=== PATIENT | male | born 1980 | race Caucasian/White ===

== ENCOUNTER 2022-11-04 10:29 | Outpatient (OUT) | payer OTHER, SELFPAY ==
--- NOTE | 2022-11-04 10:55 | XR_ITS ---
The [address] [address] Patient Name: BESSY DIXON MRN: [id number] date: 1980 Sex: M Assigned Patient Location: LAB Current Patient Location: LAB Accession/Order Number: [id number] Exam Date: 11/04/2022 11:00 Report Date: 11/04/2022 15:56 At the request of: ROMY CORONADO Procedure: XR abdomen 1V EXAMINATION: XR abdomen 1V HISTORY: Left flank pain R10.9 COMPARISON: CT abdomen pelvis 12/18/2021, XR KUB 09/20/2020 FINDINGS: KIDNEY/URETER - RIGHT: No visible renal or ureteral calcifications. KIDNEY/URETER - LEFT: No visible renal or ureteral calcifications. PELVIS: No visible ureteral stones. Stable left pelvic calcification compatible with phleboliths. BOWEL: No abnormal dilation or deviation. BONES: No acute abnormality. OTHER: Negative. No abnormal gaseous collections. IMPRESSION: 1. No visible urinary tract calculi. 2. Evaluation of kidneys is limited by dense overlying bowel content. Electronically authenticated by: VENKATA GRIMALDO Date: 11/04/2022 15:56
[2022-11-04 11:05] LABS: Bilirubin Urine NEGATIVE (NEGATIVE); Blood Urine TRACE-I (NEGATIVE); Clarity Urine CLEAR (CLEAR); Color Urine YELLOW (YELLOW); Glucose Urine UA NEGATIVE (NEGATIVE); Ketones Urine NEGATIVE (NEGATIVE); Leukocyte Esterase Urine NEGATIVE (NEGATIVE); Nitrite Urine NEGATIVE (NEGATIVE); Protein Urine NEGATIVE (NEG/TRACE); Specific Gravity Urine 1.015 (1.005-1.025); pH Urine 6.5 (5.0-9.0)
== END 2022-11-04 10:30 | disposition home or self-care (01) ==
PROVIDERS: PCP Family Medicine; Visit Provider Family Medicine
DX: R10.9 Unspecified abdominal pain (principal)
CPT/HCPCS: 74018; 81003; 87086

== ENCOUNTER 2022-11-26 15:20 | Outpatient (OUT) | payer SELFPAY ==
[2022-11-26 15:59] LABS: Amphetamine Screen Urine NEGATIVE (NEGATIVE); Barbiturates Screen Urine NEGATIVE (NEGATIVE); Benzodiazepines Screen Urine NEGATIVE (NEGATIVE); Buprenorphine Screen Urine POSITIVE (NEGATIVE); Cannabinoid Screen Urine NEGATIVE (NEGATIVE); Cocaine Screen Urine NEGATIVE (NEGATIVE); Methadone Screen Urine NEGATIVE (NEGATIVE); Methamphetamines Screen Urine NEGATIVE (NEGATIVE); Opiate Screen Urine NEGATIVE (NEGATIVE); Oxycodone Screen Urine NEGATIVE (NEGATIVE); Phencyclidine Screen Urine NEGATIVE (NEGATIVE); Tricyclic Antidepressant Urine NEGATIVE (NEGATIVE)
[2022-11-27 08:11] LABS: Uric Acid, Urine 30.8 mg/dL (Not Estab.)
[2022-12-03 13:08] LABS: Summary Report (Summary) FINAL (.)
== END 2022-11-26 15:21 | disposition home or self-care (01) ==
LOC: LAB 15:22
PROVIDERS: PCP Family Medicine; Visit Provider Family Medicine
DX: F11.10 Opioid abuse, uncomplicated (principal)
CPT/HCPCS: 80307; 80326; 80331; 80334; 80337; 80338; 80341; 80344; 80346; 80348; 80353; 80354; 80355; 80357; 80358; 80359; 80360; 80361; 80364; 80365; 80366; 80367; 80368; 80370; 80371; 80372; 80373; 80377; 82570; 83992; 84560

== ENCOUNTER 2022-12-17 10:12 | Outpatient (OUT) | payer OTHER, SELFPAY ==
[2022-12-17 10:40] LABS: Amphetamine Screen Urine NEGATIVE (NEGATIVE); Barbiturates Screen Urine NEGATIVE (NEGATIVE); Benzodiazepines Screen Urine NEGATIVE (NEGATIVE); Buprenorphine Screen Urine POSITIVE (NEGATIVE); Cannabinoid Screen Urine NEGATIVE (NEGATIVE); Cocaine Screen Urine NEGATIVE (NEGATIVE); Methadone Screen Urine NEGATIVE (NEGATIVE); Methamphetamines Screen Urine NEGATIVE (NEGATIVE); Opiate Screen Urine NEGATIVE (NEGATIVE); Oxycodone Screen Urine NEGATIVE (NEGATIVE); Phencyclidine Screen Urine NEGATIVE (NEGATIVE); Tricyclic Antidepressant Urine NEGATIVE (NEGATIVE)
[2022-12-18 04:07] LABS: Uric Acid, Urine 53.2 mg/dL (Not Estab.)
[2023-01-19 12:27] LABS: Summary Report (Summary) FINAL (.)
== END 2022-12-17 10:13 | disposition home or self-care (01) ==
LOC: LAB 10:12
PROVIDERS: PCP Family Medicine; Visit Provider Family Medicine
DX: F11.10 Opioid abuse, uncomplicated (principal)
CPT/HCPCS: 80307; 80326; 80331; 80334; 80337; 80338; 80341; 80344; 80346; 80348; 80353; 80354; 80355; 80357; 80358; 80359; 80360; 80361; 80364; 80365; 80366; 80367; 80368; 80370; 80371; 80372; 80373; 80377; 82570; 83992; 84560

== ENCOUNTER 2022-12-18 14:43 | Outpatient (OUT) | payer OTHER, SELFPAY ==
--- NOTE | 2022-12-18 14:45 | US_ITS ---
The [address] [address] Patient Name: BESSY DIXON MRN: [id number] date: 1980 Sex: M Assigned Patient Location: Current Patient Location: Accession/Order Number: [id number] Exam Date: 12/18/2022 14:46 Report Date: 12/19/2022 07:22 At the request of: ROMY CORONADO Procedure: US abdomen complete EXAM: Abdominal ultrasound complete CLINICAL INDICATION: Generalized abdominal pain R10.84. TECHNIQUE: Grayscale and color Doppler imaging was performed of the abdominal organs. FINDINGS: Liver: Normal hepatic echotexture. No hepatomegaly. No abnormal hepatic masses. Portal and hepatic veins are grossly patent. Gallbladder: Cholecystectomy. Biliary: No intrahepatic biliary ductal dilation. Common bile duct measures 6 mm. Kidneys: No hydronephrosis. No renal masses. Right kidney measures 10.6 cm length. Left kidney measures 10.5 cm length. Bilateral echogenic foci along the calyces that likely represent nonobstructing stones, largest of these on the right measures 5 mm and the largest of these on the left measures 6 mm. Spleen: No splenomegaly. No splenic masses. Pancreas: Poorly visualized due to overlying bowel gas. Aorta/IVC: Patent and normal caliber where visualized. No ascites. US/US abdomen complete IMPRESSION: 1. No acute sonographic abnormalities in the abdomen. 2. Bilateral nephrolithiasis. Electronically authenticated by: NEHA DIAZ Date: 12/19/2022 07:22
== END 2022-12-18 14:44 | disposition home or self-care (01) ==
LOC: US 14:43
PROVIDERS: PCP Family Medicine; Visit Provider Family Medicine
DX: R10.84 Generalized abdominal pain (principal); N20.0 Calculus of kidney
CPT/HCPCS: 76700

== ENCOUNTER 2023-01-14 09:34 | Outpatient (OUT) | payer OTHER, SELFPAY ==
[2023-01-14 13:39] LABS: Amphetamine Screen Urine NEGATIVE (NEGATIVE); Benzodiazepines Screen Urine NEGATIVE (NEGATIVE); Cannabinoid Screen Urine NEGATIVE (NEGATIVE); Cocaine Screen Urine NEGATIVE (NEGATIVE); Methamphetamines Screen Urine NEGATIVE (NEGATIVE); Opiate Screen Urine NEGATIVE (NEGATIVE); Phencyclidine Screen Urine NEGATIVE (NEGATIVE); Tricyclic Antidepressant Urine NEGATIVE (NEGATIVE)
[2023-01-14 13:40] LABS: Barbiturates Screen Urine NEGATIVE (NEGATIVE); Buprenorphine Screen Urine POSITIVE (NEGATIVE); Methadone Screen Urine NEGATIVE (NEGATIVE); Oxycodone Screen Urine NEGATIVE (NEGATIVE)
[2023-01-15 08:15] LABS: Uric Acid, Urine 26.9 mg/dL (Not Estab.)
[2023-01-23 16:08] LABS: Summary Report (Summary) FINAL (.)
== END 2023-01-14 09:35 | disposition home or self-care (01) ==
LOC: LAB 09:34
PROVIDERS: PCP Family Medicine; Visit Provider Family Medicine
DX: F11.10 Opioid abuse, uncomplicated (principal)
CPT/HCPCS: 80307; 80326; 80331; 80334; 80337; 80338; 80341; 80344; 80346; 80348; 80353; 80354; 80355; 80357; 80358; 80359; 80360; 80361; 80364; 80365; 80366; 80367; 80368; 80370; 80371; 80372; 80373; 80377; 82570; 83992; 84560

== ENCOUNTER 2023-02-07 13:19 | Outpatient (OUT) | payer OTHER, SELFPAY ==
[2023-02-07 14:36] LABS: Amphetamine Screen Urine NEGATIVE (NEGATIVE); Barbiturates Screen Urine NEGATIVE (NEGATIVE); Benzodiazepines Screen Urine NEGATIVE (NEGATIVE); Buprenorphine Screen Urine POSITIVE (NEGATIVE); Cannabinoid Screen Urine NEGATIVE (NEGATIVE); Cocaine Screen Urine NEGATIVE (NEGATIVE); Methadone Screen Urine NEGATIVE (NEGATIVE); Methamphetamines Screen Urine NEGATIVE (NEGATIVE); Opiate Screen Urine NEGATIVE (NEGATIVE); Oxycodone Screen Urine NEGATIVE (NEGATIVE); Phencyclidine Screen Urine NEGATIVE (NEGATIVE); Tricyclic Antidepressant Urine NEGATIVE (NEGATIVE)
[2023-02-13 10:11] LABS: Summary Report (Summary) FINAL (.)
== END 2023-02-07 13:20 | disposition home or self-care (01) ==
LOC: LAB 13:20
PROVIDERS: PCP Family Medicine; Visit Provider Family Medicine
DX: F11.10 Opioid abuse, uncomplicated (principal)
CPT/HCPCS: 80307; 80326; 80331; 80334; 80337; 80338; 80341; 80344; 80346; 80348; 80353; 80354; 80355; 80357; 80358; 80359; 80360; 80361; 80364; 80365; 80366; 80367; 80368; 80370; 80371; 80372; 80373; 80377; 82570; 83992

== ENCOUNTER 2023-03-02 10:53 | Outpatient (OUT) | payer OTHER, SELFPAY ==
[2023-03-02 11:25] LABS: Amphetamine Screen Urine NEGATIVE (NEGATIVE); Barbiturates Screen Urine NEGATIVE (NEGATIVE); Benzodiazepines Screen Urine NEGATIVE (NEGATIVE); Buprenorphine Screen Urine POSITIVE (NEGATIVE); Cannabinoid Screen Urine NEGATIVE (NEGATIVE); Cocaine Screen Urine NEGATIVE (NEGATIVE); Methadone Screen Urine NEGATIVE (NEGATIVE); Methamphetamines Screen Urine NEGATIVE (NEGATIVE); Opiate Screen Urine NEGATIVE (NEGATIVE); Oxycodone Screen Urine NEGATIVE (NEGATIVE); Phencyclidine Screen Urine NEGATIVE (NEGATIVE); Tricyclic Antidepressant Urine NEGATIVE (NEGATIVE)
[2023-03-09 12:10] LABS: Summary Report (Summary) FINAL (.)
== END 2023-03-02 10:54 | disposition home or self-care (01) ==
LOC: LAB 10:53
PROVIDERS: PCP Family Medicine; Visit Provider Family Medicine
DX: F11.10 Opioid abuse, uncomplicated (principal)
CPT/HCPCS: 80307; 80326; 80331; 80334; 80337; 80338; 80341; 80344; 80346; 80348; 80353; 80354; 80355; 80357; 80358; 80359; 80360; 80361; 80364; 80365; 80366; 80367; 80368; 80370; 80371; 80372; 80373; 80377; 82570; 83992

== ENCOUNTER 2023-04-22 12:17 | Outpatient (OUT) | payer OTHER, SELFPAY ==
[2023-04-22 13:38] LABS: Amphetamine Screen Urine NEGATIVE (NEGATIVE); Barbiturates Screen Urine NEGATIVE (NEGATIVE); Benzodiazepines Screen Urine NEGATIVE (NEGATIVE); Buprenorphine Screen Urine POSITIVE (NEGATIVE); Cannabinoid Screen Urine NEGATIVE (NEGATIVE); Cocaine Screen Urine NEGATIVE (NEGATIVE); Methadone Screen Urine NEGATIVE (NEGATIVE); Methamphetamines Screen Urine NEGATIVE (NEGATIVE); Opiate Screen Urine NEGATIVE (NEGATIVE); Oxycodone Screen Urine NEGATIVE (NEGATIVE); Phencyclidine Screen Urine NEGATIVE (NEGATIVE); Tricyclic Antidepressant Urine NEGATIVE (NEGATIVE)
[2023-04-30 16:08] LABS: Summary Report (Summary) FINAL (.)
== END 2023-04-22 12:18 | disposition home or self-care (01) ==
LOC: LAB 12:18
PROVIDERS: PCP Family Medicine; Visit Provider Family Medicine
DX: F11.10 Opioid abuse, uncomplicated (principal)
CPT/HCPCS: 80307; 80326; 80331; 80334; 80337; 80338; 80341; 80344; 80346; 80348; 80353; 80354; 80355; 80357; 80358; 80359; 80360; 80361; 80364; 80365; 80366; 80367; 80368; 80370; 80371; 80372; 80373; 80377; 82570; 83992

== ENCOUNTER 2023-05-18 10:52 | Outpatient (OUT) | payer OTHER, SELFPAY ==
--- OUTSIDE RECORDS SUMMARY | 2023-05-18 10:57 | XMS_ITS | CCD ---
Author Name Unknown Address [address] [place] [address] Organization [facility] Care Team Providers Care Saas Architect Name Role Phone SHANTI HELLER Attending Unavailable HoyRomy Primary Care Unavailable HOY, ROMY LOPEZ Consulting Unavailable HOY ., DR STANTON Attending Unavailable HOY ., DR STANTON Admitting Unavailable HOY ., DR STANTON Primary Care Unavailable HOY ., DR STANTON Consulting Unavailable HOY ., DR STANTON Attending Unavailable HOY ., DR STANTON Admgerry Unavailable HOY ., DR STANTON Primary Care Unavailable HOY ., DR STANTON Consulting Unavailable HOY ., DR STANTON Consulting Unavailable HOY ., DR STANTON Admgerry Unavailable HOY ., DR STANTON Attending Unavailable HOY ., DR STANTON Primary Care Unavailable HOY ., DR STANTON Admitting Unavailable HOY ., DR STANTON Attending Unavailable HOY ., DR STANTON Primary Care Unavailable HOY ., DR STANTON Consulting Unavailable HOY ., DR STANTON Attending Unavailable HOY ., DR STANTON Admgerry Unavailable HOY ., DR STANTON Primary Care Unavailable HOY ., DR STANTON Admitting Unavailable HOY ., DR STANTON Attending Unavailable HOY ., DR STANTON Primary Care Unavailable HOY ., DR STANTON Consulting Unavailable ZIEBER, DR VENKATA House Consulting Unavailable HOY ., DR STANTON Admgerry Unavailable HOY ., DR STANTON Attending Unavailable HOY ., DR STANTON Primary Care Unavailable HOY ., DR STANTON Consulting Unavailable HOY ., DR STANTON Admitting Unavailable HOY ., DR STANTON Attending Unavailable HOY ., DR STANTON Primary Care Unavailable HOY ., DR STANTON Consulting Unavailable HOY ., DR STANTON Admgerry Unavailable HOY ., DR STANTON Attending Unavailable HOY ., DR STANTON Consulting Unavailable HOY ., DR STANTON Primary Care Unavailable HOY ., DR ROMY Admitting Unavailable HOY ., DR STANTON Primary Care Unavailable HOY ., DR STANTON Attending Unavailable HOY ., DR STANTON Consulting Unavailable HOY ., DR STANTON Attending Unavailable HOY ., DR STANTON Admitting Unavailable HOY ., DR STANTON Primary Care Unavailable HOY ., DR STANTON Consulting Unavailable HOY ., DR STANTON Attending Unavailable HOY ., DR STANTON Admitting Unavailable HOY ., DR STANTON Primary Care Unavailable HOY ., DR STANTON Consulting Unavailable HOY ., DR STANTON Attending Unavailable HOY ., DR STANTON Admitting Unavailable HOY ., DR STANTON Primary Care Unavailable HOY ., DR STANTON Consulting Unavailable Allergies Allergy Classification Reported Allergen(s) Allergy Type Date of Onset Reaction(s) Facility (2 sources) Codeine; Translations: [codeine] Drug Allergy 12-16-2019 [facility] Repository (2 sources) Penicillins Drug allergy (disorder) 12-16-2019 [facility] Repository Problems Active Problems Problem Classification Problem Date Documented Da te Episodic/Chronic Other aftercare (4 sources) Encounter for therapeutic drug level monitoring; [facility]ations[facility] Onset: 07-22-2022 Episodic Substance-related disorders (7 sources) Opioid abuse, uncomplicated; Translations: [Other psychoactive substance abuse, in remission] Onset: 11-05-2021 Chronic Past or Other Problems Problem Classification Problem Date Documented Da te Episodic/Chronic Abdominal pain (1 source) Generalized abdominal pain; Translations: [GENERALIZED ABDOMINAL PAIN] Onset: 12-21-2021 Episodic Intestinal obstruction without hernia (4 sources) Other partial intestinal obstruction; Translations: [OTH PARTIAL INTESTINAL OBSTRUCTION] Onset: 12-18-2021 Episodic Other aftercare (1 source) Other nursing home (current) drug therapy; Translations: [OTH SENIOR BUSINESS MANAGER CURRENT DRUG THERAPY] Onset: 01-31-2022 Episodic Pancreatic disorders (not diabetes) (4 sources) Other acute pancreatitis without necrosis or infection; Translations: [OTH ACUTE PANCREATITIS WO NECRS/INF] Onset: 12-15-2021 Episodic Residual codes; unclassified (1 source) Acquired absence of other specified parts of digestive tract; Translations: [ACQ ABSENCE OTH PART DIGESTV TRACT] Onset: 12-21-2021 Episodic Results Test Name Value Interpretation Reference Range Facil ity RAD - Ultrasound Reporton RAD - Ultrasound Report [id number] 0CD:127 Normal [facility] Physician Referralon 023 Physician Referral [id number] 0CD:127 Normal [facility] Physician Referralon 023 Physician Referral [id number] 0CD:127 Normal [facility] COMPLIANCE DRUG SCREENon PDF . Normal [facility] Comment on above: Performed By: #### U RICBRO #### [facility] [address] [place] [address] Dr. Jose Duffy Summary FINAL Normal [facility] Comment on above: Result Comment: = TOXASSURE COMP DRUG ANALYSIS,UR = Test Result Flag Units Drug Present Buprenorphine 175 ng/mg creat Norbuprenorphine 639 ng/mg creat Source of buprenorphine is a scheduled prescription medication. Norbuprenorphine is an expected metabolite of buprenorphine. Acetaminophen PRESENT Ibuprofen PRESENT Dextrorphan/Levorphanol PRESENT Dextrorphan is an expected metabolite of dextromethorphan, an txkm-owy-qugmukv or prescription cough suppressant. Levorphanol is a scheduled prescription medication. Dextrorphan cannot be distinguished from levorphanol by the method used for analysis. Guaifenesin PRESENT Guaifenesin may be administered as an cqmz-xaa-ezlrdqg or prescription drug; it may also be present as a breakdown product of methocarbamol. = Test Result Flag Units Ref Range Creatinine 111 mg/dL >=20 = Declared Medications: Medication list was not provided. = For clinical consultation, please call . = Performed By: #### U SHEREEN #### [facility] [address] [place] [address] Dr. Jose Duffy URIC ACID RAND URINEon 10-07 Uric Acid, Urine 56.8 mg/dL Normal Not Estab. [facility] Comment on above: Performed By: #### D SDOALC #### [facility] [address] [place] [address] Dr. Jose Duffy DRUG SCREEN RAPID (URINE)on 10-06-2022 AMP Negative Normal NEGATIVE [facility] Comment on above: Performed By: #### U SHEREEN #### [facility] [address] [place] [address] Dr. Jose Duffy BAR Negative Normal NEGATIVE [facility] Comment on above: Performed By: #### U RICBRO #### [facility] [address] [place] [address] Dr. Jose Duffy BUP Positive Abnormal NEGATIVE [facility] Comment on above: Performed By: #### U RICUR #### [facility] [address] [place] [address] Dr. Jose Duffy BZO Negative Normal NEGATIVE [facility] Comment on above: Performed By: #### U RICUR #### [facility] [address] [place] [address] Dr. Jose Duffy RICARDO Negative Normal NEGATIVE [facility] Comment on above: Performed By: #### U RICUR #### [facility] [address] [place] [address] Dr. Jose Duffy CUT-OFFS SEE BELOW Normal [facility] Comment on above: Result Comment: AMP (Amphetamine): 500ng/mL, BAR (Barbituates): 200 ng/mL, BZO (Benzodiazepines): 150 ng/mL, BUP (Buprenorphine): 10 ng/mL, RICARDO (Cocaine): 150 ng/mL, mAMP (Methamphetamine): 500 ng/mL, MTD (Methadone): 200 ng/mL, OPI (Opiates): 100 ng/mL, OXY (Oxycodone): 100 ng/mL, PCP (Phencyclidine): 25 ng/mL, PPX (Propoxyphene): 300 ng/mL, THC (Cannabinoids): 50 ng/mL, TCA (Trycyclic Antidepressants): 300 ng/mL Performed By: #### U RICUR #### [facility] [address] [place] [address] Dr. Jose Duffy DRUG CUT HEADER DRUG CLASS TEST SYST EM CUT-OFF CONCENTRATIONS ARE FOLLOWS: Normal [facility] Comment on above: Performed By: #### U RICUR #### [facility] [address] [place] [address] Dr. Jose Duffy mAMP Positive Abnormal NEGATIVE [facility] Comment on above: Performed By: #### U RICUR #### [facility] [address] [place] [address] Dr. Jose Duffy MTD Negative Normal NEGATIVE [facility] Comment on above: Performed By: #### U RICUR #### [facility] [address] [address] [address] Jose Duffy OPI Negative Normal NEGATIVE [facility] Comment on above: Performed By: #### U RICUR #### [facility] [address] [address] [address] Jose Duffy OXY Negative Normal NEGATIVE [facility] Comment on above: Performed By: #### U RICUR #### [facility] [address] [address] [address] Jose Duffy PCP Negative Normal NEGATIVE [facility] Comment on above: Performed By: #### U RICUR #### [facility] [address] [address] [address] Jose Duffy PPX Negative Normal NEGATIVE [facility] Comment on above: Performed By: #### U RICUR #### [facility] [address] [place] [address] Dr. Jose Duffy TCA Negative Normal NEGATIVE [facility] Comment on above: Performed By: #### U RICUR #### [facility] [address] [address] [address] Jose Duffy THC Negative Normal NEGATIVE [facility] Comment on above: Performed By: #### U RICUR #### [facility] [address] [place] [address] Dr. Jose Duffy COMPLIANCE DRUG SCREENon PDF . [facility] Comment on above: Performed By: #### D SDOALC #### [facility] [address] [place] [address] Dr. Jose Duffy Summary FINAL Normal [facility] Comment on above: Result Comment: = TOXASSURE COMP DRUG ANALYSIS,UR = Test Result Flag Units Drug Present Buprenorphine 234 ng/mg creat Norbuprenorphine 382 ng/mg creat Source of buprenorphine is a scheduled prescription medication. Norbuprenorphine is an expected metabolite of buprenorphine. Acetaminophen PRESENT Salicylate PRESENT = Test Result Flag Units Ref Range Creatinine 161 mg/dL >=20 = Declared Medications: Medication list was not provided. = For clinical consultation, please call . = Performed By: #### D SDOALC #### [facility] [address] [address] [address] Jose Duffy URIC ACID RAND URINEon 08-19 Uric Acid, Urine 21.4 mg/dL Normal Not Estab. [facility] Comment on above: Performed By: #### U RICUR #### [facility] [address] [address] [address] Jose Duffy DRUG SCREEN RAPID (URINE)on 08-18-2022 AMP Negative Normal NEGATIVE [facility] Comment on above: Performed By: #### D SDOALC #### [facility] [address] [place] [address] Dr. Jose Duffy BAR Negative Normal NEGATIVE [facility] Comment on above: Performed By: #### D SDOALC #### [facility] [address] [place] [address] Dr. Jose Duffy BUP Positive Abnormal NEGATIVE [facility] Comment on above: Performed By: #### D SDOALC #### [facility] [address] [place] [address] Dr. Jose Duffy BZO Negative Normal NEGATIVE [facility] Comment on above: Performed By: #### D SDOALC #### [facility] [address] [place] [address] Dr. Jose Duffy RICARDO Negative Normal NEGATIVE [facility] Comment on above: Performed By: #### D SDOALC #### [facility] [address] [place] [address] Dr. Jose Duffy CUT-OFFS SEE BELOW Normal [facility] Comment on above: Result Comment: AMP (Amphetamine): 500ng/mL, BAR (Barbituates): 200 ng/mL, BZO (Benzodiazepines): 150 ng/mL, BUP (Buprenorphine): 10 ng/mL, RICARDO (Cocaine): 150 ng/mL, mAMP (Methamphetamine): 500 ng/mL, MTD (Methadone): 200 ng/mL, OPI (Opiates): 100 ng/mL, OXY (Oxycodone): 100 ng/mL, PCP (Phencyclidine): 25 ng/mL, PPX (Propoxyphene): 300 ng/mL, THC (Cannabinoids): 50 ng/mL, TCA (Trycyclic Antidepressants): 300 ng/mL Performed By: #### D SDOALC #### [facility] [address] [place] [address] Dr. Jose Duffy DRUG CUT HEADER DRUG CLASS TEST SYST EM CUT-OFF CONCENTRATIONS ARE FOLLOWS: Normal [facility] Comment on above: Performed By: #### D SDOALC #### [facility] [address] [address] [address] Jose Duffy mAMP Negative Normal NEGATIVE [facility] Comment on above: Performed By: #### D SDOALC #### [facility] [address] [address] [address] Jose Duffy MTD Negative Normal NEGATIVE [facility] Comment on above: Performed By: #### D SDOALC #### [facility] [address] [address] [address] Jose Duffy OPI Negative Normal NEGATIVE [facility] Comment on above: Performed By: #### D SDOALC #### [facility] [address] [address] [address] Joes Duffy OXY Negative Normal NEGATIVE [facility] Comment on above: Performed By: #### D SDOALC #### [facility] [address] [place] [address] Dr. Jose Duffy PCP Negative Normal NEGATIVE [facility] Comment on above: Performed By: #### D SDOALC #### [facility] [address] [place] [address] Dr. Jose Duffy PPX Negative Normal NEGATIVE [facility] Comment on above: Performed By: #### D SDOALC #### [facility] [address] [address] [address] Jose Duffy TCA Negative Normal NEGATIVE [facility] Comment on above: Performed By: #### D SDOALC #### [facility] [address] [place] [address] Dr. Jose Duffy THC Negative Normal NEGATIVE [facility] Comment on above: Performed By: #### D SDOALC #### [facility] [address] [place] [address] Dr. Jose Duffy COMPLIANCE DRUG SCREENon PDF . Normal [facility] Comment on above: Performed By: #### D RUGRPD #### [facility] [address] [place] [address] Dr. Jose Duffy Summary FINAL Normal [facility] Comment on above: Result Comment: = TOXASSURE COMP DRUG ANALYSIS,UR = Test Result Flag Units Drug Present and Declared for Prescription Verification Buprenorphine 455 EXPECTED ng/mg creat Norbuprenorphine 765 EXPECTED ng/mg creat Source of buprenorphine is a scheduled prescription medication. Norbuprenorphine is an expected metabolite of buprenorphine. Drug Present not Declared for Prescription Verification Acetaminophen PRESENT UNEXPECTED Salicylate PRESENT UNEXPECTED = Test Result Flag Units Ref Range Creatinine 130 mg/dL >=20 = Declared Medications: The flagging and interpretation on this report are based on the following declared medications. Unexpected results may arise from inaccuracies in the declared medications. Note: The testing scope of this panel includes these medications: Buprenorphine. (Suboxone) Note: The testing scope of this panel does not include following reported medications: Naloxone (Suboxone) = For clinical consultation, please call . = Performed By: #### D RUGRPD #### [facility] [address] [place] [address] Dr. Jose Duffy URIC ACID RAND URINEon 07-23 Uric Acid, Urine 21.8 mg/dL Normal Not Estab. [facility] Comment on above: Performed By: #### U RICUR #### [facility] [address] [place] [address] Dr. Jose Duffy DRUG SCREEN RAPID (URINE)on 07-22-2022 AMP Negative Normal NEGATIVE [facility] Comment on above: Performed By: #### U RICUR #### [facility] [address] [place] [address] Dr. Jose Duffy BAR Negative Normal NEGATIVE [facility] Comment on above: Performed By: #### U RICUR #### [facility] [address] [place] [address] Dr. Jose Duffy BUP Positive Abnormal NEGATIVE [facility] Comment on above: Result Comment: Prev iously reported as: NEGATIVE On 07/22/2022 12:02 By [email or web address] Performed By: #### U RICUR #### [facility] [address] [place] [address] Dr. Jose Duffy BZO Negative Normal NEGATIVE [facility] Comment on above: Performed By: #### U RICUR #### [facility] [address] [place] [address] Dr. Jose Duffy RICARDO Negative Normal NEGATIVE [facility] Comment on above: Performed By: #### U RICUR #### [facility] [address] [place] [address] Dr. Jose Duffy CUT-OFFS SEE BELOW Normal [facility] Comment on above: Result Comment: AMP (Amphetamine): 500ng/mL, BAR (Barbituates): 200 ng/mL, BZO (Benzodiazepines): 150 ng/mL, BUP (Buprenorphine): 10 ng/mL, RICARDO (Cocaine): 150 ng/mL, mAMP (Methamphetamine): 500 ng/mL, MTD (Methadone): 200 ng/mL, OPI (Opiates): 100 ng/mL, OXY (Oxycodone): 100 ng/mL, PCP (Phencyclidine): 25 ng/mL, PPX (Propoxyphene): 300 ng/mL, THC (Cannabinoids): 50 ng/mL, TCA (Trycyclic Antidepressants): 300 ng/mL Performed By: #### U RICUR #### [facility] [address] [place] [address] Dr. Jose Duffy DRUG CUT HEADER DRUG CLASS TEST SYST EM CUT-OFF CONCENTRATIONS ARE FOLLOWS: Normal [facility] Comment on above: Performed By: #### U RICUR #### [facility] [address] [place] [address] Dr. Jose Duffy mAMP Negative Normal NEGATIVE [facility] Comment on above: Performed By: #### U RICUR #### [facility] [address] [place] [address] Dr. Jose Duffy MTD Negative Normal NEGATIVE [facility] Comment on above: Performed By: #### U RICUR #### [facility] [address] [place] [address] Dr. Jose Duffy OPI Negative Normal NEGATIVE [facility] Comment on above: Performed By: #### U RICUR #### [facility] [address] [place] [address] Dr. Jose Duffy OXY Negative Normal NEGATIVE [facility] Comment on above: Performed By: #### U RICUR #### [facility] [address] [place] [address] Dr. Jose Duffy PCP Negative Normal NEGATIVE [facility] Comment on above: Performed By: #### U RICUR #### [facility] [address] [place] [address] Dr. Jose Duffy PPX Negative Normal NEGATIVE [facility] Comment on above: Performed By: #### U RICUR #### [facility] [address] [place] [address] Dr. Jose Duffy TCA Negative Normal NEGATIVE [facility] Comment on above: Performed By: #### U RICUR #### [facility] [address] [address] [address] Jose Duffy THC Negative Normal NEGATIVE [facility] Comment on above: Performed By: #### U RICUR #### [facility] [address] [address] [address] Jose Duffy COMPLIANCE DRUG SCREENon PDF . Normal [facility] Comment on above: Performed By: #### D RUGRPD #### [facility] [address] [address] [address] Jose Duffy Summary FINAL Normal [facility] Comment on above: Result Comment: = TOXASSURE COMP DRUG ANALYSIS,UR = Test Result Flag Units Drug Present and Declared for Prescription Verification Buprenorphine 93 EXPECTED ng/mg creat Norbuprenorphine 791 EXPECTED ng/mg creat Source of buprenorphine is a scheduled prescription medication. Norbuprenorphine is an expected metabolite of buprenorphine. Drug Present not Declared for Prescription Verification Acetaminophen PRESENT UNEXPECTED = Test Result Flag Units Ref Range Creatinine 74 mg/dL >=20 = Declared Medications: The flagging and interpretation on this report are based on the following declared medications. Unexpected results may arise from inaccuracies in the declared medications. Note: The testing scope of this panel includes these medications: Buprenorphine. (Suboxone) Note: The testing scope of this panel does not include following reported medications: Naloxone (Suboxone) = For clinical consultation, please call . = Performed By: #### D RUGRPD #### [facility] [address] [place] [address] Dr. Jose Duffy URIC ACID RAND URINEon 06-24 Uric Acid, Urine 33.0 mg/dL Normal Not Estab. [facility] Comment on above: Performed By: #### U RICUR #### [facility] [address] [place] [address] Dr. Jose Duffy DRUG SCREEN RAPID (URINE)on 06-23-2022 AMP Negative Normal NEGATIVE [facility] Comment on above: Performed By: #### D RUGRPD #### [facility] [address] [place] [address] Dr. Jose Duffy BAR Negative Normal NEGATIVE [facility] Comment on above: Performed By: #### D RUGRPD #### [facility] [address] [place] [address] Dr. Jose Duffy BUP Positive Abnormal NEGATIVE [facility] Comment on above: Performed By: #### D RUGRPD #### [facility] [address] [place] [address] Dr. Jose Duffy BZO Negative Normal NEGATIVE [facility] Comment on above: Performed By: #### D RUGRPD #### [facility] [address] [place] [address] Dr. Jose Duffy RICARDO Negative Normal NEGATIVE [facility] Comment on above: Performed By: #### D RUGRPD #### [facility] [address] [place] [address] Dr. Jose Duffy CUT-OFFS SEE BELOW Normal [facility] Comment on above: Result Comment: AMP (Amphetamine): 500ng/mL, BAR (Barbituates): 200 ng/mL, BZO (Benzodiazepines): 150 ng/mL, BUP (Buprenorphine): 10 ng/mL, RICARDO (Cocaine): 150 ng/mL, mAMP (Methamphetamine): 500 ng/mL, MTD (Methadone): 200 ng/mL, OPI (Opiates): 100 ng/mL, OXY (Oxycodone): 100 ng/mL, PCP (Phencyclidine): 25 ng/mL, PPX (Propoxyphene): 300 ng/mL, THC (Cannabinoids): 50 ng/mL, TCA (Trycyclic Antidepressants): 300 ng/mL Performed By: #### D RUGRPD #### [facility] [address] [place] [address] Dr. Jose Duffy DRUG CUT HEADER DRUG CLASS TEST SYST EM CUT-OFF CONCENTRATIONS ARE FOLLOWS: Normal [facility] Comment on above: Performed By: #### D RUGRPD #### [facility] [address] [place] [address] Dr. Jose Duffy mAMP Negative Normal NEGATIVE [facility] Comment on above: Performed By: #### D RUGRPD #### [facility] [address] [place] [address] Dr. Jose Duffy MTD Negative Normal NEGATIVE [facility] Comment on above: Performed By: #### D RUGRPD #### [facility] [address] [place] [address] Dr. Jose Duffy OPI Negative Normal NEGATIVE [facility] Comment on above: Performed By: #### D RUGRPD #### [facility] [address] [address] [address] Jose Duffy OXY Negative Normal NEGATIVE [facility] Comment on above: Performed By: #### D RUGRPD #### [facility] [address] [address] [address] Jose Duffy PCP Negative Normal NEGATIVE [facility] Comment on above: Performed By: #### D RUGRPD #### [facility] [address] [place] [address] Dr. Jose Duffy PPX Negative Normal NEGATIVE [facility] Comment on above: Performed By: #### D RUGRPD #### [facility] [address] [place] [address] Dr. Jose Duffy TCA Negative Normal NEGATIVE [facility] Comment on above: Performed By: #### D RUGRPD #### [facility] [address] [place] [address] Dr. Jose Duffy THC Negative Normal NEGATIVE [facility] Comment on above: Performed By: #### D RUGRPD #### [facility] [address] [place] [address] Dr. Jose Duffy COMPLIANCE DRUG SCREENon PDF . Normal [facility] Comment on above: Performed By: #### U RICUR #### [facility] [address] [place] [address] Dr. Jose Duffy Summary FINAL [facility] Comment on above: Result Comment: = TOXASSURE COMP DRUG ANALYSIS,UR = Test Result Flag Units Drug Present and Declared for Prescription Verification Buprenorphine 199 EXPECTED ng/mg creat Norbuprenorphine 753 EXPECTED ng/mg creat Source of buprenorphine is a scheduled prescription medication. Norbuprenorphine is an expected metabolite of buprenorphine. Drug Present not Declared for Prescription Verification Acetaminophen PRESENT UNEXPECTED = Test Result Flag Units Ref Range Creatinine 70 mg/dL >=20 = Declared Medications: The flagging and interpretation on this report are based on the following declared medications. Unexpected results may arise from inaccuracies in the declared medications. Note: The testing scope of this panel includes these medications: Buprenorphine. (Suboxone) Note: The testing scope of this panel does not include following reported medications: Naloxone (Suboxone) = For clinical consultation, please call . = Performed By: #### U SHEREEN #### [facility] [address] [place] [address] Dr. Jose Duffy URIC ACID RAND URINEon 05-27 Uric Acid, Urine 18.9 mg/dL Normal Not Estab. [facility] Comment on above: Performed By: #### D SDOALC #### [facility] [address] [address] [address] Jose Duffy DRUG SCREEN RAPID (URINE)on 05-26-2022 AMP Negative Normal NEGATIVE [facility] Comment on above: Performed By: #### U RICUR #### [facility] [address] [address] [address] Jose Duffy BAR Negative Normal NEGATIVE [facility] Comment on above: Performed By: #### U RICUR #### [facility] [address] [address] [address] Jose Duffy BUP Positive Abnormal NEGATIVE [facility] Comment on above: Performed By: #### U RICUR #### [facility] [address] [place] [address] Dr. Jose Duffy BZO Negative Normal NEGATIVE [facility] Comment on above: Performed By: #### U RICUR #### [facility] [address] [place] [address] Dr. Jose Duffy RICARDO Negative Normal NEGATIVE [facility] Comment on above: Performed By: #### U RICUR #### [facility] [address] [address] [address] Jose Duffy CUT-OFFS SEE BELOW Normal [facility] Comment on above: Result Comment: AMP (Amphetamine): 500ng/mL, BAR (Barbituates): 200 ng/mL, BZO (Benzodiazepines): 150 ng/mL, BUP (Buprenorphine): 10 ng/mL, RICARDO (Cocaine): 150 ng/mL, mAMP (Methamphetamine): 500 ng/mL, MTD (Methadone): 200 ng/mL, OPI (Opiates): 100 ng/mL, OXY (Oxycodone): 100 ng/mL, PCP (Phencyclidine): 25 ng/mL, PPX (Propoxyphene): 300 ng/mL, THC (Cannabinoids): 50 ng/mL, TCA (Trycyclic Antidepressants): 300 ng/mL Performed By: #### U RICUR #### [facility] [address] [place] [address] Dr. Jose Duffy DRUG CUT HEADER DRUG CLASS TEST SYST EM CUT-OFF CONCENTRATIONS ARE FOLLOWS: Normal [facility] Comment on above: Performed By: #### U RICUR #### [facility] [address] [address] [address] Jose Duffy mAMP Negative Normal NEGATIVE [facility] Comment on above: Performed By: #### U RICUR #### [facility] [address] [place] [address] Dr. Jose Duffy MTD Negative Normal NEGATIVE [facility] Comment on above: Performed By: #### U RICUR #### [facility] [address] [place] [address] Dr. Jose Duffy OPI Negative Normal NEGATIVE [facility] Comment on above: Performed By: #### U RICUR #### [facility] [address] [place] [address] Dr. Jose Duffy OXY Negative Normal NEGATIVE [facility] Comment on above: Performed By: #### U RICUR #### [facility] [address] [place] [address] Dr. Jose Duffy PCP Negative Normal NEGATIVE [facility] Comment on above: Performed By: #### U RICUR #### [facility] [address] [address] [address] Jose Duffy PPX Negative Normal NEGATIVE [facility] Comment on above: Performed By: #### U RICUR #### [facility] [address] [place] [address] Dr. Jose Duffy TCA Negative Normal NEGATIVE [facility] Comment on above: Performed By: #### U RICUR #### [facility] [address] [place] [address] Dr. Jose Duffy THC Negative Normal NEGATIVE [facility] Comment on above: Performed By: #### U RICUR #### [facility] [address] [place] [address] Dr. Jose Duffy In office Testingon 04-29-20 22 In office Testing [id number] 0CD:[id number] Normal [facility] COMPLIANCE DRUG SCREENon PDF . Normal [facility] Comment on above: Performed By: #### D SDOALC #### [facility] [address] [address] [address] Jose Duffy Summary FINAL Normal [facility] Comment on above: Result Comment: = TOXASSURE COMP DRUG ANALYSIS,UR = Test Result Flag Units Drug Present and Declared for Prescription Verification Buprenorphine 231 EXPECTED ng/mg creat Norbuprenorphine 980 EXPECTED ng/mg creat Source of buprenorphine is a scheduled prescription medication. Norbuprenorphine is an expected metabolite of buprenorphine. Drug Present not Declared for Prescription Verification Acetaminophen PRESENT UNEXPECTED Salicylate PRESENT UNEXPECTED = Test Result Flag Units Ref Range Creatinine 91 mg/dL >=20 = Declared Medications: The flagging and interpretation on this report are based on the following declared medications. Unexpected results may arise from inaccuracies in the declared medications. Note: The testing scope of this panel includes these medications: Buprenorphine. (Suboxone) Note: The testing scope of this panel does not include following reported medications: Naloxone (Suboxone) = For clinical consultation, please call . = Performed By: #### D SDOALC #### [facility] [address] [place] [address] Dr. Jose Duffy URIC ACID RAND URINEon 03-16 Uric Acid, Urine 38.6 mg/dL Normal Not Estab. [facility] Comment on above: Performed By: #### U RICUR #### [facility] [address] [place] [address] Dr. Jose Duffy DRUG SCREEN RAPID (URINE)on 03-15-2022 AMP Negative Normal NEGATIVE [facility] Comment on above: Performed By: #### D RUGRPD #### [facility] [address] [place] [address] Dr. Jose Duffy BAR Negative Normal NEGATIVE [facility] Comment on above: Performed By: #### D RUGRPD #### [facility] [address] [place] [address] Dr. Jose Duffy BUP Positive Abnormal NEGATIVE [facility] Comment on above: Performed By: #### D RUGRPD #### [facility] [address] [place] [address] Dr. Jose Duffy BZO Negative Normal NEGATIVE [facility] Comment on above: Performed By: #### D RUGRPD #### [facility] [address] [place] [address] Dr. Jose Duffy RICARDO Negative Normal NEGATIVE [facility] Comment on above: Performed By: #### D RUGRPD #### [facility] [address] [place] [address] Dr. Jose Duffy CUT-OFFS SEE BELOW Normal [facility] Comment on above: Result Comment: AMP (Amphetamine): 500ng/mL, BAR (Barbituates): 200 ng/mL, BZO (Benzodiazepines): 150 ng/mL, BUP (Buprenorphine): 10 ng/mL, RICARDO (Cocaine): 150 ng/mL, mAMP (Methamphetamine): 500 ng/mL, MTD (Methadone): 200 ng/mL, OPI (Opiates): 100 ng/mL, OXY (Oxycodone): 100 ng/mL, PCP (Phencyclidine): 25 ng/mL, PPX (Propoxyphene): 300 ng/mL, THC (Cannabinoids): 50 ng/mL, TCA (Trycyclic Antidepressants): 300 ng/mL Performed By: #### D RUGRPD #### [facility] [address] [place] [address] Dr. Jose Duffy DRUG CUT HEADER DRUG CLASS TEST SYST EM CUT-OFF CONCENTRATIONS ARE FOLLOWS: Normal [facility] Comment on above: Performed By: #### D RUGRPD #### [facility] [address] [place] [address] Dr. Jose Duffy mAMP Negative Normal NEGATIVE [facility] Comment on above: Performed By: #### D RUGRPD #### [facility] [address] [place] [address] Dr. Jose Duffy MTD Negative Normal NEGATIVE [facility] Comment on above: Performed By: #### D RUGRPD #### [facility] [address] [place] [address] Dr. Jose Duffy OPI Negative Normal NEGATIVE [facility] Comment on above: Performed By: #### D RUGRPD #### [facility] [address] [place] [address] Dr. Jose Duffy OXY Negative Normal NEGATIVE [facility] Comment on above: Performed By: #### D RUGRPD #### [facility] [address] [place] [address] Dr. Jose Duffy PCP Negative Normal NEGATIVE [facility] Comment on above: Performed By: #### D RUGRPD #### [facility] [address] [place] [address] Dr. Jose Duffy PPX Negative Normal NEGATIVE [facility] Comment on above: Performed By: #### D RUGRPD #### [facility] [address] [address] [address] Jose Duffy TCA Negative Normal NEGATIVE [facility] Comment on above: Performed By: #### D RUGRPD #### [facility] [address] [address] [address] Jose Duffy THC Negative Normal NEGATIVE [facility] Comment on above: Performed By: #### D RUGRPD #### [facility] [address] [address] [address] Jose Duffy COMPLIANCE DRUG SCREENon PDF . Normal [facility] Comment on above: Performed By: #### D SDOALC #### [facility] [address] [place] [address] Dr. Jose Duffy Summary FINAL Normal [facility] Comment on above: Result Comment: = TOXASSURE COMP DRUG ANALYSIS,UR = Test Result Flag Units Drug Present and Declared for Prescription Verification Buprenorphine 317 EXPECTED ng/mg creat Norbuprenorphine >870 EXPECTED ng/mg creat Source of buprenorphine is a scheduled prescription medication. Norbuprenorphine is an expected metabolite of buprenorphine. Drug Present not Declared for Prescription Verification Acetaminophen PRESENT UNEXPECTED Salicylate PRESENT UNEXPECTED Dextrorphan/Levorphanol PRESENT UNEXPECTED Dextrorphan is an expected metabolite of dextromethorphan, an [id number]-[id number] or prescription cough suppressant. Levorphanol is a scheduled prescription medication. Dextrorphan cannot be distinguished from levorphanol by the method used for analysis. = Test Result Flag Units Ref Range Creatinine 115 mg/dL >=20 = Declared Medications: The flagging and interpretation on this report are based on the following declared medications. Unexpected results may arise from inaccuracies in the declared medications. Note: The testing scope of this panel includes these medications: Buprenorphine. (Suboxone) Note: The testing scope of this panel does not include following reported medications: Naloxone (Suboxone) = For clinical consultation, please call . = Performed By: #### D SDOALC #### [facility] [address] [place], [place] [address] Dr. Jose Duffy URIC ACID RAND URINEon 02-20 Uric Acid, Urine 44.5 mg/dL Normal Not Estab. [facility] Comment on above: Performed By: #### D SDOALC #### [facility] [address] [place], [place] [address] Dr. Jose Duffy DRUG SCREEN RAPID (URINE)on 02-19-2022 AMP Negative Normal NEGATIVE [facility] Comment on above: Performed By: #### D RUGRPD #### [facility] [address] [place] [address] Dr. Jose Duffy BAR Negative Normal NEGATIVE [facility] Comment on above: Performed By: #### D RUGRPD #### [facility] [address] [place] [address] Dr. Jose Duffy BUP Positive Abnormal NEGATIVE [facility] Comment on above: Performed By: #### D RUGRPD #### [facility] [address] [place] [address] Dr. Jose Duffy BZO Negative Normal NEGATIVE [facility] Comment on above: Performed By: #### D RUGRPD #### [facility] [address] [place] [address] Dr. Jose Duffy RICARDO Negative Normal NEGATIVE [facility] Comment on above: Performed By: #### D RUGRPD #### [facility] [address] [place] [address] Dr. Jose Duffy CUT-OFFS SEE BELOW Normal [facility] Comment on above: Result Comment: AMP (Amphetamine): 500ng/mL, BAR (Barbituates): 200 ng/mL, BZO (Benzodiazepines): 150 ng/mL, BUP (Buprenorphine): 10 ng/mL, RICARDO (Cocaine): 150 ng/mL, mAMP (Methamphetamine): 500 ng/mL, MTD (Methadone): 200 ng/mL, OPI (Opiates): 100 ng/mL, OXY (Oxycodone): 100 ng/mL, PCP (Phencyclidine): 25 ng/mL, PPX (Propoxyphene): 300 ng/mL, THC (Cannabinoids): 50 ng/mL, TCA (Trycyclic Antidepressants): 300 ng/mL Performed By: #### D RUGRPD #### [facility] [address] [place] [address] Dr. Jose Duffy DRUG CUT HEADER DRUG CLASS TEST SYST EM CUT-OFF CONCENTRATIONS ARE FOLLOWS: Normal [facility] Comment on above: Performed By: #### D RUGRPD #### [facility] [address] [place] [address] Dr. Jose Duffy mAMP Negative Normal NEGATIVE [facility] Comment on above: Performed By: #### D RUGRPD #### [facility] [address] [place] [address] Dr. Jose Duffy MTD Negative Normal NEGATIVE [facility] Comment on above: Performed By: #### D RUGRPD #### [facility] [address] [place] [address] Dr. Jose Duffy OPI Negative Normal NEGATIVE [facility] Comment on above: Performed By: #### D RUGRPD #### [facility] [address] [place] [address] Dr. Jose Duffy OXY Negative Normal NEGATIVE [facility] Comment on above: Performed By: #### D RUGRPD #### [facility] [address] [place] [address] Dr. Jose Duffy PCP Negative Normal NEGATIVE [facility] Comment on above: Performed By: #### D RUGRPD #### [facility] [address] [place] [address] Dr. Jose Duffy PPX Negative Normal NEGATIVE [facility] Comment on above: Performed By: #### D RUGRPD #### [facility] [address] [place] [address] Dr. Jose Duffy TCA Negative Normal NEGATIVE [facility] Comment on above: Performed By: #### D RUGRPD #### [facility] [address] [place] [address] Dr. Jose Duffy THC Negative Normal NEGATIVE [facility] Comment on above: Performed By: #### D RUGRPD #### [facility] [address] [place] [address] Dr. Jose Duffy COMPLIANCE DRUG SCREENon PDF . Normal [facility] Comment on above: Performed By: #### D SDOALC #### [facility] [address] [place] [address] Dr. Jose Duffy Summary FINAL Normal [facility] Comment on above: Result Comment: = TOXASSURE COMP DRUG ANALYSIS,UR = Test Result Flag Units Drug Present and Declared for Prescription Verification Buprenorphine 200 EXPECTED ng/mg creat Norbuprenorphine 528 EXPECTED ng/mg creat Source of buprenorphine is a scheduled prescription medication. Norbuprenorphine is an expected metabolite of buprenorphine. Drug Present not Declared for Prescription Verification Acetaminophen PRESENT UNEXPECTED Salicylate PRESENT UNEXPECTED = Test Result Flag Units Ref Range Creatinine 89 mg/dL >=20 = Declared Medications: The flagging and interpretation on this report are based on the following declared medications. Unexpected results may arise from inaccuracies in the declared medications. Note: The testing scope of this panel includes these medications: Buprenorphine. (Suboxone) Note: The testing scope of this panel does not include following reported medications: Naloxone (Suboxone) = For clinical consultation, please call . = Performed By: #### D SDOALC #### [facility] [address] [place] [address] Dr. Jose Duffy URIC ACID RAND URINEon 01-28 Uric Acid, Urine 30.0 mg/dL Normal Not Estab. [facility] Comment on above: Performed By: #### U RICUR #### [facility] [address] [place] [address] Dr. Jose Duffy DRUG SCREEN RAPID (URINE)on 01-27-2022 AMP Negative Normal NEGATIVE [facility] Comment on above: Performed By: #### D RUGRPD #### [facility] [address] [place] [address] Dr. Jose Duffy BAR Negative Normal NEGATIVE [facility] Comment on above: Performed By: #### D RUGRPD #### [facility] [address] [place] [address] Dr. Jose Duffy BUP Positive Abnormal NEGATIVE [facility] Comment on above: Performed By: #### D RUGRPD #### [facility] [address] [place] [address] Dr. Jose Duffy BZO Negative Normal NEGATIVE [facility] Comment on above: Performed By: #### D RUGRPD #### [facility] [address] [place] [address] Dr. Jose Duffy RICARDO Negative Normal NEGATIVE [facility] Comment on above: Performed By: #### D RUGRPD #### [facility] [address] [place] [address] Dr. Jose Duffy CUT-OFFS SEE BELOW Normal [facility] Comment on above: Result Comment: AMP (Amphetamine): 500ng/mL, BAR (Barbituates): 200 ng/mL, BZO (Benzodiazepines): 150 ng/mL, BUP (Buprenorphine): 10 ng/mL, RICARDO (Cocaine): 150 ng/mL, mAMP (Methamphetamine): 500 ng/mL, MTD (Methadone): 200 ng/mL, OPI (Opiates): 100 ng/mL, OXY (Oxycodone): 100 ng/mL, PCP (Phencyclidine): 25 ng/mL, PPX (Propoxyphene): 300 ng/mL, THC (Cannabinoids): 50 ng/mL, TCA (Trycyclic Antidepressants): 300 ng/mL Performed By: #### D RUGRPD #### [facility] [address] [place] [address] Dr. Jose Duffy DRUG CUT HEADER DRUG CLASS TEST SYST EM CUT-OFF CONCENTRATIONS ARE FOLLOWS: Normal [facility] Comment on above: Performed By: #### D RUGRPD #### [facility] [address] [place] [address] Dr. Jose Duffy mAMP Negative Normal NEGATIVE [facility] Comment on above: Performed By: #### D RUGRPD #### [facility] [address] [place] [address] Dr. Jose Duffy MTD Negative Normal NEGATIVE [facility] Comment on above: Performed By: #### D RUGRPD #### [facility] [address] [place] [address] Dr. Jose Duffy OPI Negative Normal NEGATIVE [facility] Comment on above: Performed By: #### D RUGRPD #### [facility] [address] [place] [address] Dr. Jose Duffy OXY Negative Normal NEGATIVE [facility] Comment on above: Performed By: #### D RUGRPD #### [facility] [address] [place] [address] Dr. Jose Duffy PCP Negative Normal NEGATIVE [facility] Comment on above: Performed By: #### D RUGRPD #### [facility] [address] [place] [address] Dr. Jose Duffy PPX Negative Normal NEGATIVE [facility] Comment on above: Performed By: #### D RUGRPD #### [facility] [address] [place] [address] Dr. Jose Duffy TCA Negative Normal NEGATIVE [facility] Comment on above: Performed By: #### D RUGRPD #### [facility] [address] [address] [address] Jose Duffy THC Negative Normal NEGATIVE [facility] Comment on above: Performed By: #### D RUGRPD #### [facility] [address] [address] [address] Jose Duffy COMPLIANCE DRUG SCREENon PDF . Normal [facility] Comment on above: Performed By: #### U RICUR #### [facility] [address] [address] [address] Jose Duffy Summary FINAL Normal [facility] Comment on above: Result Comment: = TOXASSURE COMP DRUG ANALYSIS,UR = Test Result Flag Units Drug Present and Declared for Prescription Verification Buprenorphine 118 EXPECTED ng/mg creat Norbuprenorphine 504 EXPECTED ng/mg creat Source of buprenorphine is a scheduled prescription medication. Norbuprenorphine is an expected metabolite of buprenorphine. Drug Present not Declared for Prescription Verification Acetaminophen PRESENT UNEXPECTED = Test Result Flag Units Ref Range Creatinine 94 mg/dL >=20 = Declared Medications: The flagging and interpretation on this report are based on the following declared medications. Unexpected results may arise from inaccuracies in the declared medications. Note: The testing scope of this panel includes these medications: Buprenorphine. (Suboxone) Note: The testing scope of this panel does not include following reported medications: Naloxone (Suboxone) = For clinical consultation, please call . = Performed By: #### U RICUR #### [facility] [address] [place] [address] Dr. Jose Duffy URIC ACID RAND URINEon 01-09 Uric Acid, Urine 25.0 mg/dL Normal Not Estab. [facility] Comment on above: Performed By: #### D RUGRPD #### [facility] [address] [place] [address] Dr. Jose Duffy DRUG SCREEN RAPID (URINE)on 01-08-2022 AMP Negative Normal NEGATIVE [facility] Comment on above: Performed By: #### U RICUR #### [facility] [address] [place] [address] Dr. Jose Duffy BAR Negative Normal NEGATIVE [facility] Comment on above: Performed By: #### U RICUR #### [facility] [address] [place] [address] Dr. Jose Duffy BUP Positive Abnormal NEGATIVE [facility] Comment on above: Performed By: #### U RICUR #### [facility] [address] [place] [address] Dr. Jose Duffy BZO Negative Normal NEGATIVE [facility] Comment on above: Performed By: #### U RICUR #### [facility] [address] [address] [address] Jose Duffy RICARDO Negative Normal NEGATIVE [facility] Comment on above: Performed By: #### U RICUR #### [facility] [address] [address] [address] Jose Duffy CUT-OFFS SEE BELOW Normal [facility] Comment on above: Result Comment: AMP (Amphetamine): 500ng/mL, BAR (Barbituates): 200 ng/mL, BZO (Benzodiazepines): 150 ng/mL, BUP (Buprenorphine): 10 ng/mL, RICARDO (Cocaine): 150 ng/mL, mAMP (Methamphetamine): 500 ng/mL, MTD (Methadone): 200 ng/mL, OPI (Opiates): 100 ng/mL, OXY (Oxycodone): 100 ng/mL, PCP (Phencyclidine): 25 ng/mL, PPX (Propoxyphene): 300 ng/mL, THC (Cannabinoids): 50 ng/mL, TCA (Trycyclic Antidepressants): 300 ng/mL Performed By: #### U RICUR #### [facility] [address] [place] [address] Dr. Jose Duffy DRUG CUT HEADER DRUG CLASS TEST SYST EM CUT-OFF CONCENTRATIONS ARE FOLLOWS: Normal [facility] Comment on above: Performed By: #### U RICUR #### [facility] [address] [place] [address] Dr. Jose Duffy mAMP Negative Normal NEGATIVE [facility] Comment on above: Performed By: #### U RICUR #### [facility] [address] [address] [address] Jose Duffy MTD Negative Normal NEGATIVE [facility] Comment on above: Performed By: #### U RICUR #### [facility] [address] [address] [address] Jose Duffy OPI Negative Normal NEGATIVE [facility] Comment on above: Performed By: #### U RICUR #### [facility] [address] [address] [address] Jose Duffy OXY Negative Normal NEGATIVE [facility] Comment on above: Performed By: #### U RICUR #### [facility] [address] [address] [address] Jose Duffy PCP Negative Normal NEGATIVE [facility] Comment on above: Performed By: #### U RICUR #### [facility] [address] [address] [address] Jose Duffy PPX Negative Normal NEGATIVE [facility] Comment on above: Performed By: #### U RICUR #### [facility] [address] [address] [address] Jose Duffy TCA Negative Normal NEGATIVE [facility] Comment on above: Performed By: #### U RICUR #### [facility] [address] [place] [address] Dr. Jose Duffy THC Negative Normal NEGATIVE [facility] Comment on above: Performed By: #### U RICUR #### [facility] [address] [address] [address] Jose Duffy COMPLIANCE DRUG SCREENon PDF . Normal [facility] Comment on above: Performed By: #### D SDOALC #### [facility] [address] [address] [address] Jose Duffy Summary FINAL Normal [facility] Comment on above: Result Comment: = TOXASSURE COMP DRUG ANALYSIS,UR = Test Result Flag Units Drug Present and Declared for Prescription Verification Buprenorphine 113 EXPECTED ng/mg creat Norbuprenorphine >629 EXPECTED ng/mg creat Source of buprenorphine is a scheduled prescription medication. Norbuprenorphine is an expected metabolite of buprenorphine. Drug Present not Declared for Prescription Verification Acetaminophen PRESENT UNEXPECTED Salicylate PRESENT UNEXPECTED = Test Result Flag Units Ref Range Creatinine 159 mg/dL >=20 = Declared Medications: The flagging and interpretation on this report are based on the following declared medications. Unexpected results may arise from inaccuracies in the declared medications. Note: The testing scope of this panel includes these medications: Buprenorphine. (Suboxone) Note: The testing scope of this panel does not include following reported medications: Naloxone (Suboxone) = For clinical consultation, please call . = Performed By: #### D [facility] #### [facility] [address] [place] [address] ABD/PELV W CONon 12-19-19 CT ABD/PELV W CON EXAMINATION: CT ABD/PELV W CON HISTORY: Partial bowel obstruction COMPARISON: CT abdomen pelvis 09/19/2020 TECHNIQUE: CT images were created with IV contrast. Axial, Coronal, and Sagittal images. Dose reduction techniques were achieved by using automated exposure control and/or adjustment of mA and/or kV according to patient size and/or use of iterative reconstruction technique FINDINGS: LUNG BASES: No visible pulmonary or pleural disease. LIVER: No enlargement, atrophy, abnormal density, or significant focal lesion. BILIARY: Cholecystectomy. PANCREAS: No lesion, fluid collection, ductal dilatation, or atrophy. SPLEEN: No enlargement or focal lesion. ADRENALS: No mass or enlargement. KIDNEYS: Several nonobstructing stones within the kidneys, largest is on left, 5 mm. BOWEL/MESENTERY: No visible mass, obstruction, or bowel wall thickening. A few diverticula involving sigmoid colon. AORTA/VASCULAR: No aneurysm or dissection. RETROPERITONEUM: No mass or adenopathy. ABDOMINAL WALL: No mass or hernia. BONES: No bony lesion or fracture. OTHER: Negative. IMPRESSION: 1. Bilateral nonobstructing nephrolithiasis. 2. No bowel obstruction or suspicious findings of the abdomen and pelvis. Electronically authenticated by: VENKATA GIRMALDO Date: 2021-12-18 15:15 Normal [facility] US SINGLE QUAD RT UPPERon US SINGLE QUAD RT UPPER EXAMINATION: US SINGLE QUAD RT UPPER HISTORY: Partial bowel obstruction , epigastric pain COMPARISON: No relevant comparison available. TECHNIQUE: Transabdominal evaluation of the right upper quadrant. FINDINGS: LIVER: Normal size and echotexture. Color Doppler demonstrates patent hepatic veins. PORTAL VEIN: Duplex Doppler demonstrates normal hepatopetal flow pattern with flow velocity averaging 35 cm/s. GALLBLADDER: Cholecystectomy. BILIARY: No abnormal dilation or stones. Common bile duct diameter is within normal limits. PANCREASE: No visible mass, abnormal atrophy, or duct dilation. KIDNEY: Contains a nonobstructing small stone(s). Size: 10.5 x 7.1 x 5.8 cm IMPRESSION: 1. Nonobstructing right nephrolithiasis. 2. Prior cholecystectomy. Electronically authenticated by: VENKATA GRIMALDO Date: 2021-12-18 15:09 Normal [facility] URIC ACID RAND URINEon 12-16 Uric Acid, Urine 46.2 mg/dL Normal Not Estab. [facility] Comment on above: Performed By: #### D SDOALC #### [facility] [address] [place] [address] Dr. Jose Duffy AMYLASEon 12-15-2021 Amylase [Catalytic activity/Vol] 134 U/L Critically high 25-115 [facility] Comment on above: Performed By: #### D RUGRPD #### [facility] [address] [place] [address] Dr. Jose Duffy CBC AUTO DIFFon 12-15-2021 BASO # 0.1 103/ul Normal 0.0-0.1 [facility] Comment on above: Performed By: #### D RUGRPD #### [facility] [address] [place] [address] Dr. Jose Duffy Basophils/100 WBC (Bld) 0.6 % Normal 0.2-2.0 [facility] Comment on above: Performed By: #### D RUGRPD #### [facility] [address] [place] [address] Dr. Jose Duffy EO # 0.3 103/ul Normal 0.0-0.7 [facility] Comment on above: Performed By: #### D RUGRPD #### [facility] [address] [place] [address] Dr. Jose Duffy Eosinophils/100 WBC (Bld) 3.0 % Normal 0.9-7.0 [facility] Comment on above: Performed By: #### D RUGRPD #### [facility] [address] [place] [address] Dr. Jose Duffy Erythrocyte distribution width (RBC) [Ratio] 13.2 % Normal 11.0-15.0 [facility] Comment on above: Performed By: #### D RUGRPD #### [facility] [address] [place] [address] Dr. Jose Duffy Hematocrit (Bld) [Volume fraction] 42.7 % Normal 42.0-54.0 [facility] Comment on above: Performed By: #### D RUGRPD #### [facility] [address] [place] [address] Dr. Jose Duffy Hemoglobin (Bld) [Mass/Vol] 14.3 g/dL Normal 14.0-18.0 [facility] Comment on above: Performed By: #### D RUGRPD #### [facility] [address] [address] [address] Jose Duffy IG # 0.02 10e3/ul Normal 0.00-0.03 [facility] Comment on above: Performed By: #### D RUGRPD #### [facility] [address] [address] [address] Jose Duffy IG % 0.2 % Normal 0.0-0.5 [facility] Comment on above: Performed By: #### D RUGRPD #### [facility] [address] [address] [address] Jose Duffy LYMPH # 2.3 103/ul Normal 1.2-3.8 [facility] Comment on above: Performed By: #### D RUGRPD #### [facility] [address] [place] [address] Dr. Jose Duffy Lymphocytes/100 WBC (Bld) 20.6 % Normal 20.5-60.0 [facility] Comment on above: Performed By: #### D RUGRPD #### [facility] [address] [place] [address] Dr. Jose Duffy MANUAL DIFF REQ NO Normal [facility] Comment on above: Performed By: #### D RUGRPD #### [facility] [address] [place] [address] Dr. Jose Duffy MCH (RBC) [Entitic mass] 28.7 pg Normal 25.9-34.0 [facility] Comment on above: Performed By: #### D RUGRPD #### [facility] [address] [address] [address] Jose Duffy MCHC (RBC) [Mass/Vol] 33.5 g/dL Normal 29.9-35.2 [facility] Comment on above: Performed By: #### D RUGRPD #### [facility] [address] [address] [address] Jose Duffy MCV (RBC) [Entitic vol] 85.6 fL Normal 80.0-94.0 [facility] Comment on above: Performed By: #### D RUGRPD #### [facility] [address] [address] [address] Jose Duffy MONO # 0.8 103/ul Normal 0.3-0.8 [facility] Comment on above: Performed By: #### D RUGRPD #### [facility] [address] [address] [address] Jose Duffy Monocytes/100 WBC (Bld) 7.5 % Normal 1.7-12.0 [facility] Comment on above: Performed By: #### D RUGRPD #### [facility] [address] [place] [address] Dr. Jose Duffy NEUT # 7.4 103/ul Critically high 1.4-6.5 [facility] Comment on above: Performed By: #### D RUGRPD #### [facility] [address] [place] [address] Dr. Jose Duffy Neutrophils/100 WBC (Bld) 68.1 % Normal 43.0-75.0 [facility] Comment on above: Performed By: #### D RUGRPD #### [facility] [address] [place] [address] Dr. Jose Duffy Platelet mean volume (Bld) [Entitic vol] 9.0 fL Critically low 9.5-13.5 [facility] Comment on above: Performed By: #### D RUGRPD #### [facility] [address] [place] [address] Dr. Jose Duffy PLT 253 103/ul Normal 150-450 [facility] Comment on above: Performed By: #### D RUGRPD #### [facility] [address] [place] [address] Dr. Jose Duffy RBC 4.99 106/ul Normal 4.70-6.10 [facility] Comment on above: Performed By: #### D RUGRPD #### [facility] [address] [place] [address] Dr. Jose Duffy WBC 10.9 103/ul Normal 4.0-11.0 [facility] Comment on above: Performed By: #### D RUGRPD #### [facility] [address] [address] [address] Jose Duffy LIPASEon 12-15-2021 Lipase [Catalytic activity/Vol] 207.0 U/L Normal 73.0-393.0 [facility] Comment on above: Performed By: #### D RUGRPD #### [facility] [address] [place] [address] Dr. Jose Duffy PROF 14(COMP METB)on 022 Albumin [Mass/Vol] 4.3 g/dL Normal 3.4-5.0 [facility] Comment on above: Performed By: #### D RUGRPD #### [facility] [address] [place] [address] Dr. Jose Duffy Albumin/Globulin [Mass ratio] 1.2 {ratio} Normal [facility] Comment on above: Performed By: #### D RUGRPD #### [facility] [address] [place] [address] Dr. Jose Duffy ALP [Catalytic activity/Vol] 68 U/L Normal 46-116 [facility] Comment on above: Performed By: #### D RUGRPD #### [facility] [address] [place] [address] Dr. Jose Duffy ALT [Catalytic activity/Vol] 132 U/L Critically high 16-63 [facility] Comment on above: Performed By: #### D RUGRPD #### [facility] [address] [place] [address] Dr. Jose Duffy Anion gap [Moles/Vol] 12.2 mmol/L Normal [facility] Comment on above: Performed By: #### D RUGRPD #### [facility] [address] [place] [address] Dr. Jose Duffy AST [Catalytic activity/Vol] 83 U/L Critically high 15-37 [facility] Comment on above: Performed By: #### D RUGRPD #### [facility] [address] [place] [address] Dr. Jose Duffy Bilirubin [Mass/Vol] 0.6 mg/dL Normal 0.2-1.0 [facility] Comment on above: Performed By: #### D RUGRPD #### [facility] [address] [address] [address] Jose Duffy Calcium [Mass/Vol] 8.9 mg/dL Normal 8.5-10.1 [facility] Comment on above: Performed By: #### D RUGRPD #### [facility] [address] [address] [address] Jose Duffy Chloride [Moles/Vol] 104 mmol/L Normal 98-107 [facility] Comment on above: Performed By: #### D RUGRPD #### [facility] [address] [address] [address] Jose Duffy CO2 [Moles/Vol] 29.1 mmol/L Normal 21.0-32.0 [facility] Comment on above: Performed By: #### D RUGRPD #### [facility] [address] [address] [address] Jose Duffy Creatinine [Mass/Vol] 0.95 mg/dL Normal 0.70-1.30 [facility] Comment on above: Performed By: #### D RUGRPD #### [facility] [address] [address] [address] Jose Duffy EGFR-AF COLOMBIAN >60 Normal >=60 [facility] Comment on above: Performed By: #### D RUGRPD #### [facility] [address] [address] [address] Jose Duffy EGFR-NON AF COLOMBIAN >60 Normal >=60 [facility] Comment on above: Performed By: #### D RUGRPD #### [facility] [address] [address] [address] Jose Duffy Globulin (S) [Mass/Vol] 3.5 g/dL Normal [facility] Comment on above: Performed By: #### D RUGRPD #### [facility] [address] [address] [address] Jose Duffy Glucose [Mass/Vol] 101 mg/dL Normal 74-106 [facility] Comment on above: Performed By: #### D RUGRPD #### [facility] [address] [address] [address] Jose Duffy Potassium [Moles/Vol] 4.3 mmol/L Normal 3.5-5.1 [facility] Comment on above: Performed By: #### D RUGRPD #### [facility] [address] [place] [address] Dr. Jose Duffy Protein [Mass/Vol] 7.8 g/dL Normal 6.4-8.2 [facility] Comment on above: Performed By: #### D RUGRPD #### [facility] [address] [place] [address] Dr. Jose Duffy Sodium [Moles/Vol] 141 mmol/L Normal 136-145 [facility] Comment on above: Performed By: #### D RUGRPD #### [facility] [address] [place] [address] Dr. Jose Duffy Urea nitrogen [Mass/Vol] 20.0 mg/dL Critically high 7.0-18.0 [facility] Comment on above: Performed By: #### D RUGRPD #### [facility] [address] [place] [address] Dr. Jose Duffy Urea nitrogen/Creatinin e [Mass ratio] 21.1 mg/mg Normal [facility] Comment on above: Performed By: #### D RUGRPD #### [facility] [address] [place] [address] Dr. Jose Duffy COMPLIANCE DRUG SCREENon PDF . Normal [facility] Comment on above: Performed By: #### D SDOALC #### [facility] [address] [place] [address] Dr. Jose Duffy Summary FINAL Normal [facility] Comment on above: Result Comment: = TOXASSURE COMP DRUG ANALYSIS,UR = Test Result Flag Units Drug Present and Declared for Prescription Verification Buprenorphine 159 EXPECTED ng/mg creat Norbuprenorphine 608 EXPECTED ng/mg creat Source of buprenorphine is a scheduled prescription medication. Norbuprenorphine is an expected metabolite of buprenorphine. Drug Present not Declared for Prescription Verification Acetaminophen PRESENT UNEXPECTED Salicylate PRESENT UNEXPECTED = Test Result Flag Units Ref Range Creatinine 120 mg/dL >=20 = Declared Medications: The flagging and interpretation on this report are based on the following declared medications. Unexpected results may arise from inaccuracies in the declared medications. Note: The testing scope of this panel includes these medications: Buprenorphine. (Suboxone) Note: The testing scope of this panel does not include following reported medications: Naloxone (Suboxone) = For clinical consultation, please call . = Performed By: #### D SDOALC #### [facility] [address] [place] [address] Dr. Jose Duffy URIC ACID RAND URINEon 11-04 Uric Acid, Urine 91.5 mg/dL Normal Not Estab. [facility] Comment on above: Performed By: #### U RICUR #### [facility] [address] [place] [address] Dr. Jose Duffy DRUG SCREEN RAPID (URINE)on 11-02-2021 AMP Negative Normal NEGATIVE [facility] Comment on above: Performed By: #### U RICUR #### [facility] [address] [place] [address] Dr. Jose Duffy BAR Negative Normal NEGATIVE [facility] Comment on above: Performed By: #### U RICUR #### [facility] [address] [place] [address] Dr. Jose Duffy BUP Positive Abnormal NEGATIVE [facility] Comment on above: Performed By: #### U RICUR #### [facility] [address] [place] [address] Dr. Jose Duffy BZO Negative Normal NEGATIVE [facility] Comment on above: Performed By: #### U RICUR #### [facility] [address] [place] [address] Dr. Jose Duffy RICARDO Negative Normal NEGATIVE [facility] Comment on above: Performed By: #### U RICUR #### [facility] [address] [place] [address] Dr. Jose Duffy CUT-OFFS SEE BELOW Normal [facility] Comment on above: Result Comment: AMP (Amphetamine): 500ng/mL, BAR (Barbituates): 200 ng/mL, BZO (Benzodiazepines): 150 ng/mL, BUP (Buprenorphine): 10 ng/mL, RICARDO (Cocaine): 150 ng/mL, mAMP (Methamphetamine): 500 ng/mL, MTD (Methadone): 200 ng/mL, OPI (Opiates): 100 ng/mL, OXY (Oxycodone): 100 ng/mL, PCP (Phencyclidine): 25 ng/mL, PPX (Propoxyphene): 300 ng/mL, THC (Cannabinoids): 50 ng/mL, TCA (Trycyclic Antidepressants): 300 ng/mL Performed By: #### U RICUR #### [facility] [address] [place] [address] Dr. Jose Duffy DRUG CUT HEADER DRUG CLASS TEST SYST EM CUT-OFF CONCENTRATIONS ARE FOLLOWS: Normal [facility] Comment on above: Performed By: #### U RICUR #### [facility] [address] [address] [address] Jose Duffy mAMP Negative Normal NEGATIVE [facility] Comment on above: Performed By: #### U RICUR #### [facility] [address] [address] [address] Jose Duffy MTD Negative Normal NEGATIVE [facility] Comment on above: Performed By: #### U RICUR #### [facility] [address] [place] [address] Dr. Jose Duffy OPI Negative Normal NEGATIVE [facility] Comment on above: Performed By: #### U RICUR #### [facility] [address] [address] [address] Jose Duffy OXY Negative Normal NEGATIVE [facility] Comment on above: Performed By: #### U RICUR #### [facility] [address] [place] [address] Dr. Jose Duffy PCP Negative Normal NEGATIVE [facility] Comment on above: Performed By: #### U RICUR #### [facility] [address] [address] [address] Jose Duffy PPX Negative Normal NEGATIVE [facility] Comment on above: Performed By: #### U RICUR #### [facility] [address] [address] [address] Jose Duffy TCA Negative Normal NEGATIVE [facility] Comment on above: Performed By: #### U RICUR #### [facility] [address] [place] [address] Dr. Jose Duffy THC Negative Normal NEGATIVE [facility] Comment on above: Performed By: #### U RICUR #### [facility] [address] [address] [address] Jose Duffy .UA Microscp Aon 12-01-2018 UA Mucus Present Abnormal Absent [facility] Comment on above: Performed By: #### C [id number] #### [address] [address] UA RBC Quant 327 /HPF High 0-5 [facility] Comment on above: Performed By: #### C [id number] #### [address] [address] UA Squepi Cells Quant 1 /HPF Normal 0-29 [facility] Comment on above: Performed By: #### C [id number] #### [address] [address] UA WBC Quant 4 /HPF Normal 0-5 [facility] Comment on above: Performed By: #### C [id number] #### [address] [address] .eGFRon 12-01-2018 eGFR AA >60 Normal >=60 [facility] Comment on above: Result Comment: Resu lt = 0-14.9 mL/min/1.73 m2 Kidney failure or Dialysis Result = 15-29 mL/min/1.73 m2 Severe decrease in GFR Result = 30-59 mL/min/1.73 m2 Moderate decrease in GFR Result >= 60 mL/min/1.73 m2 Normal or increased GFR Performed By: #### E GFR #### [place] [address] eGFR Non-AA >60 Normal >=60 [facility] Comment on above: Result Comment: Resu lt = 0-14.9 mL/min/1.73 m2 Kidney failure or Dialysis Result = 15-29 mL/min/1.73 m2 Severe decrease in GFR Result = 30-59 mL/min/1.73 m2 Moderate decrease in GFR Result >= 60 mL/min/1.73 m2 Normal or increased GFR Chronic kidney disease is defined as either kidney damage or GFR < 60 mL/min/1.73 m2 for >= 3 months. Kidney damage is defined as pathologic abnormalities or markers of damage including abnormalities in blood or urine tests or imaging studies. This GFR is NOT used for medication dosing. Performed By: #### E GFR #### [address] [address] CBC w/ Diffon 12-01-2018 Erythrocyte distribution width (RBC) [Ratio] 14.0 % Normal 11.6-14.8 [facility] Comment on above: Performed By: #### C BC #### [address] [address] Hematocrit (Bld) [Volume fraction] 43.5 % Normal 41.0-53.0 [facility] Comment on above: Performed By: #### C BC #### [address] [address] Hemoglobin (Bld) [Mass/Vol] 14.7 g/dL Normal 13.5-17.5 [facility] Comment on above: Performed By: #### C BC #### [address] [address] MCH (RBC) [Entitic mass] 28.5 pg Normal 27.0-35.0 [facility] Comment on above: Performed By: #### C BC #### [address] [address] MCHC (RBC) [Mass/Vol] 33.8 % Normal 31.0-37.0 [facility] Comment on above: Performed By: #### C BC #### [address] [address] MCV (RBC) [Entitic vol] 84.4 fL Normal 80.0-100.0 [facility] Comment on above: Performed By: #### C BC #### [address] [address] Platelet mean volume (Bld) [Entitic vol] 7.3 fL Normal 6.7-10.6 [facility] Comment on above: Performed By: #### C BC #### [address] [address] Platelets (Bld) [#/Vol] 273 x10*3/mcL Normal 150-350 [facility] Comment on above: Performed By: #### C BC #### [address] [address] RBC (Bld) [#/Vol] 5.16 x10*6/mcL Normal 4.30-5.80 [facility] Comment on above: Performed By: #### C BC #### [address] [address] WBC (Bld) [#/Vol] 11.0 x10*3/mcL Normal 4.5-11.0 [facility] Comment on above: Performed By: #### C BC #### [address] [address] CMPon 12-01-2018 Albumin [Mass/Vol] 4.2 g/dL Normal 3.2-4.9 [facility] Comment on above: Result Comment: [facility] Laboratory updated the methodology used for albumin testing on 12/21/17. Albumin measurement was performed using a bromcresol purple dye-binding assay. Performed By: #### C OMP #### [address] [address] Albumin/Globulin [Mass ratio] 1.3 {ratio} Normal 1.1-2.2 [facility] Comment on above: Performed By: #### C OMP #### [address] [address] Alk Phos 80 IU/L Normal 32-91 [facility] Comment on above: Performed By: #### C OMP #### [address] [address] ALT [Catalytic activity/Vol] 41 U/L Normal 17-63 [facility] Comment on above: Performed By: #### C OMP #### [address] [address] Anion gap [Moles/Vol] 15 mmol/L Normal 7-17 [facility] Comment on above: Performed By: #### C OMP #### [address] [place] [address] AST [Catalytic activity/Vol] 43 U/L High 15-41 [facility] Comment on above: Performed By: #### C OMP #### [address] [address] Bili Total 0.7 mg/dL Normal 0.3-1.2 [facility] Comment on above: Performed By: #### C OMP #### [address] [address] Calcium [Mass/Vol] 9.2 mg/dL Normal 8.5-10.3 [facility] Comment on above: Performed By: #### C OMP #### [address] [address] Chloride [Moles/Vol] 104 mmol/L Normal 98-110 [facility] Comment on above: Performed By: #### C OMP #### [address] [place] [address] CO2 [Moles/Vol] 25 mmol/L Normal 22-32 [facility] Comment on above: Performed By: #### C OMP #### [address] [address] Creatinine [Mass/Vol] 0.98 mg/dL Normal 0.61-1.24 [facility] Comment on above: Performed By: #### C OMP #### [address] [place] [address] Glucose [Mass/Vol] 126 mg/dL High 74-118 [facility] Comment on above: Performed By: #### C OMP #### [address] [address] Potassium [Moles/Vol] 3.7 mmol/L Normal 3.4-4.8 [facility] Comment on above: Performed By: #### C OMP #### [address] [address] Protein [Mass/Vol] 7.4 g/dL Normal 6.5-8.1 [facility] Comment on above: Performed By: #### C OMP #### [address] [address] Sodium [Moles/Vol] 140 mmol/L Normal 133-142 [facility] Comment on above: Performed By: #### C OMP #### [address] [address] Urea nitrogen [Mass/Vol] 19 mg/dL Normal 8-26 [facility] Comment on above: Performed By: #### C OMP #### [address] [address] Urea nitrogen/Creatinin e [Mass ratio] 19.4 mg/mg Normal 10.0-20.0 [facility] Comment on above: Performed By: #### C OMP #### [address] [address] [address] Abd Pelvis w/o IV Cont St one Prot.on 12-01-2018 CT Abd Pelvis w/o IV Cont Stone Prot. Clinical history: Left flank pain TECHNIQUE: 3 mm slice thickness noncontrasted CT of abdomen and pelvis imaged in the axial plane followed by coronal and sagittal reconstruction COMPARISON: No previous FINDINGS: A noncalcified nodule is seen in the left posterior costophrenic sulcus with diameter of 14 mm. A three-month follow-up CT evaluation of the chest is advised to assess stability of the nodule. The liver, spleen and pancreas are unremarkable. There is evidence of cholecystectomy. There is no acute gastric, small bowel or colon abnormality or free air. The kidneys are normal in size and configuration bilaterally with tiny bilateral nonobstructing renal calculi noted. Mild left-sided hydroureter is present. There is a 2 mm mildly obstructing calculus at the left UVJ. The urinary bladder appears unremarkable. Sigmoid diverticulosis is present with no acute diverticulitis IMPRESSION: 1. 2 mm mildly obstructing calculus left UVJ 2. Sigmoid diverticulosis with no acute diverticulitis 3. 14 mm nodule left posterior costophrenic sulcus 4. Three-month follow-up complete CT of the chest advised to assess stability of the nodule Radiation Dose Estimate: CTDI(mGy):0.538404 / / / kVp:120.490318 / mAs:0.249443 / / / DLP(mGy-cm):7.256958Ba dy Part: Abdomen Final Dictated by: Donnell Luther MD Dictated DT/TM: 12.01.2018 8:57 am Signed by: Donnell Luther MD Signed (Electronic Signature): 12.01.2018 9:03 am (If Report Is Signed, Electronically Signed in Other Vendor System) Normal [facility] Diff Autoon 12-01-2018 Baso Absolute 0.0 x10*3/mcL Normal 0.0-0.2 [facility] Comment on above: Performed By: #### . Automated Diff #### [address] [address] Basophils/100 WBC (Bld) 0.3 % Normal 0.0-1.2 [facility] Comment on above: Performed By: #### . Automated Diff #### [address] [address] Eos Absolute 0.3 x10*3/mcL Normal 0.0-0.4 [facility] Comment on above: Performed By: #### . Automated Diff #### [address] [address] Eosinophils/100 WBC (Bld) 2.8 % Normal 0.0-6.1 [facility] Comment on above: Performed By: #### . Automated Diff #### [address] [address] Lymphocytes (Bld) [#/Vol] 3.5 x10*3/mcL Normal 1.0-4.8 [facility] Comment on above: Performed By: #### . Automated Diff #### [address] [address] Lymphocytes/100 WBC (Bld) 32.0 % Normal 27.2-40.8 [facility] Comment on above: Performed By: #### . Automated Diff #### [address] [address] [place] Absolute 0.8 x10*3/mcL Normal 0.3-1.1 [facility] Comment on above: Performed By: #### . Automated Diff #### [place] [id number] Monocytes/100 WBC (Bld) 7.4 % Normal 4.7-13.9 [facility] Comment on above: Performed By: #### . Automated Diff #### [place] [id number] Neutro Absolute 6.3 x10*3/mcL Normal 1.8-7.7 [facility] Comment on above: Performed By: #### . Automated Diff #### [place] [address] Neutro Auto 57.5 % Normal 47.2-70.8 [facility] Comment on above: Performed By: #### . Automated Diff #### [place] [id number] ED Clinical Summaryon 2018 ED Clinical Summary [address] [address] ED Clinical Summary Person Information Name: Bessy Torres/[facility] Age: 38 Years : 1980 Sex: Male PCP: Romy Coronado MD Marital Status: Single Phone: Race: White Ethnicity: Not or Language: Norwegian Visit Reason: Flank pain; Flank pain Acuity: 3 Enc Type: Emergency Med Service: Emergency Medicine Arrival: 12/01/2018 07:25:25 Discharge: 12/01/2018 10:15:00 LOS: 000 02:50 Checkin: 12/01/2018 07:25:25 Checkout: 12/01/2018 10:15:00 Dispo Type: Home or Self Care Address: [address] [place] [address] Provider Notes: History of Present Illness Patient is a 38 year old male who presents to the ED for evaluation of left flank pain onset suddenly this morning. Patient states that the pain radiates from his left lower quadrant to his left flank. Patient complains of nausea and vomiting. Patient denies hematuria,?diarrhea, fever, hematochezia, and constipation.?Patient has a history of pancreatitis and elevated liver enzymes. He admits to previous alcohol use. Patient has no history of kidney stones.?No other complaints at this time. Addendum by Shanti Heller MD on December 01, 2018 10:14:12 EDT Patient was noted to have a lung nodule that was seen on CT scan of the abdomen and pelvis renal stone protocol, patient is a smoker, discuss these findings was the patient and he will follow-up with his PCP as he will need to have CT scan of the chest outpatient as suggested by radiology.?Patient and family voiced understanding and will follow-up as instructed. Review of Systems GENERAL: [Negative for fever, weakness, malaise] EYES: [Negative for injury, pain, redness, discharge] ENT: [Negative for injury, pain , sore throat and discharge] NECK: [Negative for injury, pain, swelling, and stiffness] CARDIOVASCULAR: [Negative for chest pain, palpitations] RESPIRATORY: [Negative for shortness of breath, cough, wheezing, and pleuritic chest pain] ABDOMEN/GI: [Positive for left lower quadrant pain, nausea, vomiting. Negative for diarrhea, hematochezia, constipation] BACK: [Negative for injury or bruising] : [Positive for left flank pain. Negative for injury, bleeding, discharge, frequency, hematuria, urgency] MUSCULOSKELETAL: [Negative for arthralgias, injury and deformity] SKIN: [Negative for injury, rash, discoloration] NEURO: [Negative for focal weakness, numbness, tingling, and seizure] Addendum by Shanti Heller MD on December 01, 2018 10:14:12 EDT Patient was noted to have a lung nodule that was seen on CT scan of the abdomen and pelvis renal stone protocol, patient is a smoker, discuss these findings was the patient and he will follow-up with his PCP as he will need to have CT scan of the chest outpatient as suggested by radiology.?Patient and family voiced understanding and will follow-up as instructed. Physical Exam Constitutional: moderate distress secondary to pain Head/face: exam is negative for obvious evidence of injury or deformity Eyes: Pupils: equal, round, and reactive to light. Sclera: no appreciated abnormality ENT: Exam is negative for injury or acute deformity Neck: External neck: no acute changes, Trachea: is midline with no obvious abnormalities, ROM/movement: no acute changes, Meningeal signs: are not present. Cardiovascular: Rate: normal, Rhythm: regular, Pulses: no pulse deficits are appreciated, Heart sounds: normal, Edema: is not appreciated, JVD: is not appreciated. Respiratory: Exam negative for respiratory distress, Respirations: normal, Breath sounds: are normal, no acute changes, throughout. Abdomen / GI Exam: left lower quadrant tenderness. negative for guarding, pulsatile mass, rebound tenderness, Inspection: abdomen appears normal, Bowel sounds: normal, active, Palpitation: abdomen is soft, Indicators: Shea?s sign is negative, McBurney?s point is non-tender. Back: Left flank tenderness Musculoskeletal/extrem ity: Extremities: all appear grossly normal, with no appreciated pain with palpation, Perfusion: the patient is warm, the extremity is warm. Sensation intact. DVT exam: no swelling no tenderness,Calves: are non-tender. Skin: Exam negative for cyanosis, any evidence of obvious injury, Appearance: appears normal. Neuro: Orientation: is normal, appropriate for stated age, no acute changes, Mentation: able to follow commands, cerebellar function: is grossly normal, no acute changes, Motor: strength is normal, strength is 5/5 in all extremities, Sensation: no obvious gross deficits. Psych: Exam negative for acute changes, delusions, inappropriate behavior Addendum by Shanti Heller MD on December 01, 2018 10:14:12 EDT Patient was noted to have a lung nodule that was seen on CT scan of the abdomen and pelvis renal stone protocol, patient is a smoker, discuss these findings was the patient and he will follow-up with his PCP as he will need to have CT scan of the chest outpatient as suggested by radiology.?Patient and family voiced understanding and will follow-up as instructed. Addendum by Shanti Heller MD on December 01, 2018 10:14:12 EDT Diagnosis: 1:Ureterolithiasis; 2:Renal colic; 3:Lung nodule Problems No Problems Documented Smoking Status: Smoking Status 10 or more cigarettes (1/2 pack or more)/day in last 30 days Functional Status: Sensory Deficits: History of Falls: Mobility Assistance Prior to Admission: ADLs: Current Level of Assistance for Self-Care/Mobility: Cognitive Status: Allergies codeine (Itch) Laboratory or Other Results This Visit (last charted value for your 12/01/2018 visit) Hematology 12/01/2018 7:48 AM WBC: 11.0 x10 RBC: 5.16 x10 Neutro Auto: 57.5 % -- Normal range between ( 47.2 and 70.8 ) Lymph Auto: 32.0 % -- Normal range between ( 27.2 and 40.8 ) Gl[place]ier Auto: 7.4 % -- Normal range between ( 4.7 and 13.9 ) Eos Auto: 2.8 % -- Normal range between ( 0.0 and 6.1 ) Basophil Auto: 0.3 % -- Normal range between ( 0.0 and 1.2 ) Baso Absolute: 0.0 x10 MCV: 84.4 fL -- Normal range between ( 80.0 and 100.0 ) MCHC: 33.8 % -- Normal range between ( 31.0 and 37.0 ) Lymph Absolute: 3.5 x10 Hct: 43.5 % -- Normal range between ( 41.0 and 53.0 ) [place] Absolute: 0.8 x10 MCH: 28.5 pg -- Normal range between ( 27.0 and 35.0 ) Neutro Absolute: 6.3 x10 Hgb: 14.7 g/dL -- Normal range between ( 13.5 and 17.5 ) Mean Platelet Volume: 7.3 fL -- Normal range between ( 6.7 and 10.6 ) Platelet: 273 x10 Eos Absolute: 0.3 x10 RDW: 14.0 % -- Normal range between ( 11.6 and 14.8 ) Urinalysis 12/01/2018 9:28 AM UA Color: Yellow UA Urobilinogen: 0.2 mg/dL UA Bili: Negative UA Ketones: Negative mg/dL UA Leukocyte Esterase: Trace UA Nitrite: Negative UA Glucose: Negative mg/dL UA Protein: Negative mg/dL UA Blood: Large UA Spec Grav: 1.015 -- Normal range between ( 1.003 and 1.035 ) UA pH: 5.0 UA Clarity: Hazy UA Source: Clean Catch UA Mucus: Present /LPF UA WBC Quant: 4 /HPF -- Normal range between ( 0 and 5 ) UA RBC Quant: 327 /HPF -- Normal range between ( 0 and 5 ) UA Squepi Cells Quant: 1 /HPF -- Normal range between ( 0 and 29 ) Chemistry 12/01/2018 7:48 AM Creatinine Lvl: 0.98 mg/dL -- Normal range between ( 0.61 and 1.24 ) BUN: 19 mg/dL -- Normal range between ( 8 and 26 ) Glucose Lvl: 126 mg/dL -- Normal range between ( 74 and 118 ) Potassium Lvl: 3.7 mmol/L -- Normal range between ( 3.4 and 4.8 ) AST: 43 IU/L -- Normal range between ( 15 and 41 ) ALT: 41 IU/L -- Normal range between ( 17 and 63 ) Sodium Lvl: 140 mmol/L -- Normal range between ( 133 and 142 ) Calcium Lvl: 9.2 mg/dL -- Normal range between ( 8.5 and 10.3 ) Albumin Lvl: 4.2 g/dL -- Normal range between ( 3.2 and 4.9 ) Total Protein: 7.4 g/dL -- Normal range between ( 6.5 and 8.1 ) Bili Total: 0.7 mg/dL -- Normal range between ( 0.3 and 1.2 ) Alk Phos: 80 IU/L -- Normal range between ( 32 and 91 ) Chloride: 104 mmol/L -- Normal range between ( 98 and 110 ) CO2: 25 mmol/L -- Normal range between ( 22 and 32 ) Anion Gap: 15 -- Normal range between ( 7 and 17 ) eGFR Non-AA: >60 mL/min/1.73m? eGFR AA: >60 mL/min/1.73m? BUN Crea Ratio: 19.4 -- Normal range between ( 10.0 and 20.0 ) AG Ratio: 1.3 -- Normal range between ( 1.1 and 2.2 ) Computed Tomography 12/01/2018 8:[address] Abd Pelvis w/o IV Cont Stone Prot.: CT Abd Pelvis w/o IV Cont Stone Prot. Measurements: Height: Weight: Blood Pressure: /107 mmHg BMI: Procedures No Procedures Documented Immunizations No Immunizations Documented This Visit Final Med List: New Medications [facility], [address] [place], [place] [id number], [phone] ondansetron (Zofran 4 mg oral tablet) 1 Tabs Oral (given by mouth) every 8 hours as needed as needed for nausea/vomiting. Refills: 0. Last Dose: ___ tamsulosin (Flomax 0.4 mg oral capsule) 1 Capsules Oral (given by mouth) every day for 7 Days. Refills: 0. Last Dose: ___ Printed Prescriptions ciprofloxacin (Cipro 500 mg oral tablet) 1 Tabs Oral (given by mouth) every 12 hours for 7 Days. Refills: 0. Last Dose: ___ hydrocodone-acetaminop hen ([place] 5 mg-325 mg oral tablet) 1 Tabs Oral (given by mouth) every 4 hours as needed for pain for 3 Days. Refills: 0. Last Dose: ___ Medications that have not changed Other Medications buprenorphine-naloxone (buprenorphine-naloxon e 8 mg-2 mg sublingual film) 1 Each Sublingual (dissolve under the tongue) every day. Last Dose: ___ omeprazole (omeprazole 20 mg oral delayed release capsule) 1 Capsules Oral (given by mouth) every day. before a meal. Last Dose: ___ [facility] [facility], [address] [place], [place] [id number], [phone] ondansetron (Zofran 4 mg oral tablet) 1 Tabs Oral (given by mouth) every 8 hours as needed as needed for nausea/vomiting. Refills: 0. tamsulosin (Flomax 0.4 mg oral capsule) 1 Capsules Oral (given by mouth) every day for 7 Days. Refills: 0. Printed Prescriptions ciprofloxacin (Cipro 500 mg oral tablet) 1 Tabs Oral (given by mouth) every 12 hours for 7 Days. Refills: 0. hydrocodone-acetaminop hen ([place] 5 mg-325 mg oral tablet) 1 Tabs Oral (given by mouth) every 4 hours as needed for pain for 3 Days. Refills: 0. Other Medications buprenorphine-naloxone (buprenorphine-naloxon e 8 mg-2 mg sublingual film) 1 Each Sublingual (dissolve under the tongue) every day. omeprazole (omeprazole 20 mg oral delayed release capsule) 1 Capsules Oral (given by mouth) every day. before a meal. Care Team Members: Attending Physician: Shanti Heller MD Consulting Physician: Referring Physician: Provider Role Assigned Unassigned Shanti Heller MD ED Provider 12/01/2018 07:30:16 Josemanuel Reynodls ED Nurse 12/01/2018 08:04:02 Follow up: With: Address: When: Romy Coronado [address] [place] [phone] Business (1) Within 1 to 2 days Discharge Orders: Discharge Patient 12/01/18 9:58:00 EDT, Discharge to Home, Self Discharge Special Instructions [facility] [address] [address]. Discharge Special Instructions If you are unable to make this appointment, please call the office at [phone]. Discharge Special Instructions Please arrive by 8:00AM the next business day for your appointment. Business days are Tuesday through Tuesday. Discharge Special Instructions Please DO NOT EAT or DRINK anything after midnight the night before your appointment. PLEASE DO NOT EAT BREAKFAST. Discharge Special Instructions Please strain your urine as instructed until your appointment at [facility]. Return to Work/School 12/01/18 10:10:00 EDT, 12/02/18 8:00:00 EDT, 12/01/18 10:10:00 EDT Patient Education Information: KIDNEY STONE w/ [facility] Poison Help line: . [facility] Hotline: [place] Tobacco Quit Line: [place], [place]) [address]: [phone] [place], [place]) [address]: [phone] [facility] [address] [place], [place]: [phone] Normal [facility] ED Note-Physicianon 12-02-19 ED Note-Physician Chief Complaint pt to er for c/o abd pain and flank pain History of Present Illness Patient is a 38 year old male who presents to the ED for evaluation of left flank pain onset suddenly this morning. Patient states that the pain radiates from his left lower quadrant to his left flank. Patient complains of nausea and vomiting. Patient denies hematuria, diarrhea, fever, hematochezia, and constipation. Patient has a history of pancreatitis and elevated liver enzymes. He admits to previous alcohol use. Patient has no history of kidney stones. No other complaints at this time. Review of Systems GENERAL: [Negative for fever, weakness, malaise] EYES: [Negative for injury, pain, redness, discharge] ENT: [Negative for injury, pain , sore throat and discharge] NECK: [Negative for injury, pain, swelling, and stiffness] CARDIOVASCULAR: [Negative for chest pain, palpitations] RESPIRATORY: [Negative for shortness of breath, cough, wheezing, and pleuritic chest pain] ABDOMEN/GI: [Positive for left lower quadrant pain, nausea, vomiting. Negative for diarrhea, hematochezia, constipation] BACK: [Negative for injury or bruising] : [Positive for left flank pain. Negative for injury, bleeding, discharge, frequency, hematuria, urgency] MUSCULOSKELETAL: [Negative for arthralgias, injury and deformity] SKIN: [Negative for injury, rash, discoloration] NEURO: [Negative for focal weakness, numbness, tingling, and seizure] Physical Exam Constitutional: moderate distress secondary to pain Head/face: exam is negative for obvious evidence of injury or deformity Eyes: Pupils: equal, round, and reactive to light. Sclera: no appreciated abnormality ENT: Exam is negative for injury or acute deformity Neck: External neck: no acute changes, Trachea: is midline with no obvious abnormalities, ROM/movement: no acute changes, Meningeal signs: are not present. Cardiovascular: Rate: normal, Rhythm: regular, Pulses: no pulse deficits are appreciated, Heart sounds: normal, Edema: is not appreciated, JVD: is not appreciated. Respiratory: Exam negative for respiratory distress, Respirations: normal, Breath sounds: are normal, no acute changes, throughout. Abdomen / GI Exam: left lower quadrant tenderness. negative for guarding, pulsatile mass, rebound tenderness, Inspection: abdomen appears normal, Bowel sounds: normal, active, Palpitation: abdomen is soft, Indicators: Shea?s sign is negative, McBurney?s point is non-tender. Back: Left flank tenderness Musculoskeletal/extrem ity: Extremities: all appear grossly normal, with no appreciated pain with palpation, Perfusion: the patient is warm, the extremity is warm. Sensation intact. DVT exam: no swelling no tenderness,Calves: are non-tender. Skin: Exam negative for cyanosis, any evidence of obvious injury, Appearance: appears normal. Neuro: Orientation: is normal, appropriate for stated age, no acute changes, Mentation: able to follow commands, cerebellar function: is grossly normal, no acute changes, Motor: strength is normal, strength is 5/5 in all extremities, Sensation: no obvious gross deficits. Psych: Exam negative for acute changes, delusions, inappropriate behavior Vitals & Measurements Additional Vitals No qualifying data available. Procedure No qualifying data available. ASA Documentation Medical Decision Making Elif Fox scribing for and in the presence of Dr. Heller. Reexamination/Reevalua tion Scribe Attestation: The information in this document, created by the manager medical device for me, accurately reflects the services I personally performed and the decisions made by me. This report has been created using voice recognition software. It may contain minor errors which are inherent in voice recognition technology. Assessment/Plan This is a [38]-year-old male who presented to the ED for evaluation of [lL] flank pain radiating to the [L] lower quadrant, on presentation to the emergency department patient was noted to be hemodynamically stable, in moderate distress secondary to his pain, [left] flank tenderness on examination as well as [left] lower quadrant tenderness, laboratory studies were reassuring no acute blood loss anemia and, no electrolyte abnormalities, no acute kidney injury, no leukocytosis, afebrile, urine analysis was positive for hematuria and pyuria , CT scan of the abdomen indicated in [2] mm stone at the UVJ junction with mild hydronephrosis, patient's pain was controlled here in the emergency department, he remained hemodynamically stable was discharged to follow-up with urology outpatient. Patient understood the plan of care all of his questions were answered and he was discharged in no acute distress. The results of pertinent diagnostic studies and exam findings were discussed. The patient?s provisional diagnosis and plan of care were discussed with the patient and present family. The patient and/or present family expressed understanding of the diagnosis and plan. The nurse was instructed to provide written instructions and appropriate follow-up information. The patient understands their need and responsibility to obtain additional follow-up as instructed. The risks of medications administered and prescribed were discussed with the patient and family present. Patient was discharged in no acute distress and hemodynamically stable. 1. Ureterolithiasis Ordered: ciprofloxacin, 500 mg, Oral, Tab, Once, First Dose: 12/01/18 9:56:00 EDT, Stop Date: 12/01/18 9:56:00 EDT, STAT, Dispense From Location: [facility], UTI/Pyelonephritis ciprofloxacin, 1 tabs, Oral, q12hr, X 7 days, # 14 tabs, 0 Refill(s), 12/08/18 9:57:00 EDT hydrocodone-acetaminop hen, 1 tabs, Oral, q4hr, PRN, X 3 days, # 18 tabs, 0 Refill(s), 12/04/18 9:52:00 EDT ondansetron, 1 tabs, Oral, q8hr, PRN, # 15 tabs, 0 Refill(s), Pharmacy: [facility] tamsulosin, 1 caps, Oral, Daily, # 7 caps, 0 Refill(s), Pharmacy: [facility] ST 2. Renal colic Ordered: ciprofloxacin, 500 mg, Oral, Tab, Once, First Dose: 12/01/18 9:56:00 EDT, Stop Date: 12/01/18 9:56:00 EDT, STAT, Dispense From Location: [facility], UTI/Pyelonephritis 3. Lung nodule Ordered: ciprofloxacin, 500 mg, Oral, Tab, Once, First Dose: 12/01/18 9:56:00 EDT, Stop Date: 12/01/18 9:56:00 EDT, STAT, Dispense From Location: [facility], UTI/Pyelonephritis Orders: sodium chloride, 10 mL, IV Push, Injection, As Indicated, PRN flush, First Dose: 12/01/18 7:37:00 EDT, Dispense From Location: [facility] Sodium Chloride 0.9% intravenous solution 1,000 mL, 1,000 mL, Soln-IV, IV, 150 mL/hr, Start Date: 12/01/18 7:37:00 EDT, Dispense From Location: ED Discharge Patient Discharge Special Instructions Discharge Special Instructions Discharge Special Instructions Discharge Special Instructions Discharge Special Instructions Referral to Urology Vital Signs Problem List/Past Medical History Ongoing No qualifying data Historical No qualifying data Medications Home No active home medications Inpatient morphine preservative-free, 4 mg, 1 mL, IV Push, Once Normal Saline Flush 0.9% injectable solution, 10 mL, IV Push, As Indicated, PRN NS Bolus, 1000 mL, IV Bolus, Once Sodium Chloride 0.9% intravenous solution 1,000 mL, 1000 mL, IV Toradol, 15 mg, 1 mL, IV Push, Once Zofran, 4 mg, 2 mL, IV Push, Once Prescriptions No active Prescriptions Allergies codeine (Itch) Social History Tobacco 10 or more cigarettes (1/2 pack or more)/day in last 30 days Use:. Diagnostic Results XRay No qualifying data available (XRay) Computerized Tomagraphy No qualifying data available (CT) Ultrasound No qualifying data available (Ultrasound) Magnetic Resonance Imaging No qualifying data available (MRI) Electronically signed by Shanti Heller MD 12/01/18 10:06 EDT Patient was noted to have a lung nodule that was seen on CT scan of the abdomen and pelvis renal stone protocol, patient is a smoker, discuss these findings was the patient and he will follow-up with his PCP as he will need to have CT scan of the chest outpatient as suggested by radiology. Patient and family voiced understanding and will follow-up as instructed. Electronically signed by Shanti Heller MD 12/01/18 10:14 EDT Elif Fox Normal [facility] UA w Culture if Indon 2018 Color (U) Yellow Normal [facility] Comment on above: Performed By: #### U CI #### [address] [place] [address] Glucose (U) [Mass/Vol] Negative Normal Negative [facility] Comment on above: Performed By: #### U CI #### [address] [place] [address] Ketones Ql (U) Negative Normal Negative [facility] Comment on above: Performed By: #### U CI #### [address] [place] [address] UA Blood Large Abnormal Negative [facility] Comment on above: Performed By: #### U CI #### [address] [place] [address] UA Clarity Hazy Normal [facility] Comment on above: Performed By: #### U CI #### [address] [place] [address] UA Leukocyte Esterase Trace Abnormal Negative [facility] Comment on above: Performed By: #### U CI #### [address] [place] [address] UA Nitrite Negative Normal Negative [facility] Comment on above: Performed By: #### U CI #### [address] [place] [address] UA pH 5.0 Normal 4.5 - 7.8 [facility] Comment on above: Performed By: #### U CI #### [address] [place] [address] UA Protein Negative Normal Negative [facility] Comment on above: Performed By: #### U CI #### [address] [address] UA Source Clean Catch Normal [facility] Comment on above: Performed By: #### U CI #### [address] [address] UA Spec Grav 1.015 Normal 1.003-1.035 [facility] Comment on above: Performed By: #### U CI #### [address] [address] UA Urobilinogen 0.2 mg/dL Normal 0.2 - 1.0 [facility] Comment on above: Performed By: #### U CI #### [place] [address] Urobilinogen Qn (U) Negative Normal Negative [facility] Comment on above: Performed By: #### U CI #### [place] [id number] Encounters Encounter Date Encounter Type Care Provider Facility Start: 10-06-2022 End: 10-07-[address] ROMY CORONADO . Facility:[facility] Start: 08-18-2022 End: 08-19-[address] ROMY CORONADO . Facility:[facility] Start: 07-22-2022 End: 07-23-[address] ROMY CORONADO . Facility:[facility] Start: 06-23-2022 End: 06-24-[address] ROMY CORONADO . Facility:[facility] Start: 05-26-2022 End: 05-27-[address] ROMY CORONADO . Facility:[facility] Start: 04-05-[address] ROMY CORONADO . Facili ty:[facility] Start: 03-15-2022 End: 03-16-[address] ROMY CORONADO . Facility:[facility] Start: 02-19-2022 End: 02-20-[address] ROMY CORONADO . Facility:[facility] Start: 01-27-2022 End: 01-28-[address] ROMY CORONADO . Facility:[facility] Start: 01-08-2022 End: 01-09-[address] ROMY CORONADO . Facility:[facility] Start: 12-18-2021 End: 12-19-[address] ROMY CORONADO . Facility:[facility] Start: 12-15-2021 End: 12-16-[address] ROMY CORONADO . Facility:[facility] Start: 11-02-2021 End: 11-03-[address] ROMY CORONADO . Facility:[facility] Start: 12-01-2018 End: 12-01-2018 Emergency department patient visit SHANTI HELLER Facility:[facility] Payers Date Payer Category Payer Unknown 1980 Unknown [id number] 2.16.8 [id number] 1980 Unknown [id number] 2.16.84 [id number] 1981 Unknown [id number] 2.16.84 [id number] 1981 Unknown [id number] 2.16.84 [id number] 1981 Unknown [id number] 2.16.84 0.1.870186.3.579.2.593 1981 Unknown [id number] 2.16.84 [id number] 1981 Unknown [id number] 2.16.84 0.1.553631.3.579.2.593 1981 Unknown [id number] 2.16.84 [id number] 1981 Unknown [id number] 2.16.84 0.1.888247.3.579.2.593 1981 Unknown [id number] 2.16.84 0.1.449714.3.579.2.593 1981 Unknown [id number] 2.16.84 [id number] 1981 Unknown [id number] 2.16.84 0.1.041141.3.579.2.593 1981 Unknown [id number] 2.16.84 [id number] 1981 Unknown [id number] 2.16.84 [id number] 1959 Self-pay [id number] 1959 Unknown [id number] 1958 Unknown [id number] Summary Purpose Family History No Family History Records FoundNo Family History Records FoundNo Family History Records Found Advance Directives No Advanced Directives Records FoundNo Advanced Directives Records FoundNo Advanced Directives Records Found Additional Source Comments (unrecognized sect ion and content) No Status Records FoundNo Status Records FoundNo Status Records Found INFORMATION SOURCE (unrecogn ized section and content) DATE CREATED AUTHOR 12/01/2018 [facility] DATE CREATED AUTHOR AUTHOR'S ORGANIZ ATION 10/22/2022 [facility] DATE CREATED AUTHOR AUTHOR'S ORGANIZ ATION 12/25/2022 [facility] FOR RECORDS PERTAINING TO PATIENTS WHO ARE OR HAVE BEEN ENROLLED IN A CHEMICAL DEPENDENCY/SUBSTANCEABUSE PROGRAM, SOME INFORMATION MAY BE OMITTED. This clinical summary was aggregated from multiple sources. Caution should be exercised in using it in the provision of clinical care. This summary normalizes information from multiple sources, and as a consequence, information in this document may materially change the coding, format and clinical context of patient data. In addition, data may be omitted in some cases. CLINICAL DECISIONS SHOULD BE BASED ON THE PRIMARY CLINICAL RECORDS. [facility] [employer] [facility]. provides no warranty or guarantee of the accuracy or completeness of information in this document.
[2023-05-18 12:38] LABS: Amphetamine Screen Urine NEGATIVE (NEGATIVE); Barbiturates Screen Urine NEGATIVE (NEGATIVE); Benzodiazepines Screen Urine NEGATIVE (NEGATIVE); Buprenorphine Screen Urine POSITIVE (NEGATIVE); Cannabinoid Screen Urine NEGATIVE (NEGATIVE); Cocaine Screen Urine NEGATIVE (NEGATIVE); Methadone Screen Urine NEGATIVE (NEGATIVE); Methamphetamines Screen Urine NEGATIVE (NEGATIVE); Opiate Screen Urine NEGATIVE (NEGATIVE); Oxycodone Screen Urine NEGATIVE (NEGATIVE); Phencyclidine Screen Urine NEGATIVE (NEGATIVE); Tricyclic Antidepressant Urine NEGATIVE (NEGATIVE)
[2023-05-24 21:08] LABS: Summary Report (Summary) FINAL (.)
== END 2023-05-18 10:53 | disposition home or self-care (01) ==
LOC: LAB 10:53
PROVIDERS: PCP Family Medicine; Visit Provider Family Medicine
DX: F11.10 Opioid abuse, uncomplicated (principal)
CPT/HCPCS: 80307; 80326; 80331; 80334; 80337; 80338; 80341; 80344; 80346; 80348; 80353; 80354; 80355; 80357; 80358; 80359; 80360; 80361; 80364; 80365; 80366; 80367; 80368; 80370; 80371; 80372; 80373; 80377; 82570; 83992

== ENCOUNTER 2023-06-07 08:39 | Outpatient (OUT) | payer OTHER, SELFPAY ==
--- OUTSIDE RECORDS SUMMARY | 2023-06-07 08:41 | XMS_ITS | CCD ---
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 Role Phone SHANTI HELLER Attending Unavailable [...] sources) Codeine; Translations: [codeine] Drug Allergy 12-16-2019 [facility] Repository (2 sources) Penicillins Drug allergy (disorder) 12-16-2019 [facility] Repository Problems Active Problems Problem Classification Problem Date Documented Da te Episodic/Chronic Other aftercare (4 sources) Encounter for therapeutic drug level monitoring; Translations: [facility]] Onset: 07-22-2022 Episodic Substance-related [...] 12-18-2021 Episodic Other aftercare (1 source) Other terminal press operator (current) drug therapy; Translations: [[facility] CURRENT DRUG THERAPY] Onset: 01-31-2022 Episodic Pancreatic [...] - Ultrasound Reporton RAD - Ultrasound Report [id number] 0CD:127 Normal [facility] Physician Referralon 023 Physician Referral [id number] 0CD:127 Normal [facility] Physician Referralon 023 Physician Referral [id number] 0CD:127 Normal [facility] COMPLIANCE DRUG SCREENon PDF . Normal [facility] Comment on above: Performed By: #### U RICBRO #### [facility] [address] [place] [address] Dr. Jose Duffy Summary FINAL Normal [facility] Comment on above: Result Comment: = TOXASSURE COMP DRUG ANALYSIS,UR = Test Result Flag Units Drug Present Buprenorphine 175 ng/mg creat Norbuprenorphine 639 ng/mg creat Source of buprenorphine is a scheduled prescription medication. Norbuprenorphine is an expected metabolite of buprenorphine. Acetaminophen PRESENT Ibuprofen PRESENT Dextrorphan/Levorphanol PRESENT Dextrorphan is an expected metabolite of dextromethorphan, an jwoh-eek-jpxwsjy or prescription cough suppressant. Levorphanol is a scheduled prescription medication. Dextrorphan cannot be distinguished from levorphanol by the method used for analysis. Guaifenesin PRESENT Guaifenesin may be administered as an aifv-jge-pftdgms or prescription drug; it may also be present as a breakdown product of methocarbamol. = Test Result Flag Units Ref Range Creatinine 111 mg/dL >=20 = Declared Medications: Medication list was not provided. = For clinical consultation, please call . = Performed By: #### U SHEREEN #### [facility] [address] [place] [address] Dr. Jose Duffy URIC ACID RAND URINEon 10-07 Uric Acid, Urine 56.8 mg/dL Normal Not Estab. [facility] Comment on above: Performed By: #### D SDOALC #### [facility] [address] [place] [address] Dr. Jose Duffy DRUG SCREEN RAPID (URINE)on 10-06-2022 AMP Negative Normal NEGATIVE [facility] Comment on above: Performed By: #### U SHEREEN #### [facility] [address] [place] [address] Dr. Jose Duffy BAR Negative Normal NEGATIVE [facility] Comment on above: Performed By: #### U RICBRO #### [facility] [address] [place] [address] Dr. Jose Duffy BUP Positive Abnormal NEGATIVE [facility] Comment on above: Performed By: #### U RICUR #### [facility] [address] [place] [address] Dr. Jose Duffy BZO Negative Normal NEGATIVE [facility] Comment on above: Performed By: #### U RICUR #### [facility] [address] [place] [address] Dr. Jose Duffy RICARDO Negative Normal NEGATIVE [facility] Comment on above: Performed By: #### U RICUR #### [facility] [address] [place] [address] Dr. Jose Duffy CUT-OFFS SEE BELOW Normal [facility] Comment on above: Result Comment: AMP [...] ng/mL Performed By: #### U RICUR #### [facility] [address] [place] [address] Dr. Jose Dfufy DRUG CUT HEADER DRUG CLASS TEST SYST EM CUT-OFF CONCENTRATIONS ARE FOLLOWS: Normal [facility] Comment on above: Performed By: #### U RICUR #### [facility] [address] [place] [address] Dr. Jose Duffy mAMP Positive Abnormal NEGATIVE [facility] Comment on above: Performed By: #### U RICUR #### [facility] [address] [place] [address] Dr. Jose Duffy MTD Negative Normal NEGATIVE [facility] Comment on above: Performed By: #### U RICUR #### [facility] [address] [address] [address] Jose Duffy OPI Negative Normal NEGATIVE [facility] Comment on above: Performed By: #### U RICUR #### [facility] [address] [address] [address] Jose Duffy OXY Negative Normal NEGATIVE [facility] Comment on above: Performed By: #### U RICUR #### [facility] [address] [address] [address] Jose Duffy PCP Negative Normal NEGATIVE [facility] Comment on above: Performed By: #### U RICUR #### [facility] [address] [address] [address] oJse Duffy PPX Negative Normal NEGATIVE [facility] Comment on above: Performed By: #### U RICUR #### [facility] [address] [place] [address] Dr. Jose Duffy TCA Negative Normal NEGATIVE [facility] Comment on above: Performed By: #### U RICUR #### [facility] [address] [address] [address] Jose Duffy THC Negative Normal NEGATIVE [facility] Comment on above: Performed By: #### U RICUR #### [facility] [address] [place] [address] Dr. Jose Duffy COMPLIANCE DRUG SCREENon PDF . [facility] Comment on above: Performed By: #### D SDOALC #### [facility] [address] [place] [address] Dr. Jose Duffy Summary FINAL Normal [facility] Comment on above: Result Comment: = [...] = Performed By: #### D SDOALC #### [facility] [address] [address] [address] Jose Duffy URIC ACID RAND URINEon 08-19 Uric Acid, Urine 21.4 mg/dL Normal Not Estab. [facility] Comment on above: Performed By: #### U RICUR #### [facility] [address] [address] [address] Jose Duffy DRUG SCREEN RAPID (URINE)on 08-18-2022 AMP Negative Normal NEGATIVE [facility] Comment on above: Performed By: #### D SDOALC #### [facility] [address] [place] [address] Dr. Jose Duffy BAR Negative Normal NEGATIVE [facility] Comment on above: Performed By: #### D SDOALC #### [facility] [address] [place] [address] Dr. Jose Duffy BUP Positive Abnormal NEGATIVE [facility] Comment on above: Performed By: #### D SDOALC #### [facility] [address] [place] [address] Dr. Jose Duffy BZO Negative Normal NEGATIVE [facility] Comment on above: Performed By: #### D SDOALC #### [facility] [address] [place] [address] Dr. Jose Duffy RICARDO Negative Normal NEGATIVE [facility] Comment on above: Performed By: #### D SDOALC #### [facility] [address] [place] [address] Dr. Jose Duffy CUT-OFFS SEE BELOW Normal [facility] Comment on above: Result Comment: AMP [...] ng/mL Performed By: #### D SDOALC #### [facility] [address] [place] [address] Dr. Jose Duffy DRUG CUT HEADER DRUG CLASS TEST SYST EM CUT-OFF CONCENTRATIONS ARE FOLLOWS: Normal [facility] Comment on above: Performed By: #### D SDOALC #### [facility] [address] [address] [address] Jose Duffy mAMP Negative Normal NEGATIVE [facility] Comment on above: Performed By: #### D SDOALC #### [facility] [address] [address] [address] Jose Duffy MTD Negative Normal NEGATIVE [facility] Comment on above: Performed By: #### D SDOALC #### [facility] [address] [address] [address] Jose Duffy OPI Negative Normal NEGATIVE [facility] Comment on above: Performed By: #### D SDOALC #### [facility] [address] [address] [address] Jose Duffy OXY Negative Normal NEGATIVE [facility] Comment on above: Performed By: #### D SDOALC #### [facility] [address] [place] [address] Dr. Jose Duffy PCP Negative Normal NEGATIVE [facility] Comment on above: Performed By: #### D SDOALC #### [facility] [address] [place] [address] Dr. Jose Duffy PPX Negative Normal NEGATIVE [facility] Comment on above: Performed By: #### D SDOALC #### [facility] [address] [address] [address] Jose Duffy TCA Negative Normal NEGATIVE [facility] Comment on above: Performed By: #### D SDOALC #### [facility] [address] [place] [address] Dr. Jose Duffy THC Negative Normal NEGATIVE [facility] Comment on above: Performed By: #### D SDOALC #### [facility] [address] [place] [address] Dr. Jose Duffy COMPLIANCE DRUG SCREENon PDF . Normal [facility] Comment on above: Performed By: #### D RUGRPD #### [facility] [address] [place] [address] Dr. Jose Duffy Summary FINAL Normal [facility] Comment on above: Result Comment: = [...] = Performed By: #### D RUGRPD #### [facility] [address] [place] [address] Dr. Jose Duffy URIC ACID RAND URINEon 07-23 Uric Acid, Urine 21.8 mg/dL Normal Not Estab. [facility] Comment on above: Performed By: #### U RICUR #### [facility] [address] [place] [address] Dr. Jose Duffy DRUG SCREEN RAPID (URINE)on 07-22-2022 AMP Negative Normal NEGATIVE [facility] Comment on above: Performed By: #### U RICUR #### [facility] [address] [place] [address] Dr. Jose Duffy BAR Negative Normal NEGATIVE [facility] Comment on above: Performed By: #### U RICUR #### [facility] [address] [place] [address] Dr. Jose Duffy BUP Positive Abnormal NEGATIVE [facility] Comment on above: Result Comment: Prev iously reported as: NEGATIVE On 07/22/2022 12:02 By [email or web address] Performed By: #### U RICUR #### [facility] [address] [place] [address] Dr. Jose Duffy BZO Negative Normal NEGATIVE [facility] Comment on above: Performed By: #### U RICUR #### [facility] [address] [place] [address] Dr. Jose Duffy RICARDO Negative Normal NEGATIVE [facility] Comment on above: Performed By: #### U RICUR #### [facility] [address] [place] [address] Dr. Jose Duffy CUT-OFFS SEE BELOW Normal [facility] Comment on above: Result Comment: AMP [...] ng/mL Performed By: #### U RICUR #### [facility] [address] [place] [address] Dr. Jose Duffy DRUG CUT HEADER DRUG CLASS TEST SYST EM CUT-OFF CONCENTRATIONS ARE FOLLOWS: Normal [facility] Comment on above: Performed By: #### U RICUR #### [facility] [address] [place] [address] Dr. Jose Duffy mAMP Negative Normal NEGATIVE [facility] Comment on above: Performed By: #### U RICUR #### [facility] [address] [place] [address] Dr. Jose Duffy MTD Negative Normal NEGATIVE [facility] Comment on above: Performed By: #### U RICUR #### [facility] [address] [place] [address] Dr. Jose Duffy OPI Negative Normal NEGATIVE [facility] Comment on above: Performed By: #### U RICUR #### [facility] [address] [place] [address] Dr. Jose Duffy OXY Negative Normal NEGATIVE [facility] Comment on above: Performed By: #### U RICUR #### [facility] [address] [place] [address] Dr. Jose Duffy PCP Negative Normal NEGATIVE [facility] Comment on above: Performed By: #### U RICUR #### [facility] [address] [place] [address] Dr. Jose Duffy PPX Negative Normal NEGATIVE [facility] Comment on above: Performed By: #### U RICUR #### [facility] [address] [place] [address] Dr. Jose Duffy TCA Negative Normal NEGATIVE [facility] Comment on above: Performed By: #### U RICUR #### [facility] [address] [address] [address] Jose Duffy THC Negative Normal NEGATIVE [facility] Comment on above: Performed By: #### U RICUR #### [facility] [address] [address] [address] Jose Duffy COMPLIANCE DRUG SCREENon PDF . Normal [facility] Comment on above: Performed By: #### D RUGRPD #### [facility] [address] [address] [address] Jose Duffy Summary FINAL Normal [facility] Comment on above: Result Comment: = [...] = Performed By: #### D RUGRPD #### [facility] [address] [place] [address] Dr. Jose Duffy URIC ACID RAND URINEon 06-24 Uric Acid, Urine 33.0 mg/dL Normal Not Estab. [facility] Comment on above: Performed By: #### U RICUR #### [facility] [address] [place] [address] Dr. Jose Duffy DRUG SCREEN RAPID (URINE)on 06-23-2022 AMP Negative Normal NEGATIVE [facility] Comment on above: Performed By: #### D RUGRPD #### [facility] [address] [place] [address] Dr. Jose Duffy BAR Negative Normal NEGATIVE [facility] Comment on above: Performed By: #### D RUGRPD #### [facility] [address] [place] [address] Dr. Jose Duffy BUP Positive Abnormal NEGATIVE [facility] Comment on above: Performed By: #### D RUGRPD #### [facility] [address] [place] [address] Dr. Jose Duffy BZO Negative Normal NEGATIVE [facility] Comment on above: Performed By: #### D RUGRPD #### [facility] [address] [place] [address] Dr. Jose Duffy RICARDO Negative Normal NEGATIVE [facility] Comment on above: Performed By: #### D RUGRPD #### [facility] [address] [place] [address] Dr. Jose Duffy CUT-OFFS SEE BELOW Normal [facility] Comment on above: Result Comment: AMP [...] ng/mL Performed By: #### D RUGRPD #### [facility] [address] [place] [address] Dr. Jose Duffy DRUG CUT HEADER DRUG CLASS TEST SYST EM CUT-OFF CONCENTRATIONS ARE FOLLOWS: Normal [facility] Comment on above: Performed By: #### D RUGRPD #### [facility] [address] [place] [address] Dr. Jose Duffy mAMP Negative Normal NEGATIVE [facility] Comment on above: Performed By: #### D RUGRPD #### [facility] [address] [place] [address] Dr. Jose Duffy MTD Negative Normal NEGATIVE [facility] Comment on above: Performed By: #### D RUGRPD #### [facility] [address] [place] [address] Dr. Jose Duffy OPI Negative Normal NEGATIVE [facility] Comment on above: Performed By: #### D RUGRPD #### [facility] [address] [address] [address] Jose Duffy OXY Negative Normal NEGATIVE [facility] Comment on above: Performed By: #### D RUGRPD #### [facility] [address] [address] [address] Jose Duffy PCP Negative Normal NEGATIVE [facility] Comment on above: Performed By: #### D RUGRPD #### [facility] [address] [place] [address] Dr. Jose Duffy PPX Negative Normal NEGATIVE [facility] Comment on above: Performed By: #### D RUGRPD #### [facility] [address] [place] [address] Dr. Jose Duffy TCA Negative Normal NEGATIVE [facility] Comment on above: Performed By: #### D RUGRPD #### [facility] [address] [place] [address] Dr. Jose Duffy THC Negative Normal NEGATIVE [facility] Comment on above: Performed By: #### D RUGRPD #### [facility] [address] [place] [address] Dr. Jose Duffy COMPLIANCE DRUG SCREENon PDF . Normal [facility] Comment on above: Performed By: #### U RICUR #### [facility] [address] [place] [address] Dr. Jose Duffy Summary FINAL [facility] Comment on above: Result Comment: = [...] = Performed By: #### U SHEREEN #### [facility] [address] [place] [address] Dr. Jose Duffy URIC ACID RAND URINEon 05-27 Uric Acid, Urine 18.9 mg/dL Normal Not Estab. [facility] Comment on above: Performed By: #### D SDOALC #### [facility] [address] [address] [address] Jose Duffy DRUG SCREEN RAPID (URINE)on 05-26-2022 AMP Negative Normal NEGATIVE [facility] Comment on above: Performed By: #### U RICUR #### [facility] [address] [address] [address] Jose Duffy BAR Negative Normal NEGATIVE [facility] Comment on above: Performed By: #### U RICUR #### [facility] [address] [address] [address] Jose Duffy BUP Positive Abnormal NEGATIVE [facility] Comment on above: Performed By: #### U RICUR #### [facility] [address] [place] [address] Dr. Jose Duffy BZO Negative Normal NEGATIVE [facility] Comment on above: Performed By: #### U RICUR #### [facility] [address] [place] [address] Dr. Jose Duffy RICARDO Negative Normal NEGATIVE [facility] Comment on above: Performed By: #### U RICUR #### [facility] [address] [address] [address] Jose Duffy CUT-OFFS SEE BELOW Normal [facility] Comment on above: Result Comment: AMP (Amphetamine): 500ng/mL, BAR (Barbituates): 200 ng/mL, BZO (Benzodiazepines): 150 ng/mL, BUP (Buprenorphine): 10 ng/mL, RICARDO (Cocaine): 150 ng/mL, mAMP (Methamphetamine): 500 ng/mL, MTD (Methadone): 200 ng/mL, OPI (Opiates): 100 ng/mL, OXY (Oxycodone): 100 ng/mL, PCP (Phencyclidine): 25 ng/mL, PPX (Propoxyphene): 300 ng/mL, THC (Cannabinoids): 50 ng/mL, TCA (Trycyclic Antidepressants): 300 ng/mL Performed By: #### U RICUR #### [facility] [address] [place] [address] Dr. Jose Duffy DRUG CUT HEADER DRUG CLASS TEST SYST EM CUT-OFF CONCENTRATIONS ARE FOLLOWS: Normal [facility] Comment on above: Performed By: #### U RICUR #### [facility] [address] [address] [address] Jose Duffy mAMP Negative Normal NEGATIVE [facility] Comment on above: Performed By: #### U RICUR #### [facility] [address] [place] [address] Dr. Jose Duffy MTD Negative Normal NEGATIVE [facility] Comment on above: Performed By: #### U RICUR #### [facility] [address] [place] [address] Dr. Jose Duffy OPI Negative Normal NEGATIVE [facility] Comment on above: Performed By: #### U RICUR #### [facility] [address] [place] [address] Dr. Jose Duffy OXY Negative Normal NEGATIVE [facility] Comment on above: Performed By: #### U RICUR #### [facility] [address] [place] [address] Dr. Jose Duffy PCP Negative Normal NEGATIVE [facility] Comment on above: Performed By: #### U RICUR #### [facility] [address] [address] [address] Jose Duffy PPX Negative Normal NEGATIVE [facility] Comment on above: Performed By: #### U RICUR #### [facility] [address] [place] [address] Dr. Jose Duffy TCA Negative Normal NEGATIVE [facility] Comment on above: Performed By: #### U RICUR #### [facility] [address] [place] [address] Dr. Jose Duffy THC Negative Normal NEGATIVE [facility] Comment on above: Performed By: #### U RICUR #### [facility] [address] [place] [address] Dr. Jose Duffy In office Testingon 04-29-20 22 In office Testing [id number] 0CD:127 Normal [facility] COMPLIANCE DRUG SCREENon PDF . Normal [facility] Comment on above: Performed By: #### D SDOALC #### [facility] [address] [address] [address] Jose Duffy Summary FINAL Normal [facility] Comment on above: Result Comment: = TOXASSURE [...] = Performed By: #### D SDOALC #### [facility] [address] [place] [address] Dr. Jose Duffy URIC ACID RAND URINEon 03-16 Uric Acid, Urine 38.6 mg/dL Normal Not Estab. [facility] Comment on above: Performed By: #### U RICUR #### [facility] [address] [place] [address] Dr. Jose Duffy DRUG SCREEN RAPID (URINE)on 03-15-2022 AMP Negative Normal NEGATIVE [facility] Comment on above: Performed By: #### D RUGRPD #### [facility] [address] [place] [address] Dr. Jose Duffy BAR Negative Normal NEGATIVE [facility] Comment on above: Performed By: #### D RUGRPD #### [facility] [address] [place] [address] Dr. Jose Duffy BUP Positive Abnormal NEGATIVE [facility] Comment on above: Performed By: #### D RUGRPD #### [facility] [address] [place] [address] Dr. Jose Duffy BZO Negative Normal NEGATIVE [facility] Comment on above: Performed By: #### D RUGRPD #### [facility] [address] [place] [address] Dr. Jose Duffy RICARDO Negative Normal NEGATIVE [facility] Comment on above: Performed By: #### D RUGRPD #### [facility] [address] [place] [address] Dr. Jose Duffy CUT-OFFS SEE BELOW Normal [facility] Comment on above: Result Comment: AMP [...] ng/mL Performed By: #### D RUGRPD #### [facility] [address] [place] [address] Dr. Jose Duffy DRUG CUT HEADER DRUG CLASS TEST SYST EM CUT-OFF CONCENTRATIONS ARE FOLLOWS: Normal [facility] Comment on above: Performed By: #### D RUGRPD #### [facility] [address] [place] [address] Dr. Jose Duffy mAMP Negative Normal NEGATIVE [facility] Comment on above: Performed By: #### D RUGRPD #### [facility] [address] [place] [address] Dr. Jose Duffy MTD Negative Normal NEGATIVE [facility] Comment on above: Performed By: #### D RUGRPD #### [facility] [address] [place] [address] Dr. Jose Duffy OPI Negative Normal NEGATIVE [facility] Comment on above: Performed By: #### D RUGRPD #### [facility] [address] [place] [address] Dr. Jose Duffy OXY Negative Normal NEGATIVE [facility] Comment on above: Performed By: #### D RUGRPD #### [facility] [address] [place] [address] Dr. Jose Duffy PCP Negative Normal NEGATIVE [facility] Comment on above: Performed By: #### D RUGRPD #### [facility] [address] [place] [address] Dr. Jose Duffy PPX Negative Normal NEGATIVE [facility] Comment on above: Performed By: #### D RUGRPD #### [facility] [address] [address] [address] Jose Duffy TCA Negative Normal NEGATIVE [facility] Comment on above: Performed By: #### D RUGRPD #### [facility] [address] [address] [address] Jose Duffy THC Negative Normal NEGATIVE [facility] Comment on above: Performed By: #### D RUGRPD #### [facility] [address] [address] [address] Jose Duffy COMPLIANCE DRUG SCREENon PDF . Normal [facility] Comment on above: Performed By: #### D SDOALC #### [facility] [address] [place] [address] Dr. Jose Duffy Summary FINAL Normal [facility] Comment on above: Result Comment: = [...] is an expected metabolite of dextromethorphan, an esxp-lye-vtmpgoz or prescription cough suppressant. Levorphanol is a [...] = Performed By: #### D SDOALC #### [facility] [address], [place] [address] Dr. Jose Duffy URIC ACID RAND URINEon 02-20 Uric Acid, Urine 44.5 mg/dL Normal Not Estab. [facility] Comment on above: Performed By: #### D SDOALC #### [facility] [address], [place] [address] Dr. Jose Duffy DRUG SCREEN RAPID (URINE)on 02-19-2022 AMP Negative Normal NEGATIVE [facility] Comment on above: Performed By: #### D RUGRPD #### [facility] [address] [place] [address] Dr. Jose Duffy BAR Negative Normal NEGATIVE [facility] Comment on above: Performed By: #### D RUGRPD #### [facility] [address] [place] [address] Dr. Jose Duffy BUP Positive Abnormal NEGATIVE [facility] Comment on above: Performed By: #### D RUGRPD #### [facility] [address] [place] [address] Dr. Jose Duffy BZO Negative Normal NEGATIVE [facility] Comment on above: Performed By: #### D RUGRPD #### [facility] [address] [place] [address] Dr. Jose Duffy RICARDO Negative Normal NEGATIVE [facility] Comment on above: Performed By: #### D RUGRPD #### [facility] [address] [place] [address] Dr. Jose Duffy CUT-OFFS SEE BELOW Normal [facility] Comment on above: Result Comment: AMP (Amphetamine): 500ng/mL, BAR (Barbituates): 200 ng/mL, BZO (Benzodiazepines): 150 ng/mL, BUP (Buprenorphine): 10 ng/mL, RICARDO (Cocaine): 150 ng/mL, mAMP (Methamphetamine): 500 ng/mL, MTD (Methadone): 200 ng/mL, OPI (Opiates): 100 ng/mL, OXY (Oxycodone): 100 ng/mL, PCP (Phencyclidine): 25 ng/mL, PPX (Propoxyphene): 300 ng/mL, THC (Cannabinoids): 50 ng/mL, TCA (Trycyclic Antidepressants): 300 ng/mL Performed By: #### D RUGRPD #### [facility] [address] [place] [address] Dr. Jose Duffy DRUG CUT HEADER DRUG CLASS TEST SYST EM CUT-OFF CONCENTRATIONS ARE FOLLOWS: Normal [facility] Comment on above: Performed By: #### D RUGRPD #### [facility] [address] [place] [address] Dr. Jose Duffy mAMP Negative Normal NEGATIVE [facility] Comment on above: Performed By: #### D RUGRPD #### [facility] [address] [place] [address] Dr. Jose Duffy MTD Negative Normal NEGATIVE [facility] Comment on above: Performed By: #### D RUGRPD #### [facility] [address] [place] [address] Dr. Jose Duffy OPI Negative Normal NEGATIVE [facility] Comment on above: Performed By: #### D RUGRPD #### [facility] [address] [place] [address] Dr. Jose Duffy OXY Negative Normal NEGATIVE [facility] Comment on above: Performed By: #### D RUGRPD #### [facility] [address] [place] [address] Dr. Jose Duffy PCP Negative Normal NEGATIVE [facility] Comment on above: Performed By: #### D RUGRPD #### [facility] [address] [place] [address] Dr. Jose Duffy PPX Negative Normal NEGATIVE [facility] Comment on above: Performed By: #### D RUGRPD #### [facility] [address] [place] [address] Dr. Jose Duffy TCA Negative Normal NEGATIVE [facility] Comment on above: Performed By: #### D RUGRPD #### [facility] [address] [place] [address] Dr. Jose Duffy THC Negative Normal NEGATIVE [facility] Comment on above: Performed By: #### D RUGRPD #### [facility] [address] [place] [address] Dr. Jose Duffy COMPLIANCE DRUG SCREENon PDF . Normal [facility] Comment on above: Performed By: #### D SDOALC #### [facility] [address] [place] [address] Dr. Jose Duffy Summary FINAL Normal [facility] Comment on above: Result Comment: = [...] = Performed By: #### D SDOALC #### [facility] [address] [place] [address] Dr. Jose Duffy URIC ACID RAND URINEon 01-28 Uric Acid, Urine 30.0 mg/dL Normal Not Estab. [facility] Comment on above: Performed By: #### U RICUR #### [facility] [address] [place] [address] Dr. Jose Duffy DRUG SCREEN RAPID (URINE)on 01-27-2022 AMP Negative Normal NEGATIVE [facility] Comment on above: Performed By: #### D RUGRPD #### [facility] [address] [place] [address] Dr. Jose Duffy BAR Negative Normal NEGATIVE [facility] Comment on above: Performed By: #### D RUGRPD #### [facility] [address] [place] [address] Dr. Jose Duffy BUP Positive Abnormal NEGATIVE [facility] Comment on above: Performed By: #### D RUGRPD #### [facility] [address] [place] [address] Dr. Jose Duffy BZO Negative Normal NEGATIVE [facility] Comment on above: Performed By: #### D RUGRPD #### [facility] [address] [place] [address] Dr. Jose Duffy RICARDO Negative Normal NEGATIVE [facility] Comment on above: Performed By: #### D RUGRPD #### [facility] [address] [place] [address] Dr. Jose Duffy CUT-OFFS SEE BELOW Normal [facility] Comment on above: Result Comment: AMP [...] ng/mL Performed By: #### D RUGRPD #### [facility] [address] [place] [address] Dr. Jose Duffy DRUG CUT HEADER DRUG CLASS TEST SYST EM CUT-OFF CONCENTRATIONS ARE FOLLOWS: Normal [facility] Comment on above: Performed By: #### D RUGRPD #### [facility] [address] [place] [address] Dr. Jose Duffy mAMP Negative Normal NEGATIVE [facility] Comment on above: Performed By: #### D RUGRPD #### [facility] [address] [place] [address] Dr. Jose Duffy MTD Negative Normal NEGATIVE [facility] Comment on above: Performed By: #### D RUGRPD #### [facility] [address] [place] [address] Dr. Jose Duffy OPI Negative Normal NEGATIVE [facility] Comment on above: Performed By: #### D RUGRPD #### [facility] [address] [place] [address] Dr. Jose Duffy OXY Negative Normal NEGATIVE [facility] Comment on above: Performed By: #### D RUGRPD #### [facility] [address] [place] [address] Dr. Jose Duffy PCP Negative Normal NEGATIVE [facility] Comment on above: Performed By: #### D RUGRPD #### [facility] [address] [place] [address] Dr. Jose Duffy PPX Negative Normal NEGATIVE [facility] Comment on above: Performed By: #### D RUGRPD #### [facility] [address] [place] [address] Dr. Jose Duffy TCA Negative Normal NEGATIVE [facility] Comment on above: Performed By: #### D RUGRPD #### [facility] [address] [address] [address] Jose Duffy THC Negative Normal NEGATIVE [facility] Comment on above: Performed By: #### D RUGRPD #### [facility] [address] [address] [address] Jose Duffy COMPLIANCE DRUG SCREENon PDF . Normal [facility] Comment on above: Performed By: #### U RICUR #### [facility] [address] [address] [address] Jose Duffy Summary FINAL Normal [facility] Comment on above: Result Comment: = [...] = Performed By: #### U RICUR #### [facility] [address] [place] [address] Dr. Jose Duffy URIC ACID RAND URINEon 01-09 Uric Acid, Urine 25.0 mg/dL Normal Not Estab. [facility] Comment on above: Performed By: #### D RUGRPD #### [facility] [address] [place] [address] Dr. Jose Duffy DRUG SCREEN RAPID (URINE)on 01-08-2022 AMP Negative Normal NEGATIVE [facility] Comment on above: Performed By: #### U RICUR #### [facility] [address] [place] [address] Dr. Jose Duffy BAR Negative Normal NEGATIVE [facility] Comment on above: Performed By: #### U RICUR #### [facility] [address] [place] [address] Dr. Jose Duffy BUP Positive Abnormal NEGATIVE [facility] Comment on above: Performed By: #### U RICUR #### [facility] [address] [place] [address] Dr. Jose Duffy BZO Negative Normal NEGATIVE [facility] Comment on above: Performed By: #### U RICUR #### [facility] [address] [address] [address] Jose Duffy RICARDO Negative Normal NEGATIVE [facility] Comment on above: Performed By: #### U RICUR #### [facility] [address] [address] [address] Jose Duffy CUT-OFFS SEE BELOW Normal [facility] Comment on above: Result Comment: AMP [...] ng/mL Performed By: #### U RICUR #### [facility] [address] [place] [address] Dr. Jose Duffy DRUG CUT HEADER DRUG CLASS TEST SYST EM CUT-OFF CONCENTRATIONS ARE FOLLOWS: Normal [facility] Comment on above: Performed By: #### U RICUR #### [facility] [address] [place] [address] Dr. Jose Duffy mAMP Negative Normal NEGATIVE [facility] Comment on above: Performed By: #### U RICUR #### [facility] [address] [address] [address] Jose Duffy MTD Negative Normal NEGATIVE [facility] Comment on above: Performed By: #### U RICUR #### [facility] [address] [address] [address] Jose Duffy OPI Negative Normal NEGATIVE [facility] Comment on above: Performed By: #### U RICUR #### [facility] [address] [address] [address] Jose Duffy OXY Negative Normal NEGATIVE [facility] Comment on above: Performed By: #### U RICUR #### [facility] [address] [address] [address] Jose Duffy PCP Negative Normal NEGATIVE [facility] Comment on above: Performed By: #### U RICUR #### [facility] [address] [address] [address] Jose Duffy PPX Negative Normal NEGATIVE [facility] Comment on above: Performed By: #### U RICUR #### [facility] [address] [address] [address] Jose Duffy TCA Negative Normal NEGATIVE [facility] Comment on above: Performed By: #### U RICUR #### [facility] [address] [place] [address] Dr. Jose Duffy THC Negative Normal NEGATIVE [facility] Comment on above: Performed By: #### U RICUR #### [facility] [address] [address] [address] Jose Duffy COMPLIANCE DRUG SCREENon PDF . Normal [facility] Comment on above: Performed By: #### D SDOALC #### [facility] [address] [address] [address] Jose Duffy Summary FINAL Normal [facility] Comment on above: Result Comment: = [...] call . = Performed By: #### D [facility] #### [facility] [address] [place] [address] ABD/PELV W CONon [...] abdomen and pelvis. Electronically authenticated by: VENKATA GRIMALDO Date: 2021-12-18 15:15 Normal [facility] US SINGLE QUAD RT UPPERon US [...] by: VENKATA GRIMALDO Date: 2021-12-18 15:09 Normal [facility] URIC ACID RAND URINEon 12-16 Uric Acid, Urine 46.2 mg/dL Normal Not Estab. [facility] Comment on above: Performed By: #### D SDOALC #### [facility] [address] [place] [address] Dr. Jose Duffy AMYLASEon 12-15-2021 Amylase [Catalytic activity/Vol] 134 U/L Critically high 25-115 [facility] Comment on above: Performed By: #### D RUGRPD #### [facility] [address] [place] [address] Dr. Jose Duffy CBC AUTO DIFFon 12-15-2021 BASO # 0.1 103/ul Normal 0.0-0.1 [facility] Comment on above: Performed By: #### D RUGRPD #### [facility] [address] [place] [address] Dr. Jose Duffy Basophils/100 WBC (Bld) 0.6 % Normal 0.2-2.0 [facility] Comment on above: Performed By: #### D RUGRPD #### [facility] [address] [place] [address] Dr. Jose Duffy EO # 0.3 103/ul Normal 0.0-0.7 [facility] Comment on above: Performed By: #### D RUGRPD #### [facility] [address] [place] [address] Dr. Jose Duffy Eosinophils/100 WBC (Bld) 3.0 % Normal 0.9-7.0 [facility] Comment on above: Performed By: #### D RUGRPD #### [facility] [address] [place] [address] Dr. Jose Duffy Erythrocyte distribution width (RBC) [Ratio] 13.2 % Normal 11.0-15.0 [facility] Comment on above: Performed By: #### D RUGRPD #### [facility] [address] [place] [address] Dr. Jose Duffy Hematocrit (Bld) [Volume fraction] 42.7 % Normal 42.0-54.0 [facility] Comment on above: Performed By: #### D RUGRPD #### [facility] [address] [place] [address] Dr. Jose Duffy Hemoglobin (Bld) [Mass/Vol] 14.3 g/dL Normal 14.0-18.0 [facility] Comment on above: Performed By: #### D RUGRPD #### [facility] [address] [address] [address] Jose Duffy IG # 0.02 10e3/ul Normal 0.00-0.03 [facility] Comment on above: Performed By: #### D RUGRPD #### [facility] [address] [address] [address] Jose Duffy IG % 0.2 % Normal 0.0-0.5 [facility] Comment on above: Performed By: #### D RUGRPD #### [facility] [address] [address] [address] Jose Duffy LYMPH # 2.3 103/ul Normal 1.2-3.8 [facility] Comment on above: Performed By: #### D RUGRPD #### [facility] [address] [place] [address] Dr. Jose Duffy Lymphocytes/100 WBC (Bld) 20.6 % Normal 20.5-60.0 [facility] Comment on above: Performed By: #### D RUGRPD #### [facility] [address] [place] [address] Dr. Jose Duffy MANUAL DIFF REQ NO Normal [facility] Comment on above: Performed By: #### D RUGRPD #### [facility] [address] [place] [address] Dr. Jose Duffy MCH (RBC) [Entitic mass] 28.7 pg Normal 25.9-34.0 [facility] Comment on above: Performed By: #### D RUGRPD #### [facility] [address] [address] [address] Jose Duffy MCHC (RBC) [Mass/Vol] 33.5 g/dL Normal 29.9-35.2 [facility] Comment on above: Performed By: #### D RUGRPD #### [facility] [address] [address] [address] Jose Duffy MCV (RBC) [Entitic vol] 85.6 fL Normal 80.0-94.0 [facility] Comment on above: Performed By: #### D RUGRPD #### [facility] [address] [address] [address] Jose Duffy MONO # 0.8 103/ul Normal 0.3-0.8 [facility] Comment on above: Performed By: #### D RUGRPD #### [facility] [address] [address] [address] Jose Duffy Monocytes/100 WBC (Bld) 7.5 % Normal 1.7-12.0 [facility] Comment on above: Performed By: #### D RUGRPD #### [facility] [address] [place] [address] Dr. Jose Duffy NEUT # 7.4 103/ul Critically high 1.4-6.5 [facility] Comment on above: Performed By: #### D RUGRPD #### [facility] [address] [place] [address] Dr. Jose Duffy Neutrophils/100 WBC (Bld) 68.1 % Normal 43.0-75.0 [facility] Comment on above: Performed By: #### D RUGRPD #### [facility] [address] [place] [address] Dr. Jose Duffy Platelet mean volume (Bld) [Entitic vol] 9.0 fL Critically low 9.5-13.5 [facility] Comment on above: Performed By: #### D RUGRPD #### [facility] [address] [place] [address] Dr. Jose Duffy PLT 253 103/ul Normal 150-450 [facility] Comment on above: Performed By: #### D RUGRPD #### [facility] [address] [place] [address] Dr. Jose Duffy RBC 4.99 106/ul Normal 4.70-6.10 [facility] Comment on above: Performed By: #### D RUGRPD #### [facility] [address] [place] [address] Dr. Jose Duffy WBC 10.9 103/ul Normal 4.0-11.0 [facility] Comment on above: Performed By: #### D RUGRPD #### [facility] [address] [address] [address] Jose Duffy LIPASEon 12-15-2021 Lipase [Catalytic activity/Vol] 207.0 U/L Normal 73.0-393.0 [facility] Comment on above: Performed By: #### D RUGRPD #### [facility] [address] [place] [address] Dr. Jose Duffy PROF 14(COMP METB)on 022 Albumin [Mass/Vol] 4.3 g/dL Normal 3.4-5.0 [facility] Comment on above: Performed By: #### D RUGRPD #### [facility] [address] [place] [address] Dr. Jose Duffy Albumin/Globulin [Mass ratio] 1.2 {ratio} Normal [facility] Comment on above: Performed By: #### D RUGRPD #### [facility] [address] [place] [address] Dr. Jose Duffy ALP [Catalytic activity/Vol] 68 U/L Normal 46-116 [facility] Comment on above: Performed By: #### D RUGRPD #### [facility] [address] [place] [address] Dr. Jose Duffy ALT [Catalytic activity/Vol] 132 U/L Critically high 16-63 [facility] Comment on above: Performed By: #### D RUGRPD #### [facility] [address] [place] [address] Dr. Jose Duffy Anion gap [Moles/Vol] 12.2 mmol/L Normal [facility] Comment on above: Performed By: #### D RUGRPD #### [facility] [address] [place] [address] Dr. Jose Duffy AST [Catalytic activity/Vol] 83 U/L Critically high 15-37 [facility] Comment on above: Performed By: #### D RUGRPD #### [facility] [address] [place] [address] Dr. Jose Duffy Bilirubin [Mass/Vol] 0.6 mg/dL Normal 0.2-1.0 [facility] Comment on above: Performed By: #### D RUGRPD #### [facility] [address] [address] [address] Jose Duffy Calcium [Mass/Vol] 8.9 mg/dL Normal 8.5-10.1 [facility] Comment on above: Performed By: #### D RUGRPD #### [facility] [address] [address] [address] Jose Duffy Chloride [Moles/Vol] 104 mmol/L Normal 98-107 [facility] Comment on above: Performed By: #### D RUGRPD #### [facility] [address] [address] [address] Jose Duffy CO2 [Moles/Vol] 29.1 mmol/L Normal 21.0-32.0 [facility] Comment on above: Performed By: #### D RUGRPD #### [facility] [address] [address] [address] Jose Duffy Creatinine [Mass/Vol] 0.95 mg/dL Normal 0.70-1.30 [facility] Comment on above: Performed By: #### D RUGRPD #### [facility] [address] [address] [address] Jose Duffy EGFR-AF IRAQI >60 Normal >=60 [facility] Comment on above: Performed By: #### D RUGRPD #### [facility] [address] [address] [address] Jose Duffy EGFR-NON AF IRAQI >60 Normal >=60 [facility] Comment on above: Performed By: #### D RUGRPD #### [facility] [address] [address] [address] Jose Duffy Globulin (S) [Mass/Vol] 3.5 g/dL Normal [facility] Comment on above: Performed By: #### D RUGRPD #### [facility] [address] [address] [address] Jose Duffy Glucose [Mass/Vol] 101 mg/dL Normal 74-106 [facility] Comment on above: Performed By: #### D RUGRPD #### [facility] [address] [address] [address] Jose Duffy Potassium [Moles/Vol] 4.3 mmol/L Normal 3.5-5.1 [facility] Comment on above: Performed By: #### D RUGRPD #### [facility] [address] [place] [address] Dr. Jose Duffy Protein [Mass/Vol] 7.8 g/dL Normal 6.4-8.2 [facility] Comment on above: Performed By: #### D RUGRPD #### [facility] [address] [place] [address] Dr. Jose Duffy Sodium [Moles/Vol] 141 mmol/L Normal 136-145 [facility] Comment on above: Performed By: #### D RUGRPD #### [facility] [address] [place] [address] Dr. Jose Duffy Urea nitrogen [Mass/Vol] 20.0 mg/dL Critically high 7.0-18.0 [facility] Comment on above: Performed By: #### D RUGRPD #### [facility] [address] [place] [address] Dr. Jose Duffy Urea nitrogen/Creatinin e [Mass ratio] 21.1 mg/mg Normal [facility] Comment on above: Performed By: #### D RUGRPD #### [facility] [address] [place] [address] Dr. Jose Duffy COMPLIANCE DRUG SCREENon PDF . Normal [facility] Comment on above: Performed By: #### D SDOALC #### [facility] [address] [place] [address] Dr. Jose Duffy Summary FINAL Normal [facility] Comment on above: Result Comment: = [...] = Performed By: #### D SDOALC #### [facility] [address] [place] [address] Dr. Jose Duffy URIC ACID RAND URINEon 11-04 Uric Acid, Urine 91.5 mg/dL Normal Not Estab. [facility] Comment on above: Performed By: #### U RICUR #### [facility] [address] [place] [address] Dr. Jose Duffy DRUG SCREEN RAPID (URINE)on 11-02-2021 AMP Negative Normal NEGATIVE [facility] Comment on above: Performed By: #### U RICUR #### [facility] [address] [place] [address] Dr. Jose Duffy BAR Negative Normal NEGATIVE [facility] Comment on above: Performed By: #### U RICUR #### [facility] [address] [place] [address] Dr. Jose Duffy BUP Positive Abnormal NEGATIVE [facility] Comment on above: Performed By: #### U RICUR #### [facility] [address] [place] [address] Dr. Jose Duffy BZO Negative Normal NEGATIVE [facility] Comment on above: Performed By: #### U RICUR #### [facility] [address] [place] [address] Dr. Jose Duffy RICARDO Negative Normal NEGATIVE [facility] Comment on above: Performed By: #### U RICUR #### [facility] [address] [place] [address] Dr. Jose Duffy CUT-OFFS SEE BELOW Normal [facility] Comment on above: Result Comment: AMP [...] ng/mL Performed By: #### U RICUR #### [facility] [address] [place] [address] Dr. Jose Duffy DRUG CUT HEADER DRUG CLASS TEST SYST EM CUT-OFF CONCENTRATIONS ARE FOLLOWS: Normal [facility] Comment on above: Performed By: #### U RICUR #### [facility] [address] [address] [address] Jose Duffy mAMP Negative Normal NEGATIVE [facility] Comment on above: Performed By: #### U RICUR #### [facility] [address] [address] [address] Jose Duffy MTD Negative Normal NEGATIVE [facility] Comment on above: Performed By: #### U RICUR #### [facility] [address] [place] [address] Dr. Jose Duffy OPI Negative Normal NEGATIVE [facility] Comment on above: Performed By: #### U RICUR #### [facility] [address] [address] [address] Jose Duffy OXY Negative Normal NEGATIVE [facility] Comment on above: Performed By: #### U RICUR #### [facility] [address] [place] [address] Dr. Jose Duffy PCP Negative Normal NEGATIVE [facility] Comment on above: Performed By: #### U RICUR #### [facility] [address] [address] [address] Jose Duffy PPX Negative Normal NEGATIVE [facility] Comment on above: Performed By: #### U RICUR #### [facility] [address] [address] [address] Jose Duffy TCA Negative Normal NEGATIVE [facility] Comment on above: Performed By: #### U RICUR #### [facility] [address] [place] [address] Dr. Jose Duffy THC Negative Normal NEGATIVE [facility] Comment on above: Performed By: #### U RICUR #### [facility] [address] [address] [address] Jose Duffy .UA Microscp Aon 12-01-2018 UA Mucus Present Abnormal Absent [facility] Comment on above: Performed By: #### C [id number] #### [address] [address] UA RBC Quant 327 /HPF High 0-5 [facility] Comment on above: Performed By: #### C [id number] #### [address] [address] UA Squepi Cells Quant 1 /HPF Normal 0-29 [facility] Comment on above: Performed By: #### C [id number] #### [address] [address] UA WBC Quant 4 /HPF Normal 0-5 [facility] Comment on above: Performed By: #### C [id number] #### [address] [address] .eGFRon 12-01-2018 eGFR AA >60 Normal >=60 [facility] Comment on above: Result Comment: Resu lt = 0-14.9 mL/min/1.73 m2 Kidney failure or Dialysis Result = 15-29 mL/min/1.73 m2 Severe decrease in GFR Result = 30-59 mL/min/1.73 m2 Moderate decrease in GFR Result >= 60 mL/min/1.73 m2 Normal or increased GFR Performed By: #### E GFR #### [place] [address] eGFR Non-AA >60 Normal >=60 [facility] Comment on above: Result Comment: Resu [...] dosing. Performed By: #### E GFR #### [address] [address] CBC w/ Diffon 12-01-2018 Erythrocyte distribution width (RBC) [Ratio] 14.0 % Normal 11.6-14.8 [facility] Comment on above: Performed By: #### C BC #### [address] [address] Hematocrit (Bld) [Volume fraction] 43.5 % Normal 41.0-53.0 [facility] Comment on above: Performed By: #### C BC #### [address] [address] Hemoglobin (Bld) [Mass/Vol] 14.7 g/dL Normal 13.5-17.5 [facility] Comment on above: Performed By: #### C BC #### [address] [address] MCH (RBC) [Entitic mass] 28.5 pg Normal 27.0-35.0 [facility] Comment on above: Performed By: #### C BC #### [address] [address] MCHC (RBC) [Mass/Vol] 33.8 % Normal 31.0-37.0 [facility] Comment on above: Performed By: #### C BC #### [address] [address] MCV (RBC) [Entitic vol] 84.4 fL Normal 80.0-100.0 [facility] Comment on above: Performed By: #### C BC #### [address] [address] Platelet mean volume (Bld) [Entitic vol] 7.3 fL Normal 6.7-10.6 [facility] Comment on above: Performed By: #### C BC #### [address] [address] Platelets (Bld) [#/Vol] 273 x10*3/mcL Normal 150-350 [facility] Comment on above: Performed By: #### C BC #### [address] [address] RBC (Bld) [#/Vol] 5.16 x10*6/mcL Normal 4.30-5.80 [facility] Comment on above: Performed By: #### C BC #### [address] [address] WBC (Bld) [#/Vol] 11.0 x10*3/mcL Normal 4.5-11.0 [facility] Comment on above: Performed By: #### C BC #### [address] [address] CMPon 12-01-2018 Albumin [Mass/Vol] 4.2 g/dL Normal 3.2-4.9 [facility] Comment on above: Result Comment: [facility] updated the methodology used for albumin testing on 12/21/17. Albumin measurement was performed using a bromcresol purple dye-binding assay. Performed By: #### C OMP #### [address] [address] Albumin/Globulin [Mass ratio] 1.3 {ratio} Normal 1.1-2.2 [facility] Comment on above: Performed By: #### C OMP #### [address] [address] Alk Phos 80 IU/L Normal 32-91 [facility] Comment on above: Performed By: #### C OMP #### [address] [address] ALT [Catalytic activity/Vol] 41 U/L Normal 17-63 [facility] Comment on above: Performed By: #### C OMP #### [address] [address] Anion gap [Moles/Vol] 15 mmol/L Normal 7-17 [facility] Comment on above: Performed By: #### C OMP #### [address] [place] [address] AST [Catalytic activity/Vol] 43 U/L High 15-41 [facility] Comment on above: Performed By: #### C OMP #### [address] [address] Bili Total 0.7 mg/dL Normal 0.3-1.2 [facility] Comment on above: Performed By: #### C OMP #### [address] [address] Calcium [Mass/Vol] 9.2 mg/dL Normal 8.5-10.3 [facility] Comment on above: Performed By: #### C OMP #### [address] [address] Chloride [Moles/Vol] 104 mmol/L Normal 98-110 [facility] Comment on above: Performed By: #### C OMP #### [address] [place] [address] CO2 [Moles/Vol] 25 mmol/L Normal 22-32 [facility] Comment on above: Performed By: #### C OMP #### [address] [address] Creatinine [Mass/Vol] 0.98 mg/dL Normal 0.61-1.24 [facility] Comment on above: Performed By: #### C OMP #### [address] [place] [address] Glucose [Mass/Vol] 126 mg/dL High 74-118 [facility] Comment on above: Performed By: #### C OMP #### [address] [address] Potassium [Moles/Vol] 3.7 mmol/L Normal 3.4-4.8 [facility] Comment on above: Performed By: #### C OMP #### [address] [address] Protein [Mass/Vol] 7.4 g/dL Normal 6.5-8.1 [facility] Comment on above: Performed By: #### C OMP #### [address] [address] Sodium [Moles/Vol] 140 mmol/L Normal 133-142 [facility] Comment on above: Performed By: #### C OMP #### [address] [address] Urea nitrogen [Mass/Vol] 19 mg/dL Normal 8-26 [facility] Comment on above: Performed By: #### C OMP #### [address] [address] Urea nitrogen/Creatinin e [Mass ratio] 19.4 mg/mg Normal 10.0-20.0 [facility] Comment on above: Performed By: #### C OMP #### [address] [address] [address] Abd Pelvis w/o IV Cont St [...] stability of the nodule Radiation Dose Estimate: CTDI(mGy):0.298494 / / / kVp:120.485629 / mAs:0.530706 / / / DLP(mGy-cm):7.278663Ho dy Part: Abdomen Final Dictated by: Donnell Luther MD Dictated DT/TM: 12.01.2018 8:57 am Signed by: Donnell Luther MD Signed (Electronic Signature): 12.01.2018 9:03 am (If Report Is Signed, Electronically Signed in Other Vendor System) Normal [facility] Diff Autoon 12-01-2018 Baso Absolute 0.0 x10*3/mcL Normal 0.0-0.2 [facility] Comment on above: Performed By: #### . Automated Diff #### [address] [address] Basophils/100 WBC (Bld) 0.3 % Normal 0.0-1.2 [facility] Comment on above: Performed By: #### . Automated Diff #### [address] [address] Eos Absolute 0.3 x10*3/mcL Normal 0.0-0.4 [facility] Comment on above: Performed By: #### . Automated Diff #### [address] [address] Eosinophils/100 WBC (Bld) 2.8 % Normal 0.0-6.1 [facility] Comment on above: Performed By: #### . Automated Diff #### [address] [address] Lymphocytes (Bld) [#/Vol] 3.5 x10*3/mcL Normal 1.0-4.8 [facility] Comment on above: Performed By: #### . Automated Diff #### [address] [address] Lymphocytes/100 WBC (Bld) 32.0 % Normal 27.2-40.8 [facility] Comment on above: Performed By: #### . Automated Diff #### [address] [address] [place] Absolute 0.8 x10*3/mcL Normal 0.3-1.1 [facility] Comment on above: Performed By: #### . Automated Diff #### [address] [id number] Monocytes/100 WBC (Bld) 7.4 % Normal 4.7-13.9 [facility] Comment on above: Performed By: #### . Automated Diff #### [address] [id number] Neutro Absolute 6.3 x10*3/mcL Normal 1.8-7.7 [facility] Comment on above: Performed By: #### . Automated Diff #### [place] [address] Neutro Auto 57.5 % Normal 47.2-70.8 [facility] Comment on above: Performed By: #### . Automated Diff #### [address] [place] [id number] ED Clinical Summaryon 2018 ED Clinical Summary [address] [address] ED Clinical Summary Person Information Name: Bessy Torres/[facility] Age: 38 Years : 1980 Sex: Male PCP: Romy Coronado MD Marital Status: Single Phone: Race: White Ethnicity: Not or Language: Swiss Visit Reason: Flank pain; Flank pain Acuity: 3 Enc Type: Emergency Med Service: Emergency Medicine Arrival: 12/01/2018 07:25:25 Discharge: 12/01/2018 10:15:00 LOS: 000 02:50 Checkin: 12/01/2018 07:25:25 Checkout: 12/01/2018 10:15:00 Dispo Type: Home or Self Care Address: [address] [place] [address] Provider Notes: History of Present Illness Patient [...] range between ( 27.2 and 40.8 ) [place] Auto: 7.4 % -- Normal range between [...] range between ( 41.0 and 53.0 ) [place] Absolute: 0.8 x10 MCH: 28.5 pg -- [...] [address], [address] [place], [place] [id number], [phone] ondansetron (Zofran 4 mg oral tablet) 1 [...] Refills: 0. Last Dose: ___ hydrocodone-acetaminop hen ([place] 5 mg-325 mg oral tablet) 1 Tabs [...] meal. Last Dose: ___ [facility] [facility], [address], [place] [id number], [phone] ondansetron (Zofran 4 mg oral tablet) 1 [...] for 7 Days. Refills: 0. hydrocodone-acetaminop hen ([place] 5 mg-325 mg oral tablet) 1 Tabs [...] Referring Physician: Provider Role Assigned Unassigned Shanti Helelr MD ED Provider 12/01/2018 07:30:16 Josemanuel Reynolds ED Nurse 12/01/2018 08:04:02 Follow up: With: Address: When: Romy Coronado [address] [place] [phone] Business (1) Within 1 to 2 days Discharge Orders: Discharge Patient 12/01/18 9:58:00 EDT, Discharge to Home, Self Discharge Special Instructions Your appointment is scheduled with [facility] [address] [address]. Discharge Special Instructions If you are unable to make this appointment, please call the office at [phone]. Discharge Special Instructions Please arrive by 8:00AM the next business day for your appointment. Business days are Tuesday through Tuesday. Discharge Special Instructions Please DO NOT EAT or DRINK anything after midnight the night before your appointment. PLEASE DO NOT EAT BREAKFAST. Discharge Special Instructions Please strain your urine as instructed until your appointment at [facility]. Return to Work/School 12/01/18 10:10:00 EDT, 12/02/18 8:00:00 EDT, 12/01/18 10:10:00 EDT Patient Education Information: KIDNEY STONE w/ Col[facility] Poison Help line: . [facility] Hotline: [place] Tobacco Quit Line: [place], [place]) [address]: [phone] [place], [place]) [address]: [phone] [facility] [address], [place]: [phone] Normal [facility] ED Note-Physicianon 12-02-19 ED Note-Physician Chief [...] information in this document, created by the quality engineer medical device for me, accurately reflects the [...] 12/01/18 9:56:00 EDT, STAT, Dispense From Location: [facility], UTI/Pyelonephritis ciprofloxacin, 1 tabs, Oral, q12hr, X 7 days, # 14 tabs, 0 Refill(s), 12/08/18 9:57:00 EDT hydrocodone-acetaminop hen, 1 tabs, Oral, q4hr, PRN, X 3 days, # 18 tabs, 0 Refill(s), 12/04/18 9:52:00 EDT ondansetron, 1 tabs, Oral, q8hr, PRN, # 15 tabs, 0 Refill(s), Pharmacy: [facility] tamsulosin, 1 caps, Oral, Daily, # 7 caps, 0 Refill(s), Pharmacy: [facility] 2. Renal colic Ordered: ciprofloxacin, 500 mg, Oral, Tab, Once, First Dose: 12/01/18 9:56:00 EDT, Stop Date: 12/01/18 9:56:00 EDT, STAT, Dispense From Location: [facility], UTI/Pyelonephritis 3. Lung nodule Ordered: ciprofloxacin, 500 mg, Oral, Tab, Once, First Dose: 12/01/18 9:56:00 EDT, Stop Date: 12/01/18 9:56:00 EDT, STAT, Dispense From Location: [facility], UTI/Pyelonephritis Orders: sodium chloride, 10 mL, IV Push, Injection, As Indicated, PRN flush, First Dose: 12/01/18 7:37:00 EDT, Dispense From Location: [facility] Sodium Chloride 0.9% intravenous solution 1,000 mL, [...] MD 12/01/18 10:14 EDT Elif Fox Normal [facility] UA w Culture if Indon 2018 Color (U) Yellow Normal [facility] Comment on above: Performed By: #### U CI #### [address] [place] [address] Glucose (U) [Mass/Vol] Negative Normal Negative [facility] Comment on above: Performed By: #### U CI #### [address] [place] [address] Ketones Ql (U) Negative Normal Negative [facility] Comment on above: Performed By: #### U CI #### [address] [place] [address] UA Blood Large Abnormal Negative [facility] Comment on above: Performed By: #### U CI #### [address] [place] [address] UA Clarity Hazy Normal [facility] Comment on above: Performed By: #### U CI #### [address] [place] [address] UA Leukocyte Esterase Trace Abnormal Negative [facility] Comment on above: Performed By: #### U CI #### [address] [place] [address] UA Nitrite Negative Normal Negative [facility] Comment on above: Performed By: #### U CI #### [address] [place] [address] UA pH 5.0 Normal 4.5 - 7.8 [facility] Comment on above: Performed By: #### U CI #### [address] [place] [address] UA Protein Negative Normal Negative [facility] Comment on above: Performed By: #### U CI #### [address] [address] UA Source Clean Catch Normal [facility] Comment on above: Performed By: #### U CI #### [address] [address] UA Spec Grav 1.015 Normal 1.003-1.035 [facility] Comment on above: Performed By: #### U CI #### [address] [address] UA Urobilinogen 0.2 mg/dL Normal 0.2 - 1.0 [facility] Comment on above: Performed By: #### U CI #### [place] [address] Urobilinogen Qn (U) Negative Normal Negative [facility] Comment on above: Performed By: #### U CI #### [place] [id number] Encounters Encounter Date Encounter Type Care Provider [...] 12-01-2018 Emergency department patient visit SHANTI HELLER Facility:[facility] Payers Date Payer Category Payer Unknown 1980 Unknown [id number] 2.16.8 [id number] 1980 Unknown [id number] 2.16.84 [id number] 1980 Unknown [id number] 2.16.84 [id number] 1980 Unknown [id number] 2.16.84 [id number] 1980 Unknown [id number] 2.16.84 [id number] 1980 Unknown [id number] 2.16.84 [id number] 1980 Unknown [id number] 2.16.84 [id number] 1980 Unknown [id number] 2.16.84 [id number] 1980 Unknown [id number] 2.16.84 [id number] 1980 Unknown [id number] 2.16.84 [id number] 1980 Unknown [id number] 2.16.84 [id number] 1980 Unknown [id number] 2.16.84 [id number] 1980 Unknown [id number] 2.16.84 [id number] 1980 Unknown [id number] 2.16.84 [id number] 1958 Self-pay [id number] 1958 Unknown [id number] 1958 Unknown [id number] Summary Purpose Family History No Family History Records FoundNo Family History Records FoundNo Family History Records Found Advance Directives No Advanced Directives Records FoundNo Advanced Directives Records FoundNo Advanced Directives Records Found Additional Source Comments (unrecognized sect ion and content) No Status Records FoundNo Status Records FoundNo Status Records Found INFORMATION SOURCE (unrecogn ized section and content) DATE CREATED AUTHOR 12/01/2018 [facility] DATE CREATED AUTHOR AUTHOR'S ORGANIZ ATION 10/22/2022 [facility] DATE CREATED AUTHOR AUTHOR'S ORGANIZ ATION 12/25/2022 [facility] FOR RECORDS PERTAINING TO PATIENTS WHO ARE [...] BE BASED ON THE PRIMARY CLINICAL RECORDS. [facility] [employer] [facility]. provides no warranty or guarantee of the accuracy or completeness of information in this document.
--- NOTE | 2023-06-07 08:44 | CT_ITS ---
[address] [address] Patient Name: BESSY DIXON MRN: [id number] date: 1980 Sex: M Assigned Patient Location: CT Current Patient Location: CT Accession/Order Number: [id number] Exam Date: 06/07/2023 09:45 Report Date: 06/07/2023 10:29 At the request of: ROMY CORONADO Procedure: CT abdomen pelvis w con EXAMINATION: CT abdomen pelvis w con HISTORY: Generalized Abdominal Pain R10.84 , left lower quadrant pain, nausea COMPARISON: 12/18/2022, 12/18/2021 TECHNIQUE: CT images were created with IV contrast. Axial, Coronal, and Sagittal images. Dose reduction techniques were achieved by using automated exposure control and/or adjustment of mA and/or kV according to patient size and/or use of iterative reconstruction technique. FINDINGS: LUNG BASES: No visible pulmonary or pleural disease. LIVER: No enlargement, atrophy, abnormal density, or significant focal lesion. BILIARY: Surgical clips from cholecystectomy PANCREAS: No lesion, fluid collection, ductal dilatation, or atrophy. SPLEEN: No enlargement or focal lesion. ADRENALS: No mass or enlargement. KIDNEYS: Bilateral nonobstructing nephrolithiasis. No hydronephrosis. BOWEL/MESENTERY: colonic diverticulosis without evidence of acute diverticulitis. Nonobstructive bowel gas pattern AORTA/VASCULAR: No aneurysm or dissection. RETROPERITONEUM: No mass or adenopathy. LYMPH NODES: No adenopathy. URINARY BLADDER: Fluid density within the urethra along the seminal vesicles and cranial portion of the prostate gland measuring up to 2.1 cm transversely PELVIC ORGANS: No visible mass. Pelvic organs appropriate for patient age. ABDOMINAL WALL: No mass or hernia. BONES: No bony lesion or fracture. L5 pars interarticularis fracture OTHER: Negative. CT/CT abdomen pelvis w con IMPRESSION: Dilation of the proximal urethra measuring up to 2.1 cm, nonspecific Bilateral nonobstructing nephrolithiasis Bilateral L5 pars interarticularis fracture Electronically authenticated by: QASIM SHELTON Date: 06/07/2023 10:29
== END 2023-06-07 08:40 | disposition home or self-care (01) ==
LOC: CT 08:39
PROVIDERS: PCP Family Medicine; Visit Provider Family Medicine
DX: R10.84 Generalized abdominal pain (principal); N20.0 Calculus of kidney
CPT/HCPCS: 74177; Q9967

== ENCOUNTER 2023-06-10 10:08 | Outpatient (OUT) | payer OTHER, SELFPAY ==
--- OUTSIDE RECORDS SUMMARY | 2023-06-10 10:11 | XMS_ITS | CCD ---
Author Name Unknown Address [address] [place] [address] [facility] Care Team Providers Care Seamer [employer] Name Role Phone SHANTI HELLER Attending Unavailable [...] sources) Codeine; Translations: [codeine] Drug Allergy 12-16-2019 [facility] Repository (2 sources) Penicillins Drug allergy (disorder) 12-16-2019 [facility] Repository Problems Active Problems Problem Classification Problem Date Documented Da te Episodic/Chronic Other aftercare (4 sources) Encounter for therapeutic drug level monitoring; Translations: [facility]] Onset: 07-22-2022 [...] 12-18-2021 Episodic Other aftercare (1 source) Other termite technician (current) drug therapy; Translations: [OTH [facility] CURRENT [...] - Ultrasound Reporton RAD - Ultrasound Report [id number] 0CD:127 Normal [facility] Physician Referralon 023 Physician Referral [id number] 0CD:127 Normal [facility] Physician Referralon 023 Physician Referral [id number] 0CD:127 Normal [facility] COMPLIANCE DRUG SCREENon PDF . Normal [facility] Comment on above: Performed By: #### U RICBRO #### [facility] [address] [place] [address] Dr. Jose Duffy Summary FINAL Normal [facility] Comment on above: Result Comment: = TOXASSURE COMP DRUG ANALYSIS,UR = Test Result Flag Units Drug Present Buprenorphine 175 ng/mg creat Norbuprenorphine 639 ng/mg creat Source of buprenorphine is a scheduled prescription medication. Norbuprenorphine is an expected metabolite of buprenorphine. Acetaminophen PRESENT Ibuprofen PRESENT Dextrorphan/Levorphanol PRESENT Dextrorphan is an expected metabolite of dextromethorphan, an jfhf-omn-pefoagi or prescription cough suppressant. Levorphanol is a scheduled prescription medication. Dextrorphan cannot be distinguished from levorphanol by the method used for analysis. Guaifenesin PRESENT Guaifenesin may be administered as an bcva-qcj-wngiyqf or prescription drug; it may also be present as a breakdown product of methocarbamol. = Test Result Flag Units Ref Range Creatinine 111 mg/dL >=20 = Declared Medications: Medication list was not provided. = For clinical consultation, please call . = Performed By: #### U SHEREEN #### [facility] [address] [place] [address] Dr. Jose Duffy URIC ACID RAND URINEon 10-07 Uric Acid, Urine 56.8 mg/dL Normal Not Estab. [facility] Comment on above: Performed By: #### D SDOALC #### [facility] [address] [place] [address] Dr. Jose Duffy DRUG SCREEN RAPID (URINE)on 10-06-2022 AMP Negative Normal NEGATIVE [facility] Comment on above: Performed By: #### U SHEREEN #### [facility] [address] [place] [address] Dr. Jose Duffy BAR Negative Normal NEGATIVE [facility] Comment on above: Performed By: #### U RICBRO #### [facility] [address] [place] [address] Dr. Jose Duffy BUP Positive Abnormal NEGATIVE [facility] Comment on above: Performed By: #### U RICUR #### [facility] [address] [place] [address] Dr. Jose Duffy BZO Negative Normal NEGATIVE [facility] Comment on above: Performed By: #### U RICUR #### [facility] [address] [place] [address] Dr. Jose Duffy RICARDO Negative Normal NEGATIVE [facility] Comment on above: Performed By: #### U RICUR #### [facility] [address] [place] [address] Dr. Jose Duffy CUT-OFFS SEE BELOW Normal [facility] Comment on above: Result Comment: AMP [...] ng/mL Performed By: #### U RICUR #### [facility] [address] [place] [address] Dr. Jose Duffy DRUG CUT HEADER DRUG CLASS TEST SYST EM CUT-OFF CONCENTRATIONS ARE FOLLOWS: Normal [facility] Comment on above: Performed By: #### U RICUR #### [facility] [address] [place] [address] Dr. Jose Duffy mAMP Positive Abnormal NEGATIVE [facility] Comment on above: Performed By: #### U RICUR #### [facility] [address] [place] [address] Dr. Jose Duffy MTD Negative Normal NEGATIVE [facility] Comment on above: Performed By: #### U RICUR #### [facility] [address] [address] [address] Jose Duffy OPI Negative Normal NEGATIVE [facility] Comment on above: Performed By: #### U RICUR #### [facility] [address] [address] [address] Jose Duffy OXY Negative Normal NEGATIVE [facility] Comment on above: Performed By: #### U RICUR #### [facility] [address] [address] [address] Jose Duffy PCP Negative Normal NEGATIVE [facility] Comment on above: Performed By: #### U RICUR #### [facility] [address] [address] [address] Jose Duffy PPX Negative Normal NEGATIVE [facility] Comment on above: Performed By: #### U RICUR #### [facility] [address] [place] [address] Dr. Jose Duffy TCA Negative Normal NEGATIVE [facility] Comment on above: Performed By: #### U RICUR #### [facility] [address] [address] [address] Jose Duffy THC Negative Normal NEGATIVE [facility] Comment on above: Performed By: #### U RICUR #### [facility] [address] [place] [address] Dr. Jose Duffy COMPLIANCE DRUG SCREENon PDF . [facility] Comment on above: Performed By: #### D SDOALC #### [facility] [address] [place] [address] Dr. Jose Duffy Summary FINAL Normal [facility] Comment on above: Result Comment: = [...] = Performed By: #### D SDOALC #### [facility] [address] [address] [address] Jose Duffy URIC ACID RAND URINEon 08-19 Uric Acid, Urine 21.4 mg/dL Normal Not Estab. [facility] Comment on above: Performed By: #### U RICUR #### [facility] [address] [address] [address] Jose Duffy DRUG SCREEN RAPID (URINE)on 08-18-2022 AMP Negative Normal NEGATIVE [facility] Comment on above: Performed By: #### D SDOALC #### [facility] [address] [place] [address] Dr. Jose Duffy BAR Negative Normal NEGATIVE [facility] Comment on above: Performed By: #### D SDOALC #### [facility] [address] [place] [address] Dr. Jose Duffy BUP Positive Abnormal NEGATIVE [facility] Comment on above: Performed By: #### D SDOALC #### [facility] [address] [place] [address] Dr. Jose Duffy BZO Negative Normal NEGATIVE [facility] Comment on above: Performed By: #### D SDOALC #### [facility] [address] [place] [address] Dr. Jose Duffy RICARDO Negative Normal NEGATIVE [facility] Comment on above: Performed By: #### D SDOALC #### [facility] [address] [place] [address] Dr. Jose uDffy CUT-OFFS SEE BELOW Normal [facility] Comment on above: Result Comment: AMP [...] ng/mL Performed By: #### D SDOALC #### [facility] [address] [place] [address] Dr. Jose Duffy DRUG CUT HEADER DRUG CLASS TEST SYST EM CUT-OFF CONCENTRATIONS ARE FOLLOWS: Normal [facility] Comment on above: Performed By: #### D SDOALC #### [facility] [address] [address] [address] Jose Duffy mAMP Negative Normal NEGATIVE [facility] Comment on above: Performed By: #### D SDOALC #### [facility] [address] [address] [address] Jose Duffy MTD Negative Normal NEGATIVE [facility] Comment on above: Performed By: #### D SDOALC #### [facility] [address] [address] [address] Jose Duffy OPI Negative Normal NEGATIVE [facility] Comment on above: Performed By: #### D SDOALC #### [facility] [address] [address] [address] Jose Duffy OXY Negative Normal NEGATIVE [facility] Comment on above: Performed By: #### D SDOALC #### [facility] [address] [place] [address] Dr. Jose Duffy PCP Negative Normal NEGATIVE [facility] Comment on above: Performed By: #### D SDOALC #### [facility] [address] [place] [address] Dr. Jose Duffy PPX Negative Normal NEGATIVE [facility] Comment on above: Performed By: #### D SDOALC #### [facility] [address] [address] [address] Jose Duffy TCA Negative Normal NEGATIVE [facility] Comment on above: Performed By: #### D SDOALC #### [facility] [address] [place] [address] Dr. Jose Duffy THC Negative Normal NEGATIVE [facility] Comment on above: Performed By: #### D SDOALC #### [facility] [address] [place] [address] Dr. Jose Duffy COMPLIANCE DRUG SCREENon PDF . Normal [facility] Comment on above: Performed By: #### D RUGRPD #### [facility] [address] [place] [address] Dr. Jose Duffy Summary FINAL Normal [facility] Comment on above: Result Comment: = [...] = Performed By: #### D RUGRPD #### [facility] [address] [place] [address] Dr. Jose Duffy URIC ACID RAND URINEon 07-23 Uric Acid, Urine 21.8 mg/dL Normal Not Estab. [facility] Comment on above: Performed By: #### U RICUR #### [facility] [address] [place] [address] Dr. Jose Duffy DRUG SCREEN RAPID (URINE)on 07-22-2022 AMP Negative Normal NEGATIVE [facility] Comment on above: Performed By: #### U RICUR #### [facility] [address] [place] [address] Dr. Jose Duffy BAR Negative Normal NEGATIVE [facility] Comment on above: Performed By: #### U RICUR #### [facility] [address] [place] [address] Dr. Jose Duffy BUP Positive Abnormal NEGATIVE [facility] Comment on above: Result Comment: Prev iously reported as: NEGATIVE On 07/22/2022 12:02 By [email or web address] Performed By: #### U RICUR #### [facility] [address] [place] [address] Dr. Jose Duffy BZO Negative Normal NEGATIVE [facility] Comment on above: Performed By: #### U RICUR #### [facility] [address] [place] [address] Dr. Jose Duffy RICARDO Negative Normal NEGATIVE [facility] Comment on above: Performed By: #### U RICUR #### [facility] [address] [place] [address] Dr. Jose Duffy CUT-OFFS SEE BELOW Normal [facility] Comment on above: Result Comment: AMP [...] ng/mL Performed By: #### U RICUR #### [facility] [address] [place] [address] Dr. Jose Duffy DRUG CUT HEADER DRUG CLASS TEST SYST EM CUT-OFF CONCENTRATIONS ARE FOLLOWS: Normal [facility] Comment on above: Performed By: #### U RICUR #### [facility] [address] [place] [address] Dr. Jose Duffy mAMP Negative Normal NEGATIVE [facility] Comment on above: Performed By: #### U RICUR #### [facility] [address] [place] [address] Dr. Jose Duffy MTD Negative Normal NEGATIVE [facility] Comment on above: Performed By: #### U RICUR #### [facility] [address] [place] [address] Dr. Jose Duffy OPI Negative Normal NEGATIVE [facility] Comment on above: Performed By: #### U RICUR #### [facility] [address] [place] [address] Dr. Jose Duffy OXY Negative Normal NEGATIVE [facility] Comment on above: Performed By: #### U RICUR #### [facility] [address] [place] [address] Dr. Jose Duffy PCP Negative Normal NEGATIVE [facility] Comment on above: Performed By: #### U RICUR #### [facility] [address] [place] [address] Dr. Jose Duffy PPX Negative Normal NEGATIVE [facility] Comment on above: Performed By: #### U RICUR #### [facility] [address] [place] [address] Dr. Jose Duffy TCA Negative Normal NEGATIVE [facility] Comment on above: Performed By: #### U RICUR #### [facility] [address] [address] [address] Jose Duffy THC Negative Normal NEGATIVE [facility] Comment on above: Performed By: #### U RICUR #### [facility] [address] [address] [address] Jose Duffy COMPLIANCE DRUG SCREENon PDF . Normal [facility] Comment on above: Performed By: #### D RUGRPD #### [facility] [address] [address] [address] Jose Duffy Summary FINAL Normal [facility] Comment on above: Result Comment: = [...] = Performed By: #### D RUGRPD #### [facility] [address] [place] [address] Dr. Jose Duffy URIC ACID RAND URINEon 06-24 Uric Acid, Urine 33.0 mg/dL Normal Not Estab. [facility] Comment on above: Performed By: #### U RICUR #### [facility] [address] [place] [address] Dr. Jose Duffy DRUG SCREEN RAPID (URINE)on 06-23-2022 AMP Negative Normal NEGATIVE [facility] Comment on above: Performed By: #### D RUGRPD #### [facility] [address] [place] [address] Dr. Jose Duffy BAR Negative Normal NEGATIVE [facility] Comment on above: Performed By: #### D RUGRPD #### [facility] [address] [place] [address] Dr. Jose Duffy BUP Positive Abnormal NEGATIVE [facility] Comment on above: Performed By: #### D RUGRPD #### [facility] [address] [place] [address] Dr. Jose Duffy BZO Negative Normal NEGATIVE [facility] Comment on above: Performed By: #### D RUGRPD #### [facility] [address] [place] [address] Dr. Jose Duffy RICARDO Negative Normal NEGATIVE [facility] Comment on above: Performed By: #### D RUGRPD #### [facility] [address] [place] [address] Dr. Jose Duffy CUT-OFFS SEE BELOW Normal [facility] Comment on above: Result Comment: AMP [...] ng/mL Performed By: #### D RUGRPD #### [facility] [address] [place] [address] Dr. Jose Duffy DRUG CUT HEADER DRUG CLASS TEST SYST EM CUT-OFF CONCENTRATIONS ARE FOLLOWS: Normal [facility] Comment on above: Performed By: #### D RUGRPD #### [facility] [address] [place] [address] Dr. Jose Duffy mAMP Negative Normal NEGATIVE [facility] Comment on above: Performed By: #### D RUGRPD #### [facility] [address] [place] [address] Dr. Jose Duffy MTD Negative Normal NEGATIVE [facility] Comment on above: Performed By: #### D RUGRPD #### [facility] [address] [place] [address] Dr. Jose Duffy OPI Negative Normal NEGATIVE [facility] Comment on above: Performed By: #### D RUGRPD #### [facility] [address] [address] [address] Jose Duffy OXY Negative Normal NEGATIVE [facility] Comment on above: Performed By: #### D RUGRPD #### [facility] [address] [address] [address] Joes Duffy PCP Negative Normal NEGATIVE [facility] Comment on above: Performed By: #### D RUGRPD #### [facility] [address] [place] [address] Dr. Jose Duffy PPX Negative Normal NEGATIVE [facility] Comment on above: Performed By: #### D RUGRPD #### [facility] [address] [place] [address] Dr. Jose Duffy TCA Negative Normal NEGATIVE [facility] Comment on above: Performed By: #### D RUGRPD #### [facility] [address] [place] [address] Dr. Jose Duffy THC Negative Normal NEGATIVE [facility] Comment on above: Performed By: #### D RUGRPD #### [facility] [address] [place] [address] Dr. Jose Duffy COMPLIANCE DRUG SCREENon PDF . Normal [facility] Comment on above: Performed By: #### U RICUR #### [facility] [address] [place] [address] Dr. Jose Duffy Summary FINAL [facility] Comment on above: Result Comment: = TOXASSURE [...] = Performed By: #### U SHEREEN #### [facility] [address] [place] [address] Dr. Jose Duffy URIC ACID RAND URINEon 05-27 Uric Acid, Urine 18.9 mg/dL Normal Not Estab. [facility] Comment on above: Performed By: #### D SDOALC #### [facility] [address] [address] [address] Jose Duffy DRUG SCREEN RAPID (URINE)on 05-26-2022 AMP Negative Normal NEGATIVE [facility] Comment on above: Performed By: #### U RICUR #### [facility] [address] [address] [address] Jose Duffy BAR Negative Normal NEGATIVE [facility] Comment on above: Performed By: #### U RICUR #### [facility] [address] [address] [address] Jose Duffy BUP Positive Abnormal NEGATIVE [facility] Comment on above: Performed By: #### U RICUR #### [facility] [address] [place] [address] Dr. Jose Duffy BZO Negative Normal NEGATIVE [facility] Comment on above: Performed By: #### U RICUR #### [facility] [address] [place] [address] Dr. Jose Duffy RICARDO Negative Normal NEGATIVE [facility] Comment on above: Performed By: #### U RICUR #### [facility] [address] [address] [address] Jose Duffy CUT-OFFS SEE BELOW Normal [facility] Comment on above: Result Comment: AMP [...] ng/mL Performed By: #### U RICUR #### [facility] [address] [place] [address] Dr. Jose Duffy DRUG CUT HEADER DRUG CLASS TEST SYST EM CUT-OFF CONCENTRATIONS ARE FOLLOWS: Normal [facility] Comment on above: Performed By: #### U RICUR #### [facility] [address] [address] [address] Jose Duffy mAMP Negative Normal NEGATIVE [facility] Comment on above: Performed By: #### U RICUR #### [facility] [address] [place] [address] Dr. Jose Duffy MTD Negative Normal NEGATIVE [facility] Comment on above: Performed By: #### U RICUR #### [facility] [address] [place] [address] Dr. Jose Duffy OPI Negative Normal NEGATIVE [facility] Comment on above: Performed By: #### U RICUR #### [facility] [address] [place] [address] Dr. Jose Duffy OXY Negative Normal NEGATIVE [facility] Comment on above: Performed By: #### U RICUR #### [facility] [address] [place] [address] Dr. Jose Duffy PCP Negative Normal NEGATIVE [facility] Comment on above: Performed By: #### U RICUR #### [facility] [address] [address] [address] Jose Duffy PPX Negative Normal NEGATIVE [facility] Comment on above: Performed By: #### U RICUR #### [facility] [address] [place] [address] Dr. Jose Duffy TCA Negative Normal NEGATIVE [facility] Comment on above: Performed By: #### U RICUR #### [facility] [address] [place] [address] Dr. Jose Duffy THC Negative Normal NEGATIVE [facility] Comment on above: Performed By: #### U RICUR #### [facility] [address] [place] [address] Dr. Jose Duffy In office Testingon 04-29-20 22 In office Testing [id number] 0CD:127 Normal [facility] COMPLIANCE DRUG SCREENon PDF . Normal [facility] Comment on above: Performed By: #### D SDOALC #### [facility] [address] [address] [address] Jose Duffy Summary FINAL Normal [facility] Comment on above: Result Comment: = [...] = Performed By: #### D SDOALC #### [facility] [address] [place] [address] Dr. Jose Duffy URIC ACID RAND URINEon 03-16 Uric Acid, Urine 38.6 mg/dL Normal Not Estab. [facility] Comment on above: Performed By: #### U RICUR #### [facility] [address] [place] [address] Dr. Jose Duffy DRUG SCREEN RAPID (URINE)on 03-15-2022 AMP Negative Normal NEGATIVE [facility] Comment on above: Performed By: #### D RUGRPD #### [facility] [address] [place] [address] Dr. Jose Duffy BAR Negative Normal NEGATIVE [facility] Comment on above: Performed By: #### D RUGRPD #### [facility] [address] [place] [address] Dr. Jose Duffy BUP Positive Abnormal NEGATIVE [facility] Comment on above: Performed By: #### D RUGRPD #### [facility] [address] [place] [address] Dr. Jose Duffy BZO Negative Normal NEGATIVE [facility] Comment on above: Performed By: #### D RUGRPD #### [facility] [address] [place] [address] Dr. Jose Duffy RICARDO Negative Normal NEGATIVE [facility] Comment on above: Performed By: #### D RUGRPD #### [facility] [address] [place] [address] Dr. Jose Duffy CUT-OFFS SEE BELOW Normal [facility] Comment on above: Result Comment: AMP [...] ng/mL Performed By: #### D RUGRPD #### [facility] [address] [place] [address] Dr. Jose Duffy DRUG CUT HEADER DRUG CLASS TEST SYST EM CUT-OFF CONCENTRATIONS ARE FOLLOWS: Normal [facility] Comment on above: Performed By: #### D RUGRPD #### [facility] [address] [place] [address] Dr. Jose Duffy mAMP Negative Normal NEGATIVE [facility] Comment on above: Performed By: #### D RUGRPD #### [facility] [address] [place] [address] Dr. Jose Duffy MTD Negative Normal NEGATIVE [facility] Comment on above: Performed By: #### D RUGRPD #### [facility] [address] [place] [address] Dr. Jose Duffy OPI Negative Normal NEGATIVE [facility] Comment on above: Performed By: #### D RUGRPD #### [facility] [address] [place] [address] Dr. Jose Duffy OXY Negative Normal NEGATIVE [facility] Comment on above: Performed By: #### D RUGRPD #### [facility] [address] [place] [address] Dr. Jose Duffy PCP Negative Normal NEGATIVE [facility] Comment on above: Performed By: #### D RUGRPD #### [facility] [address] [place] [address] Dr. Jose Duffy PPX Negative Normal NEGATIVE [facility] Comment on above: Performed By: #### D RUGRPD #### [facility] [address] [address] [address] Jose Duffy TCA Negative Normal NEGATIVE [facility] Comment on above: Performed By: #### D RUGRPD #### [facility] [address] [address] [address] Jose Duffy THC Negative Normal NEGATIVE [facility] Comment on above: Performed By: #### D RUGRPD #### [facility] [address] [address] [address] Jose Duffy COMPLIANCE DRUG SCREENon PDF . Normal [facility] Comment on above: Performed By: #### D SDOALC #### [facility] [address] [place] [address] Dr. Jose Duffy Summary FINAL Normal [facility] Comment on above: Result Comment: = [...] is an expected metabolite of dextromethorphan, an fwjr-cze-pmrzrze or prescription cough suppressant. Levorphanol is a [...] = Performed By: #### D SDOALC #### [facility] Laboratory [address] [place], [place] [address] Dr. Jose Duffy URIC ACID RAND URINEon 02-20 Uric Acid, Urine 44.5 mg/dL Normal Not Estab. [facility] Comment on above: Performed By: #### D SDOALC #### [facility] [address] [place], [place] [address] Dr. Jose Duffy DRUG SCREEN RAPID (URINE)on 02-19-2022 AMP Negative Normal NEGATIVE [facility] Comment on above: Performed By: #### D RUGRPD #### [facility] [address] [place] [address] Dr. Jose Duffy BAR Negative Normal NEGATIVE [facility] Comment on above: Performed By: #### D RUGRPD #### [facility] [address] [place] [address] Dr. Jose Duffy BUP Positive Abnormal NEGATIVE [facility] Comment on above: Performed By: #### D RUGRPD #### [facility] [address] [place] [address] Dr. Jose Duffy BZO Negative Normal NEGATIVE [facility] Comment on above: Performed By: #### D RUGRPD #### [facility] [address] [place] [address] Dr. Jose Duffy RICARDO Negative Normal NEGATIVE [facility] Comment on above: Performed By: #### D RUGRPD #### [facility] [address] [place] [address] Dr. Jose Duffy CUT-OFFS SEE BELOW Normal [facility] Comment on above: Result Comment: AMP [...] ng/mL Performed By: #### D RUGRPD #### [facility] [address] [place] [address] Dr. Jose Duffy DRUG CUT HEADER DRUG CLASS TEST SYST EM CUT-OFF CONCENTRATIONS ARE FOLLOWS: Normal [facility] Comment on above: Performed By: #### D RUGRPD #### [facility] [address] [place] [address] Dr. Jose Duffy mAMP Negative Normal NEGATIVE [facility] Comment on above: Performed By: #### D RUGRPD #### [facility] [address] [place] [address] Dr. Jose Duffy MTD Negative Normal NEGATIVE [facility] Comment on above: Performed By: #### D RUGRPD #### [facility] [address] [place] [address] Dr. Jose Duffy OPI Negative Normal NEGATIVE [facility] Comment on above: Performed By: #### D RUGRPD #### [facility] [address] [place] [address] Dr. Jose Duffy OXY Negative Normal NEGATIVE [facility] Comment on above: Performed By: #### D RUGRPD #### [facility] [address] [place] [address] Dr. Jose Duffy PCP Negative Normal NEGATIVE [facility] Comment on above: Performed By: #### D RUGRPD #### [facility] [address] [place] [address] Dr. Jose Duffy PPX Negative Normal NEGATIVE [facility] Comment on above: Performed By: #### D RUGRPD #### [facility] [address] [place] [address] Dr. Jose Duffy TCA Negative Normal NEGATIVE [facility] Comment on above: Performed By: #### D RUGRPD #### [facility] [address] [place] [address] Dr. Jose Duffy THC Negative Normal NEGATIVE [facility] Comment on above: Performed By: #### D RUGRPD #### [facility] [address] [place] [address] Dr. Jose Duffy COMPLIANCE DRUG SCREENon PDF . Normal [facility] Comment on above: Performed By: #### D SDOALC #### [facility] [address] [place] [address] Dr. Jose Duffy Summary FINAL Normal [facility] Comment on above: Result Comment: = [...] = Performed By: #### D SDOALC #### [facility] [address] [place] [address] Dr. Jose Duffy URIC ACID RAND URINEon 01-28 Uric Acid, Urine 30.0 mg/dL Normal Not Estab. [facility] Comment on above: Performed By: #### U RICUR #### [facility] [address] [place] [address] Dr. Jose Duffy DRUG SCREEN RAPID (URINE)on 01-27-2022 AMP Negative Normal NEGATIVE [facility] Comment on above: Performed By: #### D RUGRPD #### [facility] [address] [place] [address] Dr. Jose Duffy BAR Negative Normal NEGATIVE [facility] Comment on above: Performed By: #### D RUGRPD #### [facility] [address] [place] [address] Dr. Jose Duffy BUP Positive Abnormal NEGATIVE [facility] Comment on above: Performed By: #### D RUGRPD #### [facility] [address] [place] [address] Dr. Jose Duffy BZO Negative Normal NEGATIVE [facility] Comment on above: Performed By: #### D RUGRPD #### [facility] [address] [place] [address] Dr. Jose Duffy RICARDO Negative Normal NEGATIVE [facility] Comment on above: Performed By: #### D RUGRPD #### [facility] [address] [place] [address] Dr. Jose Duffy CUT-OFFS SEE BELOW Normal [facility] Comment on above: Result Comment: AMP [...] ng/mL Performed By: #### D RUGRPD #### [facility] [address] [place] [address] Dr. Jose Duffy DRUG CUT HEADER DRUG CLASS TEST SYST EM CUT-OFF CONCENTRATIONS ARE FOLLOWS: Normal [facility] Comment on above: Performed By: #### D RUGRPD #### [facility] [address] [place] [address] Dr. Jose Duffy mAMP Negative Normal NEGATIVE [facility] Comment on above: Performed By: #### D RUGRPD #### [facility] [address] [place] [address] Dr. Jose Duffy MTD Negative Normal NEGATIVE [facility] Comment on above: Performed By: #### D RUGRPD #### [facility] [address] [place] [address] Dr. Jose Duffy OPI Negative Normal NEGATIVE [facility] Comment on above: Performed By: #### D RUGRPD #### [facility] [address] [place] [address] Dr. Jose Dufyf OXY Negative Normal NEGATIVE [facility] Comment on above: Performed By: #### D RUGRPD #### [facility] [address] [place] [address] Dr. Jose Duffy PCP Negative Normal NEGATIVE [facility] Comment on above: Performed By: #### D RUGRPD #### [facility] [address] [place] [address] Dr. Jose Duffy PPX Negative Normal NEGATIVE [facility] Comment on above: Performed By: #### D RUGRPD #### [facility] [address] [place] [address] Dr. Jose Duffy TCA Negative Normal NEGATIVE [facility] Comment on above: Performed By: #### D RUGRPD #### [facility] [address] [place] [address] [address] Jose Duffy THC Negative Normal NEGATIVE [facility] Comment on above: Performed By: #### D RUGRPD #### [facility] [address] [place] [address] [address] Jose Duffy COMPLIANCE DRUG SCREENon PDF . Normal [facility] Comment on above: Performed By: #### U RICUR #### [facility] [address] [place] [address] [address] Jose Duffy Summary FINAL Normal [facility] Comment on above: Result Comment: = [...] = Performed By: #### U RICUR #### [facility] [address] [place] [address] Dr. Jose Duffy URIC ACID RAND URINEon 01-09 Uric Acid, Urine 25.0 mg/dL Normal Not Estab. [facility] Comment on above: Performed By: #### D RUGRPD #### [facility] [address] [place] [address] Dr. Jose Duffy DRUG SCREEN RAPID (URINE)on 01-08-2022 AMP Negative Normal NEGATIVE [facility] Comment on above: Performed By: #### U RICUR #### [facility] [address] [place] [address] Dr. Jose Duffy BAR Negative Normal NEGATIVE [facility] Comment on above: Performed By: #### U RICUR #### [facility] [address] [place] [address] Dr. Jose Duffy BUP Positive Abnormal NEGATIVE [facility] Comment on above: Performed By: #### U RICUR #### [facility] [address] [place] [address] Dr. Jose Duffy BZO Negative Normal NEGATIVE [facility] Comment on above: Performed By: #### U RICUR #### [facility] [address] [place] [address] [address] Jose Duffy RICARDO Negative Normal NEGATIVE [facility] Comment on above: Performed By: #### U RICUR #### [facility] [address] [place] [address] [address] Jose Duffy CUT-OFFS SEE BELOW Normal [facility] Comment on above: Result Comment: AMP [...] ng/mL Performed By: #### U RICUR #### [facility] [address] [place] [address] Dr. Jose Duffy DRUG CUT HEADER DRUG CLASS TEST SYST EM CUT-OFF CONCENTRATIONS ARE FOLLOWS: Normal [facility] Comment on above: Performed By: #### U RICUR #### [facility] [address] [place] [address] Dr. Jose Duffy mAMP Negative Normal NEGATIVE [facility] Comment on above: Performed By: #### U RICUR #### [facility] [address] [place] [address] [address] Jose Duffy MTD Negative Normal NEGATIVE [facility] Comment on above: Performed By: #### U RICUR #### [facility] [address] [place] [address] [address] Jose Duffy OPI Negative Normal NEGATIVE [facility] Comment on above: Performed By: #### U RICUR #### [facility] [address] [place] [address] [address] Jose Duffy OXY Negative Normal NEGATIVE [facility] Comment on above: Performed By: #### U RICUR #### [facility] [address] [place] [address] [address] Jose Duffy PCP Negative Normal NEGATIVE [facility] Comment on above: Performed By: #### U RICUR #### [facility] [address] [place] [address] [address] Jose Duffy PPX Negative Normal NEGATIVE [facility] Comment on above: Performed By: #### U RICUR #### [facility] [address] [place] [address] [address] Jose Duffy TCA Negative Normal NEGATIVE [facility] Comment on above: Performed By: #### U RICUR #### [facility] [address] [place] [address] Dr. Jose Duffy THC Negative Normal NEGATIVE [facility] Comment on above: Performed By: #### U RICUR #### [facility] [address] [place] [address] [address] Jose Duffy COMPLIANCE DRUG SCREENon PDF . Normal [facility] Comment on above: Performed By: #### D SDOALC #### [facility] [address] [place] [address] [address] Jose Duffy Summary FINAL Normal [facility] Comment on above: Result Comment: = [...] call . = Performed By: #### D [facility] #### [facility] [address] [place] [address] ABD/PELV W CONon [...] by: VENKATA GRIMALDO Date: 2021-12-18 15:15 Normal [facility] US SINGLE QUAD RT UPPERon US [...] by: VENKATA GRIMALDO Date: 2021-12-18 15:09 Normal [facility] URIC ACID RAND URINEon 12-16 Uric Acid, Urine 46.2 mg/dL Normal Not Estab. [facility] Comment on above: Performed By: #### D SDOALC #### [facility] [address] [place] [address] Dr. Jose Duffy AMYLASEon 12-15-2021 Amylase [Catalytic activity/Vol] 134 U/L Critically high 25-115 [facility] Comment on above: Performed By: #### D RUGRPD #### [facility] [address] [place] [address] Dr. Jose Duffy CBC AUTO DIFFon 12-15-2021 BASO # 0.1 103/ul Normal 0.0-0.1 [facility] Comment on above: Performed By: #### D RUGRPD #### [facility] [address] [place] [address] Dr. Jose Duffy Basophils/100 WBC (Bld) 0.6 % Normal 0.2-2.0 [facility] Comment on above: Performed By: #### D RUGRPD #### [facility] [address] [place] [address] Dr. Jose Duffy EO # 0.3 103/ul Normal 0.0-0.7 [facility] Comment on above: Performed By: #### D RUGRPD #### [facility] [address] [place] [address] Dr. Jsoe Duffy Eosinophils/100 WBC (Bld) 3.0 % Normal 0.9-7.0 [facility] Comment on above: Performed By: #### D RUGRPD #### [facility] [address] [place] [address] Dr. Jose Duffy Erythrocyte distribution width (RBC) [Ratio] 13.2 % Normal 11.0-15.0 [facility] Comment on above: Performed By: #### D RUGRPD #### [facility] [address] [place] [address] Dr. Jose Duffy Hematocrit (Bld) [Volume fraction] 42.7 % Normal 42.0-54.0 [facility] Comment on above: Performed By: #### D RUGRPD #### [facility] [address] [place] [address] Dr. Jose Duffy Hemoglobin (Bld) [Mass/Vol] 14.3 g/dL Normal 14.0-18.0 [facility] Comment on above: Performed By: #### D RUGRPD #### [facility] [address] [place] [address] [address] Jose Duffy IG # 0.02 10e3/ul Normal 0.00-0.03 [facility] Comment on above: Performed By: #### D RUGRPD #### [facility] [address] [place] [address] [address] Jose Duffy IG % 0.2 % Normal 0.0-0.5 [facility] Comment on above: Performed By: #### D RUGRPD #### [facility] [address] [place] [address] [address] Jose Duffy LYMPH # 2.3 103/ul Normal 1.2-3.8 [facility] Comment on above: Performed By: #### D RUGRPD #### [facility] [address] [place] [address] Dr. Jose Duffy Lymphocytes/100 WBC (Bld) 20.6 % Normal 20.5-60.0 [facility] Comment on above: Performed By: #### D RUGRPD #### [facility] [address] [place] [address] Dr. Jose Duffy MANUAL DIFF REQ NO Normal [facility] Comment on above: Performed By: #### D RUGRPD #### [facility] [address] [place] [address] Dr. Jose Duffy MCH (RBC) [Entitic mass] 28.7 pg Normal 25.9-34.0 [facility] Comment on above: Performed By: #### D RUGRPD #### [facility] [address] [place] [address] [address] Jose Duffy MCHC (RBC) [Mass/Vol] 33.5 g/dL Normal 29.9-35.2 [facility] Comment on above: Performed By: #### D RUGRPD #### [facility] [address] [place] [address] [address] Jose Duffy MCV (RBC) [Entitic vol] 85.6 fL Normal 80.0-94.0 [facility] Comment on above: Performed By: #### D RUGRPD #### [facility] [address] [place] [address] [address] Jose Duffy MONO # 0.8 103/ul Normal 0.3-0.8 [facility] Comment on above: Performed By: #### D RUGRPD #### [facility] [address] [place] [address] [address] Jose Duffy Monocytes/100 WBC (Bld) 7.5 % Normal 1.7-12.0 [facility] Comment on above: Performed By: #### D RUGRPD #### [facility] [address] [place] [address] Dr. Jose Duffy NEUT # 7.4 103/ul Critically high 1.4-6.5 [facility] Comment on above: Performed By: #### D RUGRPD #### [facility] [address] [place] [address] Dr. Jose Duffy Neutrophils/100 WBC (Bld) 68.1 % Normal 43.0-75.0 [facility] Comment on above: Performed By: #### D RUGRPD #### [facility] [address] [place] [address] Dr. Jose Duffy Platelet mean volume (Bld) [Entitic vol] 9.0 fL Critically low 9.5-13.5 [facility] Comment on above: Performed By: #### D RUGRPD #### [facility] [address] [place] [address] Dr. Jose Duffy PLT 253 103/ul Normal 150-450 [facility] Comment on above: Performed By: #### D RUGRPD #### [facility] [address] [place] [address] Dr. Jose Duffy RBC 4.99 106/ul Normal 4.70-6.10 [facility] Comment on above: Performed By: #### D RUGRPD #### [facility] [address] [place] [address] Dr. Jose Duffy WBC 10.9 103/ul Normal 4.0-11.0 [facility] Comment on above: Performed By: #### D RUGRPD #### [facility] [address] [place] [address] [address] Jose Duffy LIPASEon 12-15-2021 Lipase [Catalytic activity/Vol] 207.0 U/L Normal 73.0-393.0 [facility] Comment on above: Performed By: #### D RUGRPD #### [facility] [address] [place] [address] Dr. Jose Duffy PROF 14(COMP METB)on 022 Albumin [Mass/Vol] 4.3 g/dL Normal 3.4-5.0 [facility] Comment on above: Performed By: #### D RUGRPD #### [facility] [address] [place] [address] Dr. Jose Duffy Albumin/Globulin [Mass ratio] 1.2 {ratio} Normal [facility] Comment on above: Performed By: #### D RUGRPD #### [facility] [address] [place] [address] Dr. Jose Duffy ALP [Catalytic activity/Vol] 68 U/L Normal 46-116 [facility] Comment on above: Performed By: #### D RUGRPD #### [facility] [address] [place] [address] Dr. Jose Duffy ALT [Catalytic activity/Vol] 132 U/L Critically high 16-63 [facility] Comment on above: Performed By: #### D RUGRPD #### [facility] [address] [place] [address] Dr. Jose Duffy Anion gap [Moles/Vol] 12.2 mmol/L Normal [facility] Comment on above: Performed By: #### D RUGRPD #### [facility] [address] [place] [address] Dr. Jose Duffy AST [Catalytic activity/Vol] 83 U/L Critically high 15-37 [facility] Comment on above: Performed By: #### D RUGRPD #### [facility] [address] [place] [address] Dr. Jose Duffy Bilirubin [Mass/Vol] 0.6 mg/dL Normal 0.2-1.0 [facility] Comment on above: Performed By: #### D RUGRPD #### [facility] [address] [place] [address] [address] Jose Duffy Calcium [Mass/Vol] 8.9 mg/dL Normal 8.5-10.1 [facility] Comment on above: Performed By: #### D RUGRPD #### [facility] [address] [place] [address] [address] Jose Duffy Chloride [Moles/Vol] 104 mmol/L Normal 98-107 [facility] Comment on above: Performed By: #### D RUGRPD #### [facility] [address] [place] [address] [address] Jose Duffy CO2 [Moles/Vol] 29.1 mmol/L Normal 21.0-32.0 [facility] Comment on above: Performed By: #### D RUGRPD #### [facility] [address] [place] [address] [address] Jose Duffy Creatinine [Mass/Vol] 0.95 mg/dL Normal 0.70-1.30 [facility] Comment on above: Performed By: #### D RUGRPD #### [facility] [address] [place] [address] [address] Jose Duffy EGFR-AF QATARI >60 Normal >=60 [facility] Comment on above: Performed By: #### D RUGRPD #### [facility] [address] [place] [address] [address] Jose Duffy EGFR-NON AF QATARI >60 Normal >=60 [facility] Comment on above: Performed By: #### D RUGRPD #### [facility] [address] [place] [address] [address] Jose Duffy Globulin (S) [Mass/Vol] 3.5 g/dL Normal [facility] Comment on above: Performed By: #### D RUGRPD #### [facility] [address] [place] [address] [address] Jose Duffy Glucose [Mass/Vol] 101 mg/dL Normal 74-106 [facility] Comment on above: Performed By: #### D RUGRPD #### [facility] [address] [place] [address] [address] Jose Duffy Potassium [Moles/Vol] 4.3 mmol/L Normal 3.5-5.1 [facility] Comment on above: Performed By: #### D RUGRPD #### [facility] [address] [place] [address] Dr. Jose Duffy Protein [Mass/Vol] 7.8 g/dL Normal 6.4-8.2 [facility] Comment on above: Performed By: #### D RUGRPD #### [facility] [address] [place] [address] Dr. Jose Duffy Sodium [Moles/Vol] 141 mmol/L Normal 136-145 [facility] Comment on above: Performed By: #### D RUGRPD #### [facility] [address] [place] [address] Dr. Jose Duffy Urea nitrogen [Mass/Vol] 20.0 mg/dL Critically high 7.0-18.0 [facility] Comment on above: Performed By: #### D RUGRPD #### [facility] [address] [place] [address] Dr. Jose Duffy Urea nitrogen/Creatinin e [Mass ratio] 21.1 mg/mg Normal [facility] Comment on above: Performed By: #### D RUGRPD #### [facility] [address] [place] [address] Dr. Jose Duffy COMPLIANCE DRUG SCREENon PDF . Normal [facility] Comment on above: Performed By: #### D SDOALC #### [facility] [address] [place] [address] Dr. Jose Duffy Summary FINAL Normal [facility] Comment on above: Result Comment: = [...] = Performed By: #### D SDOALC #### [facility] [address] [place] [address] Dr. Jose Duffy URIC ACID RAND URINEon 11-04 Uric Acid, Urine 91.5 mg/dL Normal Not Estab. [facility] Comment on above: Performed By: #### U RICUR #### [facility] [address] [place] [address] Dr. Jose Duffy DRUG SCREEN RAPID (URINE)on 11-02-2021 AMP Negative Normal NEGATIVE [facility] Comment on above: Performed By: #### U RICUR #### [facility] [address] [place] [address] Dr. Jose Duffy BAR Negative Normal NEGATIVE [facility] Comment on above: Performed By: #### U RICUR #### [facility] [address] [place] [address] Dr. Jose Duffy BUP Positive Abnormal NEGATIVE [facility] Comment on above: Performed By: #### U RICUR #### [facility] [address] [place] [address] Dr. Jose Duffy BZO Negative Normal NEGATIVE [facility] Comment on above: Performed By: #### U RICUR #### [facility] [address] [place] [address] Dr. Jose Duffy RICARDO Negative Normal NEGATIVE [facility] Comment on above: Performed By: #### U RICUR #### [facility] [address] [place] [address] Dr. Jose Duffy CUT-OFFS SEE BELOW Normal [facility] Comment on above: Result Comment: AMP [...] ng/mL Performed By: #### U RICUR #### [facility] [address] [place] [address] Dr. Jose Duffy DRUG CUT HEADER DRUG CLASS TEST SYST EM CUT-OFF CONCENTRATIONS ARE FOLLOWS: Normal [facility] Comment on above: Performed By: #### U RICUR #### [facility] [address] [address] [address] Jose Duffy mAMP Negative Normal NEGATIVE [facility] Comment on above: Performed By: #### U RICUR #### [facility] [address] [address] [address] Jose Duffy MTD Negative Normal NEGATIVE [facility] Comment on above: Performed By: #### U RICUR #### [facility] [address] [place] [address] Dr. Jose Duffy OPI Negative Normal NEGATIVE [facility] Comment on above: Performed By: #### U RICUR #### [facility] [address] [address] [address] Jose Duffy OXY Negative Normal NEGATIVE [facility] Comment on above: Performed By: #### U RICUR #### [facility] [address] [place] [address] Dr. Jose Duffy PCP Negative Normal NEGATIVE [facility] Comment on above: Performed By: #### U RICUR #### [facility] [address] [address] [address] Jose Duffy PPX Negative Normal NEGATIVE [facility] Comment on above: Performed By: #### U RICUR #### [facility] [address] [address] [address] Jose Duffy TCA Negative Normal NEGATIVE [facility] Comment on above: Performed By: #### U RICUR #### [facility] [address] [place] [address] Dr. Jose Duffy THC Negative Normal NEGATIVE [facility] Comment on above: Performed By: #### U RICUR #### [facility] [address] [address] [address] Jose Duffy .UA Microscp Aon 12-01-2018 UA Mucus Present Abnormal Absent [facility] Comment on above: Performed By: #### C D:[id number] #### [address] [address] UA RBC Quant 327 /HPF High 0-5 [facility] [facility] Comment on above: Performed By: #### C [id number] #### [address] [address] UA Squepi Cells Quant 1 /HPF Normal 0-29 [facility] Comment on above: Performed By: #### C [id number] #### [address] [address] UA WBC Quant 4 /HPF Normal 0-5 [facility] Comment on above: Performed By: #### C [id number] #### [address] [address] .eGFRon 12-01-2018 eGFR AA >60 Normal >=60 [facility] Comment on above: Result Comment: Resu lt = 0-14.9 mL/min/1.73 m2 Kidney failure or Dialysis Result = 15-29 mL/min/1.73 m2 Severe decrease in GFR Result = 30-59 mL/min/1.73 m2 Moderate decrease in GFR Result >= 60 mL/min/1.73 m2 Normal or increased GFR Performed By: #### E GFR #### [place] [address] eGFR Non-AA >60 Normal >=60 [facility] Comment on above: Result Comment: Resu lt [...] dosing. Performed By: #### E GFR #### [address] [address] CBC w/ Diffon 12-01-2018 Erythrocyte distribution width (RBC) [Ratio] 14.0 % Normal 11.6-14.8 [facility] Comment on above: Performed By: #### C BC #### [address] [address] Hematocrit (Bld) [Volume fraction] 43.5 % Normal 41.0-53.0 [facility] Comment on above: Performed By: #### C BC #### [address] [address] Hemoglobin (Bld) [Mass/Vol] 14.7 g/dL Normal 13.5-17.5 [facility] Comment on above: Performed By: #### C BC #### [address] [address] MCH (RBC) [Entitic mass] 28.5 pg Normal 27.0-35.0 [facility] Comment on above: Performed By: #### C BC #### [address] [address] MCHC (RBC) [Mass/Vol] 33.8 % Normal 31.0-37.0 [facility] Comment on above: Performed By: #### C BC #### [address] [address] MCV (RBC) [Entitic vol] 84.4 fL Normal 80.0-100.0 [facility] Comment on above: Performed By: #### C BC #### [address] [address] Platelet mean volume (Bld) [Entitic vol] 7.3 fL Normal 6.7-10.6 [facility] Comment on above: Performed By: #### C BC #### [address] [address] Platelets (Bld) [#/Vol] 273 x10*3/mcL Normal 150-350 [facility] Comment on above: Performed By: #### C BC #### [address] [address] RBC (Bld) [#/Vol] 5.16 x10*6/mcL Normal 4.30-5.80 [facility] Comment on above: Performed By: #### C BC #### [address] [address] WBC (Bld) [#/Vol] 11.0 x10*3/mcL Normal 4.5-11.0 [facility] Comment on above: Performed By: #### C BC #### [address] [address] CMPon 12-01-2018 Albumin [Mass/Vol] 4.2 g/dL Normal 3.2-4.9 [facility] Comment on above: Result Comment: [facility] Laboratory updated the methodology used for albumin testing on 12/21/17. Albumin measurement was performed using a bromcresol purple dye-binding assay. Performed By: #### C OMP #### [address] [address] Albumin/Globulin [Mass ratio] 1.3 {ratio} Normal 1.1-2.2 [facility] Comment on above: Performed By: #### C OMP #### [address] [address] Alk Phos 80 IU/L Normal 32-91 [facility] Comment on above: Performed By: #### C OMP #### [address] [address] ALT [Catalytic activity/Vol] 41 U/L Normal 17-63 [facility] Comment on above: Performed By: #### C OMP #### [address] [address] Anion gap [Moles/Vol] 15 mmol/L Normal 7-17 [facility] Comment on above: Performed By: #### C OMP #### [address] [place] [address] AST [Catalytic activity/Vol] 43 U/L High 15-41 [facility] Comment on above: Performed By: #### C OMP #### [address] [address] Bili Total 0.7 mg/dL Normal 0.3-1.2 [facility] Comment on above: Performed By: #### C OMP #### [address] [address] Calcium [Mass/Vol] 9.2 mg/dL Normal 8.5-10.3 [facility] Comment on above: Performed By: #### C OMP #### [address] [address] Chloride [Moles/Vol] 104 mmol/L Normal 98-110 [facility] Comment on above: Performed By: #### C OMP #### [address] [place] [address] CO2 [Moles/Vol] 25 mmol/L Normal 22-32 [facility] Comment on above: Performed By: #### C OMP #### [address] [address] Creatinine [Mass/Vol] 0.98 mg/dL Normal 0.61-1.24 [facility] Comment on above: Performed By: #### C OMP #### [address] [place] [address] Glucose [Mass/Vol] 126 mg/dL High 74-118 [facility] Comment on above: Performed By: #### C OMP #### [address] [address] Potassium [Moles/Vol] 3.7 mmol/L Normal 3.4-4.8 [facility] Comment on above: Performed By: #### C OMP #### [address] [address] Protein [Mass/Vol] 7.4 g/dL Normal 6.5-8.1 [facility] Comment on above: Performed By: #### C OMP #### [address] [address] Sodium [Moles/Vol] 140 mmol/L Normal 133-142 [facility] Comment on above: Performed By: #### C OMP #### [address] [address] Urea nitrogen [Mass/Vol] 19 mg/dL Normal 8-26 [facility] Comment on above: Performed By: #### C OMP #### [address] [address] Urea nitrogen/Creatinin e [Mass ratio] 19.4 mg/mg Normal 10.0-20.0 [facility] Comment on above: Performed By: #### C OMP #### [address] [address] CT Abd Pelvis w/o IV Cont St [...] stability of the nodule Radiation Dose Estimate: CTDI(mGy):0.059346 / / / kVp:120.431922 / mAs:0.477214 / / / DLP(mGy-cm):7.197820Qd dy Part: Abdomen Final Dictated by: Donnell Luther MD Dictated DT/TM: 12.01.2018 8:57 am Signed by: Donnell Luther MD Signed (Electronic Signature): 12.01.2018 9:03 am (If Report Is Signed, Electronically Signed in Other Vendor System) Normal [facility] Diff Autoon 12-01-2018 Baso Absolute 0.0 x10*3/mcL Normal 0.0-0.2 [facility] Comment on above: Performed By: #### . Automated Diff #### [address] [address] Basophils/100 WBC (Bld) 0.3 % Normal 0.0-1.2 [facility] Comment on above: Performed By: #### . Automated Diff #### [address] [address] Eos Absolute 0.3 x10*3/mcL Normal 0.0-0.4 [facility] Comment on above: Performed By: #### . Automated Diff #### [address] [address] Eosinophils/100 WBC (Bld) 2.8 % Normal 0.0-6.1 [facility] Comment on above: Performed By: #### . Automated Diff #### [address] [address] Lymphocytes (Bld) [#/Vol] 3.5 x10*3/mcL Normal 1.0-4.8 [facility] Comment on above: Performed By: #### . Automated Diff #### [address] [address] Lymphocytes/100 WBC (Bld) 32.0 % Normal 27.2-40.8 [facility] Comment on above: Performed By: #### . Automated Diff #### [address] [address] [place] Absolute 0.8 x10*3/mcL Normal 0.3-1.1 [facility] Comment on above: Performed By: #### . Automated Diff #### [place] [id number] Monocytes/100 WBC (Bld) 7.4 % Normal 4.7-13.9 [facility] Comment on above: Performed By: #### . Automated Diff #### [place] [id number] Neutro Absolute 6.3 x10*3/mcL Normal 1.8-7.7 [facility] Comment on above: Performed By: #### . Automated Diff #### [place] [address] Neutro Auto 57.5 % Normal 47.2-70.8 [facility] Comment on above: Performed By: #### . Automated Diff #### [place] [id number] ED Clinical Summaryon 2018 ED Clinical Summary [address] [address] ED Clinical Summary Person Information Name: Bessy Torres/[facility] Age: 38 Years : 1980 Sex: Male PCP: Romy Coronado MD Marital Status: Single Phone: Race: White Ethnicity: Not or Language: [place] Visit Reason: Flank pain; Flank pain Acuity: 3 Enc Type: Emergency Med Service: Emergency Medicine Arrival: 12/01/2018 07:25:25 Discharge: 12/01/2018 10:15:00 LOS: 000 02:50 Checkin: 12/01/2018 07:25:25 Checkout: 12/01/2018 10:15:00 Dispo Type: Home or Self Care Address: [address] [place] [address] Provider Notes: History of Present Illness Patient [...] range between ( 27.2 and 40.8 ) [place] Auto: 7.4 % -- Normal range between [...] range between ( 41.0 and 53.0 ) [place] Absolute: 0.8 x10 MCH: 28.5 pg -- [...] [address], [address] [place], [place] [id number], [phone] ondansetron (Zofran 4 mg oral tablet) 1 [...] Refills: 0. Last Dose: ___ hydrocodone-acetaminop hen ([place] 5 mg-325 mg oral tablet) 1 Tabs [...] [facility], [address], [place] [id number], [phone] ondansetron (Zofran 4 mg oral tablet) 1 [...] for 7 Days. Refills: 0. hydrocodone-acetaminop hen ([place] 5 mg-325 mg oral tablet) 1 Tabs [...] Heller MD ED Provider 12/01/2018 07:30:16 Josemanuel Reynolds ED Nurse 12/01/2018 08:04:02 Follow up: With: Address: When: Romy Coronado [address] [place] [phone] Business (1) Within 1 to 2 days Discharge Orders: Discharge Patient 12/01/18 9:58:00 EDT, Discharge to Home, Self Discharge Special Instructions Your [facility] [address] [address]. Discharge Special Instructions If you are unable to make this appointment, please call the office at [phone]. Discharge Special Instructions Please arrive by 8:00AM the next business day for your appointment. Business days are Tuesday through Tuesday. Discharge Special Instructions Please DO NOT EAT or DRINK anything after midnight the night before your appointment. PLEASE DO NOT EAT BREAKFAST. Discharge Special Instructions Please strain your urine as instructed until your appointment at [facility]. Return to Work/School 12/01/18 10:10:00 EDT, 12/02/18 8:00:00 EDT, 12/01/18 10:10:00 EDT Patient Education Information: KIDNEY STONE w/ [facility] Poison Help line: . [facility] Hotline: [place] Tobacco Quit Line: [place], [place]) [address]: [phone] [place], [place]) [address]: [phone] [facility] [address] [place], [place]: [phone] Normal [facility] ED Note-Physicianon 12-02-19 ED Note-Physician Chief Complaint [...] information in this document, created by the medical facilities section director for me, accurately reflects the services I [...] 9:56:00 EDT, STAT, Dispense From Location: [facility], UTI/Pyelonephritis ciprofloxacin, 1 tabs, Oral, q12hr, X 7 days, # 14 tabs, 0 Refill(s), 12/08/18 9:57:00 EDT hydrocodone-acetaminop hen, 1 tabs, Oral, q4hr, PRN, X 3 days, # 18 tabs, 0 Refill(s), 12/04/18 9:52:00 EDT ondansetron, 1 tabs, Oral, q8hr, PRN, # 15 tabs, 0 Refill(s), Pharmacy: [facility] tamsulosin, 1 caps, Oral, Daily, # 7 caps, 0 Refill(s), Pharmacy: [facility] ST 2. Renal colic Ordered: ciprofloxacin, 500 mg, Oral, Tab, Once, First Dose: 12/01/18 9:56:00 EDT, Stop Date: 12/01/18 9:56:00 EDT, STAT, Dispense From Location: [facility], UTI/Pyelonephritis 3. Lung nodule Ordered: ciprofloxacin, 500 mg, Oral, Tab, Once, First Dose: 12/01/18 9:56:00 EDT, Stop Date: 12/01/18 9:56:00 EDT, STAT, Dispense From Location: [facility], UTI/Pyelonephritis Orders: sodium chloride, 10 mL, IV Push, Injection, As Indicated, PRN flush, First Dose: 12/01/18 7:37:00 EDT, Dispense From Location: [facility] Sodium Chloride 0.9% intravenous solution 1,000 mL, [...] MD 12/01/18 10:14 EDT Elif Fox Normal [facility] UA w Culture if Indon 2018 Color (U) Yellow Normal [facility] Comment on above: Performed By: #### U CI #### [address] [place] [address] Glucose (U) [Mass/Vol] Negative Normal Negative [facility] Comment on above: Performed By: #### U CI #### [address] [place] [address] Ketones Ql (U) Negative Normal Negative [facility] Comment on above: Performed By: #### U CI #### [address] [place] [address] UA Blood Large Abnormal Negative [facility] Comment on above: Performed By: #### U CI #### [address] [place] [address] UA Clarity Hazy Normal [facility] Comment on above: Performed By: #### U CI #### [address] [place] [address] UA Leukocyte Esterase Trace Abnormal Negative [facility] Comment on above: Performed By: #### U CI #### [address] [place] [address] UA Nitrite Negative Normal Negative [facility] Comment on above: Performed By: #### U CI #### [address] [place] [address] UA pH 5.0 Normal 4.5 - 7.8 [facility] Comment on above: Performed By: #### U CI #### [address] [place] [address] UA Protein Negative Normal Negative [facility] Comment on above: Performed By: #### U CI #### [address] [address] UA Source Clean Catch Normal [facility] Comment on above: Performed By: #### U CI #### [address] [address] UA Spec Grav 1.015 Normal 1.003-1.035 [facility] Comment on above: Performed By: #### U CI #### [address] [address] UA Urobilinogen 0.2 mg/dL Normal 0.2 - 1.0 [facility] Comment on above: Performed By: #### U CI #### [place] [address] Urobilinogen Qn (U) Negative Normal Negative [facility] Comment on above: Performed By: #### U CI #### [place] [id number] Encounters Encounter Date Encounter Type Care Provider Facility Start: 10-06-2022 End: 10-07-[address] ROMY CORONADO . Facility:[facility] Start: 08-18-2022 End: 08-19-[address] ROMY CORONADO . Facility[facility] Start: 07-22-2022 End: 07-23-[address] ROMY CORONADO . Facility:[facility] Start: 06-23-2022 End: 06-24-[address] ORMY CORONADO . Facility:[facility] Start: 05-26-2022 End: 05-27-2022 [...] 12-01-2018 Emergency department patient visit SHANTI HELLER Facility:[facility] Payers Date Payer Category Payer Unknown 1980 Unknown [id number] 2.16.8 [id number] 1980 Unknown [id number] 2.16.84 [id number] 1980 Unknown [id number] 2.16.84 [id number] 1980 Unknown [id number] 2.16.84 [id number] 1980 Unknown [id number] 2.16.84 0.1.788088.3.579.2.593 1980 Unknown [id number] 2.16.84 0.1.752114.3.579.2.593 1980 Unknown [id number] 2.16.84 0.1.111642.3.579.2.593 1980 Unknown [id number] 2.16.84 0.1.224153.3.579.2.593 1980 Unknown [id number] 2.16.84 0.1.367720.3.579.2.593 1980 Unknown [id number] 2.16.84 0.1.412808.3.579.2.593 1980 Unknown [id number] 2.16.84 0.1.490680.3.579.2.593 1980 Unknown [id number] 2.16.84 0.1.015035.3.579.2.593 1981 Unknown [id number] 2.16.84 0.1.932214.3.579.2.593 1980 Unknown [id number] 2.16.84 [id number] 1958 Self-pay [id number] 1958 Unknown [id number] 1958 Unknown [id number] Summary Purpose Family History No Family History Records FoundNo Family History Records FoundNo Family History Records Found Advance Directives No Advanced Directives Records FoundNo Advanced Directives Records FoundNo Advanced Directives Records Found Additional Source Comments (unrecognized sect ion and content) No Status Records FoundNo Status Records FoundNo Status Records Found INFORMATION SOURCE (unrecogn ized section and content) DATE CREATED AUTHOR 12/01/2018 [facility] DATE CREATED AUTHOR AUTHOR'S ORGANIZ ATION 10/22/2022 [facility] DATE CREATED AUTHOR AUTHOR'S ORGANIZ ATION 12/25/2022 [facility] FOR RECORDS PERTAINING TO PATIENTS WHO ARE [...] BE BASED ON THE PRIMARY CLINICAL RECORDS. [facility] [employer] [facility] provides no warranty or guarantee of the accuracy or completeness of information in this document.
[2023-06-10 13:00] LABS: Amphetamine Screen Urine NEGATIVE (NEGATIVE); Barbiturates Screen Urine NEGATIVE (NEGATIVE); Benzodiazepines Screen Urine NEGATIVE (NEGATIVE); Buprenorphine Screen Urine POSITIVE (NEGATIVE); Cannabinoid Screen Urine NEGATIVE (NEGATIVE); Cocaine Screen Urine NEGATIVE (NEGATIVE); Methadone Screen Urine NEGATIVE (NEGATIVE); Methamphetamines Screen Urine NEGATIVE (NEGATIVE); Opiate Screen Urine NEGATIVE (NEGATIVE); Oxycodone Screen Urine NEGATIVE (NEGATIVE); Phencyclidine Screen Urine NEGATIVE (NEGATIVE); Tricyclic Antidepressant Urine NEGATIVE (NEGATIVE)
[2023-06-18 12:10] LABS: Summary Report (Summary) FINAL (.)
== END 2023-06-10 10:09 | disposition home or self-care (01) ==
LOC: LAB 10:08
PROVIDERS: PCP Family Medicine; Visit Provider Family Medicine
DX: F11.10 Opioid abuse, uncomplicated (principal)
CPT/HCPCS: 80307; 80326; 80331; 80334; 80337; 80338; 80341; 80344; 80346; 80348; 80353; 80354; 80355; 80357; 80358; 80359; 80360; 80361; 80364; 80365; 80366; 80367; 80368; 80370; 80371; 80372; 80373; 80377; 82570; 83992

== ENCOUNTER 2023-07-29 10:04 | Outpatient (OUT) | payer OTHER, SELFPAY ==
--- OUTSIDE RECORDS SUMMARY | 2023-07-29 10:26 | XMS_ITS | CCD ---
Author Name Unknown Address [address] [place] [address] Organization [facility] Care Team Providers Care Veterinary Milk Specialist Name Role Phone SHANTI MABRY Attending Unavailable TyleryRomy Primary Care Unavailable TYLERY, ROMY LOPEZ Consulting Unavailable HOY ., DR [...] House Consulting Unavailable HOY ., DR STANTON Admitting [...] HOY ., DR STANTON Primary Care Unavailable TYLERY ., DR STANTON Consulting Unavailable Romy Samayoa Primary Care Physician Doron HODGES Attending Unavailable Romy Samayoa Referring Unavailable Donnell STONE Attending Unavailable Allergies Allergy Classification Reported Allergen(s) Allergy Type Date of Onset Reaction(s) Facility (4 sources) Codeine; Translations: [codeine] Drug Allergy 0 Weal (disorder) [facility] Repository (2 sources) Penicillins Drug allergy (disorder) 0 [facility] Repository (2 sources) Penicillin; Translations: [penicillin] Drug Allergy Unknown (qualifier value) [facility] [place] Medications Current Medications Medication Drug Class(es) Dates Sig (Normalized) Sig (Original) buprenorphine 8 mg / naloxone 2 mg sublingual film (1 source) Partial Opioid Agonist, Opioid Antagonist Start: 06-14-2023 Suboxone 8 mg-2 mg sublingual film 1 film, SubLingual, BID, Refill(s) 0 Start Date: 06/14/23 Status: Ordered hyoscyamine sulfate 0.125 mg oral tablet (1 source) Start: 06-29-2023 take 1 tablet by mouth four times daily as needed for pain Levsin 0.125 mg SL Tab 0.125 mg = 1 tab(s), Oral, QID, PRN abdominal pain, Refills(s) 0 Start Date: 06/29/23 Status: Ordered ibuprofen 800 mg oral tablet (1 source) Nonsteroidal Anti-inflammatory Drug Start: 04-07-2020 take 1 tablet by mouth four times daily ibuprofen 800 mg Tab 800 mg = 1 tab(s), Oral, QID, Refills(s) 0 Start Date: 04/07/20 Status: Ordered omeprazole 40 mg delayed release oral capsule (1 source) Proton Pump Inhibitor Start: 04-07-2020 take 1 capsule by mouth once daily omeprazole 40 mg Cap-DR 40 mg = 1 cap(s), Oral, Daily, Refills(s) 0 Start Date: 04/07/20 Status: Ordered Miralax (1 source) Osmotic Laxative Start: 06-29-2023 take 17 g by mouth once daily MiraLax 17 gm, Oral, Daily, Refill(s) 0 Start Date: 06/29/23 Status: Ordered Problems Active Problems Problem Classification Problem Date Documented Da te Episodic/Chronic Abdominal hernia (1 source) Inguinal hernia 04-07-2020 Episodic Abdominal pain (5 sources) Generalized abdominal pain; Translations: [Left lower quadrant pain] Onset: 12-21-2021 Episodic Allergic reactions (1 source) Eczema 04-07-2020 Episodic Calculus of urinary tract (1 source) History of calculus of kidney 04-07-2020 Episodic Genitourinary symptoms and ill-defined conditions (1 source) History of hematuria 04-07-2020 Episodic Headache; including migraine (1 source) Headache 04-07-2020 Episodic Other aftercare (4 sources) Encounter for therapeutic drug level monitoring; Translations: [[facility] DRUG LEVL MONITORING] Onset: 07-22-2022 Episodic Other gastrointestinal disorders (1 source) Constipation 04-07-2020 Episodic Other gastrointestinal disorders (1 source) History of pancreatitis 04-07-2020 Episodic Other nutritional; endocrine; and metabolic disorders (1 source) Overweight in adulthood with body mass index of 25 or more but less than 30 06-29-2023 Episodic Other skin disorders (1 source) H/O: skin disorder 04-07-2020 Episodic Phlebitis; thrombophlebitis and thromboembolism (1 source) Phlebitis 04-07-2020 Episodic Residual codes; unclassified (1 source) Tobacco user; Translations: [Tobacco use] Onset: 06-29-2023 Episodic Residual codes; unclassified (1 source) Family history of malignant neoplasm of digestive organ; Translations: [Family history of malignant neoplasm of digestive organs] Onset: 06-29-2023 Episodic Residual codes; unclassified (1 source) Family history of cancer of colon 06-29-2023 Episodic Screening and history of mental health and substance abuse codes (1 source) Tobacco use and exposure - finding 06-29-2023 Chronic Substance-related disorders (8 sources) Opioid abuse, uncomplicated; Translations: [Other psychoactive substance abuse, in remission] Onset: 11-05-2021 Chronic Unclassified (1 source) History of small bowel obstruction 06-14-2023 Past or Other Problems Problem Classification Problem Date Documented Da te Episodic/Chronic Intestinal obstruction without hernia (4 sources) Other partial intestinal obstruction; Translations: [OTH PARTIAL INTESTINAL OBSTRUCTION] Onset: 12-18-2021 Episodic Other aftercare (1 source) Other terminologist (current) drug therapy; Translations: [OTH COLD MEAT CHEF CURRENT DRUG THERAPY] Onset: 01-31-2022 Episodic Pancreatic disorders (not diabetes) (4 sources) Other acute pancreatitis without necrosis or infection; Translations: [OTH ACUTE PANCREATITIS WO NECRS/INF] Onset: 12-15-2021 Episodic Residual codes; unclassified (1 source) Acquired absence of other specified parts of digestive tract; Translations: [ACQ ABSENCE OTH PART DIGESTV TRACT] Onset: 12-21-2021 Episodic Results Test Name Value Interpretation Reference Range Facility Facesheeton 06-30-2023 Facesheet [id number] Normal [facility] Ambulatory Visit Summaryon 0 06-29-2023 Ambulatory Visit Summary BESSY TORRES :1980 Visit Date:06/29/2023 Ambulatory Visit Instructions Your Care Team Attending Physician - CHASE MULLIGAN, Donnell House Primary Care Physician - Romy Samayoa MD This Is Your Medications List buprenorphine-naloxone (Suboxone 8 mg-2 mg sublingual film) hyoscyamine (Levsin 0.125 mg SL Tab) ibuprofen (ibuprofen 800 mg Tab) omeprazole (omeprazole 40 mg Cap-DR) polyethylene glycol 3350 (MiraLax) Procedures Performed Colonoscopy (11/11/2014), EGD - esophagogastroduodenoscopy (11/11/2014), Appendectomy, Cholecystectomy, Tonsillectomy. Discharge Vitals Heart Rate (Peripheral) 72 Respiratory Rate 16 Blood Pressure 118/76 Height 185.4 cm Height 73 in Weight 86.7 kg Weight 190.74 lb BMI 25.22 What to do next Scheduled Follow-Up Appointments Tuesday 12:00 PM EDT With: CARROLL MULLIGAN, Doron House Where: [facility] RAD - CT Reporton 06-09-2023 RAD - CT Report [id number] Normal [facility] RAD - Ultrasound Reporton RAD - Ultrasound Report [id number]:127 Normal [facility] Physician Referralon 023 Physician Referral [id number]:127 Normal [facility] Physician Referralon 023 Physician Referral [id number]:127 Normal [facility] COMPLIANCE DRUG SCREENon PDF . [facility] Comment on above: Performed By: #### URICUR #### [facility] [address] [place] [address] Dr. Jose Duffy Summary FINAL [facility] Comment on above: Result Comment: TOXASSURE COMP DRUG ANALYSIS,UR Test Result Flag Units Drug Present Buprenorphine 175 ng/mg creat Norbuprenorphine 639 ng/mg creat Source of buprenorphine is a scheduled prescription medication. Norbuprenorphine is an expected metabolite of buprenorphine. Acetaminophen PRESENT Ibuprofen PRESENT Dextrorphan/Levorphanol PRESENT Dextrorphan is an expected metabolite of dextromethorphan, an hzwf-ydu-xoxbijs or prescription cough suppressant. Levorphanol is a scheduled prescription medication. Dextrorphan cannot be distinguished from levorphanol by the method used for analysis. Guaifenesin PRESENT Guaifenesin may be administered as an agnq-dhv-intsnji or prescription drug; it may also be present as a breakdown product of methocarbamol. Test Result Flag Units Ref Range Creatinine 111 mg/dL >=20 Declared Medications: Medication list was not provided. For clinical consultation, please call . Performed By: #### U SHEREEN #### [facility] [address] [address] [address] Jose Duffy URIC ACID ISABELLA URINEon 10-07 Uric Acid, Urine 56.8 mg/dL Normal Not Estab. [facility] Comment on above: Performed By: #### DSDOALC #### [facility] [address] [address] [address] Jose Duffy DRUG SCREEN RAPID (URINE)on 10-06-2022 AMP Negative Normal NEGATIVE [facility] Comment on above: Performed By: #### URICUR #### [facility] [address] [address] [address] Jose Duffy BAR Negative Normal NEGATIVE [facility] Comment on above: Performed By: #### URICUR #### [facility] [address] [address] [address] Jose Duffy BUP Positive Abnormal NEGATIVE [facility] Comment on above: Performed By: #### URICUR #### [facility] [address] [address] [address] Jose Duffy BZO Negative Normal NEGATIVE [facility] Comment on above: Performed By: #### URICUR #### [facility] [address] [place] [address] Dr. Jose Duffy RICARDO Negative Normal NEGATIVE [facility] Comment on above: Performed By: #### URICUR #### [facility] [address] [address] [address] Jose Duffy CUT-OFFS SEE BELOW Normal [facility] Comment on above: Result Comment: AMP (Amphetamine): 500ng /mL, BAR (Barbituates): 200 ng/mL, BZO (Benzodiazepines): 150 ng/mL, BUP (Buprenorphine): 10 ng/mL, RICARDO (Cocaine): 150 ng/mL, mAMP (Methamphetamine): 500 ng/mL, MTD (Methadone): 200 ng/mL, OPI (Opiates): 100 ng/mL, OXY (Oxycodone): 100 ng/mL, PCP (Phencyclidine): 25 ng/mL, PPX (Propoxyphene): 300 ng/mL, THC (Cannabinoids): 50 ng/mL, TCA (Trycyclic Antidepressants): 300 ng/mL Performed By: #### U RICUR #### [facility] [address] [place] [address] Dr. Jose Duffy DRUG CUT HEADER DRUG CLASS TEST SYST EM CUT-OFF CONCENTRATIONS ARE FOLLOWS: Normal [facility] Comment on above: Performed By: #### URICUR #### [facility] [address] [address] [address] Jose Duffy mAMP Positive Abnormal NEGATIVE [facility] Comment on above: Performed By: #### URICUR #### [facility] [address] [address] [address] Jose Duffy MTD Negative Normal NEGATIVE [facility] Comment on above: Performed By: #### URICUR #### [facility] [address] [address] [address] Jose Duffy OPI Negative Normal NEGATIVE [facility] Comment on above: Performed By: #### URICUR #### [facility] [address] [address] [address] Jose Duffy OXY Negative Normal NEGATIVE [facility] Comment on above: Performed By: #### URICUR #### [facility] [address] [place] [address] Dr. Jose Duffy PCP Negative Normal NEGATIVE [facility] Comment on above: Performed By: #### URICUR #### [facility] [address] [place] [address] Dr. Jose Duffy PPX Negative Normal NEGATIVE [facility] Comment on above: Performed By: #### URICUR #### [facility] [address] [address] [address] Jose Duffy TCA Negative Normal NEGATIVE [facility] Comment on above: Performed By: #### URICUR #### [facility] [address] [place] [address] Dr. Jose Duffy THC Negative Normal NEGATIVE [facility] Comment on above: Performed By: #### URICUR #### [facility] [address] [place] [address] Dr. Jose Duffy COMPLIANCE DRUG SCREENon PDF . Normal [facility] Comment on above: Performed By: #### DSDOALC #### [facility] [address] [place] [address] Dr. Jose Duffy Summary FINAL Normal [facility] Comment on above: Result Comment: TOXASSURE COMP DRUG ANALYSIS,UR Test Result Flag Units Drug Present Buprenorphine 234 ng/mg creat Norbuprenorphine 382 ng/mg creat Source of buprenorphine is a scheduled prescription medication. Norbuprenorphine is an expected metabolite of buprenorphine. Acetaminophen PRESENT Salicylate PRESENT Test Result Flag Units Ref Range Creatinine 161 mg/dL >=20 Declared Medications: Medication list was not provided. For clinical consultation, please call . Performed By: #### D SDOALC #### [facility] [address] [address] [address] Jose Duffy URIC ACID RAND URINEon 08-19 Uric Acid, Urine 21.4 mg/dL Normal Not Estab. [facility] Comment on above: Performed By: #### URICUR #### [facility] [address] [address] [address] Jose uDffy DRUG SCREEN RAPID (URINE)on 08-18-2022 AMP Negative Normal NEGATIVE [facility] Comment on above: Performed By: #### DSDOALC #### [facility] [address] [address] [address] Jose Duffy BAR Negative Normal NEGATIVE [facility] Comment on above: Performed By: #### DSDOALC #### [facility] [address] [address] [address] Jose Duffy BUP Positive Abnormal NEGATIVE [facility] Comment on above: Performed By: #### DSDOALC #### [facility] [address] [address] [address] Jose Duffy BZO Negative Normal NEGATIVE [facility] Comment on above: Performed By: #### DSDOALC #### [facility] [address] [address] [address] Jose Duffy RICARDO Negative Normal NEGATIVE [facility] Comment on above: Performed By: #### DSDOALC #### [facility] [address] [place] [address] Dr. Jose Duffy CUT-OFFS SEE BELOW Normal [facility] Comment on above: Result Comment: AMP (Amphetamine): 500ng /mL, BAR (Barbituates): 200 ng/mL, BZO (Benzodiazepines): 150 ng/mL, BUP (Buprenorphine): 10 ng/mL, RICARDO (Cocaine): 150 ng/mL, mAMP (Methamphetamine): 500 ng/mL, MTD (Methadone): 200 ng/mL, OPI (Opiates): 100 ng/mL, OXY (Oxycodone): 100 ng/mL, PCP (Phencyclidine): 25 ng/mL, PPX (Propoxyphene): 300 ng/mL, THC (Cannabinoids): 50 ng/mL, TCA (Trycyclic Antidepressants): 300 ng/mL Performed By: #### D SDOALC #### [facility] [address] [address] [address] Jose Duffy DRUG CUT HEADER DRUG CLASS TEST SYST EM CUT-OFF CONCENTRATIONS ARE FOLLOWS: Normal [facility] Comment on above: Performed By: #### DSDOALC #### [facility] [address] [address] [address] Jose Duffy mAMP Negative Normal NEGATIVE [facility] Comment on above: Performed By: #### DSDOALC #### [facility] [address] [address] [address] Jose Duffy MTD Negative Normal NEGATIVE [facility] Comment on above: Performed By: #### DSDOALC #### [facility] [address] [address] [address] Jose Duffy OPI Negative Normal NEGATIVE [facility] Comment on above: Performed By: #### DSDOALC #### [facility] [address] [address] [address] Jose Duffy OXY Negative Normal NEGATIVE [facility] Comment on above: Performed By: #### DSDOALC #### [facility] [address] [address] [address] Jose Duffy PCP Negative Normal NEGATIVE [facility] Comment on above: Performed By: #### DSDOALC #### [facility] [address] [place] [address] Dr. Jose Duffy PPX Negative Normal NEGATIVE [facility] Comment on above: Performed By: #### DSDOALC #### [facility] [address] [address] [address] Jose Duffy TCA Negative Normal NEGATIVE [facility] Comment on above: Performed By: #### DSDOALC #### [facility] [address] [address] [address] Jose Duffy THC Negative Normal NEGATIVE [facility] Comment on above: Performed By: #### DSDOALC #### [facility] [address] [address] [address] Jose Duffy COMPLIANCE DRUG SCREENon PDF . Normal [facility] Comment on above: Performed By: #### DRUGRPD #### [facility] [address] [address] [address] Jose Duffy Summary FINAL Normal [facility] Comment on above: Result Comment: TOXASSURE COMP DRUG ANALYSIS,UR Test Result Flag Units Drug Present and Declared for Prescription Verification Buprenorphine 455 EXPECTED ng/mg creat Norbuprenorphine 765 EXPECTED ng/mg creat Source of buprenorphine is a scheduled prescription medication. Norbuprenorphine is an expected metabolite of buprenorphine. Drug Present not Declared for Prescription Verification Acetaminophen PRESENT UNEXPECTED Salicylate PRESENT UNEXPECTED Test Result Flag Units Ref Range Creatinine 130 mg/dL >=20 Declared Medications: The flagging and interpretation on this report are based on the following declared medications. Unexpected results may arise from inaccuracies in the declared medications. Note: The testing scope of this panel includes these medications: Buprenorphine. (Suboxone) Note: The testing scope of this panel does not include following reported medications: Naloxone (Suboxone) For clinical consultation, please call . Performed By: #### D RUGRPD #### [facility] [address] [place] [address] Dr. Jose Duffy URIC ACID RAND URINEon 07-23 Uric Acid, Urine 21.8 mg/dL Normal Not Estab. [facility] Comment on above: Performed By: #### URICUR #### [facility] [address] [place] [address] Dr. Jose Duffy DRUG SCREEN RAPID (URINE)on 07-22-2022 AMP Negative Normal NEGATIVE [facility] Comment on above: Performed By: #### URICUR #### [facility] [address] [place] [address] Dr. Jose Duffy BAR Negative Normal NEGATIVE [facility] Comment on above: Performed By: #### URICUR #### [facility] [address] [place] [address] Dr. Jose Duffy BUP Positive Abnormal NEGATIVE [facility] Comment on above: Result Comment: Previously reported as: NEGATIVE On 07/22/2022 12:02 By [email or web address] Performed By: #### U RICUR #### [facility] [address] [place] [address] Dr. Jose Duffy BZO Negative Normal NEGATIVE [facility] Comment on above: Performed By: #### URICUR #### [facility] [address] [place] [address] Dr. Jose Duffy RICARDO Negative Normal NEGATIVE [facility] Comment on above: Performed By: #### URICUR #### [facility] [address] [place] [address] Dr. Jose Duffy CUT-OFFS SEE BELOW Normal [facility] Comment on above: Result Comment: AMP (Amphetamine): 500ng /mL, BAR (Barbituates): 200 ng/mL, BZO (Benzodiazepines): 150 ng/mL, BUP (Buprenorphine): 10 ng/mL, RICARDO (Cocaine): 150 ng/mL, mAMP (Methamphetamine): 500 ng/mL, MTD (Methadone): 200 ng/mL, OPI (Opiates): 100 ng/mL, OXY (Oxycodone): 100 ng/mL, PCP (Phencyclidine): 25 ng/mL, PPX (Propoxyphene): 300 ng/mL, THC (Cannabinoids): 50 ng/mL, TCA (Trycyclic Antidepressants): 300 ng/mL Performed By: #### U RICUR #### [facility] [address] [place] [address] Dr. Jose Duffy DRUG CUT HEADER DRUG CLASS TEST SYST EM CUT-OFF CONCENTRATIONS ARE FOLLOWS: Normal [facility] Comment on above: Performed By: #### URICUR #### [facility] [address] [place] [address] Dr. Jose Duffy mAMP Negative Normal NEGATIVE [facility] Comment on above: Performed By: #### URICUR #### [facility] [address] [place] [address] Dr. Jose Duffy MTD Negative Normal NEGATIVE [facility] Comment on above: Performed By: #### URICUR #### [facility] [address] [address] [address] Jose Duffy OPI Negative Normal NEGATIVE [facility] Comment on above: Performed By: #### URICUR #### [facility] [address] [address] [address] Jose Duffy OXY Negative Normal NEGATIVE [facility] Comment on above: Performed By: #### URICUR #### [facility] [address] [place] [address] Dr. Jose Duffy PCP Negative Normal NEGATIVE [facility] Comment on above: Performed By: #### URICUR #### [facility] [address] [address] [address] Jose Duffy PPX Negative Normal NEGATIVE [facility] Comment on above: Performed By: #### URICUR #### [facility] [address] [place] [address] Dr. Jose Duffy TCA Negative Normal NEGATIVE [facility] Comment on above: Performed By: #### URICUR #### [facility] [address] [place] [address] Dr. Jose Duffy THC Negative Normal NEGATIVE [facility] Comment on above: Performed By: #### URICUR #### [facility] [address] [place] [address] Dr. Jose Duffy COMPLIANCE DRUG SCREENon PDF . Normal [facility] Comment on above: Performed By: #### DRUGRPD #### [facility] [address] [place] [address] Dr. Jose Duffy Summary FINAL Normal [facility] Comment on above: Result Comment: TOXASSURE COMP DRUG ANALYSIS,UR Test Result Flag Units Drug Present and Declared for Prescription Verification Buprenorphine 93 EXPECTED ng/mg creat Norbuprenorphine 791 EXPECTED ng/mg creat Source of buprenorphine is a scheduled prescription medication. Norbuprenorphine is an expected metabolite of buprenorphine. Drug Present not Declared for Prescription Verification Acetaminophen PRESENT UNEXPECTED Test Result Flag Units Ref Range Creatinine 74 mg/dL >=20 Declared Medications: The flagging and interpretation on this report are based on the following declared medications. Unexpected results may arise from inaccuracies in the declared medications. Note: The testing scope of this panel includes these medications: Buprenorphine. (Suboxone) Note: The testing scope of this panel does not include following reported medications: Naloxone (Suboxone) For clinical consultation, please call . Performed By: #### D RUGRPD #### [facility] [address] [place] [address] Dr. Jose Duffy URIC ACID RAND URINEon 06-24 Uric Acid, Urine 33.0 mg/dL Normal Not Estab. [facility] Comment on above: Performed By: #### URICUR #### [facility] [address] [place] [address] Dr. Jose Duffy DRUG SCREEN RAPID (URINE)on 06-23-2022 AMP Negative Normal NEGATIVE [facility] Comment on above: Performed By: #### DRUGRPD #### [facility] [address] [place] [address] Dr. Jose Duffy BAR Negative Normal NEGATIVE [facility] Comment on above: Performed By: #### DRUGRPD #### [facility] [address] [place] [address] Dr. Jose Duffy BUP Positive Abnormal NEGATIVE [facility] Comment on above: Performed By: #### DRUGRPD #### [facility] [address] [place] [address] Dr. Jose Duffy BZO Negative Normal NEGATIVE [facility] Comment on above: Performed By: #### DRUGRPD #### [facility] [address] [place] [address] Dr. Jose Duffy RICARDO Negative Normal NEGATIVE [facility] Comment on above: Performed By: #### DRUGRPD #### [facility] [address] [place] [address] Dr. Jose Duffy CUT-OFFS SEE BELOW Normal [facility] Comment on above: Result Comment: AMP (Amphetamine): 500ng /mL, BAR (Barbituates): 200 ng/mL, BZO (Benzodiazepines): 150 ng/mL, BUP (Buprenorphine): 10 ng/mL, RICARDO (Cocaine): 150 ng/mL, mAMP (Methamphetamine): 500 ng/mL, MTD (Methadone): 200 ng/mL, OPI (Opiates): 100 ng/mL, OXY (Oxycodone): 100 ng/mL, PCP (Phencyclidine): 25 ng/mL, PPX (Propoxyphene): 300 ng/mL, THC (Cannabinoids): 50 ng/mL, TCA (Trycyclic Antidepressants): 300 ng/mL Performed By: #### D RUGRPD #### [facility] [address] [place] [address] Dr. Jose Duffy DRUG CUT HEADER DRUG CLASS TEST SYST EM CUT-OFF CONCENTRATIONS ARE FOLLOWS: Normal [facility] Comment on above: Performed By: #### DRUGRPD #### [facility] [address] [place] [address] Dr. Jose Duffy mAMP Negative Normal NEGATIVE [facility] Comment on above: Performed By: #### DRUGRPD #### [facility] [address] [place] [address] Dr. Jose Duffy MTD Negative Normal NEGATIVE [facility] Comment on above: Performed By: #### DRUGRPD #### [facility] [address] [address] [address] Jose Duffy OPI Negative Normal NEGATIVE [facility] Comment on above: Performed By: #### DRUGRPD #### [facility] [address] [address] [address] Jose Dfufy OXY Negative Normal NEGATIVE [facility] Comment on above: Performed By: #### DRUGRPD #### [facility] [address] [address] [address] Jose Duffy PCP Negative Normal NEGATIVE [facility] Comment on above: Performed By: #### DRUGRPD #### [facility] [address] [address] [address] Jose Duffy PPX Negative Normal NEGATIVE [facility] Comment on above: Performed By: #### DRUGRPD #### [facility] [address] [place] [address] Dr. Jose Duffy TCA Negative Normal NEGATIVE [facility] Comment on above: Performed By: #### DRUGRPD #### [facility] [address] [place] [address] Dr. Jose Duffy THC Negative Normal NEGATIVE [facility] Comment on above: Performed By: #### DRUGRPD #### [facility] [address] [place] [address] Dr. oJse Duffy COMPLIANCE DRUG SCREENon PDF . [facility] Comment on above: Performed By: #### URICUR #### [facility] [address] [place] [address] Dr. Jose Duffy Summary FINAL Normal [facility] Comment on above: Result Comment: TOXASSURE COMP DRUG ANALYSIS,UR Test Result Flag Units Drug Present and Declared for Prescription Verification Buprenorphine 199 EXPECTED ng/mg creat Norbuprenorphine 753 EXPECTED ng/mg creat Source of buprenorphine is a scheduled prescription medication. Norbuprenorphine is an expected metabolite of buprenorphine. Drug Present not Declared for Prescription Verification Acetaminophen PRESENT UNEXPECTED Test Result Flag Units Ref Range Creatinine 70 mg/dL >=20 Declared Medications: The flagging and interpretation on this report are based on the following declared medications. Unexpected results may arise from inaccuracies in the declared medications. Note: The testing scope of this panel includes these medications: Buprenorphine. (Suboxone) Note: The testing scope of this panel does not include following reported medications: Naloxone (Suboxone) For clinical consultation, please call . Performed By: #### U RICUR #### [facility] [address] [address] [address] Jose Duffy URIC ACID RAND URINEon 05-27 Uric Acid, Urine 18.9 mg/dL Normal Not Estab. [facility] Comment on above: Performed By: #### DSDOALC #### [facility] [address] [address] [address] Jose Duffy DRUG SCREEN RAPID (URINE)on 05-26-2022 AMP Negative Normal NEGATIVE [facility] Comment on above: Performed By: #### URICUR #### [facility] [address] [address] [address] Jose Duffy BAR Negative Normal NEGATIVE [facility] Comment on above: Performed By: #### URICUR #### [facility] [address] [address] [address] Jose Duffy BUP Positive Abnormal NEGATIVE [facility] Comment on above: Performed By: #### URICUR #### [facility] [address] [place] [address] Dr. Jose Duffy BZO Negative Normal NEGATIVE [facility] Comment on above: Performed By: #### URICUR #### [facility] [address] [address] [address] Jose Duffy RICARDO Negative Normal NEGATIVE [facility] Comment on above: Performed By: #### URICUR #### [facility] [address] [address] [address] Jose Duffy CUT-OFFS SEE BELOW Normal [facility] Comment on above: Result Comment: AMP (Amphetamine): 500ng /mL, BAR (Barbituates): 200 ng/mL, BZO (Benzodiazepines): 150 ng/mL, BUP (Buprenorphine): 10 ng/mL, RICARDO (Cocaine): 150 ng/mL, mAMP (Methamphetamine): 500 ng/mL, MTD (Methadone): 200 ng/mL, OPI (Opiates): 100 ng/mL, OXY (Oxycodone): 100 ng/mL, PCP (Phencyclidine): 25 ng/mL, PPX (Propoxyphene): 300 ng/mL, THC (Cannabinoids): 50 ng/mL, TCA (Trycyclic Antidepressants): 300 ng/mL Performed By: #### U RICUR #### [facility] [address] [place] [address] Dr. Jose Duffy DRUG CUT HEADER DRUG CLASS TEST SYST EM CUT-OFF CONCENTRATIONS ARE FOLLOWS: Normal [facility] Comment on above: Performed By: #### URICUR #### [facility] [address] [place] [address] Dr. Jose Duffy mAMP Negative Normal NEGATIVE [facility] Comment on above: Performed By: #### URICUR #### [facility] [address] [place] [address] Dr. Jose Duffy MTD Negative Normal NEGATIVE [facility] Comment on above: Performed By: #### URICUR #### [facility] [address] [place] [address] Dr. Jose Duffy OPI Negative Normal NEGATIVE [facility] Comment on above: Performed By: #### URICUR #### [facility] [address] [place] [address] Dr. Jose Duffy OXY Negative Normal NEGATIVE [facility] Comment on above: Performed By: #### URICUR #### [facility] [address] [place] [address] Dr. Jose Duffy PCP Negative Normal NEGATIVE [facility] Comment on above: Performed By: #### URICUR #### [facility] [address] [place] [address] Dr. Jose Duffy PPX Negative Normal NEGATIVE [facility] Comment on above: Performed By: #### URICUR #### [facility] [address] [place] [address] Dr. Jose Duffy TCA Negative Normal NEGATIVE [facility] Comment on above: Performed By: #### URICUR #### [facility] [address] [place] [address] Dr. Jose Duffy THC Negative Normal NEGATIVE [facility] Comment on above: Performed By: #### URICUR #### [facility] [address] [place] [address] Dr. Jose Duffy COMPLIANCE DRUG SCREENon PDF . Normal [facility] Comment on above: Performed By: #### DSDOALC #### [facility] [address] [place], [place] [id number] Dr. Jose Duffy Summary FINAL Normal [facility] Comment on above: Result Comment: TOXASSURE COMP DRUG ANALYSIS,UR Test Result Flag Units Drug Present and Declared for Prescription Verification Buprenorphine 231 EXPECTED ng/mg creat Norbuprenorphine 980 EXPECTED ng/mg creat Source of buprenorphine is a scheduled prescription medication. Norbuprenorphine is an expected metabolite of buprenorphine. Drug Present not Declared for Prescription Verification Acetaminophen PRESENT UNEXPECTED Salicylate PRESENT UNEXPECTED Test Result Flag Units Ref Range Creatinine 91 mg/dL >=20 Declared Medications: The flagging and interpretation on this report are based on the following declared medications. Unexpected results may arise from inaccuracies in the declared medications. Note: The testing scope of this panel includes these medications: Buprenorphine. (Suboxone) Note: The testing scope of this panel does not include following reported medications: Naloxone (Suboxone) For clinical consultation, please call . Performed By: #### D SDOALC #### [facility] [address] [place] [address] Dr. Jose Duffy URIC ACID RAND URINEon 03-16 Uric Acid, Urine 38.6 mg/dL Normal Not Estab. [facility] Comment on above: Performed By: #### URICUR #### [facility] [address] [place] [address] Dr. Jose Duffy DRUG SCREEN RAPID (URINE)on 03-15-2022 AMP Negative Normal NEGATIVE [facility] Comment on above: Performed By: #### DRUGRPD #### [facility] [address] [address] [address] Jose Duffy BAR Negative Normal NEGATIVE [facility] Comment on above: Performed By: #### DRUGRPD #### [facility] [address] [address] [address] Jose Duffy BUP Positive Abnormal NEGATIVE [facility] Comment on above: Performed By: #### DRUGRPD #### [facility] [address] [place] [address] Dr. Jose Duffy BZO Negative Normal NEGATIVE [facility] Comment on above: Performed By: #### DRUGRPD #### [facility] [address] [address] [address] Jose Duffy RICARDO Negative Normal NEGATIVE [facility] Comment on above: Performed By: #### DRUGRPD #### [facility] [address] [place] [address] Dr. Jose Duffy CUT-OFFS SEE BELOW Normal [facility] Comment on above: Result Comment: AMP (Amphetamine): 500ng /mL, BAR (Barbituates): 200 ng/mL, BZO (Benzodiazepines): 150 ng/mL, BUP (Buprenorphine): 10 ng/mL, RICARDO (Cocaine): 150 ng/mL, mAMP (Methamphetamine): 500 ng/mL, MTD (Methadone): 200 ng/mL, OPI (Opiates): 100 ng/mL, OXY (Oxycodone): 100 ng/mL, PCP (Phencyclidine): 25 ng/mL, PPX (Propoxyphene): 300 ng/mL, THC (Cannabinoids): 50 ng/mL, TCA (Trycyclic Antidepressants): 300 ng/mL Performed By: #### D RUGRPD #### [facility] [address] [place] [address] Dr. Jose Duffy DRUG CUT HEADER DRUG CLASS TEST SYST EM CUT-OFF CONCENTRATIONS ARE FOLLOWS: Normal [facility] Comment on above: Performed By: #### DRUGRPD #### [facility] [address] [place] [address] Dr. Jose Duffy mAMP Negative Normal NEGATIVE [facility] Comment on above: Performed By: #### DRUGRPD #### [facility] [address] [place] [address] Dr. Jose Duffy MTD Negative Normal NEGATIVE [facility] Comment on above: Performed By: #### DRUGRPD #### [facility] [address] [place] [address] Dr. Jose Duffy OPI Negative Normal NEGATIVE [facility] Comment on above: Performed By: #### DRUGRPD #### [facility] [address] [place] [address] Dr. Jose Duffy OXY Negative Normal NEGATIVE [facility] Comment on above: Performed By: #### DRUGRPD #### [facility] [address] [place] [address] Dr. Jose Duffy PCP Negative Normal NEGATIVE [facility] Comment on above: Performed By: #### DRUGRPD #### [facility] [address] [place] [address] Dr. Jose Duffy PPX Negative Normal NEGATIVE [facility] Comment on above: Performed By: #### DRUGRPD #### [facility] [address] [address] [address] Jose Duffy TCA Negative Normal NEGATIVE [facility] Comment on above: Performed By: #### DRUGRPD #### [facility] [address] [place] [address] Dr. Jose Duffy THC Negative Normal NEGATIVE [facility] Comment on above: Performed By: #### DRUGRPD #### [facility] [address] [place] [address] Dr. Jose Duffy COMPLIANCE DRUG SCREENon PDF . Normal [facility] Comment on above: Performed By: #### DSDOALC #### [facility] [address] [place] [address] Dr. Jose Duffy Summary FINAL Normal [facility] Comment on above: Result Comment: TOXASSURE COMP DRUG ANALYSIS,UR Test Result Flag Units Drug Present and Declared for Prescription Verification Buprenorphine 317 EXPECTED ng/mg creat Norbuprenorphine >870 EXPECTED ng/mg creat Source of buprenorphine is a scheduled prescription medication. Norbuprenorphine is an expected metabolite of buprenorphine. Drug Present not Declared for Prescription Verification Acetaminophen PRESENT UNEXPECTED Salicylate PRESENT UNEXPECTED Dextrorphan/Levorphanol PRESENT UNEXPECTED Dextrorphan is an expected metabolite of dextromethorphan, an [id number] or prescription cough suppressant. Levorphanol is a scheduled prescription medication. Dextrorphan cannot be distinguished from levorphanol by the method used for analysis. Test Result Flag Units Ref Range Creatinine 115 mg/dL >=20 Declared Medications: The flagging and interpretation on this report are based on the following declared medications. Unexpected results may arise from inaccuracies in the declared medications. Note: The testing scope of this panel includes these medications: Buprenorphine. (Suboxone) Note: The testing scope of this panel does not include following reported medications: Naloxone (Suboxone) For clinical consultation, please call . Performed By: #### D SDOALC #### [facility] [address] [place] [address] Dr. Jose Duffy URIC ACID RAND URINEon 02-20 Uric Acid, Urine 44.5 mg/dL Normal Not Estab. [facility] Comment on above: Performed By: #### DSDOALC #### [facility] [address] [place] [address] Dr. Jose Duffy DRUG SCREEN RAPID (URINE)on 02-19-2022 AMP Negative Normal NEGATIVE [facility] Comment on above: Performed By: #### DRUGRPD #### [facility] [address] [place] [address] Dr. Jose Duffy BAR Negative Normal NEGATIVE [facility] Comment on above: Performed By: #### DRUGRPD #### [facility] [address] [place] [address] Dr. Jose Duffy BUP Positive Abnormal NEGATIVE [facility] Comment on above: Performed By: #### DRUGRPD #### [facility] [address] [place] [address] Dr. Jose Duffy BZO Negative Normal NEGATIVE [facility] Comment on above: Performed By: #### DRUGRPD #### [facility] [address] [place] [address] Dr. Jose Duffy RICARDO Negative Normal NEGATIVE [facility] Comment on above: Performed By: #### DRUGRPD #### [facility] [address] [place] [address] Dr. Jose Duffy CUT-OFFS SEE BELOW Normal [facility] Comment on above: Result Comment: AMP (Amphetamine): 500ng /mL, BAR (Barbituates): 200 ng/mL, BZO (Benzodiazepines): 150 ng/mL, BUP (Buprenorphine): 10 ng/mL, RICARDO (Cocaine): 150 ng/mL, mAMP (Methamphetamine): 500 ng/mL, MTD (Methadone): 200 ng/mL, OPI (Opiates): 100 ng/mL, OXY (Oxycodone): 100 ng/mL, PCP (Phencyclidine): 25 ng/mL, PPX (Propoxyphene): 300 ng/mL, THC (Cannabinoids): 50 ng/mL, TCA (Trycyclic Antidepressants): 300 ng/mL Performed By: #### D RUGRPD #### [facility] [address] [place] [address] Dr. Jose Duffy DRUG CUT HEADER DRUG CLASS TEST SYST EM CUT-OFF CONCENTRATIONS ARE FOLLOWS: Normal [facility] Comment on above: Performed By: #### DRUGRPD #### [facility] [address] [place] [address] Dr. Jose Duffy mAMP Negative Normal NEGATIVE [facility] Comment on above: Performed By: #### DRUGRPD #### [facility] [address] [place] [address] Dr. Jose Duffy MTD Negative Normal NEGATIVE [facility] Comment on above: Performed By: #### DRUGRPD #### [facility] [address] [address] [address] Jose Duffy OPI Negative Normal NEGATIVE [facility] Comment on above: Performed By: #### DRUGRPD #### [facility] [address] [address] [address] Jose Duffy OXY Negative Normal NEGATIVE [facility] Comment on above: Performed By: #### DRUGRPD #### [facility] [address] [address] [address] Jose Duffy PCP Negative Normal NEGATIVE [facility] Comment on above: Performed By: #### DRUGRPD #### [facility] [address] [place] [address] Dr. Jose Duffy PPX Negative Normal NEGATIVE [facility] Comment on above: Performed By: #### DRUGRPD #### [facility] [address] [address] [address] Jose Duffy TCA Negative Normal NEGATIVE [facility] Comment on above: Performed By: #### DRUGRPD #### [facility] [address] [address] [address] Jose Duffy THC Negative Normal NEGATIVE [facility] Comment on above: Performed By: #### DRUGRPD #### [facility] [address] [place] [address] Dr. Jose Duffy COMPLIANCE DRUG SCREENon PDF . Normal [facility] Comment on above: Performed By: #### DSDOALC #### [facility] [address] [address] [address] Jose Duffy Summary FINAL Normal [facility] Comment on above: Result Comment: TOXASSURE COMP DRUG ANALYSIS,UR Test Result Flag Units Drug Present and Declared for Prescription Verification Buprenorphine 200 EXPECTED ng/mg creat Norbuprenorphine 528 EXPECTED ng/mg creat Source of buprenorphine is a scheduled prescription medication. Norbuprenorphine is an expected metabolite of buprenorphine. Drug Present not Declared for Prescription Verification Acetaminophen PRESENT UNEXPECTED Salicylate PRESENT UNEXPECTED Test Result Flag Units Ref Range Creatinine 89 mg/dL >=20 Declared Medications: The flagging and interpretation on this report are based on the following declared medications. Unexpected results may arise from inaccuracies in the declared medications. Note: The testing scope of this panel includes these medications: Buprenorphine. (Suboxone) Note: The testing scope of this panel does not include following reported medications: Naloxone (Suboxone) For clinical consultation, please call . Performed By: #### D SDOALC #### [facility] [address] [address] [address] Jose Duffy URIC ACID RAND URINEon 01-28 Uric Acid, Urine 30.0 mg/dL Normal Not Estab. [facility] Comment on above: Performed By: #### URICUR #### [facility] [address] [place] [address] Dr. Jose Duffy DRUG SCREEN RAPID (URINE)on 01-27-2022 AMP Negative Normal NEGATIVE [facility] Comment on above: Performed By: #### DRUGRPD #### [facility] [address] [address] [address] Jose Duffy BAR Negative Normal NEGATIVE [facility] Comment on above: Performed By: #### DRUGRPD #### [facility] [address] [place] [address] Dr. Jose Duffy BUP Positive Abnormal NEGATIVE [facility] Comment on above: Performed By: #### DRUGRPD #### [facility] [address] [address] [address] Jose Duffy BZO Negative Normal NEGATIVE [facility] Comment on above: Performed By: #### DRUGRPD #### [facility] [address] [address] [address] Jose Duffy RICARDO Negative Normal NEGATIVE [facility] Comment on above: Performed By: #### DRUGRPD #### [facility] [address] [place] [address] Dr. Jose Duffy CUT-OFFS SEE BELOW Normal [facility] Comment on above: Result Comment: AMP (Amphetamine): 500ng /mL, BAR (Barbituates): 200 ng/mL, BZO (Benzodiazepines): 150 ng/mL, BUP (Buprenorphine): 10 ng/mL, RICARDO (Cocaine): 150 ng/mL, mAMP (Methamphetamine): 500 ng/mL, MTD (Methadone): 200 ng/mL, OPI (Opiates): 100 ng/mL, OXY (Oxycodone): 100 ng/mL, PCP (Phencyclidine): 25 ng/mL, PPX (Propoxyphene): 300 ng/mL, THC (Cannabinoids): 50 ng/mL, TCA (Trycyclic Antidepressants): 300 ng/mL Performed By: #### D RUGRPD #### [facility] [address] [place] [address] Dr. Jose Duffy DRUG CUT HEADER DRUG CLASS TEST SYST EM CUT-OFF CONCENTRATIONS ARE FOLLOWS: Normal [facility] Comment on above: Performed By: #### DRUGRPD #### [facility] [address] [place] [address] Dr. Jose Duffy mAMP Negative Normal NEGATIVE [facility] Comment on above: Performed By: #### DRUGRPD #### [facility] [address] [place] [address] Dr. Jose Duffy MTD Negative Normal NEGATIVE [facility] Comment on above: Performed By: #### DRUGRPD #### [facility] [address] [place] [address] Dr. Jose Duffy OPI Negative Normal NEGATIVE [facility] Comment on above: Performed By: #### DRUGRPD #### [facility] [address] [place] [address] Dr. Jose Duffy OXY Negative Normal NEGATIVE [facility] Comment on above: Performed By: #### DRUGRPD #### [facility] [address] [place] [address] Dr. Jose Duffy PCP Negative Normal NEGATIVE [facility] Comment on above: Performed By: #### DRUGRPD #### [facility] [address] [place] [address] Dr. Jose Duffy PPX Negative Normal NEGATIVE [facility] Comment on above: Performed By: #### DRUGRPD #### [facility] [address] [place] [address] Dr. Jose Duffy TCA Negative Normal NEGATIVE [facility] Comment on above: Performed By: #### DRUGRPD #### [facility] [address] [place] [address] Dr. Jose Duffy THC Negative Normal NEGATIVE [facility] Comment on above: Performed By: #### DRUGRPD #### [facility] [address] [place] [address] Dr. Jose Duffy COMPLIANCE DRUG SCREENon PDF . Normal [facility] Comment on above: Performed By: #### URICUR #### [facility] [address] [place], [place] [address] Dr. Jose Duffy Summary FINAL Normal [facility] Comment on above: Result Comment: TOXASSURE COMP DRUG ANALYSIS,UR Test Result Flag Units Drug Present and Declared for Prescription Verification Buprenorphine 118 EXPECTED ng/mg creat Norbuprenorphine 504 EXPECTED ng/mg creat Source of buprenorphine is a scheduled prescription medication. Norbuprenorphine is an expected metabolite of buprenorphine. Drug Present not Declared for Prescription Verification Acetaminophen PRESENT UNEXPECTED Test Result Flag Units Ref Range Creatinine 94 mg/dL >=20 Declared Medications: The flagging and interpretation on this report are based on the following declared medications. Unexpected results may arise from inaccuracies in the declared medications. Note: The testing scope of this panel includes these medications: Buprenorphine. (Suboxone) Note: The testing scope of this panel does not include following reported medications: Naloxone (Suboxone) For clinical consultation, please call . Performed By: #### U RICUR #### [facility] [address] [place] [address] Dr. Jose Duffy URIC ACID RAND URINEon 01-09 Uric Acid, Urine 25.0 mg/dL Normal Not Estab. [facility] Comment on above: Performed By: #### DRUGRPD #### [facility] [address] [place] [address] Dr. Jose Duffy DRUG SCREEN RAPID (URINE)on 01-08-2022 AMP Negative Normal NEGATIVE [facility] Comment on above: Performed By: #### URICUR #### [facility] [address] [place] [address] Dr. Jose Duffy BAR Negative Normal NEGATIVE [facility] Comment on above: Performed By: #### URICUR #### [facility] [address] [place] [address] Dr. Jose Duffy BUP Positive Abnormal NEGATIVE [facility] Comment on above: Performed By: #### URICUR #### [facility] [address] [place] [address] Dr. Jose Duffy BZO Negative Normal NEGATIVE [facility] Comment on above: Performed By: #### URICUR #### [facility] [address] [place] [address] Dr. Jose Duffy RICARDO Negative Normal NEGATIVE [facility] Comment on above: Performed By: #### URICUR #### [facility] [address] [place] [address] Dr. Jose Duffy CUT-OFFS SEE BELOW Normal [facility] Comment on above: Result Comment: AMP (Amphetamine): 500ng /mL, BAR (Barbituates): 200 ng/mL, BZO (Benzodiazepines): 150 ng/mL, BUP (Buprenorphine): 10 ng/mL, RICARDO (Cocaine): 150 ng/mL, mAMP (Methamphetamine): 500 ng/mL, MTD (Methadone): 200 ng/mL, OPI (Opiates): 100 ng/mL, OXY (Oxycodone): 100 ng/mL, PCP (Phencyclidine): 25 ng/mL, PPX (Propoxyphene): 300 ng/mL, THC (Cannabinoids): 50 ng/mL, TCA (Trycyclic Antidepressants): 300 ng/mL Performed By: #### U RICUR #### [facility] [address] [place] [address] Dr. Jose Duffy DRUG CUT HEADER DRUG CLASS TEST SYST EM CUT-OFF CONCENTRATIONS ARE FOLLOWS: Normal [facility] Comment on above: Performed By: #### URICUR #### [facility] [address] [place] [address] Dr. Jose Duffy mAMP Negative Normal NEGATIVE [facility] Comment on above: Performed By: #### URICUR #### [facility] [address] [place] [address] Dr. Jose Duffy MTD Negative Normal NEGATIVE [facility] Comment on above: Performed By: #### URICUR #### [facility] [address] [place] [address] Dr. Jose Duffy OPI Negative Normal NEGATIVE [facility] Comment on above: Performed By: #### URICUR #### [facility] [address] [place] [address] Dr. Jose Duffy OXY Negative Normal NEGATIVE [facility] Comment on above: Performed By: #### URICUR #### [facility] [address] [place] [address] Dr. Jose Duffy PCP Negative Normal NEGATIVE [facility] Comment on above: Performed By: #### URICUR #### [facility] [address] [place] [address] Dr. Jose Duffy PPX Negative Normal NEGATIVE [facility] Comment on above: Performed By: #### URICUR #### [facility] [address] [address] [address] Jose Duffy TCA Negative Normal NEGATIVE [facility] Comment on above: Performed By: #### URICUR #### [facility] [address] [address] [address] Jose Duffy THC Negative Normal NEGATIVE [facility] Comment on above: Performed By: #### URICUR #### [facility] [address] [address] [address] Jose Duffy COMPLIANCE DRUG SCREENon PDF . Normal [facility] Comment on above: Performed By: #### DSDOALC #### [facility] [address] [address] [address] Jose Duffy Summary FINAL Normal [facility] Comment on above: Result Comment: TOXASSURE COMP DRUG ANALYSIS,UR Test Result Flag Units Drug Present and Declared for Prescription Verification Buprenorphine 113 EXPECTED ng/mg creat Norbuprenorphine >629 EXPECTED ng/mg creat Source of buprenorphine is a scheduled prescription medication. Norbuprenorphine is an expected metabolite of buprenorphine. Drug Present not Declared for Prescription Verification Acetaminophen PRESENT UNEXPECTED Salicylate PRESENT UNEXPECTED Test Result Flag Units Ref Range Creatinine 159 mg/dL >=20 Declared Medications: The flagging and interpretation on this report are based on the following declared medications. Unexpected results may arise from inaccuracies in the declared medications. Note: The testing scope of this panel includes these medications: Buprenorphine. (Suboxone) Note: The testing scope of this panel does not include following reported medications: Naloxone (Suboxone) For clinical consultation, please call . Performed By: #### [facility] #### [facility] [address] [place] [address] ABD/PELV W CONon 12-19-19 CT ABD/PELV [...] by: VENKATA GRIMALDO Date: 2021-12-18 15:15 Normal [facility] US SINGLE QUAD RT UPPERon US SINGLE [...] by: VENKATA GRIMALDO Date: 2021-12-18 15:09 Normal [facility] URIC ACID RAND URINEon 12-16 Uric Acid, Urine 46.2 mg/dL Normal Not Estab. [facility] Comment on above: Performed By: #### DSDOALC #### [facility] [address] [address] [address] Jose Duffy AMYLASEon 12-15-2021 Amylase [Catalytic activity/Vol] 134 U/L Critically high 25-115 [facility] Comment on above: Performed By: #### DRUGRPD #### [facility] [address] [address] [address] Jose Duffy CBC AUTO DIFFon 12-15-2021 BASO # 0.1 103/ul Normal 0.0-0.1 [facility] Comment on above: Performed By: #### DRUGRPD #### [facility] [address] [address] [address] Jose Duffy Basophils/100 WBC (Bld) 0.6 % Normal 0.2-2.0 [facility] Comment on above: Performed By: #### DRUGRPD #### [facility] [address] [address] [address] Jose Duffy EO # 0.3 103/ul Normal 0.0-0.7 [facility] Comment on above: Performed By: #### DRUGRPD #### [facility] [address] [address] [address] Jose Duffy Eosinophils/100 WBC (Bld) 3.0 % Normal 0.9-7.0 [facility] Comment on above: Performed By: #### DRUGRPD #### [facility] [address] [place] [address] Dr. Jose Duffy Erythrocyte distribution width (RBC) [Ratio] 13.2 % Normal 11.0-15.0 [facility] Comment on above: Performed By: #### DRUGRPD #### [facility] [address] [place] [address] Dr. Jose Duffy Hematocrit (Bld) [Volume fraction] 42.7 % Normal 42.0-54.0 [facility] Comment on above: Performed By: #### DRUGRPD #### [facility] [address] [place] [address] Dr. Jose Duffy Hemoglobin (Bld) [Mass/Vol] 14.3 g/dL Normal 14.0-18.0 [facility] Comment on above: Performed By: #### DRUGRPD #### [facility] [address] [address] [address] Jose Duffy IG # 0.02 10e3/ul Normal 0.00-0.03 [facility] Comment on above: Performed By: #### DRUGRPD #### [facility] [address] [address] [address] Jose Duffy IG % 0.2 % Normal 0.0-0.5 [facility] Comment on above: Performed By: #### DRUGRPD #### [facility] [address] [address] [address] Jose Duffy LYMPH # 2.3 103/ul Normal 1.2-3.8 [facility] Comment on above: Performed By: #### DRUGRPD #### [facility] [address] [address] [address] Jose Duffy Lymphocytes/100 WBC (Bld) 20.6 % Normal 20.5-60.0 [facility] Comment on above: Performed By: #### DRUGRPD #### [facility] [address] [address] [address] Jose Duffy MANUAL DIFF REQ NO Normal [facility] Comment on above: Performed By: #### DRUGRPD #### [facility] [address] [place] [address] Dr. Jose Duffy MCH (RBC) [Entitic mass] 28.7 pg Normal 25.9-34.0 [facility] Comment on above: Performed By: #### DRUGRPD #### [facility] [address] [place] [address] Dr. Jose Duffy MCHC (RBC) [Mass/Vol] 33.5 g/dL Normal 29.9-35.2 [facility] Comment on above: Performed By: #### DRUGRPD #### [facility] [address] [address] [address] Jose Duffy MCV (RBC) [Entitic vol] 85.6 fL Normal 80.0-94.0 [facility] Comment on above: Performed By: #### DRUGRPD #### [facility] [address] [address] [address] Jose Duffy MONO # 0.8 103/ul Normal 0.3-0.8 [facility] Comment on above: Performed By: #### DRUGRPD #### [facility] [address] [address] [address] Jose Duffy Monocytes/100 WBC (Bld) 7.5 % Normal 1.7-12.0 [facility] Comment on above: Performed By: #### DRUGRPD #### [facility] [address] [address] [address] Jose Duffy NEUT # 7.4 103/ul Critically high 1.4-6.5 [facility] Comment on above: Performed By: #### DRUGRPD #### [facility] [address] [address] [address] Jose Duffy Neutrophils/100 WBC (Bld) 68.1 % Normal 43.0-75.0 [facility] Comment on above: Performed By: #### DRUGRPD #### [facility] [address] [address] [address] Jose Duffy Platelet mean volume (Bld) [Entitic vol] 9.0 fL Critically low 9.5-13.5 [facility] Comment on above: Performed By: #### DRUGRPD #### [facility] [address] [address] [address] Jose Duffy PLT 253 103/ul Normal 150-450 [facility] Comment on above: Performed By: #### DRUGRPD #### [facility] [address] [address] [address] Jose Duffy RBC 4.99 106/ul Normal 4.70-6.10 [facility] Comment on above: Performed By: #### DRUGRPD #### [facility] [address] [address] [address] Jose Duffy WBC 10.9 103/ul Normal 4.0-11.0 [facility] Comment on above: Performed By: #### DRUGRPD #### [facility] [address] [address] [address] Jose Duffy LIPASEon 12-15-2021 Lipase [Catalytic activity/Vol] 207.0 U/L Normal 73.0-393.0 [facility] Comment on above: Performed By: #### DRUGRPD #### [facility] [address] [address] [address] Jose Duffy PROF 14(COMP METB)on 022 Albumin [Mass/Vol] 4.3 g/dL Normal 3.4-5.0 [facility] Comment on above: Performed By: #### DRUGRPD #### [facility] [address] [place] [address] Dr. Jose Duffy Albumin/Globulin [Mass ratio] 1.2 {ratio} Normal [facility] Comment on above: Performed By: #### DRUGRPD #### [facility] [address] [address] [address] Jose Duffy ALP [Catalytic activity/Vol] 68 U/L Normal 46-116 [facility] Comment on above: Performed By: #### DRUGRPD #### [facility] [address] [address] [address] Jose Duffy ALT [Catalytic activity/Vol] 132 U/L Critically high 16-63 [facility] Comment on above: Performed By: #### DRUGRPD #### [facility] [address] [place] [address] Dr. Jose Duffy Anion gap [Moles/Vol] 12.2 mmol/L Normal [facility] Comment on above: Performed By: #### DRUGRPD #### [facility] [address] [address] [address] Jose Duffy AST [Catalytic activity/Vol] 83 U/L Critically high 15-37 [facility] Comment on above: Performed By: #### DRUGRPD #### [facility] [address] [address] [address] Jose Duffy Bilirubin [Mass/Vol] 0.6 mg/dL Normal 0.2-1.0 [facility] Comment on above: Performed By: #### DRUGRPD #### [facility] [address] [address] [address] Jose Duffy Calcium [Mass/Vol] 8.9 mg/dL Normal 8.5-10.1 [facility] Comment on above: Performed By: #### DRUGRPD #### [facility] [address] [address] [address] Jose Duffy Chloride [Moles/Vol] 104 mmol/L Normal 98-107 [facility] Comment on above: Performed By: #### DRUGRPD #### [facility] [address] [address] [address] Jose Duffy CO2 [Moles/Vol] 29.1 mmol/L Normal 21.0-32.0 [facility] Comment on above: Performed By: #### DRUGRPD #### [facility] [address] [address] [address] Jose Duffy Creatinine [Mass/Vol] 0.95 mg/dL Normal 0.70-1.30 [facility] Comment on above: Performed By: #### DRUGRPD #### [facility] [address] [address] [address] Jose Duffy EGFR-AF TRISTANIAN >60 Normal >=60 [facility] Comment on above: Performed By: #### DRUGRPD #### [facility] [address] [address] [address] Jose Duffy EGFR-NON AF TRISTANIAN >60 Normal >=60 [facility] Comment on above: Performed By: #### DRUGRPD #### [facility] [address] [address] [address] Jose uDffy Globulin (S) [Mass/Vol] 3.5 g/dL Normal [facility] Comment on above: Performed By: #### DRUGRPD #### [facility] [address] [address] [address] Jose Duffy Glucose [Mass/Vol] 101 mg/dL Normal 74-106 [facility] Comment on above: Performed By: #### DRUGRPD #### [facility] [address] [address] [address] Jose Duffy Potassium [Moles/Vol] 4.3 mmol/L Normal 3.5-5.1 [facility] Comment on above: Performed By: #### DRUGRPD #### [facility] [address] [address] [address] Jose Duffy Protein [Mass/Vol] 7.8 g/dL Normal 6.4-8.2 [facility] Comment on above: Performed By: #### DRUGRPD #### [facility] [address] [address] [address] Jose Duffy Sodium [Moles/Vol] 141 mmol/L Normal 136-145 [facility] Comment on above: Performed By: #### DRUGRPD #### [facility] [address] [address] [address] Jose Duffy Urea nitrogen [Mass/Vol] 20.0 mg/dL Critically high 7.0-18.0 [facility] Comment on above: Performed By: #### DRUGRPD #### [facility] [address] [address] [address] Jose Duffy Urea nitrogen/Creatin ine [Mass ratio] 21.1 mg/mg Normal [facility] Comment on above: Performed By: #### DRUGRPD #### [facility] [address] [place] [address] Dr. Jose Duffy COMPLIANCE DRUG SCREENon PDF . Normal [facility] Comment on above: Performed By: #### DSDOALC #### [facility] [address] [place] [address] Dr. Jose Duffy Summary FINAL Normal [facility] Comment on above: Result Comment: TOXASSURE COMP DRUG ANALYSIS,UR Test Result Flag Units Drug Present and Declared for Prescription Verification Buprenorphine 159 EXPECTED ng/mg creat Norbuprenorphine 608 EXPECTED ng/mg creat Source of buprenorphine is a scheduled prescription medication. Norbuprenorphine is an expected metabolite of buprenorphine. Drug Present not Declared for Prescription Verification Acetaminophen PRESENT UNEXPECTED Salicylate PRESENT UNEXPECTED Test Result Flag Units Ref Range Creatinine 120 mg/dL >=20 Declared Medications: The flagging and interpretation on this report are based on the following declared medications. Unexpected results may arise from inaccuracies in the declared medications. Note: The testing scope of this panel includes these medications: Buprenorphine. (Suboxone) Note: The testing scope of this panel does not include following reported medications: Naloxone (Suboxone) For clinical consultation, please call . Performed By: #### D SDOALC #### [facility] [address] [place], [place] [address] Dr. Jose Duffy URIC ACID RAND URINEon 11-04 Uric Acid, Urine 91.5 mg/dL Normal Not Estab. [facility] Comment on above: Performed By: #### URICUR #### [facility] [address] [place], [place] [address] Dr. Jose Duffy DRUG SCREEN RAPID (URINE)on 11-02-2021 AMP Negative Normal NEGATIVE [facility] Comment on above: Performed By: #### URICUR #### [facility] [address] [address] [address] Jose Duffy BAR Negative Normal NEGATIVE [facility] Comment on above: Performed By: #### URICUR #### [facility] [address] [place] [address] Dr. Jose Duffy BUP Positive Abnormal NEGATIVE [facility] Comment on above: Performed By: #### URICUR #### [facility] [address] [place] [address] Dr. Jose Duffy BZO Negative Normal NEGATIVE [facility] Comment on above: Performed By: #### URICUR #### [facility] [address] [place] [address] Dr. Jose Duffy RICARDO Negative Normal NEGATIVE [facility] Comment on above: Performed By: #### URICUR #### [facility] [address] [place] [address] Dr. Jose Duffy CUT-OFFS SEE BELOW Normal [facility] Comment on above: Result Comment: AMP (Amphetamine): 500ng /mL, BAR (Barbituates): 200 ng/mL, BZO (Benzodiazepines): 150 ng/mL, BUP (Buprenorphine): 10 ng/mL, RICARDO (Cocaine): 150 ng/mL, mAMP (Methamphetamine): 500 ng/mL, MTD (Methadone): 200 ng/mL, OPI (Opiates): 100 ng/mL, OXY (Oxycodone): 100 ng/mL, PCP (Phencyclidine): 25 ng/mL, PPX (Propoxyphene): 300 ng/mL, THC (Cannabinoids): 50 ng/mL, TCA (Trycyclic Antidepressants): 300 ng/mL Performed By: #### U RICUR #### [facility] [address] [place] [address] Dr. Jose Duffy DRUG CUT HEADER DRUG CLASS TEST SYST EM CUT-OFF CONCENTRATIONS ARE FOLLOWS: Normal [facility] Comment on above: Performed By: #### URICUR #### [facility] [address] [place] [address] Dr. Jose Duffy mAMP Negative Normal NEGATIVE [facility] Comment on above: Performed By: #### URICUR #### [facility] [address] [address] [address] Jose Duffy MTD Negative Normal NEGATIVE [facility] Comment on above: Performed By: #### URICUR #### [facility] [address] [address] [address] Jose Duffy OPI Negative Normal NEGATIVE [facility] Comment on above: Performed By: #### URICUR #### [facility] [address] [address] [address] Jose Duffy OXY Negative Normal NEGATIVE [facility] Comment on above: Performed By: #### URICUR #### [facility] [address] [address] [address] Jose Duffy PCP Negative Normal NEGATIVE [facility] Comment on above: Performed By: #### URICUR #### [facility] [address] [place] [address] Dr. Jose Duffy PPX Negative Normal NEGATIVE [facility] Comment on above: Performed By: #### URICUR #### [facility] [address] [place] [address] Dr. Jose Duffy TCA Negative Normal NEGATIVE [facility] Comment on above: Performed By: #### URICUR #### [facility] [address] [place] [address] Dr. Jose Duffy THC Negative Normal NEGATIVE [facility] Comment on above: Performed By: #### URICUR #### [facility] [address] [place] [address] Dr. Jose Duffy .UA Microscp Aon 12-01-2018 UA Mucus Present Abnormal Absent [facility] Comment on above: Performed By: #### [id number] #### [facility] [address] [place] [address] UA RBC Quant 327 /HPF High 0-5 [facility] Comment on above: Performed By: #### [id number] #### [facility] [address] [place] [address] UA Squepi Cells Quant 1 /HPF Normal 0-29 [facility] Comment on above: Performed By: #### [id number] #### [address] [address] UA WBC Quant 4 /HPF Normal 0-5 [facility] Comment on above: Performed By: #### [id number] #### [address] [address] .eGFRon 12-01-2018 eGFR AA >60 Normal >=60 [facility] Comment on above: Result Comment: Result = 0-14.9 mL/min/1 .73 m2 Kidney failure or Dialysis Result = 15-29 mL/min/1.73 m2 Severe decrease in GFR Result = 30-59 mL/min/1.73 m2 Moderate decrease in GFR Result >= 60 mL/min/1.73 m2 Normal or increased GFR Performed By: #### E GFR #### [address] [address] eGFR Non-AA >60 Normal >=60 [facility] Comment on above: Result Comment: Result = 0-14.9 mL/min/1 .73 m2 Kidney failure or Dialysis Result = [...] dosing. Performed By: #### E GFR #### [address] [address] CBC w/ Diffon 12-01-2018 Erythrocyte distribution width (RBC) [Ratio] 14.0 % Normal 11.6-14.8 [facility] Comment on above: Performed By: #### CBC #### [address] [address] Hematocrit (Bld) [Volume fraction] 43.5 % Normal 41.0-53.0 [facility] Comment on above: Performed By: #### CBC #### [address] [address] Hemoglobin (Bld) [Mass/Vol] 14.7 g/dL Normal 13.5-17.5 [facility] Comment on above: Performed By: #### CBC #### [address] [address] MCH (RBC) [Entitic mass] 28.5 pg Normal 27.0-35.0 [facility] Comment on above: Performed By: #### CBC #### [address] [address] MCHC (RBC) [Mass/Vol] 33.8 % Normal 31.0-37.0 [facility] Comment on above: Performed By: #### CBC #### [address] [address] MCV (RBC) [Entitic vol] 84.4 fL Normal 80.0-100.0 [facility] Comment on above: Performed By: #### CBC #### [address] [address] Platelet mean volume (Bld) [Entitic vol] 7.3 fL Normal 6.7-10.6 [facility] Comment on above: Performed By: #### CBC #### [address] [address] Platelets (Bld) [#/Vol] 273 x10*3/mcL Normal 150-350 [facility] Comment on above: Performed By: #### CBC #### [address] [address] RBC (Bld) [#/Vol] 5.16 x10*6/mcL Normal 4.30-5.80 [facility] Comment on above: Performed By: #### CBC #### [address] [address] WBC (Bld) [#/Vol] 11.0 x10*3/mcL Normal 4.5-11.0 [facility] Comment on above: Performed By: #### CBC #### [address] [address] CMPon 12-01-2018 Albumin [Mass/Vol] 4.2 g/dL Normal 3.2-4.9 [facility] Comment on above: Result Comment: [facility] Laboratory updated t methodology used for albumin testing on 12/21/17. Albumin measurement was performed using a bromcresol purple dye-binding assay. Performed By: #### C OMP #### [address] [address] Albumin/Globulin [Mass ratio] 1.3 {ratio} Normal 1.1-2.2 [facility] Comment on above: Performed By: #### COMP #### [address] [address] Alk Phos 80 IU/L Normal 32-91 [facility] Comment on above: Performed By: #### COMP #### [address] [address] ALT [Catalytic activity/Vol] 41 U/L Normal 17-63 [facility] Comment on above: Performed By: #### COMP #### [address] [address] Anion gap [Moles/Vol] 15 mmol/L Normal 7-17 [facility] Comment on above: Performed By: #### COMP #### [address] [address] AST [Catalytic activity/Vol] 43 U/L High 15-41 [facility] Comment on above: Performed By: #### COMP #### [address] [address] Bili Total 0.7 mg/dL Normal 0.3-1.2 [facility] Comment on above: Performed By: #### COMP #### [address] [address] Calcium [Mass/Vol] 9.2 mg/dL Normal 8.5-10.3 [facility] Comment on above: Performed By: #### COMP #### [address] [place] [address] Chloride [Moles/Vol] 104 mmol/L Normal 98-110 [facility] Comment on above: Performed By: #### COMP #### [address] [address] CO2 [Moles/Vol] 25 mmol/L Normal 22-32 [facility] Comment on above: Performed By: #### COMP #### [address] [address] Creatinine [Mass/Vol] 0.98 mg/dL Normal 0.61-1.24 [facility] Comment on above: Performed By: #### COMP #### [address] [address] Glucose [Mass/Vol] 126 mg/dL High 74-118 [facility] Comment on above: Performed By: #### COMP #### [address] [address] Potassium [Moles/Vol] 3.7 mmol/L Normal 3.4-4.8 [facility] Comment on above: Performed By: #### COMP #### [address] [address] Protein [Mass/Vol] 7.4 g/dL Normal 6.5-8.1 [facility] Comment on above: Performed By: #### COMP #### [address] [address] Sodium [Moles/Vol] 140 mmol/L Normal 133-142 [facility] Comment on above: Performed By: #### COMP #### [address] [address] Urea nitrogen [Mass/Vol] 19 mg/dL Normal 8-26 [facility] Comment on above: Performed By: #### COMP #### [address] [address] Urea nitrogen/Creatin ine [Mass ratio] 19.4 mg/mg Normal 10.0-20.0 [facility] Comment on above: Performed By: #### COMP #### [address] [place] [address] CT Abd Pelvis w/o IV Cont St [...] stability of the nodule Radiation Dose Estimate: CTDI(mGy):0.676534 / / / kVp:120.851202 / mAs:0.916140 / / / DLP(mGy-cm):7.257261Qdxe Part: Abdomen Final Dictated by: Donnell Luther MD Dictated DT/TM: 12.01.2018 8:57 am Signed by: Donnell Luther MD Signed (Electronic Signature): 12.01.2018 9:03 am (If Report Is Signed, Electronically Signed in Other Vendor System) Normal [facility] Diff Autoon 12-01-2018 Baso Absolute 0.0 x10*3/mcL Normal 0.0-0.2 [facility] Comment on above: Performed By: #### .Automated Diff #### [address] [place] [address] Basophils/100 WBC (Bld) 0.3 % Normal 0.0-1.2 [facility] Comment on above: Performed By: #### .Automated Diff #### [address] [address] Eos Absolute 0.3 x10*3/mcL Normal 0.0-0.4 [facility] Comment on above: Performed By: #### .Automated Diff #### [address] [address] Eosinophils/100 WBC (Bld) 2.8 % Normal 0.0-6.1 [facility] Comment on above: Performed By: #### .Automated Diff #### [address] [address] Lymphocytes (Bld) [#/Vol] 3.5 x10*3/mcL Normal 1.0-4.8 [facility] Comment on above: Performed By: #### .Automated Diff #### [address] [address] Lymphocytes/100 WBC (Bld) 32.0 % Normal 27.2-40.8 [facility] Comment on above: Performed By: #### .Automated Diff #### [address] [address] Millard Absolute 0.8 x10*3/mcL Normal 0.3-1.1 [facility] Comment on above: Performed By: #### .Automated Diff #### [address] [address] Monocytes/100 WBC (Bld) 7.4 % Normal 4.7-13.9 [facility] Comment on above: Performed By: #### .Automated Diff #### [address] [address] Neutro Absolute 6.3 x10*3/mcL Normal 1.8-7.7 [facility] Comment on above: Performed By: #### .Automated Diff #### [address] [address] Neutro Auto 57.5 % Normal 47.2-70.8 [facility] Comment on above: Performed By: #### .Automated Diff #### [facility] [address] [place] [id number] ED Clinical Summaryon 2018 ED Clinical Summary [address] [address] ED Clinical Summary Person Information Name: Bessy Torres/New_Noé Age: 38 Years : 1980 Sex: Male PCP: Romy Samayoa MD Marital Status: Single Phone: Race: White Ethnicity: Not or Language: Kazakh Visit Reason: Flank pain; Flank pain Acuity: 3 Enc Type: Emergency Med Service: Emergency Medicine Arrival: 12/01/2018 07:25:25 Discharge: 12/01/2018 10:15:00 LOS: 000 02:50 Checkin: 12/01/2018 07:25:25 Checkout: 12/01/2018 10:15:00 Dispo Type: Home or Self Care Address: [address] [place] [address] Provider Notes: History of Present Illness Patient [...] complaints at this time. Addendum by Shanti Mabry MD on December 01, 2018 10:14:12 EDT [...] numbness, tingling, and seizure] Addendum by Shanti Mabry MD on December 01, 2018 10:14:12 EDT [...] point is non-tender. Back: Left flank tenderness Musculoskeletal/extremity: Extremities: all appear grossly normal, with no [...] changes, delusions, inappropriate behavior Addendum by Shanti Mabry MD on December 01, 2018 10:14:12 EDT [...] will follow-up as instructed. Addendum by Shanti Mabry MD on December 01, 2018 10:14:12 EDT [...] range between ( 27.2 and 40.8 ) Millard Auto: 7.4 % -- Normal range between [...] range between ( 41.0 and 53.0 ) Millard Absolute: 0.8 x10 MCH: 28.5 pg -- [...] [address], [address] [place], [place] [id number], [phone] ondansetron (Zofran 4 mg oral tablet) 1 Tabs Oral (given by mouth) every 8 hours as needed as needed for nausea/vomiting. Refills: 0. Last Dose: tamsulosin (Flomax 0.4 mg oral capsule) 1 Capsules Oral (given by mouth) every day for 7 Days. Refills: 0. Last Dose: Printed Prescriptions ciprofloxacin (Cipro 500 mg oral tablet) 1 Tabs Oral (given by mouth) every 12 hours for 7 Days. Refills: 0. Last Dose: hydrocodone-acetaminophen ([place] 5 mg-325 mg oral tablet) 1 Tabs Oral (given by mouth) every 4 hours as needed for pain for 3 Days. Refills: 0. Last Dose: Medications that have not changed Other Medications buprenorphine-naloxone (buprenorphine-naloxone 8 mg-2 mg sublingual film) 1 Each Sublingual (dissolve under the tongue) every day. Last Dose: omeprazole (omeprazole 20 mg oral delayed release capsule) 1 Capsules Oral (given by mouth) every day. before a meal. Last Dose: [facility], [address] [place], [place] [id number], [phone] ondansetron (Zofran 4 mg oral tablet) 1 [...] 12 hours for 7 Days. Refills: 0. hydrocodone-acetaminophen ([place] 5 mg-325 mg oral tablet) 1 Tabs Oral (given by mouth) every 4 hours as needed for pain for 3 Days. Refills: 0. Other Medications buprenorphine-naloxone (buprenorphine-naloxone 8 mg-2 mg sublingual film) 1 Each Sublingual (dissolve under the tongue) every day. omeprazole (omeprazole 20 mg oral delayed release capsule) 1 Capsules Oral (given by mouth) every day. before a meal. Care Team Members: Attending Physician: Shanti Mabry MD Consulting Physician: Referring Physician: Provider Role Assigned Unassigned Shanti Mabry MD ED Provider 12/01/2018 07:30:16 Josemanuel Reynolds ED Nurse 12/01/2018 08:04:02 Follow up: With: Address: When: Romy Samayoa [address] [place] [address] [place] [phone] Business (1) Within 1 to 2 days Discharge Orders: Discharge Patient 12/01/18 9:58:00 EDT, Discharge to Home, Self Discharge Special Instructions [facility] [address] [place], [place] [address]. Discharge Special Instructions If you are unable to make this appointment, please call the office at [phone]. Discharge Special Instructions Please arrive by 8:00AM the next business day for your appointment. Business days are Tuesday through Tuesday. Discharge Special Instructions Please DO NOT EAT or DRINK anything after midnight the night before your appointment. PLEASE DO NOT EAT BREAKFAST. Discharge Special Instructions Please strain your urine as instructed until your appointment at [facility]. Return to Work/School 12/01/18 10:10:00 EDT, 12/02/18 8:00:00 EDT, 12/01/18 10:10:00 EDT Patient Education Information: KIDNEY STONE w/ Colic [facility] Poison Help line: . [facility] Hotline: [place] Tobacco Quit Line: [place], [place]) [address]: [phone] [place], [place]) [address]: [phone] [facility] [address] [facility]. [place], [place]: [phone] Normal [facility] ED Note-Physicianon 12-02-19 ED Note-Physician Chief Complaint [...] point is non-tender. Back: Left flank tenderness Musculoskeletal/extremity: Extremities: all appear grossly normal, with no [...] for and in the presence of Dr. Mabry. Reexamination/Reevaluation Scribe Attestation: The information in this document, created by the medical equipment sales for me, accurately reflects the services I [...] 12/01/18 9:56:00 EDT, STAT, Dispense From Location: [id number], UTI/Pyelonephritis ciprofloxacin, 1 tabs, Oral, q12hr, X 7 days, # 14 tabs, 0 Refill(s), 12/08/18 9:57:00 EDT hydrocodone-acetaminophen, 1 tabs, Oral, q4hr, PRN, X 3 days, # 18 tabs, 0 Refill(s), 12/04/18 9:52:00 EDT ondansetron, 1 tabs, Oral, q8hr, PRN, # 15 tabs, 0 Refill(s), Pharmacy: [facility] tamsulosin, 1 caps, Oral, Daily, # 7 caps, 0 Refill(s), Pharmacy: [facility] 2. Renal colic Ordered: ciprofloxacin, 500 mg, Oral, Tab, Once, First Dose: 12/01/18 9:56:00 EDT, Stop Date: 12/01/18 9:56:00 EDT, STAT, Dispense From Location: [facility], UTI/Pyelonephritis 3. Lung nodule Ordered: ciprofloxacin, 500 mg, Oral, Tab, Once, First Dose: 12/01/18 9:56:00 EDT, Stop Date: 12/01/18 9:56:00 EDT, STAT, Dispense From Location: [facility], UTI/Pyelonephritis Orders: sodium chloride, 10 mL, IV Push, Injection, As Indicated, PRN flush, First Dose: 12/01/18 7:37:00 EDT, Dispense From Location: [facility] Sodium Chloride 0.9% intravenous solution 1,000 mL, [...] data available (MRI) Electronically signed by Shanti Mabry MD 12/01/18 10:06 EDT Patient was noted [...] follow-up as instructed. Electronically signed by Shanti Mabry MD 12/01/18 10:14 EDT Elif Fox Normal [facility] UA w Culture if Indon 2018 Color (U) Yellow Normal [facility] Comment on above: Performed By: #### UCI #### [address] [address] Glucose (U) [Mass/Vol] Negative Normal Negative [facility] Comment on above: Performed By: #### UCI #### [address] [address] Ketones Ql (U) Negative Normal Negative [facility] Comment on above: Performed By: #### UCI #### [address] [address] UA Blood Large Abnormal Negative [facility] Comment on above: Performed By: #### UCI #### [facility] [address] [place] [address], [place] [address] UA Clarity Hazy Normal [facility] Comment on above: Performed By: #### UCI #### [address] [place] [address] UA Leukocyte Esterase Trace Abnormal Negative [facility] Comment on above: Performed By: #### UCI #### [address] [place] [address] UA Nitrite Negative Normal Negative [facility] Comment on above: Performed By: #### UCI #### [address] [place] [address] UA pH 5.0 Normal 4.5 - 7.8 [facility] Comment on above: Performed By: #### UCI #### [address] [place] [address] UA Protein Negative Normal Negative [facility] Comment on above: Performed By: #### UCI #### [address] [address] UA Source Clean Catch Normal [facility] Comment on above: Performed By: #### UCI #### [address] [address] UA Spec Grav 1.015 Normal 1.003-1.035 [facility] Comment on above: Performed By: #### UCI #### [address] [address] UA Urobilinogen 0.2 mg/dL Normal 0.2 - 1.0 [facility] Comment on above: Performed By: #### UCI #### [address] [address] Urobilinogen Qn (U) Negative Normal Negative [facility] Comment on above: Performed By: #### UCI #### [address] [address] Vital Signs Date Time Vital Sign Value Performing Clinician Jessica woody 06-29-2023 15:20-0500 Blood Pressure Location Donnell RUELASL [facility] [place] 06-29-2023 15:20-0500 Diastolic blood pressure 76 mm[Hg] Donnell NILL [facility] [place] 06-29-2023 15:20-0500 Heart rate 72 /min Donnell NILL [facility] [place] 06-29-2023 15:20-0500 Respiratory rate 16 /min Donnell NILL [facility] [place] 06-29-2023 15:20-0500 Systolic blood pressure 118 mm[Hg] Donnell NILL [facility] [place] Encounters Encounter Date Encounter Type Care Provider Facility Start: 06-29-2023 End: 06-30-2023 ambulatory [facility] Start: 06-29-2023 End: 06-29-2023 Patient encounter procedure Donnell RUELASL [facility] Start: 06-08-2023 ambulatory Doron HODGES Facility : [place] Start: 10-06-2022 End: 10-07-[address] ROMY SAMAYOA . Facility: Start: 08-18-2022 End: 08-19-[address] ROMY SAMAYOA . Facility:[facility] Start: 07-22-2022 End: 07-23-[address] ROMY SAMAYOA . Facility:[facility] Start: 06-23-2022 End: 06-24-[address] ROMY SAMAYOA . Facility:[facility] Start: 05-26-2022 End: 05-27-[address] ROMY SAMAYOA . Facility:[facility] Start: 04-05-[address] ROMY SAMAYOA . Facili ty:[facility] Start: 03-15-2022 End: 03-16-[address] ROMY SAMAYOA . Facility:[facility] Start: 02-19-2022 End: 02-20-[address] ROMY SAMAYOA . Facility:[facility] Start: 01-27-2022 End: 01-28-[address] ROMY SAMAYOA . Facility:[facility] Start: 01-08-2022 End: 01-09-[address] ROMY SAMAYOA . Facility:[facility] Start: 12-18-2021 End: 12-19-[address] ROMY SAMAYOA . Facility:[facility] Start: 12-15-2021 End: 12-16-[address] ROMY SAMAYOA . Facility:[facility] Start: 11-02-2021 End: 11-03-[address] ROMY SAMAYOA . Facility:[facility] Start: 12-01-2018 End: 12-01-2018 Emergency department patient visit [facility] Facility:[facility] Procedures Date Procedure Procedure Detail Performing Clinician Start: 11-11-2014 Colonoscopy Donnell FITZPATRICK Start: 11-11-2014 Esophagogastroduodenoscopy Donnell STONE Appendectomy Donnell RUELASL Cholecystectomy Donnell NILL Tonsillectomy Donnell NILUri Plan of Treatment Date Care Activity Detail Author Start: 10-17-2023 ambulatory Ambulatory Facility:[facility] Immunizations Immunization Date Immunization Notes Care Provider Fa cility 12-26-2020 SARS-CoV-2 (COVID-19 ) mRNA BNT-162b2 vax Donnell STONE [facility] NEGATED: Highlighted row has not occurred!06-29-2023 influenza virus vaccine, unspecified formulation Donnell STONE [facility] [place] Payers Date Payer Category Payer Private Health Insurance [id number] 2018 Unknown 1980 Unknown [id number] 2.16.8 [id number] 1980 Unknown [id number] 2.16.84 [id number] 1980 Unknown [id number] 2.16.84 0.1.399794.3.579.2.593 1980 Unknown [id number] 2.16.84 0.1.357414.3.579.2.593 1981 Unknown [id number] 2.16.84 0.1.515197.3.579.2.593 1981 Unknown [id number] 2.16.84 0.1.188174.3.579.2.593 1981 Unknown [id number] 2.16.84 0.1.349364.3.579.2.593 1981 Unknown [id number] 2.16.84 0.1.124956.3.579.2.593 1981 Unknown [id number] 2.16.84 0.1.295119.3.579.2.593 1981 Unknown [id number] 2.16.84 0.1.117246.3.579.2.593 1981 Unknown [id number] 2.16.84 0.1.385868.3.579.2.593 1981 Unknown [id number] 2.16.84 0.1.934075.3.579.2.593 1981 Unknown [id number] 2.16.84 0.1.390947.3.579.2.593 1981 Unknown [id number] 2.16.84 0.1.609730.3.579.2.593 1981 Unknown [id number] 2.16.8 40.1.024364.3.579.2.727 1980 Unknown [id number] 2.16.8 40.1.072623.3.579.2.727 1958 Self-pay [id number] 1958 Unknown [id number] 1958 Unknown [id number] Social History Date Type Detail Facility Start: 06-29-2023 Tobacco smoking status Heavy t obacco smoker (finding) [facility] [place] Tobacco smoking status Smokeless tobacco user within last 30 days [facility] [place] Sex Assigned At Male [facility] Functional Status Date Assessment Result Facility 06-29-2023 Functional Status N/A [facility] Clinical Note 06-29-2023 Note Date & Type Note Facility 06-29-2023 Note Chief Complaint consultation for abdominal pain HPI Staff 43 year old male presents on consultation from Dr. Samayoa for chronic generalized abdominal pain. Reports pain is primarily located in the LLQ. Describes pain as sharp and stabbing. Reports he's experienced chronic constipation since childhood. He reports average bowel movement once every 10 days. 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 Reports Levsin is helpful for pain but does not take often as it worsens constipation. Denies rectal pain or bleeding. Reports intermittent nausea. Denies vomiting. ABD US completed 12/2022- negative. CT ABD/pelvis completed 06/07/23 with nephrolithiasis, otherwise unremarkable. Colonoscopy completed 10/2014- normal. EGD completed 10/2014 with gastritis. History of small bowel obstruction 2021 that corrected without intervention. History of Present Illness 43 yo male with h/o opioid abuse, chronic constipation, referred for lower abd pain; patient reports sharp, crampy, intermittent bilateral lower abd pain, no triggers, worse when constipated; patient denies change in bms, occasional red blood with wiping after straining; no N/V; has been taking Miralax daily with some improvement; abd operations significant for cholecystectomy and open appendectomy; last colonoscopy 2014, wnl; fmhx of colon cancer in patient's mother and Uncle, both dx under the age of 60; no fmhx of IBD; smokes daily; no asa, ibuprofen prn, no SBE prophylaxis. Review of Systems PHQ Score Initial Depression Screen Score: 0 SCORE ROS - Provider Constitutional: no fever, no sweats, no weight loss. Eyes: no glasses, no blurred vision, no visual loss. ENMT: no dentures, no hoarseness, no swallowing difficulties, no hearing loss, no ear infection(s), no nose bleeds. Cardiovascular: normal blood pressure, no chest pain, regular heartbeat, no heart murmur. Respiratory: no shortness of breath, no cough, no asthma, no wheezing. Gastrointestinal: no nausea, no vomiting, no diarrhea, yes constipation, no blood in stool, no change in bowel habits, yes abdominal pain, no hepatitis. Genitourinary: no kidney stones, no urine infection, no dysuria. Musculoskeletal: no pain, no weakness. Skin: no changing moles, no rash, no skin lumps. Neurologic: no seizures, no epilepsy, no headache. Psychiatric: no emotional or psychiatric problem. Heme/Lymph: no bleeding problems, no anemia, no blood clots, no transfusions. Allergy/Immunologic: no swollen lymph nodes/glands, no IV drug abuse. Other: Additional ROS info: Except as noted in the above Review of Systems and in the History of Present Illness, all other systems have been reviewed and are negative or noncontributory. Physical Exam Vitals & Measurements HR: 72(Peripheral) RR: 16 BP: 118/76 HT: 73 in HT: 185.4 cm WT: 86.7 kg WT: 190.74 lb BMI: 25.22 HEENT: normal conjunctiva, sclera clear, no scleral icterus, EOM intact, PERRLA, oral mucosa moist without lesions. Neck: trachea midline, no mass, symmetric, no thyromegaly or nodules, no adenopathy Respiratory: lungs CTA, respirations non labored. Cardiovascular: regular rate and rhythm, no murmur, no pedal edema or varicosities. Gastrointestinal: soft, non distended, no tenderness, no masses, no palpable hernias, well-healed LS incisions and lower midline incision; diastasis recti no, no hepatosplenomegaly; normal bs Lymphatic: no cervical adenopathy, no supraclavicular adenopathy. Musculoskeletal: normal gait, digits and nails without infection, nodes, cyanosis, clubbing. Skin: no rashes, no lesions, no ulcers, no subcutaneous nodules, induration. Psychiatric/Neuro: oriented to time, place, person, judgement normal, affect appropriate for age, insight intact, no focal deficits. Tests: review of old records completed , Discussed surgical options, risks, and possible complications with patient. Assessment/Plan 1. Abdominal pain, bilateral lower quadrant (R10.31: Right lower quadrant pain) plan colonoscopy under anesthesia, informed consent obtained. 2. Family history of colon cancer in mother (Z80.0: Family history of malignant neoplasm of digestive organs) see # 1 3. Tobacco use (Z72.0: Tobacco use) We strongly recommend to quit tobacco use. Cigarette smoking harms nearly every organ of the body, causes many diseases, and reduces the health of smokers in general. Quitting smoking lowers your risk for smoking-related diseases and can add years to your life. We encourage you to visit www.smokefree.gov access to helpful resources including free telephone support. If you decide on prescription treatment to help you quit, your family doctor would be happy to provide these. Left lower quadrant pain (R10.32: Left lower quadrant pain) Follow-up No qualifying data available Problem List/Past Medical History Ongoing Abdominal pain, bilateral lower quadrant BMI 25.0-25.9,adult Chronic generalized abdominal pain (more content not included)... [facility] Comment on above: Result Comment: Elec tronically Signed By: CHASE MULLIGAN, Donnell House\.br\Date and Time Signed: 06/29/23 21:30 EST Evaluation + Plan note Note Date & Type Note Facility Evaluation + Plan note Future Appointments Appointment Date:10/17/2023 12:00:00 PM Scheduled Provider:Doron HODGES MD Location:[facility] Appointment Type:URO New Patient [facility] [place] Hospital course Narrative Note Date & Type Note Facility Hospital course Narrative No data available for this section [facility] [place] [facility] Discharge instructions Note Date & Type Note Facility Hospital Discharge instructions No data available for this section [facility] [place] Progress note Note Date & Type Note Facility Progress note No data available for this section [facility] [place] Summary Purpose Family History No Family History Records FoundNo Family History Records Found No data available for this section No Family History Records Found Advance Directives No Advanced Directives Records FoundNo Advanced Directives Records FoundNo Advanced Directives Records Found Additional Source Comments (unrecognized sect ion and content) No Status Records FoundNo Status Records FoundNo Status Records Found INFORMATION SOURCE (unrecogn ized section and content) DATE CREATED AUTHOR 12/01/2018 [facility] DATE CREATED AUTHOR AUTHOR'S ORGANIZ ATION 10/22/2022 [facility] DATE CREATED AUTHOR AUTHOR'S ORGANIZ ATION 07/01/2023 Masoud Bagley [facility] Patient Care team diana n (unrecognized section and content) Personnel Name: Romy Samayoa MD Address: Address: [address] [place] [address] FOR RECORDS PERTAINING TO PATIENTS WHO ARE [...] BE BASED ON THE PRIMARY CLINICAL RECORDS. [employer] provides no warranty or guarantee of the accuracy or completeness of information in this document.
[2023-07-29 12:32] LABS: Amphetamine Screen Urine NEGATIVE (NEGATIVE); Barbiturates Screen Urine NEGATIVE (NEGATIVE); Benzodiazepines Screen Urine NEGATIVE (NEGATIVE); Buprenorphine Screen Urine POSITIVE (NEGATIVE); Cannabinoid Screen Urine NEGATIVE (NEGATIVE); Cocaine Screen Urine NEGATIVE (NEGATIVE); Methadone Screen Urine NEGATIVE (NEGATIVE); Methamphetamines Screen Urine NEGATIVE (NEGATIVE); Opiate Screen Urine NEGATIVE (NEGATIVE); Oxycodone Screen Urine NEGATIVE (NEGATIVE); Phencyclidine Screen Urine NEGATIVE (NEGATIVE); Tricyclic Antidepressant Urine NEGATIVE (NEGATIVE)
[2023-08-07 14:07] LABS: Summary Report (Summary) FINAL (.)
== END 2023-07-29 10:05 | disposition home or self-care (01) ==
LOC: LAB 10:04
PROVIDERS: PCP Family Medicine; Visit Provider Family Medicine
DX: F11.10 Opioid abuse, uncomplicated (principal)
CPT/HCPCS: 80307; 80326; 80331; 80334; 80337; 80338; 80341; 80344; 80346; 80348; 80353; 80354; 80355; 80357; 80358; 80359; 80360; 80361; 80364; 80365; 80366; 80367; 80368; 80370; 80371; 80372; 80373; 80377; 82570; 83992

== ENCOUNTER 2023-08-24 11:10 | Outpatient (OUT) | payer OTHER, SELFPAY ==
[2023-08-24 13:43] LABS: Amphetamine Screen Urine NEGATIVE (NEGATIVE); Barbiturates Screen Urine NEGATIVE (NEGATIVE); Benzodiazepines Screen Urine NEGATIVE (NEGATIVE); Buprenorphine Screen Urine POSITIVE (NEGATIVE); Cannabinoid Screen Urine NEGATIVE (NEGATIVE); Cocaine Screen Urine NEGATIVE (NEGATIVE); Methadone Screen Urine NEGATIVE (NEGATIVE); Methamphetamines Screen Urine NEGATIVE (NEGATIVE); Opiate Screen Urine NEGATIVE (NEGATIVE); Oxycodone Screen Urine NEGATIVE (NEGATIVE); Phencyclidine Screen Urine NEGATIVE (NEGATIVE); Tricyclic Antidepressant Urine NEGATIVE (NEGATIVE)
[2023-08-25 09:08] LABS: Uric Acid, Urine 54.8 mg/dL (Not Estab.)
[2023-08-31 14:10] LABS: Summary Report (Summary) FINAL (.)
== END 2023-08-24 11:11 | disposition home or self-care (01) ==
LOC: LAB 11:11
PROVIDERS: PCP Family Medicine; Visit Provider Family Medicine
DX: Z79.899 Other long term (current) drug therapy (principal)
CPT/HCPCS: 80307; 80326; 80331; 80334; 80337; 80338; 80341; 80344; 80346; 80348; 80353; 80354; 80355; 80357; 80358; 80359; 80360; 80361; 80364; 80365; 80366; 80367; 80368; 80370; 80371; 80372; 80373; 80377; 82570; 83992; 84560

== ENCOUNTER 2023-12-02 08:18 | Outpatient (OUT) | payer OTHER, SELFPAY ==
[2023-12-02 11:56] LABS: Amphetamine Screen Urine NEGATIVE (NEGATIVE); Barbiturates Screen Urine NEGATIVE (NEGATIVE); Benzodiazepines Screen Urine NEGATIVE (NEGATIVE); Buprenorphine Screen Urine POSITIVE (NEGATIVE); Cannabinoid Screen Urine NEGATIVE (NEGATIVE); Cocaine Screen Urine NEGATIVE (NEGATIVE); Methadone Screen Urine NEGATIVE (NEGATIVE); Methamphetamines Screen Urine NEGATIVE (NEGATIVE); Opiate Screen Urine NEGATIVE (NEGATIVE); Oxycodone Screen Urine NEGATIVE (NEGATIVE); Phencyclidine Screen Urine NEGATIVE (NEGATIVE); Tricyclic Antidepressant Urine NEGATIVE (NEGATIVE)
--- OUTSIDE RECORDS SUMMARY | 2023-12-05 08:42 | XMS_ITS | CCD ---
Author Organization [facility] Care Team Providers Care Land Development Manager Name Role Phone SHANTI MABRY Attending Unavailable JaydonyRomy Primary Care Unavailable HOY, ROMY LOPEZ Consulting Unavailable HOY ., DR STANTON Attending Unavailable HOY ., DR STANTON Admitting Unavailable HOY ., DR STANTON Primary Care Unavailable HOY ., DR STANTON Consulting Unavailable HOY ., DR STANTON Attending Unavailable HOY ., DR ROMY Campos Unavailable HOY ., DR STANTON Primary Care Unavailable HOY ., DR STANTON Consulting Unavailable HOY ., DR STANTON Consulting Unavailable HOY ., DR STANTON Admitting Unavailable HOY ., DR STANTON Attending Unavailable HOY ., DR STANTON Primary Care Unavailable HOY ., DR STANTON Admgerry Unavailable HOY ., DR STANTON Attending Unavailable HOY ., DR STANTON Primary Care Unavailable HOY ., DR STANTON Consulting Unavailable HOY ., DR STANTON Attending Unavailable HOY ., DR STANTON Admgerry Unavailable HOY ., DR STANTON Primary Care Unavailable HOY ., DR STANTON Admgerry Unavailable [...] Unavailable HOY ., DR STANTON Consulting Unavailable Sloan Samayoalas Primary Care Physician [phone] Doron HODGES Attending Unavailable Romy Samayoa Referring Unavailable Donnell STONE Attending Unavailable Allergies Allergy Classification Reported Allergen(s) Allergy Type Date of Onset Reaction(s) Facility (4 sources) Codeine; Translations: [codeine] Drug Allergy 0 [facility] Penicillins Drug allergy (disorder) 0 [facility]ository (2 sources) Penicillin; Translations: [penicillin] Drug Allergy Unknown (qualifier value) [facility] [place] Medications Current Medications Medication Drug Class(es) Dates [...] Encounter for therapeutic drug level monitoring; Translations: [[facility] DRUG LEVL MONITORING] Onset: 07-22-2022 Episodic Other [...] Episodic Other aftercare (1 source) Other terminal carman (current) drug therapy; Translations: [OTH [facility] CURRENT DRUG THERAPY] Onset: 01-31-2022 Episodic Pancreatic disorders (not diabetes) (4 sources) Other acute pancreatitis without necrosis or infection; Translations: [OTH ACUTE PANCREATITIS WO NECRS/INF] Onset: 12-15-2021 Episodic Residual codes; unclassified (1 source) Acquired absence of other specified parts of digestive tract; Translations: [ACQ ABSENCE OTH PART DIGESTV TRACT] Onset: 12-21-2021 Episodic Results Test Name Value Interpretation Reference Range Facility Facesheeton 06-30-2023 Facesheet [id number]#[id number] [facility]ulatory Visit Summaryon 0 06-29-2023 Ambulatory Visit Summary TORRESBESSY :1980 Visit Date:06/29/2023 Ambulatory Visit Instructions Your [...] MULLIGAN, Doron House Where: [facility] RAD - CT Reporton 06-09-2023 RAD - CT Report [id number]#1.00TIFF [facility] RAD - Ultrasound Reporton RAD - Ultrasound Report [id number]#1.00CD:127 [facility] Physician Referralon 023 Physician Referral [id number]#1.00CD:127 [facility] Physician Referralon 023 Physician Referral [id number]#[id number]:127 [facility] COMPLIANCE DRUG SCREENon PDF . [facility] Comment on above: Performed By: #### URICUR #### [facility] [address] [place] [address] Dr. Jose Duffy Summary FINAL [facility] Comment on above: Result Comment: TOXASSURE COMP DRUG ANALYSIS,UR Test Result Flag Units Drug Present Buprenorphine 175 ng/mg creat Norbuprenorphine 639 ng/mg creat Source of buprenorphine is a scheduled prescription medication. Norbuprenorphine is an expected metabolite of buprenorphine. Acetaminophen PRESENT Ibuprofen PRESENT Dextrorphan/Levorphanol PRESENT Dextrorphan is an expected metabolite of dextromethorphan, an kday-mkb-svtaulr or prescription cough suppressant. Levorphanol is a scheduled prescription medication. Dextrorphan cannot be distinguished from levorphanol by the method used for analysis. Guaifenesin PRESENT Guaifenesin may be administered as an fslg-fad-agmiasz or prescription drug; it may also be present as a breakdown product of methocarbamol. Test Result Flag Units Ref Range Creatinine 111 mg/dL >=20 Declared Medications: Medication list was not provided. For clinical consultation, please call . Performed By: #### U RICUR #### [facility] [address] [address] [address] Jose Duffy URIC ACID RAND URINEon 10-07 Uric Acid, Urine 56.8 mg/dL Normal Not Estab. [facility] Comment on above: Performed By: #### DSDOALC #### [facility] [address] [address] [address] Jose Duffy DRUG SCREEN RAPID (URINE)on 10-06-2022 AMP Negative Normal NEGATIVE [facility] Comment on above: Performed By: #### URICUR #### [facility] [address] [place] [address] Dr. Jose Duffy BAR Negative Normal NEGATIVE [facility] Comment on above: Performed By: #### URICUR #### [facility] [address] [place] [address] Dr. Jose Duffy BUP Positive Abnormal NEGATIVE [facility] Comment on above: Performed By: #### URICUR #### [facility] [address] [place] [address] Dr. Jose Duffy BZO Negative Normal NEGATIVE [facility] Comment on above: Performed By: #### URICUR #### [facility] [address] [place] [address] Dr. Jose Duffy RICARDO Negative Normal NEGATIVE [facility] Comment on above: Performed By: #### URICUR #### [facility] [address] [place] [address] Dr. Jose Duffy CUT-OFFS SEE BELOW Normal [facility] Comment on above: Result Comment: AMP [...] ng/mL Performed By: #### U RICUR #### [facility] [address] [place] [address] Dr. Jose Duffy DRUG CUT HEADER DRUG CLASS TEST SYST EM CUT-OFF CONCENTRATIONS ARE FOLLOWS: Normal [facility] Comment on above: Performed By: #### URICUR #### [facility] [address] [place] [address] Dr. Yilan Duffy mAMP Positive Abnormal NEGATIVE [facility] Comment on above: Performed By: #### URICUR #### [facility] [address] [address] [address] Jose Duffy MTD Negative Normal NEGATIVE [facility] Comment on above: Performed By: #### URICUR #### [facility] [address] [place] [address] Dr. Jose Duffy OPI Negative Normal NEGATIVE [facility] Comment on above: Performed By: #### URICUR #### [facility] [address] [place] [address] Dr. Jose Duffy OXY Negative Normal NEGATIVE [facility] Comment on above: Performed By: #### URICUR #### [facility] [address] [place] [address] Dr. Jose Duffy PCP Negative Normal NEGATIVE [facility] Comment on above: Performed By: #### URICUR #### [facility] [address] [place] [address] Dr. Jose Duffy PPX Negative Normal NEGATIVE [facility] Comment on above: Performed By: #### URICUR #### [facility] [address] [place] [address] Dr. Jose Duffy TCA Negative Normal NEGATIVE [facility] Comment on above: Performed By: #### URICUR #### [facility] [address] [place] [address] Dr. Jose Duffy THC Negative Normal NEGATIVE [facility] Comment on above: Performed By: #### URICUR #### [facility] [address] [place] [address] Dr. Jose Duffy COMPLIANCE DRUG SCREENon PDF . Normal [facility] Comment on above: Performed By: #### DSDOALC #### [facility] [address] [place] [address] Dr. Jose Duffy Summary FINAL Normal [facility] Comment on above: Result Comment: TOXASSURE COMP [...] . Performed By: #### D SDOALC #### [facility] [address] [address] [address] Jose Duffy URIC ACID [facility] 08-19 Uric Acid, Urine 21.4 mg/dL Normal Not Estab. [facility] Comment on above: Performed By: #### URICUR #### [facility] [address] [place] [address] Dr. Jose Duffy DRUG SCREEN RAPID (URINE)on 08-18-2022 AMP Negative Normal NEGATIVE [facility] Comment on above: Performed By: #### DSDOALC #### [facility] [address] [place] [address] Dr. Jose Duffy BAR Negative Normal NEGATIVE [facility] Comment on above: Performed By: #### DSDOALC #### [facility] [address] [place] [address] Dr. Jose Duffy BUP Positive Abnormal NEGATIVE [facility] Comment on above: Performed By: #### DSDOALC #### [facility] [address] [place] [address] Dr. Jose Duffy BZO Negative Normal NEGATIVE [facility] Comment on above: Performed By: #### DSDOALC #### [facility] [address] [place] [address] Dr. Jose Duffy RICARDO Negative Normal NEGATIVE [facility] Comment on above: Performed By: #### DSDOALC #### [facility] [address] [place] [address] Dr. Jose Duffy CUT-OFFS SEE BELOW Normal [facility] Comment on above: Result Comment: AMP [...] ng/mL Performed By: #### D SDOALC #### [facility] [address] [place] [address] Dr. Jose Duffy DRUG CUT HEADER DRUG CLASS TEST SYST EM CUT-OFF CONCENTRATIONS ARE FOLLOWS: Normal [facility] Comment on above: Performed By: #### DSDOALC #### [facility] [address] [place] [address] Dr. Jose Duffy mAMP Negative Normal NEGATIVE [facility] Comment on above: Performed By: #### DSDOALC #### [facility] [address] [place] [address] Dr. Jose Duffy MTD Negative Normal NEGATIVE [facility] Comment on above: Performed By: #### DSDOALC #### [facility] [address] [place] [address] Dr. Jose Duffy OPI Negative Normal NEGATIVE [facility] Comment on above: Performed By: #### DSDOALC #### [facility] [address] [place] [address] Dr. Jose Duffy OXY Negative Normal NEGATIVE [facility] Comment on above: Performed By: #### DSDOALC #### [facility] [address] [place] [address] Dr. Jose Duffy PCP Negative Normal NEGATIVE [facility] Comment on above: Performed By: #### DSDOALC #### [facility] [address] [place] [address] Dr. Jose Duffy PPX Negative Normal NEGATIVE [facility] Comment on above: Performed By: #### DSDOALC #### [facility] [address] [place] [address] Dr. Jose Duffy TCA Negative Normal NEGATIVE [facility] Comment on above: Performed By: #### DSDOALC #### [facility] [address] [place] [address] Dr. Jose Duffy THC Negative Normal NEGATIVE [facility] Comment on above: Performed By: #### DSDOALC #### [facility] [address] [place] [address] Dr. Jose Duffy COMPLIANCE DRUG SCREENon PDF . Normal [facility] Comment on above: Performed By: #### DRUGRPD #### [facility] [address] [place], [place] [address] Dr. Jose Duffy Summary FINAL Normal [facility] Comment on above: Result Comment: TOXASSURE COMP [...] . Performed By: #### D RUGRPD #### [facility] [address] [place] [address] Dr. Jose Duffy URIC ACID RAND URINEon 07-23 Uric Acid, Urine 21.8 mg/dL Normal Not Estab. [facility] Comment on above: Performed By: #### URICUR #### [facility] [address] [place] [address] Dr. Jose Duffy DRUG SCREEN RAPID (URINE)on 07-22-2022 AMP Negative Normal NEGATIVE [facility] Comment on above: Performed By: #### URICUR #### [facility] [address] [place] [address] Dr. Jose Duffy BAR Negative Normal NEGATIVE [facility] Comment on above: Performed By: #### URICUR #### [facility] [address] [place] [address] Dr. Jose Duffy BUP Positive Abnormal NEGATIVE [facility] Comment on above: Result Comment: Previously reported as: NEGATIVE On 07/22/2022 12:02 By [email or web address] Performed By: #### U RICUR #### [facility] [address] [place] [address] Dr. Jose Duffy BZO Negative Normal NEGATIVE [facility] Comment on above: Performed By: #### URICUR #### [facility] [address] [place] [address] Dr. Jose Duffy RICARDO Negative Normal NEGATIVE [facility] Comment on above: Performed By: #### URICUR #### [facility] [address] [place] [address] Dr. Jose Duffy CUT-OFFS SEE BELOW Normal [facility] Comment on above: Result Comment: AMP [...] ng/mL Performed By: #### U RICUR #### [facility] [address] [place] [address] Dr. Jose Duffy DRUG CUT HEADER DRUG CLASS TEST SYST EM CUT-OFF CONCENTRATIONS ARE FOLLOWS: Normal [facility] Comment on above: Performed By: #### URICUR #### [facility] [address] [place] [address] Dr. Jose Duffy mAMP Negative Normal NEGATIVE [facility] Comment on above: Performed By: #### URICUR #### [facility] [address] [place] [address] Dr. Jose Duffy MTD Negative Normal NEGATIVE [facility] Comment on above: Performed By: #### URICUR #### [facility] [address] [place] [address] Dr. Jose Duffy OPI Negative Normal NEGATIVE [facility] Comment on above: Performed By: #### URICUR #### [facility] [address] [place] [address] Dr. Jose Duffy OXY Negative Normal NEGATIVE [facility] Comment on above: Performed By: #### URICUR #### [facility] [address] [place] [address] Dr. Jose Duffy PCP Negative Normal NEGATIVE [facility] Comment on above: Performed By: #### URICUR #### [facility] [address] [place] [address] Dr. Jose Duffy PPX Negative Normal NEGATIVE [facility] Comment on above: Performed By: #### URICUR #### [facility] [address] [address] [address] Jose Duffy TCA Negative Normal NEGATIVE [facility] Comment on above: Performed By: #### URICUR #### [facility] [address] [address] [address] Jose Duffy THC Negative Normal NEGATIVE [facility] Comment on above: Performed By: #### URICUR #### [facility] [address] [address] [address] Jose Duffy COMPLIANCE DRUG SCREENon PDF . Normal [facility] Comment on above: Performed By: #### DRUGRPD #### [facility] [address] [place] [address] Dr. Jose Duffy Summary FINAL Normal [facility] Comment on above: Result Comment: TOXASSURE COMP [...] . Performed By: #### D RUGRPD #### [facility] [address] [place] [address] Dr. Jose Duffy URIC ACID RAND URINEon 06-24 Uric Acid, Urine 33.0 mg/dL Normal Not Estab. [facility] Comment on above: Performed By: #### URICUR #### [facility] [address] [place] [address] Dr. Jose Duffy DRUG SCREEN RAPID (URINE)on 06-23-2022 AMP Negative Normal NEGATIVE [facility] Comment on above: Performed By: #### DRUGRPD #### [facility] [address] [place] [address] Dr. Jose Duffy BAR Negative Normal NEGATIVE [facility] Comment on above: Performed By: #### DRUGRPD #### [facility] [address] [place] [address] Dr. Jose Duffy BUP Positive Abnormal NEGATIVE [facility] Comment on above: Performed By: #### DRUGRPD #### [facility] [address] [place] [address] Dr. Jose Duffy BZO Negative Normal NEGATIVE [facility] Comment on above: Performed By: #### DRUGRPD #### [facility] [address] [address] [address] Jose Duffy RICARDO Negative Normal NEGATIVE [facility] Comment on above: Performed By: #### DRUGRPD #### [facility] [address] [place] [address] Dr. Jose Duffy CUT-OFFS SEE BELOW Normal [facility] Comment on above: Result Comment: AMP [...] ng/mL Performed By: #### D RUGRPD #### [facility] [address] [place] [address] Dr. Jose Duffy DRUG CUT HEADER DRUG CLASS TEST SYST EM CUT-OFF CONCENTRATIONS ARE FOLLOWS: Normal [facility] Comment on above: Performed By: #### DRUGRPD #### [facility] [address] [place] [address] Dr. Jose Duffy mAMP Negative Normal NEGATIVE [facility] Comment on above: Performed By: #### DRUGRPD #### [facility] [address] [place] [address] Dr. Jose Duffy MTD Negative Normal NEGATIVE [facility] Comment on above: Performed By: #### DRUGRPD #### [facility] [address] [place] [address] Dr. Jose Duffy OPI Negative Normal NEGATIVE [facility] Comment on above: Performed By: #### DRUGRPD #### [facility] [address] [address] [address] Jose Duffy OXY Negative Normal NEGATIVE [facility] Comment on above: Performed By: #### DRUGRPD #### [facility] [address] [address] [address] Jose Duffy PCP Negative Normal NEGATIVE [facility] Comment on above: Performed By: #### DRUGRPD #### [facility] [address] [address] [address] Jose Duffy PPX Negative Normal NEGATIVE [facility] Comment on above: Performed By: #### DRUGRPD #### [facility] [address] [address] [address] Jose Duffy TCA Negative Normal NEGATIVE [facility] Comment on above: Performed By: #### DRUGRPD #### [facility] [address] [address] [address] Jose Duffy THC Negative Normal NEGATIVE [facility] Comment on above: Performed By: #### DRUGRPD #### [facility] [address] [address] [address] Jose Duffy COMPLIANCE DRUG SCREENon PDF . Normal [facility] Comment on above: Performed By: #### URICUR #### [facility] [address] [place] [address] Dr. Jose Duffy Summary FINAL Normal [facility] Comment on above: Result Comment: TOXASSURE COMP [...] please call . Performed By: #### U RICBRO #### [facility] [address] [address] [address] Jose Duffy URIC ACID RAND URINEon 05-27 Uric Acid, Urine 18.9 mg/dL Normal Not Estab. [facility] Comment on above: Performed By: #### DSDOALC #### [facility] [address] [address] [address] Jose Duffy DRUG SCREEN RAPID (URINE)on 05-26-2022 AMP Negative Normal NEGATIVE [facility] Comment on above: Performed By: #### URICUR #### [facility] [address] [address] [address] Jose Duffy BAR Negative Normal NEGATIVE [facility] Comment on above: Performed By: #### URICUR #### [facility] [address] [address] [address] Jose Duffy BUP Positive Abnormal NEGATIVE [facility] Comment on above: Performed By: #### URICUR #### [facility] [address] [address] [address] Jose Duffy BZO Negative Normal NEGATIVE [facility] Comment on above: Performed By: #### URICUR #### [facility] [address] [address] [address] Jose Duffy RICARDO Negative Normal NEGATIVE [facility] Comment on above: Performed By: #### URICUR #### [facility] [address] [address] [address] Jose Duffy CUT-OFFS SEE BELOW Normal [facility] Comment on above: Result Comment: AMP [...] ng/mL Performed By: #### U RICUR #### [facility] [address] [address] [address] Jose Duffy DRUG CUT HEADER DRUG CLASS TEST SYST EM CUT-OFF CONCENTRATIONS ARE FOLLOWS: Normal [facility] Comment on above: Performed By: #### URICUR #### [facility] [address] [address] [address] Jose Duffy mAMP Negative Normal NEGATIVE [facility] Comment on above: Performed By: #### URICUR #### [facility] [address] [address] [address] Jose Duffy MTD Negative Normal NEGATIVE [facility] Comment on above: Performed By: #### URICUR #### [facility] [address] [address] [address] Jose Duffy OPI Negative Normal NEGATIVE [facility] Comment on above: Performed By: #### URICUR #### [facility] [address] [address] [address] Jose Duffy OXY Negative Normal NEGATIVE [facility] Comment on above: Performed By: #### URICUR #### [facility] [address] [address] [address] Jose Duffy PCP Negative Normal NEGATIVE [facility] Comment on above: Performed By: #### URICUR #### [facility] [address] [address] [address] Jose Duffy PPX Negative Normal NEGATIVE [facility] Comment on above: Performed By: #### URICUR #### [facility] [address] [address] [address] Jose Duffy TCA Negative Normal NEGATIVE [facility] Comment on above: Performed By: #### URICUR #### [facility] [address] [address] [address] Jose Duffy THC Negative Normal NEGATIVE [facility] Comment on above: Performed By: #### URICUR #### [facility] [address] [address] [address] Jose Duffy COMPLIANCE DRUG SCREENon PDF . Normal [facility] Comment on above: Performed By: #### DSDOALC #### [facility] [address] [address] [address] Jose Duffy Summary FINAL Normal [facility] Comment on above: Result Comment: TOXASSURE COMP [...] . Performed By: #### D SDOALC #### [facility] [address] [place] [address] Dr. Jose Duffy URIC ACID RAND URINEon 03-16 Uric Acid, Urine 38.6 mg/dL Normal Not Estab. [facility] Comment on above: Performed By: #### URICUR #### [facility] [address] [place] [address] Dr. Jose Duffy DRUG SCREEN RAPID (URINE)on 03-15-2022 AMP Negative Normal NEGATIVE [facility] Comment on above: Performed By: #### DRUGRPD #### [facility] [address] [place] [address] Dr. Jose Duffy BAR Negative Normal NEGATIVE [facility] Comment on above: Performed By: #### DRUGRPD #### [facility] [address] [place] [address] Dr. Jose Duffy BUP Positive Abnormal NEGATIVE [facility] Comment on above: Performed By: #### DRUGRPD #### [facility] [address] [place] [address] Dr. Jose Duffy BZO Negative Normal NEGATIVE [facility] Comment on above: Performed By: #### DRUGRPD #### [facility] [address] [place] [address] Dr. Jose Duffy RICARDO Negative Normal NEGATIVE [facility] Comment on above: Performed By: #### DRUGRPD #### [facility] [address] [place] [address] Dr. Jose Duffy CUT-OFFS SEE BELOW Normal [facility] Comment on above: Result Comment: AMP [...] ng/mL Performed By: #### D RUGRPD #### [facility] [address] [place] [address] Dr. Jose Duffy DRUG CUT HEADER DRUG CLASS TEST SYST EM CUT-OFF CONCENTRATIONS ARE FOLLOWS: Normal [facility] Comment on above: Performed By: #### DRUGRPD #### [facility] [address] [place] [address] Dr. Jose Duffy mAMP Negative Normal NEGATIVE [facility] Comment on above: Performed By: #### DRUGRPD #### [facility] [address] [place] [address] Dr. Jose Duffy MTD Negative Normal NEGATIVE [facility] Comment on above: Performed By: #### DRUGRPD #### [facility] [address] [place] [address] Dr. Jose Duffy OPI Negative Normal NEGATIVE [facility] Comment on above: Performed By: #### DRUGRPD #### [facility] [address] [place] [address] Dr. Jose Duffy OXY Negative Normal NEGATIVE [facility] Comment on above: Performed By: #### DRUGRPD #### [facility] [address] [place] [address] Dr. Jose Duffy PCP Negative Normal NEGATIVE [facility] Comment on above: Performed By: #### DRUGRPD #### [facility] [address] [place] [address] Dr. Jose Duffy PPX Negative Normal NEGATIVE [facility] Comment on above: Performed By: #### DRUGRPD #### [facility] [address] [place] [address] Dr. Jose Duffy TCA Negative Normal NEGATIVE [facility] Comment on above: Performed By: #### DRUGRPD #### [facility] [address] [address] [address] Jose Duffy THC Negative Normal NEGATIVE [facility] Comment on above: Performed By: #### DRUGRPD #### [facility] [address] [address] [address] Jose Duffy COMPLIANCE DRUG SCREENon PDF . Normal [facility] Comment on above: Performed By: #### DSDOALC #### [facility] [address] [address] [address] Jose Duffy Summary FINAL Normal [facility] Comment on above: Result Comment: TOXASSURE COMP [...] is an expected metabolite of dextromethorphan, an clxq-anf-atikcei or prescription cough suppressant. Levorphanol is a [...] . Performed By: #### D SDOALC #### [facility] [address] [place] [address] Dr. Jose Duffy URIC ACID RAND URINEon 02-20 Uric Acid, Urine 44.5 mg/dL Normal Not Estab. [facility] Comment on above: Performed By: #### DSDOALC #### [facility] [address] [place] [address] Dr. Jose Duffy DRUG SCREEN RAPID (URINE)on 02-19-2022 AMP Negative Normal NEGATIVE [facility] Comment on above: Performed By: #### DRUGRPD #### [facility] [address] [place] [address] Dr. Jose Duffy BAR Negative Normal NEGATIVE [facility] Comment on above: Performed By: #### DRUGRPD #### [facility] [address] [place] [address] Dr. Jose Duffy BUP Positive Abnormal NEGATIVE [facility] Comment on above: Performed By: #### DRUGRPD #### [facility] [address] [place] [address] Dr. Jose Duffy BZO Negative Normal NEGATIVE [facility] Comment on above: Performed By: #### DRUGRPD #### [facility] [address] [place] [address] Dr. Jose Duffy RICARDO Negative Normal NEGATIVE [facility] Comment on above: Performed By: #### DRUGRPD #### [facility] [address] [place] [address] Dr. Jose Duffy CUT-OFFS SEE BELOW Normal [facility] Comment on above: Result Comment: AMP [...] ng/mL Performed By: #### D RUGRPD #### [facility] [address] [place] [address] Dr. Jose Duffy DRUG CUT HEADER DRUG CLASS TEST SYST EM CUT-OFF CONCENTRATIONS ARE FOLLOWS: Normal [facility] Comment on above: Performed By: #### DRUGRPD #### [facility] [address] [place] [address] Dr. Jose Duffy mAMP Negative Normal NEGATIVE [facility] Comment on above: Performed By: #### DRUGRPD #### [facility] [address] [place] [address] Dr. Jose Duffy MTD Negative Normal NEGATIVE [facility] Comment on above: Performed By: #### DRUGRPD #### [facility] [address] [address] [address] Jose Duffy OPI Negative Normal NEGATIVE [facility] Comment on above: Performed By: #### DRUGRPD #### [facility] [address] [address] [address] Jose Duffy OXY Negative Normal NEGATIVE [facility] Comment on above: Performed By: #### DRUGRPD #### [facility] [address] [address] [address] Jose Duffy PCP Negative Normal NEGATIVE [facility] Comment on above: Performed By: #### DRUGRPD #### [facility] [address] [address] [address] Jose Duffy PPX Negative Normal NEGATIVE [facility] Comment on above: Performed By: #### DRUGRPD #### [facility] [address] [place] [address] Dr. Jose Duffy TCA Negative Normal NEGATIVE [facility] Comment on above: Performed By: #### DRUGRPD #### [facility] [address] [place] [address] Dr. Jose Duffy THC Negative Normal NEGATIVE [facility] Comment on above: Performed By: #### DRUGRPD #### [facility] [address] [address] [address] Jose Duffy COMPLIANCE DRUG SCREENon PDF . Normal [facility] Comment on above: Performed By: #### DSDOALC #### [facility] [address] [place] [address] Dr. Jose Duffy Summary FINAL Normal [facility] Comment on above: Result Comment: TOXASSURE COMP [...] . Performed By: #### D SDOALC #### [facility] [address] [place] [address] Dr. Jose Duffy URIC ACID RAND URINEon 01-28 Uric Acid, Urine 30.0 mg/dL Normal Not Estab. [facility] Comment on above: Performed By: #### URICUR #### [facility] [address] [address] [address] Jose Duffy DRUG SCREEN RAPID (URINE)on 01-27-2022 AMP Negative Normal NEGATIVE [facility] Comment on above: Performed By: #### DRUGRPD #### [facility] [address] [address] [address] Jose Duffy BAR Negative Normal NEGATIVE [facility] Comment on above: Performed By: #### DRUGRPD #### [facility] [address] [place] [address] Dr. Jose Duffy BUP Positive Abnormal NEGATIVE [facility] Comment on above: Performed By: #### DRUGRPD #### [facility] [address] [place] [address] Dr. Jose Duffy BZO Negative Normal NEGATIVE [facility] Comment on above: Performed By: #### DRUGRPD #### [facility] [address] [address] [address] Jose Duffy RICARDO Negative Normal NEGATIVE [facility] Comment on above: Performed By: #### DRUGRPD #### [facility] [address] [place] [address] Dr. Jose Duffy CUT-OFFS SEE BELOW Normal [facility] Comment on above: Result Comment: AMP [...] ng/mL Performed By: #### D RUGRPD #### [facility] [address] [address] [address] Jose Duffy DRUG CUT HEADER DRUG CLASS TEST SYST EM CUT-OFF CONCENTRATIONS ARE FOLLOWS: Normal [facility] Comment on above: Performed By: #### DRUGRPD #### [facility] [address] [address] [address] Jose Duffy mAMP Negative Normal NEGATIVE [facility] Comment on above: Performed By: #### DRUGRPD #### [facility] [address] [address] [address] Jose Duffy MTD Negative Normal NEGATIVE [facility] Comment on above: Performed By: #### DRUGRPD #### [facility] [address] [address] [address] Jose Duffy OPI Negative Normal NEGATIVE [facility] Comment on above: Performed By: #### DRUGRPD #### [facility] [address] [place] [address] Dr. Jose Duffy OXY Negative Normal NEGATIVE [facility] Comment on above: Performed By: #### DRUGRPD #### [facility] [address] [address] [address] Jose Duffy PCP Negative Normal NEGATIVE [facility] Comment on above: Performed By: #### DRUGRPD #### [facility] [address] [place] [address] Dr. Jose Duffy PPX Negative Normal NEGATIVE [facility] Comment on above: Performed By: #### DRUGRPD #### [facility] [address] [address] [address] Jose Duffy TCA Negative Normal NEGATIVE [facility] Comment on above: Performed By: #### DRUGRPD #### [facility] [address] [address] [address] Jose Duffy THC Negative Normal NEGATIVE [facility] Comment on above: Performed By: #### DRUGRPD #### [facility] [address] [place] [address] Dr. Jose Duffy COMPLIANCE DRUG SCREENon PDF . Normal [facility] Comment on above: Performed By: #### URICUR #### [facility] [address] [place], [place] [address] Dr. Jose Duffy Summary FINAL Normal [facility] Comment on above: Result Comment: TOXASSURE COMP [...] . Performed By: #### U RICUR #### [facility] [address] [place] [address] Dr. oJse Duffy URIC ACID RAND URINEon 01-09 Uric Acid, Urine 25.0 mg/dL Normal Not Estab. [facility] Comment on above: Performed By: #### DRUGRPD #### [facility] [address] [place] [address] Dr. Jose Duffy DRUG SCREEN RAPID (URINE)on 01-08-2022 AMP Negative Normal NEGATIVE [facility] Comment on above: Performed By: #### URICUR #### [facility] [address] [place] [address] Dr. Jose Duffy BAR Negative Normal NEGATIVE [facility] Comment on above: Performed By: #### URICUR #### [facility] [address] [place] [address] Dr. Jose Duffy BUP Positive Abnormal NEGATIVE [facility] Comment on above: Performed By: #### URICUR #### [facility] [address] [place] [address] Dr. Jose Duffy BZO Negative Normal NEGATIVE [facility] Comment on above: Performed By: #### URICUR #### [facility] [address] [place] [address] Dr. Jose Duffy RICARDO Negative Normal NEGATIVE [facility] Comment on above: Performed By: #### URICUR #### [facility] [address] [place] [address] Dr. Jose Duffy CUT-OFFS SEE BELOW Normal [facility] Comment on above: Result Comment: AMP [...] ng/mL Performed By: #### U RICUR #### [facility] [address] [place] [address] Dr. Jose Duffy DRUG CUT HEADER DRUG CLASS TEST SYST EM CUT-OFF CONCENTRATIONS ARE FOLLOWS: Normal [facility] Comment on above: Performed By: #### URICUR #### [facility] [address] [place] [address] Dr. Jose Duffy mAMP Negative Normal NEGATIVE [facility] Comment on above: Performed By: #### URICUR #### [facility] [address] [place] [address] Dr. Jose Duffy MTD Negative Normal NEGATIVE [facility] Comment on above: Performed By: #### URICUR #### [facility] [address] [place] [address] Dr. Jose Dufyf OPI Negative Normal NEGATIVE [facility] Comment on above: Performed By: #### URICUR #### [facility] [address] [place] [address] Dr. Jose Duffy OXY Negative Normal NEGATIVE [facility] Comment on above: Performed By: #### URICUR #### [facility] [address] [place] [address] Dr. Jose Duffy PCP Negative Normal NEGATIVE [facility] Comment on above: Performed By: #### URICUR #### [facility] [address] [place] [address] Dr. Jose Duffy PPX Negative Normal NEGATIVE [facility] Comment on above: Performed By: #### URICUR #### [facility] [address] [address] [address] Jose Duffy TCA Negative Normal NEGATIVE [facility] Comment on above: Performed By: #### URICUR #### [facility] [address] [address] [address] Jose Duffy THC Negative Normal NEGATIVE [facility] Comment on above: Performed By: #### URICUR #### [facility] [address] [address] [address] Jose Duffy COMPLIANCE DRUG SCREENon PDF . Normal [facility] Comment on above: Performed By: #### DSDOALC #### [facility] [address] [address] [address] Jose Duffy Summary FINAL Normal [facility] Comment on above: Result Comment: TOXASSURE COMP [...] please call . Performed By: #### D [facility] #### [facility] [address] [place] [address] ABD/PELV W CONon [...] by: VENKATA GRIMALDO Date: 2021-12-18 15:15 Normal [facility] US SINGLE QUAD RT UPPERon US [...] VENKATA GRIMALDO Date: 2021-12-18 15:09 Normal [facility] URIC ACID RAND URINEon 12-16 Uric Acid, Urine 46.2 mg/dL Normal Not Estab. [facility] Comment on above: Performed By: #### DSDOALC #### [facility] [address] [address] [address] Jose Duffy AMYLASEon 12-15-2021 Amylase [Catalytic activity/Vol] 134 U/L Critically high 25-115 [facility] Comment on above: Performed By: #### DRUGRPD #### [facility] [address] [address] [address] Jose Duffy CBC AUTO DIFFon 12-15-2021 BASO # 0.1 103/ul Normal 0.0-0.1 [facility] Comment on above: Performed By: #### DRUGRPD #### [facility] [address] [address] [address] Jose Duffy Basophils/100 WBC (Bld) 0.6 % Normal 0.2-2.0 [facility] Comment on above: Performed By: #### DRUGRPD #### [facility] [address] [place] [address] Dr. Jose Duffy EO # 0.3 103/ul Normal 0.0-0.7 [facility] Comment on above: Performed By: #### DRUGRPD #### [facility] [address] [place] [address] Dr. Jose Duffy Eosinophils/100 WBC (Bld) 3.0 % Normal 0.9-7.0 [facility] Comment on above: Performed By: #### DRUGRPD #### [facility] [address] [place] [address] Dr. Jose Duffy Erythrocyte distribution width (RBC) [Ratio] 13.2 % Normal 11.0-15.0 [facility] Comment on above: Performed By: #### DRUGRPD #### [facility] [address] [place] [address] Dr. Jose Duffy Hematocrit (Bld) [Volume fraction] 42.7 % Normal 42.0-54.0 [facility] Comment on above: Performed By: #### DRUGRPD #### [facility] [address] [place] [address] Dr. Jose Duffy Hemoglobin (Bld) [Mass/Vol] 14.3 g/dL Normal 14.0-18.0 [facility] Comment on above: Performed By: #### DRUGRPD #### [facility] [address] [place] [address] Dr. Jose Duffy IG # 0.02 10e3/ul Normal 0.00-0.03 [facility] Comment on above: Performed By: #### DRUGRPD #### [facility] [address] [place] [address] Dr. Jose Duffy IG % 0.2 % Normal 0.0-0.5 [facility] Comment on above: Performed By: #### DRUGRPD #### [facility] [address] [address] [address] Jose Duffy LYMPH # 2.3 103/ul Normal 1.2-3.8 [facility] Comment on above: Performed By: #### DRUGRPD #### [facility] [address] [place] [address] Dr. Jose Duffy Lymphocytes/100 WBC (Bld) 20.6 % Normal 20.5-60.0 [facility] Comment on above: Performed By: #### DRUGRPD #### [facility] [address] [place] [address] Dr. Jose Duffy MANUAL DIFF REQ NO Normal [facility] Comment on above: Performed By: #### DRUGRPD #### [facility] [address] [place] [address] Dr. Jose Duffy MCH (RBC) [Entitic mass] 28.7 pg Normal 25.9-34.0 [facility] Comment on above: Performed By: #### DRUGRPD #### [facility] [address] [place] [address] Dr. Jose Duffy MCHC (RBC) [Mass/Vol] 33.5 g/dL Normal 29.9-35.2 [facility] Comment on above: Performed By: #### DRUGRPD #### [facility] [address] [place] [address] Dr. Jose Duffy MCV (RBC) [Entitic vol] 85.6 fL Normal 80.0-94.0 [facility] Comment on above: Performed By: #### DRUGRPD #### [facility] [address] [place] [address] Dr. Jose Duffy MONO # 0.8 103/ul Normal 0.3-0.8 [facility] Comment on above: Performed By: #### DRUGRPD #### [facility] [address] [place] [address] Dr. Jose Duffy Monocytes/100 WBC (Bld) 7.5 % Normal 1.7-12.0 [facility] Comment on above: Performed By: #### DRUGRPD #### [facility] [address] [address] [address] Jose Duffy NEUT # 7.4 103/ul Critically high 1.4-6.5 [facility] Comment on above: Performed By: #### DRUGRPD #### [facility] [address] [place] [address] Dr. Jose Duffy Neutrophils/100 WBC (Bld) 68.1 % Normal 43.0-75.0 [facility] Comment on above: Performed By: #### DRUGRPD #### [facility] [address] [place] [address] Dr. Jose Duffy Platelet mean volume (Bld) [Entitic vol] 9.0 fL Critically low 9.5-13.5 [facility] Comment on above: Performed By: #### DRUGRPD #### [facility] [address] [place] [address] Dr. Jose Duffy PLT 253 103/ul Normal 150-450 [facility] Comment on above: Performed By: #### DRUGRPD #### [facility] [address] [place] [address] Dr. Jose Duffy RBC 4.99 106/ul Normal 4.70-6.10 [facility] Comment on above: Performed By: #### DRUGRPD #### [facility] [address] [place] [address] Dr. Jose Duffy WBC 10.9 103/ul Normal 4.0-11.0 [facility] Comment on above: Performed By: #### DRUGRPD #### [facility] [address] [place] [address] Dr. Jose Duffy LIPASEon 12-15-2021 Lipase [Catalytic activity/Vol] 207.0 U/L Normal 73.0-393.0 [facility] Comment on above: Performed By: #### DRUGRPD #### [facility] [address] [place] [address] Dr. Jose Duffy PROF 14(COMP METB)on Albumin [Mass/Vol] 4.3 g/dL Normal 3.4-5.0 [facility] Comment on above: Performed By: #### DRUGRPD #### [facility] [address] [address] [address] Jose Duffy Albumin/Globulin [Mass ratio] 1.2 {ratio} Normal [facility] Comment on above: Performed By: #### DRUGRPD #### [facility] [address] [address] [address] Jose Duffy ALP [Catalytic activity/Vol] 68 U/L Normal 46-116 [facility] Comment on above: Performed By: #### DRUGRPD #### [facility] [address] [address] [address] Jose Duffy ALT [Catalytic activity/Vol] 132 U/L Critically high 16-63 [facility] Comment on above: Performed By: #### DRUGRPD #### [facility] [address] [place] [address] Dr. Jose Duffy Anion gap [Moles/Vol] 12.2 mmol/L Normal [facility] Comment on above: Performed By: #### DRUGRPD #### [facility] [address] [place] [address] Dr. Jose Duffy AST [Catalytic activity/Vol] 83 U/L Critically high 15-37 [facility] Comment on above: Performed By: #### DRUGRPD #### [facility] [address] [place] [address] Dr. Jose Duffy Bilirubin [Mass/Vol] 0.6 mg/dL Normal 0.2-1.0 [facility] Comment on above: Performed By: #### DRUGRPD #### [facility] [address] [place] [address] Dr. Jose Duffy Calcium [Mass/Vol] 8.9 mg/dL Normal 8.5-10.1 [facility] Comment on above: Performed By: #### DRUGRPD #### [facility] [address] [place] [address] Dr. Jose Duffy Chloride [Moles/Vol] 104 mmol/L Normal 98-107 [facility] Comment on above: Performed By: #### DRUGRPD #### [facility] [address] [place] [address] Dr. Jose Duffy CO2 [Moles/Vol] 29.1 mmol/L Normal 21.0-32.0 [facility] Comment on above: Performed By: #### DRUGRPD #### [facility] [address] [place] [address] Dr. Jose Duffy Creatinine [Mass/Vol] 0.95 mg/dL Normal 0.70-1.30 [facility] Comment on above: Performed By: #### DRUGRPD #### [facility] [address] [place] [address] Dr. Jose Duffy EGFR-AF KAZAKH >60 Normal >=60 [facility] Comment on above: Performed By: #### DRUGRPD #### [facility] [address] [place] [address] Dr. Jose Duffy EGFR-NON AF KAZAKH >60 Normal >=60 [facility] Comment on above: Performed By: #### DRUGRPD #### [facility] [address] [place] [address] Dr. Jose Duffy Globulin (S) [Mass/Vol] 3.5 g/dL Normal [facility] Comment on above: Performed By: #### DRUGRPD #### [facility] [address] [place] [address] Dr. Jose Duffy Glucose [Mass/Vol] 101 mg/dL Normal 74-106 [facility] Comment on above: Performed By: #### DRUGRPD #### [facility] [address] [place] [address] Dr. Jose Duffy Potassium [Moles/Vol] 4.3 mmol/L Normal 3.5-5.1 [facility] Comment on above: Performed By: #### DRUGRPD #### [facility] [address] [place] [address] Dr. Jose Duffy Protein [Mass/Vol] 7.8 g/dL Normal 6.4-8.2 [facility] Comment on above: Performed By: #### DRUGRPD #### [facility] [address] [place] [address] Dr. Jose Duffy Sodium [Moles/Vol] 141 mmol/L Normal 136-145 [facility] Comment on above: Performed By: #### DRUGRPD #### [facility] [address] [place] [address] Dr. Jose Duffy Urea nitrogen [Mass/Vol] 20.0 mg/dL Critically high 7.0-18.0 [facility] Comment on above: Performed By: #### DRUGRPD #### [facility] [address] [place] [address] Dr. Jose Duffy Urea nitrogen/Creatin ine [Mass ratio] 21.1 mg/mg Normal [facility] Comment on above: Performed By: #### DRUGRPD #### [facility] [address] [place] [address] Dr. Jose Duffy COMPLIANCE DRUG SCREENon PDF . [facility] Comment on above: Performed By: #### DSDOALC #### [facility] [address] [place] [address] Dr. Jose Duffy Summary FINAL Normal [facility] Comment on above: Result Comment: TOXASSURE COMP [...] . Performed By: #### D SDOALC #### [facility] [address] [place] [address] Dr. Jose Duffy URIC ACID RAND URINEon 11-04 Uric Acid, Urine 91.5 mg/dL Normal Not Estab. [facility] Comment on above: Performed By: #### URICUR #### [facility] [address] [place] [address] Dr. Jose Duffy DRUG SCREEN RAPID (URINE)on 11-02-2021 AMP Negative Normal NEGATIVE [facility] Comment on above: Performed By: #### URICUR #### [facility] [address] [place] [address] Dr. Jose Duffy BAR Negative Normal NEGATIVE [facility] Comment on above: Performed By: #### URICUR #### [facility] [address] [place] [address] Dr. Jose Duffy BUP Positive Abnormal NEGATIVE [facility] Comment on above: Performed By: #### URICUR #### [facility] [address] [place] [address] Dr. Jose Duffy BZO Negative Normal NEGATIVE [facility] Comment on above: Performed By: #### URICUR #### [facility] [address] [place] [address] Dr. Jose Duffy RICARDO Negative Normal NEGATIVE [facility] Comment on above: Performed By: #### URICUR #### [facility] [address] [place] [address] Dr. Jose Duffy CUT-OFFS SEE BELOW Normal [facility] Comment on above: Result Comment: AMP [...] ng/mL Performed By: #### U RICUR #### [facility] [address] [place] [address] Dr. Jose Duffy DRUG CUT HEADER DRUG CLASS TEST SYST EM CUT-OFF CONCENTRATIONS ARE FOLLOWS: Normal [facility] Comment on above: Performed By: #### URICUR #### [facility] [address] [place] [address] Dr. Jose Duffy mAMP Negative Normal NEGATIVE [facility] Comment on above: Performed By: #### URICUR #### [facility] [address] [place] [address] Dr. Jose Duffy MTD Negative Normal NEGATIVE [facility] Comment on above: Performed By: #### URICUR #### [facility] [address] [address] [address] Jose Duffy OPI Negative Normal NEGATIVE [facility] Comment on above: Performed By: #### URICUR #### [facility] [address] [address] [address] Jose Duffy OXY Negative Normal NEGATIVE [facility] Comment on above: Performed By: #### URICUR #### [facility] [address] [address] [address] Jose Duffy PCP Negative Normal NEGATIVE [facility] Comment on above: Performed By: #### URICUR #### [facility] [address] [address] [address] Jose Duffy PPX Negative Normal NEGATIVE [facility] Comment on above: Performed By: #### URICUR #### [facility] [address] [address] [address] Jose Duffy TCA Negative Normal NEGATIVE [facility] Comment on above: Performed By: #### URICUR #### [facility] [address] [address] [address] Jose Duffy THC Negative Normal NEGATIVE [facility] Comment on above: Performed By: #### URICUR #### [facility] [address] [address] [address] Jose Duffy .UA Microscp Aon 12-01-2018 UA Mucus Present Abnormal [facility] Comment on above: Performed By: #### [id number] #### [address] [address] UA RBC Quant 327 /HPF High 0-5 [facility] Comment on above: Performed By: #### [id number] #### [address] [address] UA Squepi Cells Quant 1 /HPF Normal 0-29 [facility] Comment on above: Performed By: #### [id number] #### [address] [address] UA WBC Quant 4 /HPF Normal 0-5 [facility] Comment on above: Performed By: #### [id number] #### [address] [address] .eGFRon 12-01-2018 eGFR AA >60 Normal >=60 [facility] Comment on above: Result Comment: Result = 0-14.9 mL/min/1 .73 m2 Kidney failure or Dialysis Result = 15-29 mL/min/1.73 m2 Severe decrease in GFR Result = 30-59 mL/min/1.73 m2 Moderate decrease in GFR Result >= 60 mL/min/1.73 m2 Normal or increased GFR Performed By: #### E GFR #### [address] [address] eGFR Non-AA >60 Normal >=60 [facility] Comment on above: Result Comment: Result = [...] dosing. Performed By: #### E GFR #### [address] [address] CBC w/ Diffon 12-01-2018 Erythrocyte distribution width (RBC) [Ratio] 14.0 % Normal 11.6-14.8 [facility] Comment on above: Performed By: #### CBC #### [address] [address] Hematocrit (Bld) [Volume fraction] 43.5 % Normal 41.0-53.0 [facility] Comment on above: Performed By: #### CBC #### [address] [address] Hemoglobin (Bld) [Mass/Vol] 14.7 g/dL Normal 13.5-17.5 [facility] Comment on above: Performed By: #### CBC #### [address] [address] MCH (RBC) [Entitic mass] 28.5 pg Normal 27.0-35.0 [facility] Comment on above: Performed By: #### CBC #### [address] [address] MCHC (RBC) [Mass/Vol] 33.8 % Normal 31.0-37.0 [facility] Comment on above: Performed By: #### CBC #### [place] [id number] MCV (RBC) [Entitic vol] 84.4 fL Normal 80.0-100.0 [facility] Comment on above: Performed By: #### CBC #### [address] [address] Platelet mean volume (Bld) [Entitic vol] 7.3 fL Normal 6.7-10.6 [facility] Comment on above: Performed By: #### CBC #### [address] [address] Platelets (Bld) [#/Vol] 273 x10*3/mcL Normal 150-350 [facility] Comment on above: Performed By: #### CBC #### [address] [address] RBC (Bld) [#/Vol] 5.16 x10*6/mcL Normal 4.30-5.80 [facility] Comment on above: Performed By: #### CBC #### [address] [address] WBC (Bld) [#/Vol] 11.0 x10*3/mcL Normal 4.5-11.0 [facility] Comment on above: Performed By: #### CBC #### [address] [address] CMPon 12-01-2018 Albumin [Mass/Vol] 4.2 g/dL Normal 3.2-4.9 [facility] Comment on above: Result Comment: [facility] updated t he methodology used for albumin testing on 12/21/17. Albumin measurement was performed using a bromcresol purple dye-binding assay. Performed By: #### C OMP #### [address] [address] Albumin/Globulin [Mass ratio] 1.3 {ratio} Normal 1.1-2.2 [facility] Comment on above: Performed By: #### COMP #### [address] [address] Alk Phos 80 IU/L Normal 32-91 [facility] Comment on above: Performed By: #### COMP #### [address] [address] ALT [Catalytic activity/Vol] 41 U/L Normal 17-63 [facility] Comment on above: Performed By: #### COMP #### [address] [address] Anion gap [Moles/Vol] 15 mmol/L Normal 7-17 [facility] Comment on above: Performed By: #### COMP #### [address] [address] AST [Catalytic activity/Vol] 43 U/L High 15-41 [facility] Comment on above: Performed By: #### COMP #### [address] [address] Bili Total 0.7 mg/dL Normal 0.3-1.2 [facility] Comment on above: Performed By: #### COMP #### [address] [address] Calcium [Mass/Vol] 9.2 mg/dL Normal 8.5-10.3 [facility] Comment on above: Performed By: #### COMP #### [address] [address] Chloride [Moles/Vol] 104 mmol/L Normal 98-110 [facility] Comment on above: Performed By: #### COMP #### [address] [address] CO2 [Moles/Vol] 25 mmol/L Normal 22-32 [facility] Comment on above: Performed By: #### COMP #### [address] [address] Creatinine [Mass/Vol] 0.98 mg/dL Normal 0.61-1.24 [facility] Comment on above: Performed By: #### COMP #### [address] [address] Glucose [Mass/Vol] 126 mg/dL High 74-118 [facility] Comment on above: Performed By: #### COMP #### [address] [address] Potassium [Moles/Vol] 3.7 mmol/L Normal 3.4-4.8 [facility] Comment on above: Performed By: #### COMP #### [address] [address] Protein [Mass/Vol] 7.4 g/dL Normal 6.5-8.1 [facility] Comment on above: Performed By: #### COMP #### [address] [address] Sodium [Moles/Vol] 140 mmol/L Normal 133-142 [facility] Comment on above: Performed By: #### COMP #### [address] [address] Urea nitrogen [Mass/Vol] 19 mg/dL Normal 8-26 [facility] Comment on above: Performed By: #### COMP #### [address] [address] Urea nitrogen/Creatin ine [Mass ratio] 19.4 mg/mg Normal 10.0-20.0 [facility] Comment on above: Performed By: #### COMP #### [address] [address] [address] Abd Pelvis w/o IV Cont St [...] stability of the nodule Radiation Dose Estimate: CTDI(mGy):0.879005 / / / kVp:120.042291 / mAs:0.105795 / / / DLP(mGy-cm):7.508083Amgr Part: Abdomen Final Dictated by: Donnell Luther MD Dictated DT/TM: 12.01.2018 8:57 am Signed by: Donnell Luther MD Signed (Electronic Signature): 12.01.2018 9:03 am (If Report Is Signed, Electronically Signed in Other Vendor System) [facility] Diff Autoon 12-01-2018 Baso Absolute 0.0 x10*3/mcL Normal 0.0-0.2 [facility] Comment on above: Performed By: #### .Automated Diff #### [facility] [address] [place] [address] Basophils/100 WBC (Bld) 0.3 % Normal 0.0-1.2 [facility] Comment on above: Performed By: #### .Automated Diff #### [address] [address] Eos Absolute 0.3 x10*3/mcL Normal 0.0-0.4 [facility] Comment on above: Performed By: #### .Automated Diff #### [address] [address] Eosinophils/100 WBC (Bld) 2.8 % Normal 0.0-6.1 [facility] Comment on above: Performed By: #### .Automated Diff #### [address] [address] Lymphocytes (Bld) [#/Vol] 3.5 x10*3/mcL Normal 1.0-4.8 [facility] Comment on above: Performed By: #### .Automated Diff #### [address] [address] Lymphocytes/100 WBC (Bld) 32.0 % Normal 27.2-40.8 [facility] Comment on above: Performed By: #### .Automated Diff #### [address] [address] Eagle Absolute 0.8 x10*3/mcL Normal 0.3-1.1 [facility] Comment on above: Performed By: #### .Automated Diff #### [address] [address] Monocytes/100 WBC (Bld) 7.4 % Normal 4.7-13.9 [facility] Comment on above: Performed By: #### .Automated Diff #### [address] [address] Neutro Absolute 6.3 x10*3/mcL Normal 1.8-7.7 [facility] Comment on above: Performed By: #### .Automated Diff #### [address] [address] Neutro Auto 57.5 % Normal 47.2-70.8 [facility] Comment on above: Performed By: #### .Automated Diff #### [address] [address] ED Clinical Summaryon 2018 ED Clinical Summary [facility] [address] [place] [address] ED Clinical Summary Person Information Name: Bessy Torres/Jerome Age: 38 Years : 1980 Sex: Male PCP: Romy Samayoa MD Marital Status: Single Phone: Race: White Ethnicity: Not or Language: Sami Visit Reason: Flank pain; Flank pain Acuity: 3 Enc Type: Emergency Med Service: Emergency Medicine Arrival: 12/01/2018 07:25:25 Discharge: 12/01/2018 10:15:00 LOS: 000 02:50 Checkin: 12/01/2018 07:25:25 Checkout: 12/01/2018 10:15:00 Dispo Type: Home or Self Care Address: [address] [place] [address] Provider Notes: History of Present Illness Patient [...] other complaints at this time. Addendum by Clotilde MULLIGAN, Shanti Couch on December 01, 2018 10:14:12 EDT Patient [...] range between ( 27.2 and 40.8 ) Eagle Auto: 7.4 % -- Normal range between [...] range between ( 41.0 and 53.0 ) Eagle Absolute: 0.8 x10 MCH: 28.5 pg -- [...] List: New Medications [facility] , [address] [place], [place] [id number], [phone] ondansetron (Zofran 4 mg oral tablet) 1 [...] 7 Days. Refills: 0. Last Dose: hydrocodone-acetaminophen ([place] 5 mg-325 mg oral tablet) 1 Tabs [...] [address], [address] [place], [place] [id number], [phone] ondansetron (Zofran 4 mg oral tablet) 1 [...] hours for 7 Days. Refills: 0. hydrocodone-acetaminophen ([place] 5 mg-325 mg oral tablet) 1 Tabs [...] Follow up: With: Address: When: Romy Samayoa [address] [place] [phone] Business (1) Within 1 to 2 days Discharge Orders: Discharge Patient 12/01/18 9:58:00 EDT, Discharge to Home, Self Discharge Special Instructions Your appointment is scheduled with [facility] [address], [place], [place] [address]. Discharge Special Instructions If you are unable to make this appointment, please call the office at [phone]. Discharge Special Instructions Please arrive by 8:00AM the next business day for your appointment. Business days are Tuesday through Tuesday. Discharge Special Instructions Please DO NOT EAT or DRINK anything after midnight the night before your appointment. PLEASE DO NOT EAT BREAKFAST. Discharge Special Instructions Please strain your urine as instructed until your appointment at [facility]. Return to Work/School 12/01/18 10:10:00 EDT, 12/02/18 8:00:00 EDT, 12/01/18 10:10:00 EDT Patient Education Information: [facility]ONE w/ [facility] Poison Help line: . [facility] Hotline: [place] Tobacco Quit Line: [place], [place]) [address]: [phone] [place], [place]) [address]: [phone] [facility] [address] [facility] [place], [place]: [phone] [facility] ED Note-Physicianon 12-02-19 ED Note-Physician Chief [...] in this document, created by the medical delivery technician for me, accurately reflects the services I [...] 12/01/18 9:56:00 EDT, STAT, Dispense From Location: [facility], UTI/Pyelonephritis ciprofloxacin, 1 tabs, Oral, q12hr, X 7 days, # 14 tabs, 0 Refill(s), 12/08/18 9:57:00 EDT hydrocodone-acetaminophen, 1 tabs, Oral, q4hr, PRN, X 3 days, # 18 tabs, 0 Refill(s), 12/04/18 9:52:00 EDT ondansetron, 1 tabs, Oral, q8hr, PRN, # 15 tabs, 0 Refill(s), Pharmacy: [facility] tamsulosin, 1 caps, Oral, Daily, # 7 caps, 0 Refill(s), Pharmacy: [facility] 2. Renal colic Ordered: ciprofloxacin, 500 mg, Oral, Tab, Once, First Dose: 12/01/18 9:56:00 EDT, Stop Date: 12/01/18 9:56:00 EDT, STAT, Dispense From Location: [facility], UTI/Pyelonephritis 3. Lung nodule Ordered: ciprofloxacin, 500 mg, Oral, Tab, Once, First Dose: 12/01/18 9:56:00 EDT, Stop Date: 12/01/18 9:56:00 EDT, STAT, Dispense From Location: [facility], UTI/Pyelonephritis Orders: sodium chloride, 10 mL, IV Push, Injection, As Indicated, PRN flush, First Dose: 12/01/18 7:37:00 EDT, Dispense From Location: [facility] Sodium Chloride 0.9% intravenous solution 1,000 mL, [...] MD 12/01/18 10:14 EDT Elif Fox [facility] UA w Culture if Indon 2018 Color (U) Yellow [facility] Comment on above: Performed By: #### UCI #### [address] [address] Glucose (U) [Mass/Vol] Negative Normal Negative [facility] Comment on above: Performed By: #### UCI #### [address] [address] Ketones Ql (U) Negative Normal Negative [facility] Comment on above: Performed By: #### UCI #### [address] [address] UA Blood Large Abnormal Negative [facility] Comment on above: Performed By: #### UCI #### [facility] [address] [place] [address], [place] [address] UA Clarity Hazy [facility] Comment on above: Performed By: #### UCI #### [address] [place] [address] UA Leukocyte Esterase Trace Abnormal Negative [facility] Comment on above: Performed By: #### UCI #### [address] [place] [address] UA Nitrite Negative Normal Negative [facility] Comment on above: Performed By: #### UCI #### [address] [place] [address] UA pH 5.0 Normal 4.5 - 7.8 [facility] Comment on above: Performed By: #### UCI #### [address] [place] [address] UA Protein Negative Normal Negative [facility] Comment on above: Performed By: #### UCI #### [address] [place] [address] UA Source Clean Catch [facility] Comment on above: Performed By: #### UCI #### [address] [place] [address] UA Spec Grav 1.015 Normal 1.003-1.035 [facility] Comment on above: Performed By: #### UCI #### [address] [place] [address] UA Urobilinogen 0.2 mg/dL Normal 0.2 - 1.0 [facility] Comment on above: Performed By: #### UCI #### [address] [place] [address] Urobilinogen Qn (U) Negative Normal Negative [facility] Comment on above: Performed By: #### UCI #### [address] [address] Vital Signs Date Time Vital Sign Value Performing Clinician Jessica woody 06-29-2023 15:20-0500 Blood Pressure Location Donnell STONE [facility] [place] 06-29-2023 15:20-0500 Diastolic blood pressure 76 mm[Hg] Donnell RUELASL [facility] [place] 06-29-2023 15:20-0500 Heart rate 72 /min Donnell RUELASL [facility] [place] 06-29-2023 15:20-0500 Respiratory rate 16 /min Donnell RUELASL [facility] [place] 06-29-2023 15:20-0500 Systolic blood pressure 118 mm[Hg] Donnell RUELASL [facility] [place] Encounters Encounter Date Encounter Type Care Provider Facility Start: 06-29-2023 End: 06-29-2023 ambulatory Donnell Lacy JESSENIAUri Facility:[facility] Start: 06-29-2023 End: 06-29-2023 Patient encounter procedure Donnell STONE [facility] Wilson Start: 06-08-2023 ambulatory Doron HODGES Facility : [facility] Start: 10-06-2022 End: 10-07-[address] ROMY SAMAYOA . Facility:[facility] Start: 08-18-2022 End: 08-19-2022 ambulatory [...] End: 01-28-[address] ROMY SAMAYOA . Facility: Start: 01-08-2022 End: 01-09-[address] ROMY SAMAYOA . Facility:[facility] Start: 12-18-2021 End: 12-19-[address] ROMY SAMAYOA . Facility:[facility] Start: 12-15-2021 End: 12-16-[address] ROMY SAMAYOA . Facility:[facility] Start: 11-02-2021 End: 11-03-[address] ROMY SAMAYOA . Facility:[facility] Start: 12-01-2018 End: 12-01-2018 [facility] department [facility] Procedures Date Procedure Procedure Detail Performing Clinician Start: 11-11-2014 Colonoscopy Donnell KIM LL Start: 11-11-2014 Esophagogastroduodenoscopy Donnell NILL Appendectomy Donnell NILL Cholecystectomy Donnell NILUri Tonsillectomy Donnell NILL Plan of Treatment Date Care Activity Detail Author Start: 01-23-2024 ambulatory Ambulatory Facility:[facility] Immunizations Immunization Date Immunization Notes Care Provider Fa cility 12-26-2020 SARS-CoV-2 (COVID-19 ) mRNA BNT-162b2 vax Donnell STONE [facility] NEGATED: Highlighted row has not occurred!06-29-2023 influenza virus vaccine, unspecified formulation Donnell STONE [facility] Payers Date Payer Category Payer Private Health Insurance [id number] 2018 Unknown 1980 Unknown [id number] 2.16.8 [id number] 1980 Unknown [id number] 2.16.84 [id number] 1980 Unknown [id number] 2.16.84 [id number] 1980 Unknown [id number] 2.16.84 0.1.600316.3.579.2.593 1980 Unknown [id number] 2.16.84 0.1.086917.3.579.2.593 1980 Unknown [id number] 2.16.84 0.1.924826.3.579.2.593 1980 Unknown [id number] 2.16.84 0.1.719016.3.579.2.593 1980 Unknown [id number] 2.16.84 0.1.061499.3.579.2.593 1980 Unknown [id number] 2.16.84 0.1.595510.3.579.2.593 1981 Unknown [id number] 2.16.84 0.1.266484.3.579.2.593 1981 Unknown [id number] 2.16.84 0.1.362909.3.579.2.593 1981 Unknown [id number] 2.16.84 0.1.089240.3.579.2.593 1981 Unknown [id number] 2.16.84 0.1.249455.3.579.2.593 1981 Unknown [id number] 2.16.84 0.1.308192.3.579.2.593 1981 Unknown [id number] 2.16.8 40.1.262779.3.579.2.727 1980 Unknown [id number] 2.16.8 40.1.907934.3.579.2.727 1958 Self-pay [id number] 1958 Unknown [id number] 1958 Unknown [id number] Social History Date Type Detail Facility Start: 06-29-2023 Tobacco smoking status Heavy t obacco smoker (finding) [facility] Tobacco smoking status Smokeless tobacco user within last 30 days [facility] [place] Sex Assigned At Male [facility] Functional Status Date Assessment Result Facility 06-29-2023 [...] generalized abdominal pain (more content not included)... [facility] Comment on above: Result Comment: Elec tronically Signed By: CHASE MULLIGAN, Donnell Farmer.amada\Date and Time Signed: 06/29/23 21:30 EST Evaluation + Plan note Note Date & Type Note Facility Evaluation + Plan note Future Appointments Appointment Date:10/17/2023 12:00:00 PM Scheduled Provider:Doron HODGES MD Location:[facility] Appointment Type:URO New Patient [facility] [place] Hospital course Narrative Note Date & Type Note Facility Hospital course Narrative No data available for this section [facility] [place] [facility] Discharge instructions Note Date & Type Note Facility Hospital Discharge instructions No data available for this section [facility] Progress note Note Date & Type Note Facility Progress note No data available for this section [facility] [place] Summary Purpose Family History No Family History [...] section and content) DATE CREATED AUTHOR 12/01/2018 [facility] DATE CREATED AUTHOR AUTHOR'S ORGANIZ ATION 10/22/2022 [facility] DATE CREATED AUTHOR AUTHOR'S ORGANIZ ATION 10/17/2023 [facility] Patient Care team informatio n (unrecognized section and content) Personnel Name: Romy Samayoa MD Address: Address: [address] [place] [address] FOR RECORDS PERTAINING TO PATIENTS WHO ARE [...] BE BASED ON THE PRIMARY CLINICAL RECORDS. [facility] [employer] [facility]. provides no warranty or guarantee of the accuracy or completeness of information in this document.
== END 2023-12-02 08:19 | disposition home or self-care (01) ==
LOC: LAB 12-05 08:19
PROVIDERS: PCP Family Medicine; Visit Provider Family Medicine
DX: F11.10 Opioid abuse, uncomplicated (principal)
CPT/HCPCS: 80307; 80326; 80331; 80334; 80337; 80338; 80341; 80344; 80346; 80348; 80353; 80354; 80355; 80357; 80358; 80359; 80360; 80361; 80364; 80365; 80366; 80367; 80368; 80370; 80371; 80372; 80373; 80377; 82570; 83992

== ENCOUNTER 2023-12-28 14:54 | Outpatient (OUT) | payer OTHER, SELFPAY ==
--- OUTSIDE RECORDS SUMMARY | 2023-12-28 15:15 | XMS_ITS | CCD ---
Author Organization [facility] Care Team Providers Care Manager Print Name Role Phone SHANTI MABRY Attending Unavailable [...] Consulting Unavailable Sloan Samayoalas Primary Care Physician [phone] Doron HODGES Attending Unavailable Romy Samayoa Referring Unavailable Donnell STONE Attending Unavailable Allergies Allergy Classification Reported Allergen(s) Allergy Type Date of Onset Reaction(s) Facility (4 sources) Codeine; Translations: [codeine] Drug Allergy 0 Weal (disorder) [facility] Repository (2 sources) Penicillins Drug allergy (disorder) 0 [facility] Repository (2 sources) Penicillin; Translations: [penicillin] Drug Allergy Unknown (qualifier value) General Surgery [place] Medications Current Medications Medication Drug Class(es) Dates [...] therapeutic drug level monitoring; Translations: [[facility] DRUG LEVL MONITORING] Onset: 07-22-2022 Episodic Other [...] 12-18-2021 Episodic Other aftercare (1 source) Other penitentiary (current) drug therapy; Translations: [[facility] CURRENT DRUG THERAPY] Onset: 01-31-2022 Episodic Pancreatic disorders (not diabetes) (4 sources) Other acute pancreatitis without necrosis or infection; Translations: [OTH ACUTE PANCREATITIS WO NECRS/INF] Onset: 12-15-2021 Episodic Residual codes; unclassified (1 source) Acquired absence of other specified parts of digestive tract; Translations: [ACQ ABSENCE OTH PART DIGESTV TRACT] Onset: 12-21-2021 Episodic Results Test Name Value Interpretation Reference Range Facility Facesheeton 06-30-2023 Facesheet [id number] Normal [facility] Ambulatory Visit Summaryon 0 06-29-2023 Ambulatory Visit [...] MULLIGAN, Doron House Where: [facility] RAD - CT Reporton 06-09-2023 RAD - CT Report [id number] Normal [facility] RAD - Ultrasound Reporton RAD - Ultrasound Report [id number]:[id number] Normal [facility] Physician Referralon 023 Physician Referral [id number]:127 Normal [facility] Physician Referralon 023 Physician Referral [id number]:[id number] Normal [facility] COMPLIANCE DRUG SCREENon PDF . [facility] Comment on above: Performed By: #### URICUR #### [facility] [address] [place] [address] Dr. Jose Duffy Summary FINAL [facility] Comment on above: Result Comment: TOXASSURE COMP DRUG ANALYSIS,UR Test Result Flag Units Drug Present Buprenorphine 175 ng/mg creat Norbuprenorphine 639 ng/mg creat Source of buprenorphine is a scheduled prescription medication. Norbuprenorphine is an expected metabolite of buprenorphine. Acetaminophen PRESENT Ibuprofen PRESENT Dextrorphan/Levorphanol PRESENT Dextrorphan is an expected metabolite of dextromethorphan, an eclz-fni-bmrqlcx or prescription cough suppressant. Levorphanol is a scheduled prescription medication. Dextrorphan cannot be distinguished from levorphanol by the method used for analysis. Guaifenesin PRESENT Guaifenesin may be administered as an xwey-npy-oaskhns or prescription drug; it may also be present as a breakdown product of methocarbamol. Test Result Flag Units Ref Range Creatinine 111 mg/dL >=20 Declared Medications: Medication list was not provided. For clinical consultation, please call . Performed By: #### U RICUR #### [facility] [address] [address] [address] Joes Duffy URIC ACID RAND URINEon 10-07 Uric Acid, Urine 56.8 mg/dL Normal Not Estab. [facility] Comment on above: Performed By: #### DSDOALC #### [facility] [address] [address] [address] Jose Duffy DRUG SCREEN RAPID (URINE)on 10-06-2022 AMP Negative Normal NEGATIVE [facility] Comment on above: Performed By: #### URICUR #### [facility] [address] [place] [address] Dr. Jose Duffy BAR Negative Normal NEGATIVE [facility] Comment on above: Performed By: #### URICUR #### [facility] [address] [place] [address] Dr. Jose Duffy BUP Positive Abnormal NEGATIVE [facility] Comment on above: Performed By: #### URICUR #### [facility] [address] [place] [address] Dr. Jose Duffy BZO Negative Normal NEGATIVE [facility] Comment on above: Performed By: #### URICUR #### [facility] [address] [place] [address] Dr. Jose Duffy RICARDO Negative Normal NEGATIVE [facility] Comment on above: Performed By: #### URICUR #### [facility] [address] [place] [address] Dr. Jose Duffy CUT-OFFS SEE BELOW Normal [facility] Comment on above: Result Comment: [...] ng/mL Performed By: #### U RICUR #### [facility] [address] [place] [address] Dr. Jose Duffy DRUG CUT HEADER DRUG CLASS TEST SYST EM CUT-OFF CONCENTRATIONS ARE FOLLOWS: Normal [facility] Comment on above: Performed By: #### URICUR #### [facility] [address] [place] [address] Dr. Yilan Duffy mAMP Positive Abnormal NEGATIVE [facility] Comment on above: Performed By: #### URICUR #### [facility] [address] [address] [address] Jose Duffy MTD Negative Normal NEGATIVE [facility] Comment on above: Performed By: #### URICUR #### [facility] [address] [place] [address] Dr. Jose Duffy OPI Negative Normal NEGATIVE [facility] Comment on above: Performed By: #### URICUR #### [facility] [address] [place] [address] Dr. Jose Duffy OXY Negative Normal NEGATIVE [facility] Comment on above: Performed By: #### URICUR #### [facility] [address] [place] [address] Dr. Jose Duffy PCP Negative Normal NEGATIVE [facility] Comment on above: Performed By: #### URICUR #### [facility] [address] [place] [address] Dr. Jose Duffy PPX Negative Normal NEGATIVE [facility] Comment on above: Performed By: #### URICUR #### [facility] [address] [place] [address] Dr. Jose Duffy TCA Negative Normal NEGATIVE [facility] Comment on above: Performed By: #### URICUR #### [facility] [address] [place] [address] Dr. Jose Duffy THC Negative Normal NEGATIVE [facility] Comment on above: Performed By: #### URICUR #### [facility] [address] [place] [address] Dr. Jose Duffy COMPLIANCE DRUG SCREENon PDF . Normal [facility] Comment on above: Performed By: #### DSDOALC #### [facility] [address] [place] [address] Dr. Jose Duffy Summary FINAL Normal [facility] Comment on above: Result Comment: [...] . Performed By: #### D SDOALC #### [facility] [address] [address] [address] Jose Duffy URIC ACID [facility] 08-19 Uric Acid, Urine 21.4 mg/dL Normal Not Estab. [facility] Comment on above: Performed By: #### URICUR #### [facility] [address] [place] [address] Dr. Jose Duffy DRUG SCREEN RAPID (URINE)on 08-18-2022 AMP Negative Normal NEGATIVE [facility] Comment on above: Performed By: #### DSDOALC #### [facility] [address] [place] [address] Dr. Jose Duffy BAR Negative Normal NEGATIVE [facility] Comment on above: Performed By: #### DSDOALC #### [facility] [address] [place] [address] Dr. Jose Duffy BUP Positive Abnormal NEGATIVE [facility] Comment on above: Performed By: #### DSDOALC #### [facility] [address] [place] [address] Dr. Jose Duffy BZO Negative Normal NEGATIVE [facility] Comment on above: Performed By: #### DSDOALC #### [facility] [address] [place] [address] Dr. Jose Duffy RICARDO Negative Normal NEGATIVE [facility] Comment on above: Performed By: #### DSDOALC #### [facility] [address] [place] [address] Dr. Jose Duffy CUT-OFFS SEE BELOW Normal [facility] Comment on above: Result Comment: [...] ng/mL Performed By: #### D SDOALC #### [facility] [address] [place] [address] Dr. Jose Duffy DRUG CUT HEADER DRUG CLASS TEST SYST EM CUT-OFF CONCENTRATIONS ARE FOLLOWS: Normal [facility] Comment on above: Performed By: #### DSDOALC #### [facility] [address] [place] [address] Dr. Jose Duffy mAMP Negative Normal NEGATIVE [facility] Comment on above: Performed By: #### DSDOALC #### [facility] [address] [place] [address] Dr. Jose Duffy MTD Negative Normal NEGATIVE [facility] Comment on above: Performed By: #### DSDOALC #### [facility] [address] [place] [address] Dr. Jose Duffy OPI Negative Normal NEGATIVE [facility] Comment on above: Performed By: #### DSDOALC #### [facility] [address] [place] [address] Dr. Jose Duffy OXY Negative Normal NEGATIVE [facility] Comment on above: Performed By: #### DSDOALC #### [facility] [address] [place] [address] Dr. Jose Duffy PCP Negative Normal NEGATIVE [facility] Comment on above: Performed By: #### DSDOALC #### [facility] [address] [place] [address] Dr. Jose Duffy PPX Negative Normal NEGATIVE [facility] Comment on above: Performed By: #### DSDOALC #### [facility] [address] [place] [address] Dr. Jose Duffy TCA Negative Normal NEGATIVE [facility] Comment on above: Performed By: #### DSDOALC #### [facility] [address] [place] [address] Dr. Jose Duffy THC Negative Normal NEGATIVE [facility] Comment on above: Performed By: #### DSDOALC #### [facility] [address] [place] [address] Dr. Jose Duffy COMPLIANCE DRUG SCREENon PDF . Normal [facility] Comment on above: Performed By: #### DRUGRPD #### [facility] [address] [place], [place] [address] [address] Jose Duffy Summary FINAL Normal [facility] Comment on above: Result Comment: TOXASSURE [...] . Performed By: #### D RUGRPD #### [facility] [address] [place] [address] Dr. Jose Duffy URIC ACID RAND URINEon 07-23 Uric Acid, Urine 21.8 mg/dL Normal Not Estab. [facility] Comment on above: Performed By: #### URICUR #### [facility] [address] [place] [address] Dr. Jose Duffy DRUG SCREEN RAPID (URINE)on 07-22-2022 AMP Negative Normal NEGATIVE [facility] Comment on above: Performed By: #### URICUR #### [facility] [address] [place] [address] Dr. Jose Duffy BAR Negative Normal NEGATIVE [facility] Comment on above: Performed By: #### URICUR #### [facility] [address] [place] [address] Dr. Jose Duffy BUP Positive Abnormal NEGATIVE [facility] Comment on above: Result Comment: Previously reported as: NEGATIVE On 07/22/2022 12:02 By [email or web address] Performed By: #### U RICUR #### [facility] [address] [place] [address] Dr. Jose Duffy BZO Negative Normal NEGATIVE [facility] Comment on above: Performed By: #### URICUR #### [facility] [address] [place] [address] Dr. Jose Duffy RICARDO Negative Normal NEGATIVE [facility] Comment on above: Performed By: #### URICUR #### [facility] [address] [place] [address] Dr. Jose Duffy CUT-OFFS SEE BELOW Normal [facility] Comment on above: Result Comment: [...] ng/mL Performed By: #### U RICUR #### [facility] [address] [place] [address] Dr. Jose Duffy DRUG CUT HEADER DRUG CLASS TEST SYST EM CUT-OFF CONCENTRATIONS ARE FOLLOWS: Normal [facility] Comment on above: Performed By: #### URICUR #### [facility] [address] [place] [address] Dr. Jose Duffy mAMP Negative Normal NEGATIVE [facility] Comment on above: Performed By: #### URICUR #### [facility] [address] [place] [address] Dr. Jose Duffy MTD Negative Normal NEGATIVE [facility] Comment on above: Performed By: #### URICUR #### [facility] [address] [place] [address] Dr. Jose Duffy OPI Negative Normal NEGATIVE [facility] Comment on above: Performed By: #### URICUR #### [facility] [address] [place] [address] Dr. Jose Duffy OXY Negative Normal NEGATIVE [facility] Comment on above: Performed By: #### URICUR #### [facility] [address] [place] [address] Dr. Jose Duffy PCP Negative Normal NEGATIVE [facility] Comment on above: Performed By: #### URICUR #### [facility] [address] [place] [address] Dr. Jose Duffy PPX Negative Normal NEGATIVE [facility] Comment on above: Performed By: #### URICUR #### [facility] [address] [address] [address] Jose Duffy TCA Negative Normal NEGATIVE [facility] Comment on above: Performed By: #### URICUR #### [facility] [address] [address] [address] Jose Duffy THC Negative Normal NEGATIVE [facility] Comment on above: Performed By: #### URICUR #### [facility] [address] [address] [address] Jose Duffy COMPLIANCE DRUG SCREENon PDF . Normal [facility] Comment on above: Performed By: #### DRUGRPD #### [facility] [address] [place] [address] Dr. Jose Duffy Summary FINAL Normal [facility] Comment on above: Result Comment: [...] . Performed By: #### D RUGRPD #### [facility] [address] [place] [address] Dr. Jose Duffy URIC ACID RAND URINEon 06-24 Uric Acid, Urine 33.0 mg/dL Normal Not Estab. [facility] Comment on above: Performed By: #### URICUR #### [facility] [address] [place] [address] Dr. Jose Duffy DRUG SCREEN RAPID (URINE)on 06-23-2022 AMP Negative Normal NEGATIVE [facility] Comment on above: Performed By: #### DRUGRPD #### [facility] [address] [place] [address] Dr. Jose Duffy BAR Negative Normal NEGATIVE [facility] Comment on above: Performed By: #### DRUGRPD #### [facility] [address] [place] [address] Dr. Jose Duffy BUP Positive Abnormal NEGATIVE [facility] Comment on above: Performed By: #### DRUGRPD #### [facility] [address] [place] [address] Dr. Jose Duffy BZO Negative Normal NEGATIVE [facility] Comment on above: Performed By: #### DRUGRPD #### [facility] [address] [address] [address] Jose Duffy RICARDO Negative Normal NEGATIVE [facility] Comment on above: Performed By: #### DRUGRPD #### [facility] [address] [place] [address] Dr. Jose Duffy CUT-OFFS SEE BELOW Normal [facility] Comment on above: Result Comment: AMP [...] ng/mL Performed By: #### D RUGRPD #### [facility] [address] [place] [address] Dr. Jose Duffy DRUG CUT HEADER DRUG CLASS TEST SYST EM CUT-OFF CONCENTRATIONS ARE FOLLOWS: Normal [facility] Comment on above: Performed By: #### DRUGRPD #### [facility] [address] [place] [address] Dr. Jose Duffy mAMP Negative Normal NEGATIVE [facility] Comment on above: Performed By: #### DRUGRPD #### [facility] [address] [place] [address] Dr. Jose Duffy MTD Negative Normal NEGATIVE [facility] Comment on above: Performed By: #### DRUGRPD #### [facility] [address] [place] [address] Dr. Jose Duffy OPI Negative Normal NEGATIVE [facility] Comment on above: Performed By: #### DRUGRPD #### [facility] [address] [address] [address] Jose Duffy OXY Negative Normal NEGATIVE [facility] Comment on above: Performed By: #### DRUGRPD #### [facility] [address] [address] [address] Jose Duffy PCP Negative Normal NEGATIVE [facility] Comment on above: Performed By: #### DRUGRPD #### [facility] [address] [address] [address] Jose Duffy PPX Negative Normal NEGATIVE [facility] Comment on above: Performed By: #### DRUGRPD #### [facility] [address] [address] [address] Jose Duffy TCA Negative Normal NEGATIVE [facility] Comment on above: Performed By: #### DRUGRPD #### [facility] [address] [address] [address] Jose Duffy THC Negative Normal NEGATIVE [facility] Comment on above: Performed By: #### DRUGRPD #### [facility] [address] [address] [address] Jose Duffy COMPLIANCE DRUG SCREENon PDF . Normal [facility] Comment on above: Performed By: #### URICUR #### [facility] [address] [place] [address] Dr. Jose Duffy Summary FINAL Normal [facility] Comment on above: Result Comment: [...] . Performed By: #### U RICBRO #### [facility] [address] [address] [address] Jose Duffy URIC ACID RAND URINEon 05-27 Uric Acid, Urine 18.9 mg/dL Normal Not Estab. [facility] Comment on above: Performed By: #### DSDOALC #### [facility] [address] [address] [address] Jose Duffy DRUG SCREEN RAPID (URINE)on 05-26-2022 AMP Negative Normal NEGATIVE [facility] Comment on above: Performed By: #### URICUR #### [facility] [address] [address] [address] Jose Duffy BAR Negative Normal NEGATIVE [facility] Comment on above: Performed By: #### URICUR #### [facility] [address] [address] [address] Jose Duffy BUP Positive Abnormal NEGATIVE [facility] Comment on above: Performed By: #### URICUR #### [facility] [address] [address] [address] Jose Duffy BZO Negative Normal NEGATIVE [facility] Comment on above: Performed By: #### URICUR #### [facility] [address] [address] [address] Jose Duffy RICARDO Negative Normal NEGATIVE [facility] Comment on above: Performed By: #### URICUR #### [facility] [address] [address] [address] Jose Duffy CUT-OFFS SEE BELOW Normal [facility] Comment on above: Result Comment: AMP [...] ng/mL Performed By: #### U RICUR #### [facility] [address] [address] [address] Jose Duffy DRUG CUT HEADER DRUG CLASS TEST SYST EM CUT-OFF CONCENTRATIONS ARE FOLLOWS: Normal [facility] Comment on above: Performed By: #### URICUR #### [facility] [address] [address] [address] Jose Duffy mAMP Negative Normal NEGATIVE [facility] Comment on above: Performed By: #### URICUR #### [facility] [address] [address] [address] Jose Duffy MTD Negative Normal NEGATIVE [facility] Comment on above: Performed By: #### URICUR #### [facility] [address] [address] [address] Jose Duffy OPI Negative Normal NEGATIVE [facility] Comment on above: Performed By: #### URICUR #### [facility] [address] [address] Dr. Jose Duffy OXY Negative Normal NEGATIVE [facility] Comment on above: Performed By: #### URICUR #### [facility] [address] [address] [address] Jose Duffy PCP Negative Normal NEGATIVE [facility] Comment on above: Performed By: #### URICUR #### [facility] [address] [address] [address] Jose Duffy PPX Negative Normal NEGATIVE [facility] Comment on above: Performed By: #### URICUR #### [facility] [address] [address] [address] Jose Duffy TCA Negative Normal NEGATIVE [facility] Comment on above: Performed By: #### URICUR #### [facility] [address] [address] [address] Jose Duffy THC Negative Normal NEGATIVE [facility] Comment on above: Performed By: #### URICUR #### [facility] [address] [address] [address] Jose Duffy COMPLIANCE DRUG SCREENon PDF . Normal [facility] Comment on above: Performed By: #### DSDOALC #### [facility] [address] [address] [address] Jose Duffy Summary FINAL Normal [facility] Comment on above: Result Comment: [...] . Performed By: #### D SDOALC #### [facility] [address] [place] [address] Dr. Jose Duffy URIC ACID RAND URINEon 03-16 Uric Acid, Urine 38.6 mg/dL Normal Not Estab. [facility] Comment on above: Performed By: #### URICUR #### [facility] [address] [place] [address] Dr. Jose Duffy DRUG SCREEN RAPID (URINE)on 03-15-2022 AMP Negative Normal NEGATIVE [facility] Comment on above: Performed By: #### DRUGRPD #### [facility] [address] [place] [address] Dr. Jose Duffy BAR Negative Normal NEGATIVE [facility] Comment on above: Performed By: #### DRUGRPD #### [facility] [address] [place] [address] Dr. Jose Duffy BUP Positive Abnormal NEGATIVE [facility] Comment on above: Performed By: #### DRUGRPD #### [facility] [address] [place] [address] Dr. Jose Duffy BZO Negative Normal NEGATIVE [facility] Comment on above: Performed By: #### DRUGRPD #### [facility] [address] [place] [address] Dr. Jose Duffy RICARDO Negative Normal NEGATIVE [facility] Comment on above: Performed By: #### DRUGRPD #### [facility] [address] [place] [address] Dr. Jose Duffy CUT-OFFS SEE BELOW Normal [facility] Comment on above: Result Comment: [...] ng/mL Performed By: #### D RUGRPD #### [facility] [address] [place] [address] Dr. Jose Duffy DRUG CUT HEADER DRUG CLASS TEST SYST EM CUT-OFF CONCENTRATIONS ARE FOLLOWS: Normal [facility] Comment on above: Performed By: #### DRUGRPD #### [facility] [address] [place] [address] Dr. Jose Duffy mAMP Negative Normal NEGATIVE [facility] Comment on above: Performed By: #### DRUGRPD #### [facility] [address] [place] [address] Dr. Jose Duffy MTD Negative Normal NEGATIVE [facility] Comment on above: Performed By: #### DRUGRPD #### [facility] [address] [place] [address] Dr. Jose Duffy OPI Negative Normal NEGATIVE [facility] Comment on above: Performed By: #### DRUGRPD #### [facility] [address] [place] [address] Dr. Jose Duffy OXY Negative Normal NEGATIVE [facility] Comment on above: Performed By: #### DRUGRPD #### [facility] [address] [place] [address] Dr. Jose Duffy PCP Negative Normal NEGATIVE [facility] Comment on above: Performed By: #### DRUGRPD #### [facility] [address] [place] [address] Dr. Jose Duffy PPX Negative Normal NEGATIVE [facility] Comment on above: Performed By: #### DRUGRPD #### [facility] [address] [place] [address] Dr. Jose Duffy TCA Negative Normal NEGATIVE [facility] Comment on above: Performed By: #### DRUGRPD #### [facility] [address] [address] [address] Jose Duffy THC Negative Normal NEGATIVE [facility] Comment on above: Performed By: #### DRUGRPD #### [facility] [address] [address] [address] Jose Duffy COMPLIANCE DRUG SCREENon PDF . Normal [facility] Comment on above: Performed By: #### DSDOALC #### [facility] [address] [address] [address] Jose Duffy Summary FINAL Normal [facility] Comment on above: Result Comment: [...] is an expected metabolite of dextromethorphan, an cylu-hcq-vjleubr or prescription cough suppressant. Levorphanol is a [...] . Performed By: #### D SDOALC #### [facility] [address] [place] [address] Dr. Jose Duffy URIC ACID RAND URINEon 02-20 Uric Acid, Urine 44.5 mg/dL Normal Not Estab. [facility] Comment on above: Performed By: #### DSDOALC #### [facility] [address] [place] [address] Dr. Jose Duffy DRUG SCREEN RAPID (URINE)on 02-19-2022 AMP Negative Normal NEGATIVE [facility] Comment on above: Performed By: #### DRUGRPD #### [facility] [address] [place] [address] Dr. Jose Duffy BAR Negative Normal NEGATIVE [facility] Comment on above: Performed By: #### DRUGRPD #### [facility] [address] [place] [address] Dr. Jose Duffy BUP Positive Abnormal NEGATIVE [facility] Comment on above: Performed By: #### DRUGRPD #### [facility] [address] [place] [address] Dr. Jose Duffy BZO Negative Normal NEGATIVE [facility] Comment on above: Performed By: #### DRUGRPD #### [facility] [address] [place] [address] Dr. Jose Duffy RICARDO Negative Normal NEGATIVE [facility] Comment on above: Performed By: #### DRUGRPD #### [facility] [address] [place] [address] Dr. Jose Duffy CUT-OFFS SEE BELOW Normal [facility] Comment on above: Result Comment: [...] ng/mL Performed By: #### D RUGRPD #### [facility] [address] [place] [address] Dr. Jose Duffy DRUG CUT HEADER DRUG CLASS TEST SYST EM CUT-OFF CONCENTRATIONS ARE FOLLOWS: Normal [facility] Comment on above: Performed By: #### DRUGRPD #### [facility] [address] [place] [address] Dr. Jose Duffy mAMP Negative Normal NEGATIVE [facility] Comment on above: Performed By: #### DRUGRPD #### [facility] [address] [place] [address] Dr. Jose Duffy MTD Negative Normal NEGATIVE [facility] Comment on above: Performed By: #### DRUGRPD #### [facility] [address] [address] [address] Jose Duffy OPI Negative Normal NEGATIVE [facility] Comment on above: Performed By: #### DRUGRPD #### [facility] [address] [address] [address] Jose Duffy OXY Negative Normal NEGATIVE [facility] Comment on above: Performed By: #### DRUGRPD #### [facility] [address] [address] [address] Jose Duffy PCP Negative Normal NEGATIVE [facility] Comment on above: Performed By: #### DRUGRPD #### [facility] [address] [address] [address] Jose Duffy PPX Negative Normal NEGATIVE [facility] Comment on above: Performed By: #### DRUGRPD #### [facility] [address] [place] [address] Dr. Jose Duffy TCA Negative Normal NEGATIVE [facility] Comment on above: Performed By: #### DRUGRPD #### [facility] [address] [place] [address] Dr. Jose Duffy THC Negative Normal NEGATIVE [facility] Comment on above: Performed By: #### DRUGRPD #### [facility] [address] [address] [address] Jose Duffy COMPLIANCE DRUG SCREENon PDF . Normal [facility] Comment on above: Performed By: #### DSDOALC #### [facility] [address] [place] [address] Dr. Jose Duffy Summary FINAL Normal [facility] Comment on above: Result Comment: [...] . Performed By: #### D SDOALC #### [facility] [address] [place] [address] Dr. Jose Duffy URIC ACID RAND URINEon 01-28 Uric Acid, Urine 30.0 mg/dL Normal Not Estab. [facility] Comment on above: Performed By: #### URICUR #### [facility] [address] [address] [address] Jose Duffy DRUG SCREEN RAPID (URINE)on 01-27-2022 AMP Negative Normal NEGATIVE [facility] Comment on above: Performed By: #### DRUGRPD #### [facility] [address] [address] [address] Jose Duffy BAR Negative Normal NEGATIVE [facility] Comment on above: Performed By: #### DRUGRPD #### [facility] [address] [place] [address] Dr. Jose Duffy BUP Positive Abnormal NEGATIVE [facility] Comment on above: Performed By: #### DRUGRPD #### [facility] [address] [place] [address] Dr. Jose Duffy BZO Negative Normal NEGATIVE [facility] Comment on above: Performed By: #### DRUGRPD #### [facility] [address] [address] [address] Jose Duffy RICARDO Negative Normal NEGATIVE [facility] Comment on above: Performed By: #### DRUGRPD #### [facility] [address] [place] [address] Dr. Jose Duffy CUT-OFFS SEE BELOW Normal [facility] Comment on above: Result Comment: AMP [...] ng/mL Performed By: #### D RUGRPD #### [facility] [address] [address] [address] Jose Duffy DRUG CUT HEADER DRUG CLASS TEST SYST EM CUT-OFF CONCENTRATIONS ARE FOLLOWS: Normal [facility] Comment on above: Performed By: #### DRUGRPD #### [facility] [address] [address] [address] Jose Duffy mAMP Negative Normal NEGATIVE [facility] Comment on above: Performed By: #### DRUGRPD #### [facility] [address] [address] [address] Jose Duffy MTD Negative Normal NEGATIVE [facility] Comment on above: Performed By: #### DRUGRPD #### [facility] [address] [address] [address] Jose Duffy OPI Negative Normal NEGATIVE [facility] Comment on above: Performed By: #### DRUGRPD #### [facility] [address] [place] [address] Dr. Jose Duffy OXY Negative Normal NEGATIVE [facility] Comment on above: Performed By: #### DRUGRPD #### [facility] [address] [address] [address] Jose Duffy PCP Negative Normal NEGATIVE [facility] Comment on above: Performed By: #### DRUGRPD #### [facility] [address] [place] [address] Dr. Jose Duffy PPX Negative Normal NEGATIVE [facility] Comment on above: Performed By: #### DRUGRPD #### [facility] [address] [address] [address] Jose Duffy TCA Negative Normal NEGATIVE [facility] Comment on above: Performed By: #### DRUGRPD #### [facility] [address] [address] [address] Jose Duffy THC Negative Normal NEGATIVE [facility] Comment on above: Performed By: #### DRUGRPD #### [facility] [address] [place] [address] Dr. Jose Duffy COMPLIANCE DRUG SCREENon PDF . Normal [facility] Comment on above: Performed By: #### URICUR #### [facility] [address] [place], [place] [address] Dr. Jose Duffy Summary FINAL Normal [facility] Comment on above: Result Comment: TOXASSURE [...] . Performed By: #### U RICUR #### [facility] [address] [place] [address] Dr. Jose Duffy URIC ACID RAND URINEon 01-09 Uric Acid, Urine 25.0 mg/dL Normal Not Estab. [facility] Comment on above: Performed By: #### DRUGRPD #### [facility] [address] [place] [address] Dr. Jose Duffy DRUG SCREEN RAPID (URINE)on 01-08-2022 AMP Negative Normal NEGATIVE [facility] Comment on above: Performed By: #### URICUR #### [facility] [address] [place] [address] Dr. Jose Duffy BAR Negative Normal NEGATIVE [facility] Comment on above: Performed By: #### URICUR #### [facility] [address] [place] [address] Dr. Jose Duffy BUP Positive Abnormal NEGATIVE [facility] Comment on above: Performed By: #### URICUR #### [facility] [address] [place] [address] Dr. Jose Duffy BZO Negative Normal NEGATIVE [facility] Comment on above: Performed By: #### URICUR #### [facility] [address] [place] [address] Dr. Jose Duffy RICARDO Negative Normal NEGATIVE [facility] Comment on above: Performed By: #### URICUR #### [facility] [address] [place] [address] Dr. Jose Duffy CUT-OFFS SEE BELOW Normal [facility] Comment on above: Result Comment: [...] ng/mL Performed By: #### U RICUR #### [facility] [address] [place] [address] Dr. Jose Duffy DRUG CUT HEADER DRUG CLASS TEST SYST EM CUT-OFF CONCENTRATIONS ARE FOLLOWS: Normal [facility] Comment on above: Performed By: #### URICUR #### [facility] [address] [place] [address] Dr. Jose Duffy mAMP Negative Normal NEGATIVE [facility] Comment on above: Performed By: #### URICUR #### [facility] [address] [place] [address] Dr. Jose Duffy MTD Negative Normal NEGATIVE [facility] Comment on above: Performed By: #### URICUR #### [facility] [address] [place] [address] Dr. Jose Duffy OPI Negative Normal NEGATIVE [facility] Comment on above: Performed By: #### URICUR #### [facility] [address] [place] [address] Dr. Jose Duffy OXY Negative Normal NEGATIVE [facility] Comment on above: Performed By: #### URICUR #### [facility] [address] [place] [address] Dr. Jose Duffy PCP Negative Normal NEGATIVE [facility] Comment on above: Performed By: #### URICUR #### [facility] [address] [place] [address] Dr. Jose Duffy PPX Negative Normal NEGATIVE [facility] Comment on above: Performed By: #### URICUR #### [facility] [address] [address] [address] Jose Duffy TCA Negative Normal NEGATIVE [facility] Comment on above: Performed By: #### URICUR #### [facility] [address] [address] [address] Jose Duffy THC Negative Normal NEGATIVE [facility] Comment on above: Performed By: #### URICUR #### [facility] [address] [address] [address] Jose Duffy COMPLIANCE DRUG SCREENon PDF . Normal [facility] Comment on above: Performed By: #### DSDOALC #### [facility] [address] [address] [address] Jose Duffy Summary FINAL Normal [facility] Comment on above: Result Comment: [...] please call . Performed By: #### D [facility] #### [facility] [address] [place] [address] ABD/PELV W CONon [...] VENKATA GRIMALDO Date: 2021-12-18 15:15 Normal [facility] US SINGLE QUAD RT UPPERon US [...] VENKATA GRIMALDO Date: 2021-12-18 15:09 Normal [facility] URIC ACID RAND URINEon 12-16 Uric Acid, Urine 46.2 mg/dL Normal Not Estab. [facility] Comment on above: Performed By: #### DSDOALC #### [facility] [address] [address] [address] Jose Duffy AMYLASEon 12-15-2021 Amylase [Catalytic activity/Vol] 134 U/L Critically high 25-115 [facility] Comment on above: Performed By: #### DRUGRPD #### [facility] [address] [address] [address] Jose Duffy CBC AUTO DIFFon 12-15-2021 BASO # 0.1 103/ul Normal 0.0-0.1 [facility] Comment on above: Performed By: #### DRUGRPD #### [facility] [address] [address] [address] Jose Duffy Basophils/100 WBC (Bld) 0.6 % Normal 0.2-2.0 [facility] Comment on above: Performed By: #### DRUGRPD #### [facility] [address] [place] [address] Dr. Jose Duffy EO # 0.3 103/ul Normal 0.0-0.7 [facility] Comment on above: Performed By: #### DRUGRPD #### [facility] [address] [place] [address] Dr. Jose Duffy Eosinophils/100 WBC (Bld) 3.0 % Normal 0.9-7.0 [facility] Comment on above: Performed By: #### DRUGRPD #### [facility] [address] [place] [address] Dr. Jose Duffy Erythrocyte distribution width (RBC) [Ratio] 13.2 % Normal 11.0-15.0 [facility] Comment on above: Performed By: #### DRUGRPD #### [facility] [address] [place] [address] Dr. Jose Duffy Hematocrit (Bld) [Volume fraction] 42.7 % Normal 42.0-54.0 [facility] Comment on above: Performed By: #### DRUGRPD #### [facility] [address] [place] [address] Dr. Jose Duffy Hemoglobin (Bld) [Mass/Vol] 14.3 g/dL Normal 14.0-18.0 [facility] Comment on above: Performed By: #### DRUGRPD #### [facility] [address] [place] [address] Dr. Jose Duffy IG # 0.02 10e3/ul Normal 0.00-0.03 [facility] Comment on above: Performed By: #### DRUGRPD #### [facility] [address] [place] [address] Dr. Jose Duffy IG % 0.2 % Normal 0.0-0.5 [facility] Comment on above: Performed By: #### DRUGRPD #### [facility] [address] [address] [address] Jose Duffy LYMPH # 2.3 103/ul Normal 1.2-3.8 [facility] Comment on above: Performed By: #### DRUGRPD #### [facility] [address] [place] [address] Dr. Jose Duffy Lymphocytes/100 WBC (Bld) 20.6 % Normal 20.5-60.0 [facility] Comment on above: Performed By: #### DRUGRPD #### [facility] [address] [place] [address] Dr. Jose Duffy MANUAL DIFF REQ NO Normal [facility] Comment on above: Performed By: #### DRUGRPD #### [facility] [address] [place] [address] Dr. Jose Duffy MCH (RBC) [Entitic mass] 28.7 pg Normal 25.9-34.0 [facility] Comment on above: Performed By: #### DRUGRPD #### [facility] [address] [place] [address] Dr. Jose Duffy MCHC (RBC) [Mass/Vol] 33.5 g/dL Normal 29.9-35.2 [facility] Comment on above: Performed By: #### DRUGRPD #### [facility] [address] [place] [address] Dr. Jose Duffy MCV (RBC) [Entitic vol] 85.6 fL Normal 80.0-94.0 [facility] Comment on above: Performed By: #### DRUGRPD #### [facility] [address] [place] [address] Dr. Jose Duffy MONO # 0.8 103/ul Normal 0.3-0.8 [facility] Comment on above: Performed By: #### DRUGRPD #### [facility] [address] [place] [address] Dr. Jose Duffy Monocytes/100 WBC (Bld) 7.5 % Normal 1.7-12.0 [facility] Comment on above: Performed By: #### DRUGRPD #### [facility] [address] [address] [address] Jose Duffy NEUT # 7.4 103/ul Critically high 1.4-6.5 [facility] Comment on above: Performed By: #### DRUGRPD #### [facility] [address] [place] [address] Dr. Jose Duffy Neutrophils/100 WBC (Bld) 68.1 % Normal 43.0-75.0 [facility] Comment on above: Performed By: #### DRUGRPD #### [facility] [address] [place] [address] Dr. Jose Duffy Platelet mean volume (Bld) [Entitic vol] 9.0 fL Critically low 9.5-13.5 [facility] Comment on above: Performed By: #### DRUGRPD #### [facility] [address] [place] [address] Dr. Jose Duffy PLT 253 103/ul Normal 150-450 [facility] Comment on above: Performed By: #### DRUGRPD #### [facility] [address] [place] [address] Dr. Jose Duffy RBC 4.99 106/ul Normal 4.70-6.10 [facility] Comment on above: Performed By: #### DRUGRPD #### [facility] [address] [place] [address] Dr. Jose Duffy WBC 10.9 103/ul Normal 4.0-11.0 [facility] Comment on above: Performed By: #### DRUGRPD #### [facility] [address] [place] [address] Dr. Jose Duffy LIPASEon 12-15-2021 Lipase [Catalytic activity/Vol] 207.0 U/L Normal 73.0-393.0 [facility] Comment on above: Performed By: #### DRUGRPD #### [facility] [address] [place] [address] Dr. Jose Duffy PROF 14(COMP METB)on Albumin [Mass/Vol] 4.3 g/dL Normal 3.4-5.0 [facility] Comment on above: Performed By: #### DRUGRPD #### [facility] [address] [address] [address] Jose Duffy Albumin/Globulin [Mass ratio] 1.2 {ratio} Normal [facility] Comment on above: Performed By: #### DRUGRPD #### [facility] [address] [address] [address] Jose Duffy ALP [Catalytic activity/Vol] 68 U/L Normal 46-116 [facility] Comment on above: Performed By: #### DRUGRPD #### [facility] [address] [address] [address] Jose Duffy ALT [Catalytic activity/Vol] 132 U/L Critically high 16-63 [facility] Comment on above: Performed By: #### DRUGRPD #### [facility] [address] [place] [address] Dr. Jose Duffy Anion gap [Moles/Vol] 12.2 mmol/L Normal [facility] Comment on above: Performed By: #### DRUGRPD #### [facility] [address] [place] [address] Dr. Jose Duffy AST [Catalytic activity/Vol] 83 U/L Critically high 15-37 [facility] Comment on above: Performed By: #### DRUGRPD #### [facility] [address] [place] [address] Dr. Jose Duffy Bilirubin [Mass/Vol] 0.6 mg/dL Normal 0.2-1.0 [facility] Comment on above: Performed By: #### DRUGRPD #### [facility] [address] [place] [address] Dr. Jose Duffy Calcium [Mass/Vol] 8.9 mg/dL Normal 8.5-10.1 [facility] Comment on above: Performed By: #### DRUGRPD #### [facility] [address] [place] [address] Dr. Jose Duffy Chloride [Moles/Vol] 104 mmol/L Normal 98-107 [facility] Comment on above: Performed By: #### DRUGRPD #### [facility] [address] [place] [address] Dr. Jose Duffy CO2 [Moles/Vol] 29.1 mmol/L Normal 21.0-32.0 [facility] Comment on above: Performed By: #### DRUGRPD #### [facility] [address] [place] [address] Dr. Jose Duffy Creatinine [Mass/Vol] 0.95 mg/dL Normal 0.70-1.30 [facility] Comment on above: Performed By: #### DRUGRPD #### [facility] [address] [place] [address] Dr. Jose Duffy EGFR-AF CYMRAES >60 Normal >=60 [facility] Comment on above: Performed By: #### DRUGRPD #### [facility] [address] [place] [address] Dr. Jose Duffy EGFR-NON AF CYMRAES >60 Normal >=60 [facility] Comment on above: Performed By: #### DRUGRPD #### [facility] [address] [place] [address] Dr. oJse Duffy Globulin (S) [Mass/Vol] 3.5 g/dL Normal [facility] Comment on above: Performed By: #### DRUGRPD #### [facility] [address] [place] [address] Dr. Jose Duffy Glucose [Mass/Vol] 101 mg/dL Normal 74-106 [facility] Comment on above: Performed By: #### DRUGRPD #### [facility] [address] [place] [address] Dr. Jose Duffy Potassium [Moles/Vol] 4.3 mmol/L Normal 3.5-5.1 [facility] Comment on above: Performed By: #### DRUGRPD #### [facility] [address] [place] [address] Dr. Jose Duffy Protein [Mass/Vol] 7.8 g/dL Normal 6.4-8.2 [facility] Comment on above: Performed By: #### DRUGRPD #### [facility] [address] [place] [address] Dr. Jose Duffy Sodium [Moles/Vol] 141 mmol/L Normal 136-145 [facility] Comment on above: Performed By: #### DRUGRPD #### [facility] [address] [place] [address] Dr. Jose Duffy Urea nitrogen [Mass/Vol] 20.0 mg/dL Critically high 7.0-18.0 [facility] Comment on above: Performed By: #### DRUGRPD #### [facility] [address] [place] [address] Dr. Jose Duffy Urea nitrogen/Creatin ine [Mass ratio] 21.1 mg/mg Normal [facility] Comment on above: Performed By: #### DRUGRPD #### [facility] [address] [place] [address] Dr. Jose Duffy COMPLIANCE DRUG SCREENon PDF . [facility] Comment on above: Performed By: #### DSDOALC #### [facility] [address] [place] [address] Dr. Jose Duffy Summary FINAL Normal [facility] Comment on above: Result Comment: [...] . Performed By: #### D SDOALC #### [facility] [address] [place] [address] Dr. Jose Duffy URIC ACID RAND URINEon 11-04 Uric Acid, Urine 91.5 mg/dL Normal Not Estab. The [facility] Comment on above: Performed By: #### URICUR #### [facility] [address] [place] [address] Dr. Jose Duffy DRUG SCREEN RAPID (URINE)on 11-02-2021 AMP Negative Normal NEGATIVE [facility] Comment on above: Performed By: #### URICUR #### [facility] [address] [place] [address] Dr. Jose Duffy BAR Negative Normal NEGATIVE [facility] Comment on above: Performed By: #### URICUR #### [facility] [address] [place] [address] Dr. Jose Duffy BUP Positive Abnormal NEGATIVE [facility] Comment on above: Performed By: #### URICUR #### [facility] [address] [place] [address] Dr. Jose Duffy BZO Negative Normal NEGATIVE [facility] Comment on above: Performed By: #### URICUR #### [facility] [address] [place] [address] Dr. Jose Duffy RICARDO Negative Normal NEGATIVE [facility] Comment on above: Performed By: #### URICUR #### [facility] [address] [place] [address] Dr. Jose Duffy CUT-OFFS SEE BELOW Normal [facility] Comment on above: Result Comment: [...] ng/mL Performed By: #### U RICUR #### [facility] [address] [place] [address] Dr. Jose Duffy DRUG CUT HEADER DRUG CLASS TEST SYST EM CUT-OFF CONCENTRATIONS ARE FOLLOWS: Normal [facility] Comment on above: Performed By: #### URICUR #### [facility] [address] [place] [address] Dr. Jose Duffy mAMP Negative Normal NEGATIVE [facility] Comment on above: Performed By: #### URICUR #### [facility] [address] [place] [address] Dr. Jose Duffy MTD Negative Normal NEGATIVE [facility] Comment on above: Performed By: #### URICUR #### [facility] [address] [address] [address] Jose Duffy OPI Negative Normal NEGATIVE [facility] Comment on above: Performed By: #### URICUR #### [facility] [address] [address] [address] Jose uDffy OXY Negative Normal NEGATIVE [facility] Comment on above: Performed By: #### URICUR #### [facility] [address] [address] [address] Jose Duffy PCP Negative Normal NEGATIVE [facility] Comment on above: Performed By: #### URICUR #### [facility] [address] [address] [address] Jose Duffy PPX Negative Normal NEGATIVE [facility] Comment on above: Performed By: #### URICUR #### [facility] [address] [address] [address] Jose Duffy TCA Negative Normal NEGATIVE [facility] Comment on above: Performed By: #### URICUR #### [facility] [address] [address] [address] Jose Duffy THC Negative Normal NEGATIVE [facility] Comment on above: Performed By: #### URICUR #### [facility] [address] [address] [address] Jose Duffy .UA Microscp Aon 12-01-2018 UA Mucus Present Abnormal Absent [facility] Comment on above: Performed By: #### [id number] #### [address] [address] UA RBC Quant 327 /HPF High 0-5 [facility] Comment on above: Performed By: #### [id number] #### [address] [address] UA Squepi Cells Quant 1 /HPF Normal 0-29 [facility] Comment on above: Performed By: #### [id number] #### [address] [address] UA WBC Quant 4 /HPF Normal 0-5 [facility] Comment on above: Performed By: #### [id number] #### [address] [address] .eGFRon 12-01-2018 eGFR AA >60 Normal >=60 [facility] Comment on above: Result Comment: Result = 0-14.9 mL/min/1 .73 m2 Kidney failure or Dialysis Result = 15-29 mL/min/1.73 m2 Severe decrease in GFR Result = 30-59 mL/min/1.73 m2 Moderate decrease in GFR Result >= 60 mL/min/1.73 m2 Normal or increased GFR Performed By: #### E GFR #### [address] [address] eGFR Non-AA >60 Normal >=60 [facility] Comment on above: Result Comment: [...] dosing. Performed By: #### E GFR #### [address] [address] CBC w/ Diffon 12-01-2018 Erythrocyte distribution width (RBC) [Ratio] 14.0 % Normal 11.6-14.8 [facility] Comment on above: Performed By: #### CBC #### [address] [address] Hematocrit (Bld) [Volume fraction] 43.5 % Normal 41.0-53.0 [facility] Comment on above: Performed By: #### CBC #### [address] [address] Hemoglobin (Bld) [Mass/Vol] 14.7 g/dL Normal 13.5-17.5 [facility] Comment on above: Performed By: #### CBC #### [address] [address] MCH (RBC) [Entitic mass] 28.5 pg Normal 27.0-35.0 [facility] Comment on above: Performed By: #### CBC #### [address] [address] MCHC (RBC) [Mass/Vol] 33.8 % Normal 31.0-37.0 [facility] Comment on above: Performed By: #### CBC #### [address] [id number] MCV (RBC) [Entitic vol] 84.4 fL Normal 80.0-100.0 [facility] Comment on above: Performed By: #### CBC #### [address] [address] Platelet mean volume (Bld) [Entitic vol] 7.3 fL Normal 6.7-10.6 [facility] Comment on above: Performed By: #### CBC #### [address] [address] Platelets (Bld) [#/Vol] 273 x10*3/mcL Normal 150-350 [facility] Comment on above: Performed By: #### CBC #### [address] [address] RBC (Bld) [#/Vol] 5.16 x10*6/mcL Normal 4.30-5.80 [facility] Comment on above: Performed By: #### CBC #### [address] [address] WBC (Bld) [#/Vol] 11.0 x10*3/mcL Normal 4.5-11.0 [facility] Comment on above: Performed By: #### CBC #### [address] [address] CMPon 12-01-2018 Albumin [Mass/Vol] 4.2 g/dL Normal 3.2-4.9 [facility] Comment on above: Result Comment: [facility] Laboratory updated t he methodology used for albumin testing on 12/21/17. Albumin measurement was performed using a bromcresol purple dye-binding assay. Performed By: #### C OMP #### [address] [address] Albumin/Globulin [Mass ratio] 1.3 {ratio} Normal 1.1-2.2 [facility] Comment on above: Performed By: #### COMP #### [address] [address] Alk Phos 80 IU/L Normal 32-91 [facility] Comment on above: Performed By: #### COMP #### [address] [address] ALT [Catalytic activity/Vol] 41 U/L Normal 17-63 [facility] Comment on above: Performed By: #### COMP #### [address] [address] Anion gap [Moles/Vol] 15 mmol/L Normal 7-17 [facility] Comment on above: Performed By: #### COMP #### [address] [address] AST [Catalytic activity/Vol] 43 U/L High 15-41 [facility] Comment on above: Performed By: #### COMP #### [address] [address] Bili Total 0.7 mg/dL Normal 0.3-1.2 [facility] Comment on above: Performed By: #### COMP #### [address] [address] Calcium [Mass/Vol] 9.2 mg/dL Normal 8.5-10.3 [facility] Comment on above: Performed By: #### COMP #### [address] [address] Chloride [Moles/Vol] 104 mmol/L Normal 98-110 [facility] Comment on above: Performed By: #### COMP #### [address] [address] CO2 [Moles/Vol] 25 mmol/L Normal 22-32 [facility] Comment on above: Performed By: #### COMP #### [address] [address] Creatinine [Mass/Vol] 0.98 mg/dL Normal 0.61-1.24 [facility] Comment on above: Performed By: #### COMP #### [address] [address] Glucose [Mass/Vol] 126 mg/dL High 74-118 [facility] Comment on above: Performed By: #### COMP #### [address] [address] Potassium [Moles/Vol] 3.7 mmol/L Normal 3.4-4.8 [facility] Comment on above: Performed By: #### COMP #### [address] [address] Protein [Mass/Vol] 7.4 g/dL Normal 6.5-8.1 [facility] Comment on above: Performed By: #### COMP #### [address] [address] Sodium [Moles/Vol] 140 mmol/L Normal 133-142 [facility] Comment on above: Performed By: #### COMP #### [address] [address] Urea nitrogen [Mass/Vol] 19 mg/dL Normal 8-26 [facility] Comment on above: Performed By: #### COMP #### [address] [address] Urea nitrogen/Creatin ine [Mass ratio] 19.4 mg/mg Normal 10.0-20.0 [facility] Comment on above: Performed By: #### COMP #### [address] [address] [address] Abd Pelvis w/o IV Cont St [...] stability of the nodule Radiation Dose Estimate: CTDI(mGy):0.833121 / / / kVp:120.234740 / mAs:0.518890 / / / DLP(mGy-cm):7.419316Werj Part: Abdomen Final Dictated by: Donnell Luther MD Dictated DT/TM: 12.01.2018 8:57 am Signed by: Donnell Luther MD Signed (Electronic Signature): 12.01.2018 9:03 am (If Report Is Signed, Electronically Signed in Other Vendor System) Normal [facility] Diff Autoon 12-01-2018 Baso Absolute 0.0 x10*3/mcL Normal 0.0-0.2 [facility] Comment on above: Performed By: #### .Automated Diff #### [facility] [address] [place] [address] Basophils/100 WBC (Bld) 0.3 % Normal 0.0-1.2 [facility] Comment on above: Performed By: #### .Automated Diff #### [address] [address] Eos Absolute 0.3 x10*3/mcL Normal 0.0-0.4 [facility] Comment on above: Performed By: #### .Automated Diff #### [address] [address] Eosinophils/100 WBC (Bld) 2.8 % Normal 0.0-6.1 [facility] Comment on above: Performed By: #### .Automated Diff #### [address] [address] Lymphocytes (Bld) [#/Vol] 3.5 x10*3/mcL Normal 1.0-4.8 [facility] Comment on above: Performed By: #### .Automated Diff #### [address] [address] Lymphocytes/100 WBC (Bld) 32.0 % Normal 27.2-40.8 [facility] Comment on above: Performed By: #### .Automated Diff #### [address] [address] Logan Absolute 0.8 x10*3/mcL Normal 0.3-1.1 [facility] Comment on above: Performed By: #### .Automated Diff #### [address] [address] Monocytes/100 WBC (Bld) 7.4 % Normal 4.7-13.9 [facility] Comment on above: Performed By: #### .Automated Diff #### [address] [address] Neutro Absolute 6.3 x10*3/mcL Normal 1.8-7.7 [facility] Comment on above: Performed By: #### .Automated Diff #### [address] [address] Neutro Auto 57.5 % Normal 47.2-70.8 [facility] Comment on above: Performed By: #### .Automated Diff #### [address] [address] ED Clinical Summaryon 2018 ED Clinical Summary [facility] [address] [place] [address] ED Clinical Summary Person Information Name: Bessy Torres/Jerome Age: 38 Years : 1980 Sex: Male PCP: Romy Samayoa MD Marital Status: Single Phone: Race: White Ethnicity: Not or Language: Turkish Visit Reason: Flank pain; Flank pain Acuity: 3 Enc Type: Emergency Med Service: Emergency Medicine Arrival: 12/01/2018 07:25:25 Discharge: 12/01/2018 10:15:00 LOS: 000 02:50 Checkin: 12/01/2018 07:25:25 Checkout: 12/01/2018 10:15:00 Dispo Type: Home or Self Care Address: [address] [place] [address] Provider Notes: History of Present Illness Patient [...] range between ( 27.2 and 40.8 ) Logan Auto: 7.4 % -- Normal range between [...] range between ( 41.0 and 53.0 ) Logan Absolute: 0.8 x10 MCH: 28.5 pg -- [...] [facility] , [address] [place], [place] [id number], [phone] ondansetron (Zofran 4 mg oral tablet) 1 [...] 7 Days. Refills: 0. Last Dose: hydrocodone-acetaminophen ([place] 5 mg-325 mg oral tablet) 1 Tabs [...] [address], [address] [place], [place] [id number], [phone] ondansetron (Zofran 4 mg oral tablet) 1 [...] hours for 7 Days. Refills: 0. hydrocodone-acetaminophen ([place] 5 mg-325 mg oral tablet) 1 Tabs [...] Follow up: With: Address: When: Romy Samayoa [address] [place] [id number] [phone] Business (1) Within 1 to 2 days Discharge Orders: Discharge Patient 12/01/18 9:58:00 EDT, Discharge to Home, Self Discharge Special Instructions Your appointment is scheduled with [facility] [address], [place], [place] [address]. Discharge Special Instructions If you are unable to make this appointment, please call the office at [phone]. Discharge Special Instructions Please arrive by 8:00AM the next business day for your appointment. Business days are Tuesday through Tuesday. Discharge Special Instructions Please DO NOT EAT or DRINK anything after midnight the night before your appointment. PLEASE DO NOT EAT BREAKFAST. Discharge Special Instructions Please strain your urine as instructed until your appointment at [facility]. Return to Work/School 12/01/18 10:10:00 EDT, 12/02/18 8:00:00 EDT, 12/01/18 10:10:00 EDT Patient Education Information: KIDNEY STONE w/ [facility] Poison Help line: . [facility] Hotline: [place] Tobacco Quit Line: [place], [place]) [address]: [phone] [place], [place]) [address]: [phone] [facility] [address] [facility]. [place], [place]: [phone] Normal [facility] ED Note-Physicianon 12-02-19 ED Note-Physician [...] in this document, created by the medical staff assistant for me, accurately reflects the services I [...] 12/01/18 9:56:00 EDT, STAT, Dispense From Location: [id number], UTI/Pyelonephritis ciprofloxacin, 1 tabs, Oral, q12hr, X 7 days, # 14 tabs, 0 Refill(s), 12/08/18 9:57:00 EDT hydrocodone-acetaminophen, 1 tabs, Oral, q4hr, PRN, X 3 days, # 18 tabs, 0 Refill(s), 12/04/18 9:52:00 EDT ondansetron, 1 tabs, Oral, q8hr, PRN, # 15 tabs, 0 Refill(s), Pharmacy: [facility] tamsulosin, 1 caps, Oral, Daily, # 7 caps, 0 Refill(s), Pharmacy: [facility] 2. Renal colic Ordered: ciprofloxacin, 500 mg, Oral, Tab, Once, First Dose: 12/01/18 9:56:00 EDT, Stop Date: 12/01/18 9:56:00 EDT, STAT, Dispense From Location: [facility], UTI/Pyelonephritis 3. Lung nodule Ordered: ciprofloxacin, 500 mg, Oral, Tab, Once, First Dose: 12/01/18 9:56:00 EDT, Stop Date: 12/01/18 9:56:00 EDT, STAT, Dispense From Location: [facility], UTI/Pyelonephritis Orders: sodium chloride, 10 mL, IV Push, Injection, As Indicated, PRN flush, First Dose: 12/01/18 7:37:00 EDT, Dispense From Location: [facility] Sodium Chloride 0.9% intravenous solution 1,000 [...] 10:14 EDT Elif Fox Normal [facility] UA w Culture if Indon 2018 Color (U) Yellow Normal [facility] Comment on above: Performed By: #### UCI #### [address] [address] Glucose (U) [Mass/Vol] Negative Normal Negative [facility] Comment on above: Performed By: #### UCI #### [address] [address] Ketones Ql (U) Negative Normal Negative [facility] Comment on above: Performed By: #### UCI #### [address] [address] UA Blood Large Abnormal Negative [facility] Comment on above: Performed By: #### [facility] #### [facility] [address] [place] [address], [place] [address] UA Clarity Hazy Normal [facility] Comment on above: Performed By: #### [facility] #### [address] [place] [address] UA Leukocyte Esterase Trace Abnormal Negative [facility] Comment on above: Performed By: #### [facility] #### [address] [place] [address] UA Nitrite Negative Normal Negative [facility] Comment on above: Performed By: #### [facility] #### [address] [place] [address] UA pH 5.0 Normal 4.5 - 7.8 [facility] Comment on above: Performed By: #### [facility] #### [address] [place] [address] UA Protein Negative Normal Negative [facility] Comment on above: Performed By: #### [facility] #### [address] [place] [address] UA Source Clean Catch Normal [facility] Comment on above: Performed By: #### [facility] #### [address] [place] [address] UA Spec Grav 1.015 Normal 1.003-1.035 [facility] Comment on above: Performed By: #### [facility] #### [address] [place] [address] UA Urobilinogen 0.2 mg/dL Normal 0.2 - 1.0 [facility] Comment on above: Performed By: #### [facility] #### [address] [place] [address] Urobilinogen Qn (U) Negative Normal Negative [facility] Comment on above: Performed By: #### [facility] #### [address] [address] Vital Signs Date Time Vital Sign Value Performing Clinician Jessica woody 06-29-2023 15:20-0500 Blood Pressure Location Donnell STONE [facility] [place] 06-29-2023 15:20-0500 Diastolic blood pressure 76 mm[Hg] Donnell RUELASL [facility] [place] 06-29-2023 15:20-0500 Heart rate 72 /min Donnell RUELASL [facility] [place] 06-29-2023 15:20-0500 Respiratory rate 16 /min Donnell RUELASL [facility] [place] 06-29-2023 15:20-0500 Systolic blood pressure 118 mm[Hg] Donnell RUELASL [facility] [place] Encounters Encounter Date Encounter Type Care Provider Facility Start: 06-29-2023 End: 06-29-2023 ambulatory Donnell Lacy JESSENIAUri Facility:[facility] Start: 06-29-2023 End: 06-29-2023 Patient encounter procedure Donnell STONE [facility] Start: 06-08-2023 ambulatory Doron HODGES Facility : [facility] Start: 10-06-2022 End: 10-07-[address] ROMY [...] 12-01-2018 Emergency department patient [facility] Procedures Date Procedure Procedure Detail Performing [...] Payer Category Payer Private Health Insurance [id number] 2018 Unknown 1981 Unknown [id number] 2.16.8 40.1.392020.3.579.2.196 1981 Unknown [id number] 2.16.84 0.1.996288.3.579.2.593 1981 Unknown [id number] 2.16.84 0.1.809260.3.579.2.593 1981 Unknown [id number] 2.16.84 0.1.409415.3.579.2.593 1981 Unknown [id number] 2.16.84 0.1.298861.3.579.2.593 1981 Unknown [id number] 2.16.84 0.1.795203.3.579.2.593 1981 Unknown [id number] 2.16.84 0.1.034356.3.579.2.593 1981 Unknown [id number] 2.16.84 0.1.600555.3.579.2.593 1981 Unknown [id number] 2.16.84 0.1.531076.3.579.2.593 1981 Unknown [id number] 2.16.84 0.1.377938.3.579.2.593 1981 Unknown [id number] 2.16.84 0.1.252609.3.579.2.593 1981 Unknown [id number] 2.16.84 0.1.406933.3.579.2.593 1981 Unknown [id number] 2.16.84 0.1.558613.3.579.2.593 1981 Unknown [id number] 2.16.84 0.1.076376.3.579.2.593 1981 Unknown [id number] 2.16.8 40.1.412569.3.579.2.727 1981 Unknown [id number] 2.16.8 40.1.788616.3.579.2.727 1959 Self-pay [id number] 1959 Unknown [id number] 1958 Unknown [id number] Social History Date Type Detail Facility Start: 06-29-2023 Tobacco smoking status Heavy t obacco smoker (finding) [facility] [place] Tobacco smoking status Smokeless tobacco user within last 30 days [facility] [place] Sex Assigned At Male [facility] Functional Status Date Assessment Result Facility [...] generalized abdominal pain (more content not included)... [facility] Comment on above: Result Comment: Elec tronically Signed By: CHASE MULLIGAN, Donnell Farmer.amada\Date and Time Signed: 06/29/23 21:30 EST Evaluation + Plan note Note Date & Type Note Facility Evaluation + Plan note Future Appointments Appointment Date:10/17/2023 12:00:00 PM Scheduled Provider:Doron HODGES MD Location:[facility] Appointment Type:URO New Patient [facility] [place] Hospital course Narrative Note Date & Type Note Facility Hospital course Narrative No data available for this section [facility] Discharge instructions Note Date & Type Note Facility Hospital Discharge instructions No data available for this section [facility] note Note Date & Type Note Facility Progress note No data available for this section [facility] Summary Purpose Family History No Family History [...] section and content) DATE CREATED AUTHOR 12/01/2018 [facility] DATE CREATED AUTHOR AUTHOR'S ORGANIZ ATION 10/22/2022 [facility] DATE CREATED AUTHOR AUTHOR'S ORGANIZ ATION 10/17/2023 [facility] Patient Care team informatio n (unrecognized section and content) Personnel Name: Romy Samayoa MD Address: Address: [address] [place] [address] FOR RECORDS PERTAINING TO PATIENTS WHO ARE [...] BE BASED ON THE PRIMARY CLINICAL RECORDS. [facility] [employer] [facility]. provides no warranty or guarantee of the accuracy or completeness of information in this document.
[2023-12-28 15:29] LABS: Amphetamine Screen Urine NEGATIVE (NEGATIVE); Barbiturates Screen Urine NEGATIVE (NEGATIVE); Benzodiazepines Screen Urine NEGATIVE (NEGATIVE); Buprenorphine Screen Urine POSITIVE (NEGATIVE); Cannabinoid Screen Urine NEGATIVE (NEGATIVE); Cocaine Screen Urine NEGATIVE (NEGATIVE); Methadone Screen Urine NEGATIVE (NEGATIVE); Methamphetamines Screen Urine NEGATIVE (NEGATIVE); Opiate Screen Urine NEGATIVE (NEGATIVE); Oxycodone Screen Urine NEGATIVE (NEGATIVE); Phencyclidine Screen Urine NEGATIVE (NEGATIVE); Tricyclic Antidepressant Urine NEGATIVE (NEGATIVE)
[2023-12-29 10:09] LABS: Uric Acid, Urine 28.2 mg/dL (Not Estab.)
[2024-01-04 11:12] LABS: Summary Report (Summary) FINAL (.)
== END 2023-12-28 14:55 | disposition home or self-care (01) ==
PROVIDERS: PCP Family Medicine; Visit Provider Family Medicine
DX: Z79.899 Other long term (current) drug therapy (principal)
CPT/HCPCS: 80307; 80326; 80331; 80334; 80337; 80338; 80341; 80344; 80346; 80348; 80353; 80354; 80355; 80357; 80358; 80359; 80360; 80361; 80364; 80365; 80366; 80367; 80368; 80370; 80371; 80372; 80373; 80377; 82570; 83992; 84560

== ENCOUNTER 2025-02-28 12:17 | Outpatient (OUT) | payer OTHER, SELFPAY ==
--- OUTSIDE RECORDS SUMMARY | 2025-02-28 12:24 | XMS_ITS | CCD ---
Author Organization [facility] CliniSymi Care Team Providers Care Manager Of Administration Name Role Phone SHANTI MABRY Attending Unavailable TyleryRomy Primary Care Unavailable TYLERYROMY Consulting Unavailable HOY ., DR STANTON Attending [...] Unavailable HOY ., DR STANTON Consulting Unavailable TyleryRomy Primary Care Physician John VEGA Attending Unavailable Romy Samayoa Referring Unavailable Doron PANTOJA Attending Unavailable Donnell STONE Attending Unavailable Allergies Allergy Classification Reported Allergen(s) Allergy Type Date of Onset Reaction(s) Facility (5 sources) Codeine; Translations: [codeine] Drug Allergy 0 Weal (disorder) [facility] Repository (2 sources) Penicillins Drug allergy (disorder) 0 [facility] Repository (3 sources) Penicillin; Translations: [penicillin] Drug Allergy Unknown (qualifier value) [facility] [place] Medications Current Medications Medication Drug Class(es) Dates Sig (Normalized) Sig (Original) buprenorphine 8 mg / naloxone 2 mg sublingual film (2 sources) Partial Opioid Agonist, Opioid Antagonist Start: 06-14-2023 Suboxone 8 mg-2 mg sublingual film 1 film, SubLingual, BID, Refill(s) 0 Start Date: 06/14/23 Status: Ordered hyoscyamine sulfate 0.125 mg oral tablet (2 sources) Start: 06-29-2023 take 1 tablet by mouth four times daily as needed for pain Levsin 0.125 mg SL Tab 0.125 mg = 1 tab(s), Oral, QID, PRN abdominal pain, Refills(s) 0 Start Date: 06/29/23 Status: Ordered ibuprofen 800 mg oral tablet (2 sources) Nonsteroidal Anti-inflammatory Drug Start: 04-07-2020 take 1 tablet by mouth four times daily ibuprofen 800 mg Tab 800 mg = 1 tab(s), Oral, QID, Refills(s) 0 Start Date: 04/07/20 Status: Ordered omeprazole 40 mg delayed release oral capsule (2 sources) Proton Pump Inhibitor Start: 04-07-2020 take 1 capsule by mouth once daily omeprazole 40 mg Cap-DR 40 mg = 1 cap(s), Oral, Daily, Refills(s) 0 Start Date: 04/07/20 Status: Ordered Miralax (2 sources) Osmotic Laxative Start: 06-29-2023 take 17 g by mouth once daily MiraLax 17 gm, Oral, Daily, Refill(s) 0 Start Date: 06/29/23 Status: Ordered Problems Active Problems Problem Classification Problem Date Documented Da te Episodic/Chronic Abdominal hernia (2 sources) Inguinal hernia 04-07-2020 Episodic Abdominal pain (7 sources) Generalized abdominal pain; Translations: [Left lower quadrant pain] Onset: 12-21-2021 Episodic Allergic reactions (2 sources) Eczema 04-07-2020 Episodic Calculus of urinary tract (2 sources) History of calculus of kidney 04-07-2020 Episodic Genitourinary symptoms and ill-defined conditions (2 sources) History of hematuria 04-07-2020 Episodic Headache; including migraine (2 sources) Headache 04-07-2020 Episodic Other aftercare (4 sources) Encounter for therapeutic drug level monitoring; Translations: [ENC THERAPEUTC DRUG LEVL MONITORING] Onset: 07-22-2022 Episodic Other gastrointestinal disorders (2 sources) Constipation 04-07-2020 Episodic Other gastrointestinal disorders (2 sources) History of pancreatitis 04-07-2020 Episodic Other nutritional; endocrine; and metabolic disorders (2 sources) Overweight in adulthood with body mass index of 25 or more but less than 30 06-29-2023 Episodic Other skin disorders (2 sources) H/O: skin disorder 04-07-2020 Episodic Phlebitis; thrombophlebitis and thromboembolism (2 sources) Phlebitis 04-07-2020 Episodic Residual codes; unclassified (1 source) Tobacco user; Translations: [Tobacco use] Onset: 06-29-2023 Episodic Residual codes; unclassified (1 source) Family history of malignant neoplasm of digestive organ; Translations: [Family history of malignant neoplasm of digestive organs] Onset: 06-29-2023 Episodic Residual codes; unclassified (2 sources) Family history of cancer of colon 06-29-2023 Episodic Screening and history of mental health and substance abuse codes (2 sources) Tobacco use and exposure - finding 06-29-2023 Chronic Substance-related disorders (9 sources) Opioid abuse, uncomplicated; Translations: [Other psychoactive substance abuse, in remission] Onset: 11-05-2021 Chronic Unclassified (2 sources) History of small bowel obstruction 06-14-2023 Past or Other Problems Problem Classification Problem Date Documented Da te Episodic/Chronic Intestinal obstruction without hernia (4 sources) Other partial intestinal obstruction; Translations: [OTH PARTIAL INTESTINAL OBSTRUCTION] Onset: 12-18-2021 Episodic Other aftercare (1 source) Other senior living (current) drug therapy; Translations: [OTH CORRECTION CURRENT DRUG THERAPY] Onset: 01-31-2022 Episodic Pancreatic disorders (not diabetes) (4 sources) Other acute pancreatitis without necrosis or infection; Translations: [OTH ACUTE PANCREATITIS WO NECRS/INF] Onset: 12-15-2021 Episodic Residual codes; unclassified (1 source) Acquired absence of other specified parts of digestive tract; Translations: [ACQ ABSENCE OTH PART DIGESTV TRACT] Onset: 12-21-2021 Episodic Results Test Name Value Interpretation Reference Range Facility Provider Letteron 01-09-2024 Provider Letter Provider Letter January 09, 2024 BESSY TORRES [address] [place] [address] : 1980 Dear Bessy , We have been trying to reach you with no success. You have an appointment with Dr. Doron Pantoja on January 23, 2024 which will need to be rescheduled since he will be out of the office that day. Please contact the office at the number listed below to get this appointment rescheduled at your earliest convenience. Thank you for your prompt attention to this matter. Sincerely, [facility] [address], [place] [address] [facility] Facesheeton 06-30-2023 Facesheet [id number] [facility] Ambulatory Visit Summaryon 0 06-29-2023 Ambulatory Visit [...] MULLIGAN, Doron House Where: [facility] RAD - CT Reporton 06-09-2023 RAD - CT Report [id number] [facility] COMPLIANCE DRUG SCREENon PDF . [facility] Comment on above: Performed By: #### URICUR #### [facility] [address] [place] [address] Dr. Jose Duffy Summary FINAL [facility] Comment on above: Result Comment: TOXASSURE COMP DRUG ANALYSIS,UR Test Result Flag Units Drug Present Buprenorphine 175 ng/mg creat Norbuprenorphine 639 ng/mg creat Source of buprenorphine is a scheduled prescription medication. Norbuprenorphine is an expected metabolite of buprenorphine. Acetaminophen PRESENT Ibuprofen PRESENT Dextrorphan/Levorphanol PRESENT Dextrorphan is an expected metabolite of dextromethorphan, an oxkk-dya-hlctqvy or prescription cough suppressant. Levorphanol is a scheduled prescription medication. Dextrorphan cannot be distinguished from levorphanol by the method used for analysis. Guaifenesin PRESENT Guaifenesin may be administered as an mmvx-usb-wbekiaz or prescription drug; it may also be present as a breakdown product of methocarbamol. Test Result Flag Units Ref Range Creatinine 111 mg/dL >=20 Declared Medications: Medication list was not provided. For clinical consultation, please call . Performed By: #### U SHEREEN #### [facility] [address] [address] [address] Jose Duffy URIC ACID [facility] 10-07 Uric Acid, Urine 56.8 mg/dL Normal Not Estab. [facility] Comment on above: Performed By: #### DSDOALC #### [facility] [address] [address] [address] Jose Duffy DRUG SCREEN RAPID (URINE)on 10-06-2022 AMP Negative Normal NEGATIVE [facility] Comment on above: Performed By: #### URICUR #### [facility] [address] [place] [address] Dr. Jose Duffy BAR Negative Normal NEGATIVE [facility] Comment on above: Performed By: #### URICUR #### [facility] [address] [address] [address] Jose Duffy BUP Positive Abnormal NEGATIVE [facility] Comment on above: Performed By: #### URICUR #### [facility] [address] [place] [address] Dr. Jose Duffy BZO Negative Normal NEGATIVE [facility] Comment on above: Performed By: #### URICUR #### [facility] [address] [address] [address] Jose Duffy RICARDO Negative Normal NEGATIVE [facility] Comment on above: Performed By: #### URICUR #### [facility] [address] [place] [address] Dr. Jose Duffy CUT-OFFS SEE BELOW Normal [facility] Comment on above: Result Comment: AMP [...] ng/mL Performed By: #### U RICUR #### [facility] [address] [place] [address] Dr. Jose Duffy DRUG CUT HEADER DRUG CLASS TEST SYST EM CUT-OFF CONCENTRATIONS ARE FOLLOWS: Normal [facility] Comment on above: Performed By: #### URICUR #### [facility] [address] [place] [address] Dr. Jose Duffy mAMP Positive Abnormal NEGATIVE [facility] Comment on above: Performed By: #### URICUR #### [facility] [address] [address] [address] Jose Duffy MTD Negative Normal NEGATIVE [facility] Comment on above: Performed By: #### URICUR #### [facility] [address] [address] [address] Jose Duffy OPI Negative Normal NEGATIVE [facility] Comment on above: Performed By: #### URICUR #### [facility] [address] [place] [address] Dr. Jose Duffy OXY Negative Normal NEGATIVE [facility] Comment on above: Performed By: #### URICUR #### [facility] [address] [address] [address] Jose Duffy PCP Negative Normal NEGATIVE [facility] Comment on above: Performed By: #### URICUR #### [facility] [address] [address] [address] Jose Duffy PPX Negative Normal NEGATIVE [facility] Comment on above: Performed By: #### URICUR #### [facility] [address] [place] [address] Dr. Jose Duffy TCA Negative Normal NEGATIVE [facility] Comment on above: Performed By: #### URICUR #### [facility] [address] [place] [address] Dr. Jose Duffy THC Negative Normal NEGATIVE [facility] Comment on above: Performed By: #### URICUR #### [facility] [address] [place] [address] Dr. Jose Duffy COMPLIANCE DRUG SCREENon PDF . Normal [facility] Comment on above: Performed By: #### DSDOALC #### [facility] [address] [place] [address] Dr. Jose Duffy Summary FINAL Normal [facility] Comment on above: Result Comment: TOXASSURE [...] . Performed By: #### D SDOALC #### [facility] [address] [place] [address] Dr. Jose Duffy URIC ACID RAND URINEon 08-19 Uric Acid, Urine 21.4 mg/dL Normal Not Estab. [facility] Comment on above: Performed By: #### URICUR #### [facility] [address] [place] [address] Dr. Jose Duffy DRUG SCREEN RAPID (URINE)on 08-18-2022 AMP Negative Normal NEGATIVE [facility] Comment on above: Performed By: #### DSDOALC #### [facility] [address] [place] [address] Dr. Jose Duffy BAR Negative Normal NEGATIVE [facility] Comment on above: Performed By: #### DSDOALC #### [facility] [address] [place] [address] Dr. Jose Duffy BUP Positive Abnormal NEGATIVE [facility] Comment on above: Performed By: #### DSDOALC #### [facility] [address] [place] [address] Dr. Jose Duffy BZO Negative Normal NEGATIVE [facility] Comment on above: Performed By: #### DSDOALC #### [facility] [address] [place] [address] Dr. Jose Duffy RICARDO Negative Normal NEGATIVE [facility] Comment on above: Performed By: #### DSDOALC #### [facility] [address] [place] [address] Dr. Jose Duffy CUT-OFFS SEE BELOW Normal [facility] Comment on above: Result Comment: AMP [...] ng/mL Performed By: #### D SDOALC #### [facility] [address] [address] [address] Jose Duffy DRUG CUT HEADER DRUG CLASS TEST SYST EM CUT-OFF CONCENTRATIONS ARE FOLLOWS: Normal [facility] Comment on above: Performed By: #### DSDOALC #### [facility] [address] [address] [address] Jose Duffy mAMP Negative Normal NEGATIVE [facility] Comment on above: Performed By: #### DSDOALC #### [facility] [address] [place] [address] Dr. Jose Duffy MTD Negative Normal NEGATIVE [facility] Comment on above: Performed By: #### DSDOALC #### [facility] [address] [place] [address] Dr. Jose Duffy OPI Negative Normal NEGATIVE [facility] Comment on above: Performed By: #### DSDOALC #### [facility] [address] [address] [address] Jose Duffy OXY Negative Normal NEGATIVE [facility] Comment on above: Performed By: #### DSDOALC #### [facility] [address] [place] [address] Dr. Jose Duffy PCP Negative Normal NEGATIVE [facility] Comment on above: Performed By: #### DSDOALC #### [facility] [address] [address] [address] Jose Duffy PPX Negative Normal NEGATIVE [facility] Comment on above: Performed By: #### DSDOALC #### [facility] [address] [address] [address] Jose Duffy TCA Negative Normal NEGATIVE [facility] Comment on above: Performed By: #### DSDOALC #### [facility] [address] [place] [address] Dr. Jose Duffy THC Negative Normal NEGATIVE [facility] Comment on above: Performed By: #### DSDOALC #### [facility] [address] [place], [place] [address] Dr. Jose Duffy COMPLIANCE DRUG SCREENon PDF . Normal [facility] Comment on above: Performed By: #### DRUGRPD #### [facility] [address] [id number] [address] Jose Duffy Summary FINAL Normal [facility] Comment on above: Result Comment: TOXASSURE [...] . Performed By: #### D RUGRPD #### [facility] [address] [place] [address] Dr. Jose Duffy URIC ACID RAND URINEon 07-23 Uric Acid, Urine 21.8 mg/dL Normal Not Estab. [facility] Comment on above: Performed By: #### URICUR #### [facility] [address] [place] [address] Dr. Jose Duffy DRUG SCREEN RAPID (URINE)on 07-22-2022 AMP Negative Normal NEGATIVE [facility] Comment on above: Performed By: #### URICUR #### [facility] [address] [place] [address] Dr. Jose Duffy BAR Negative Normal NEGATIVE [facility] Comment on above: Performed By: #### URICUR #### [facility] [address] [place] [address] Dr. Jose Duffy BUP Positive Abnormal NEGATIVE [facility] Comment on above: Result Comment: Previously reported as: NEGATIVE On 07/22/2022 12:02 By [email or web address] Performed By: #### U RICUR #### [facility] [address] [place] [address] Dr. Jose Duffy BZO Negative Normal NEGATIVE [facility] Comment on above: Performed By: #### URICUR #### [facility] [address] [place] [address] Dr. Jose Duffy RICARDO Negative Normal NEGATIVE [facility] Comment on above: Performed By: #### URICUR #### [facility] [address] [address] [address] Jose Duffy CUT-OFFS SEE BELOW Normal [facility] Comment on above: Result Comment: AMP [...] ng/mL Performed By: #### U RICUR #### [facility] [address] [place] [address] Dr. Jose Duffy DRUG CUT HEADER DRUG CLASS TEST SYST EM CUT-OFF CONCENTRATIONS ARE FOLLOWS: Normal [facility] Comment on above: Performed By: #### URICUR #### [facility] [address] [place] [address] Dr. Jose Duffy mAMP Negative Normal NEGATIVE [facility] Comment on above: Performed By: #### URICUR #### [facility] [address] [address] [address] Jose Duffy MTD Negative Normal NEGATIVE [facility] Comment on above: Performed By: #### URICUR #### [facility] [address] [address] [address] Jose Duffy OPI Negative Normal NEGATIVE [facility] Comment on above: Performed By: #### URICUR #### [facility] [address] [place] [address] Dr. Jose Duffy OXY Negative Normal NEGATIVE [facility] Comment on above: Performed By: #### URICUR #### [facility] [address] [address] [address] Jose Duffy PCP Negative Normal NEGATIVE [facility] Comment on above: Performed By: #### URICUR #### [facility] [address] [address] [address] Jose Duffy PPX Negative Normal NEGATIVE [facility] Comment on above: Performed By: #### URICUR #### [facility] [address] [address] [address] Jose Duffy TCA Negative Normal NEGATIVE [facility] Comment on above: Performed By: #### URICUR #### [facility] [address] [place] [address] Dr. Jose Duffy THC Negative Normal NEGATIVE [facility] Comment on above: Performed By: #### URICUR #### [facility] [address] [place] [address] Dr. Jose Duffy COMPLIANCE DRUG SCREENon PDF . Normal [facility] Comment on above: Performed By: #### DRUGRPD #### [facility] [address] [place] [address] Dr. Jose Duffy Summary FINAL Normal [facility] Comment on above: Result Comment: TOXASSURE [...] . Performed By: #### D RUGRPD #### [facility] [address] [place] [address] Dr. Jose Duffy URIC ACID RAND URINEon 06-24 Uric Acid, Urine 33.0 mg/dL Normal Not Estab. [facility] Comment on above: Performed By: #### URICUR #### [facility] [address] [place] [address] Dr. Jose Duffy DRUG SCREEN RAPID (URINE)on 06-23-2022 AMP Negative Normal NEGATIVE [facility] Comment on above: Performed By: #### DRUGRPD #### [facility] [address] [place] [address] Dr. Jose Duffy BAR Negative Normal NEGATIVE [facility] Comment on above: Performed By: #### DRUGRPD #### [facility] [address] [place] [address] Dr. Jose Duffy BUP Positive Abnormal NEGATIVE [facility] Comment on above: Performed By: #### DRUGRPD #### [facility] [address] [place] [address] Dr. Jose Duffy BZO Negative Normal NEGATIVE [facility] Comment on above: Performed By: #### DRUGRPD #### [facility] [address] [place] [address] Dr. Jose Duffy RICARDO Negative Normal NEGATIVE [facility] Comment on above: Performed By: #### DRUGRPD #### [facility] [address] [place] [address] Dr. Jose Duffy CUT-OFFS SEE BELOW Normal [facility] Comment on above: Result Comment: AMP [...] ng/mL Performed By: #### D RUGRPD #### [facility] [address] [place] [address] Dr. Jose Duffy DRUG CUT HEADER DRUG CLASS TEST SYST EM CUT-OFF CONCENTRATIONS ARE FOLLOWS: Normal [facility] Comment on above: Performed By: #### DRUGRPD #### [facility] [address] [place] [address] Dr. Jose Duffy mAMP Negative Normal NEGATIVE [facility] Comment on above: Performed By: #### DRUGRPD #### [facility] [address] [place] [address] Dr. Jose Duffy MTD Negative Normal NEGATIVE [facility] Comment on above: Performed By: #### DRUGRPD #### [facility] [address] [address] [address] Jose Duffy OPI Negative Normal NEGATIVE [facility] Comment on above: Performed By: #### DRUGRPD #### [facility] [address] [address] [address] Jose Duffy OXY Negative Normal NEGATIVE [facility] Comment on above: Performed By: #### DRUGRPD #### [facility] [address] [address] [address] Jose Duffy PCP Negative Normal NEGATIVE [facility] Comment on above: Performed By: #### DRUGRPD #### [facility] [address] [address] [address] Jose Duffy PPX Negative Normal NEGATIVE [facility] Comment on above: Performed By: #### DRUGRPD #### [facility] [address] [address] [address] Jose Duffy TCA Negative Normal NEGATIVE [facility] Comment on above: Performed By: #### DRUGRPD #### [facility] [address] [address] [address] Jose Duffy THC Negative Normal NEGATIVE [facility] Comment on above: Performed By: #### DRUGRPD #### [facility] [address] [place] [address] Dr. Jose Duffy COMPLIANCE DRUG SCREENon PDF . Normal [facility] Comment on above: Performed By: #### URICUR #### [facility] [address] [address] [address] Jose Duffy Summary FINAL Normal [facility] Comment on above: Result Comment: TOXASSURE [...] . Performed By: #### U RICUR #### [facility] [address] [address] [address] Jose Duffy URIC ACID RAND URINEon 05-27 Uric Acid, Urine 18.9 mg/dL Normal Not Estab. [facility] Comment on above: Performed By: #### DSDOALC #### [facility] [address] [address] [address] Jose Duffy DRUG SCREEN RAPID (URINE)on 05-26-2022 AMP Negative Normal NEGATIVE [facility] Comment on above: Performed By: #### URICUR #### [facility] [address] [address] [address] Jose Duffy BAR Negative Normal NEGATIVE [facility] Comment on above: Performed By: #### URICUR #### [facility] [address] [address] [address] Jose Duffy BUP Positive Abnormal NEGATIVE [facility] Comment on above: Performed By: #### URICUR #### [facility] [address] [address] [address] Jose Duffy BZO Negative Normal NEGATIVE [facility] Comment on above: Performed By: #### URICUR #### [facility] [address] [address] [address] Jose Duffy RICARDO Negative Normal NEGATIVE [facility] Comment on above: Performed By: #### URICUR #### [facility] [address] [address] [address] Jose Duffy CUT-OFFS SEE BELOW Normal [facility] Comment on above: Result Comment: AMP [...] ng/mL Performed By: #### U RICUR #### [facility] [address] [address] [address] Jose Duffy DRUG CUT HEADER DRUG CLASS TEST SYST EM CUT-OFF CONCENTRATIONS ARE FOLLOWS: Normal [facility] Comment on above: Performed By: #### URICUR #### [facility] [address] [address] [address] Jose Duffy mAMP Negative Normal NEGATIVE [facility] Comment on above: Performed By: #### URICUR #### [facility] [address] [address] [address] Jose Duffy MTD Negative Normal NEGATIVE [facility] Comment on above: Performed By: #### URICUR #### [facility] [address] [place] [address] Dr. Jose Duffy OPI Negative Normal NEGATIVE [facility] Comment on above: Performed By: #### URICUR #### [facility] [address] [address] [address] Jose Duffy OXY Negative Normal NEGATIVE [facility] Comment on above: Performed By: #### URICUR #### [facility] [address] [address] [address] Jose Duffy PCP Negative Normal NEGATIVE [facility] Comment on above: Performed By: #### URICUR #### [facility] [address] [place] [address] Dr. Jose Duffy PPX Negative Normal NEGATIVE [facility] Comment on above: Performed By: #### URICUR #### [facility] [address] [address] [address] Jose Duffy TCA Negative Normal NEGATIVE [facility] Comment on above: Performed By: #### URICUR #### [facility] [address] [address] [address] Jose Duffy THC Negative Normal NEGATIVE [facility] Comment on above: Performed By: #### URICUR #### [facility] [address] [address] [address] Jose Duffy COMPLIANCE DRUG SCREENon PDF . Normal [facility] Comment on above: Performed By: #### DSDOALC #### [facility] [address] [address] [address] Jose Duffy Summary FINAL Normal [facility] Comment on above: Result Comment: TOXASSURE [...] . Performed By: #### D SDOALC #### [facility] [address] [place] [address] Dr. Jose Duffy URIC ACID RAND URINEon 03-16 Uric Acid, Urine 38.6 mg/dL Normal Not Estab. [facility] Comment on above: Performed By: #### URICUR #### [facility] [address] [place] [address] Dr. Jose Duffy DRUG SCREEN RAPID (URINE)on 03-15-2022 AMP Negative Normal NEGATIVE [facility] Comment on above: Performed By: #### DRUGRPD #### [facility] [address] [place] [address] Dr. Jose Duffy BAR Negative Normal NEGATIVE [facility] Comment on above: Performed By: #### DRUGRPD #### [facility] [address] [place] [address] Dr. Jose Duffy BUP Positive Abnormal NEGATIVE [facility] Comment on above: Performed By: #### DRUGRPD #### [facility] [address] [place] [address] Dr. Jose Duffy BZO Negative Normal NEGATIVE [facility] Comment on above: Performed By: #### DRUGRPD #### [facility] [address] [place] [address] Dr. Jose Duffy RICARDO Negative Normal NEGATIVE [facility] Comment on above: Performed By: #### DRUGRPD #### [facility] [address] [place] [address] Dr. Jose Duffy CUT-OFFS SEE BELOW Normal [facility] Comment on above: Result Comment: AMP [...] ng/mL Performed By: #### D RUGRPD #### [facility] [address] [place] [address] Dr. Jose Duffy DRUG CUT HEADER DRUG CLASS TEST SYST EM CUT-OFF CONCENTRATIONS ARE FOLLOWS: Normal [facility] Comment on above: Performed By: #### DRUGRPD #### [facility] [address] [place] [address] Dr. Jose Duffy mAMP Negative Normal NEGATIVE [facility] Comment on above: Performed By: #### DRUGRPD #### [facility] [address] [place] [address] Dr. Jose Duffy MTD Negative Normal NEGATIVE [facility] Comment on above: Performed By: #### DRUGRPD #### [facility] [address] [place] [address] Dr. Jose Duffy OPI Negative Normal NEGATIVE [facility] Comment on above: Performed By: #### DRUGRPD #### [facility] [address] [place] [address] Dr. Jose Duffy OXY Negative Normal NEGATIVE [facility] Comment on above: Performed By: #### DRUGRPD #### [facility] [address] [place] [address] Dr. Jose Duffy PCP Negative Normal NEGATIVE [facility] Comment on above: Performed By: #### DRUGRPD #### [facility] [address] [place] [address] Dr. Jose Duffy PPX Negative Normal NEGATIVE [facility] Comment on above: Performed By: #### DRUGRPD #### [facility] [address] [place] [address] Dr. Jose Duffy TCA Negative Normal NEGATIVE [facility] Comment on above: Performed By: #### DRUGRPD #### [facility] [address] [place] [address] Dr. Jose Duffy THC Negative Normal NEGATIVE [facility] Comment on above: Performed By: #### DRUGRPD #### [facility] [address] [place] [address] Dr. Jose Duffy COMPLIANCE DRUG SCREENon PDF . Normal [facility] Comment on above: Performed By: #### DSDOALC #### [facility] [address] [place] [address] Dr. Jose Duffy Summary FINAL Normal [facility] Comment on above: Result Comment: TOXASSURE [...] is an expected metabolite of dextromethorphan, an fukt-svz-uheefsu or prescription cough suppressant. Levorphanol is a [...] . Performed By: #### D SDOALC #### [facility] [address], [place] [address] Dr. Jose Duffy URIC ACID RAND URINEon 02-20 Uric Acid, Urine 44.5 mg/dL Normal Not Estab. [facility] Comment on above: Performed By: #### DSDOALC #### [facility] [address] [place], [place] [address] Dr. Jose Duffy DRUG SCREEN RAPID (URINE)on 02-19-2022 AMP Negative Normal NEGATIVE [facility] Comment on above: Performed By: #### DRUGRPD #### [facility] [address] [place] [address] Dr. Jose Duffy BAR Negative Normal NEGATIVE [facility] Comment on above: Performed By: #### DRUGRPD #### [facility] [address] [place] [address] Dr. Jose Duffy BUP Positive Abnormal NEGATIVE [facility] Comment on above: Performed By: #### DRUGRPD #### [facility] [address] [place] [address] Dr. Jose Duffy BZO Negative Normal NEGATIVE [facility] Comment on above: Performed By: #### DRUGRPD #### [facility] [address] [place] [address] Dr. Jose Duffy RICARDO Negative Normal NEGATIVE [facility] Comment on above: Performed By: #### DRUGRPD #### [facility] [address] [place] [address] Dr. Jose Duffy CUT-OFFS SEE BELOW Normal [facility] Comment on above: Result Comment: AMP [...] ng/mL Performed By: #### D RUGRPD #### [facility] [address] [place] [address] Dr. Jose Duffy DRUG CUT HEADER DRUG CLASS TEST SYST EM CUT-OFF CONCENTRATIONS ARE FOLLOWS: Normal [facility] Comment on above: Performed By: #### DRUGRPD #### [facility] [address] [place] [address] Dr. Jose Duffy mAMP Negative Normal NEGATIVE [facility] Comment on above: Performed By: #### DRUGRPD #### [facility] [address] [place] [address] [address] Jose Duffy MTD Negative Normal NEGATIVE [facility] Comment on above: Performed By: #### DRUGRPD #### [facility] [address] [place] [address] [address] Jose Duffy OPI Negative Normal NEGATIVE [facility] Comment on above: Performed By: #### DRUGRPD #### [facility] [address] [place] [address] [address] Jose Duffy OXY Negative Normal NEGATIVE [facility] Comment on above: Performed By: #### DRUGRPD #### [facility] [address] [place] [address] [address] Jose Duffy PCP Negative Normal NEGATIVE [facility] Comment on above: Performed By: #### DRUGRPD #### [facility] [address] [place] [address] Dr. Jose Duffy PPX Negative Normal NEGATIVE [facility] Comment on above: Performed By: #### DRUGRPD #### [facility] [address] [place] [address] [address] Jose Duffy TCA Negative Normal NEGATIVE [facility] Comment on above: Performed By: #### DRUGRPD #### [facility] [address] [place] [address] [address] Jose Duffy THC Negative Normal NEGATIVE [facility] Comment on above: Performed By: #### DRUGRPD #### [facility] [address] [place] [address] Dr. Jose uDffy COMPLIANCE DRUG SCREENon PDF . Normal [facility] Comment on above: Performed By: #### DSDOALC #### [facility] [address] [place] [address] Dr. Jose Duffy Summary FINAL Normal [facility] Comment on above: Result Comment: TOXASSURE [...] . Performed By: #### D SDOALC #### [facility] [address] [place] [address] Dr. Jose Duffy URIC ACID RAND URINEon 01-28 Uric Acid, Urine 30.0 mg/dL Normal Not Estab. [facility] Comment on above: Performed By: #### URICUR #### [facility] [address] [place] [address] Dr. Jose Duffy DRUG SCREEN RAPID (URINE)on 01-27-2022 AMP Negative Normal NEGATIVE [facility] Comment on above: Performed By: #### DRUGRPD #### [facility] [address] [place] [address] Dr. Jose Duffy BAR Negative Normal NEGATIVE [facility] Comment on above: Performed By: #### DRUGRPD #### [facility] [address] [place] [address] Dr. Jose Duffy BUP Positive Abnormal NEGATIVE [facility] Comment on above: Performed By: #### DRUGRPD #### [facility] [address] [place] [address] Dr. Jose Duffy BZO Negative Normal NEGATIVE [facility] Comment on above: Performed By: #### DRUGRPD #### [facility] [address] [place] [address] Dr. Jose Duffy RICARDO Negative Normal NEGATIVE [facility] Comment on above: Performed By: #### DRUGRPD #### [facility] [address] [place] [address] Dr. Jose Duffy CUT-OFFS SEE BELOW Normal [facility] Comment on above: Result Comment: AMP [...] ng/mL Performed By: #### D RUGRPD #### [facility] [address] [place] [address] Dr. Jose Duffy DRUG CUT HEADER DRUG CLASS TEST SYST EM CUT-OFF CONCENTRATIONS ARE FOLLOWS: Normal [facility] Comment on above: Performed By: #### DRUGRPD #### [facility] [address] [place] [address] Dr. Jose Duffy mAMP Negative Normal NEGATIVE [facility] Comment on above: Performed By: #### DRUGRPD #### [facility] [address] [place] [address] Dr. Jose Duffy MTD Negative Normal NEGATIVE [facility] Comment on above: Performed By: #### DRUGRPD #### [facility] [address] [place] [address] Dr. Jose Duffy OPI Negative Normal NEGATIVE [facility] Comment on above: Performed By: #### DRUGRPD #### [facility] [address] [place] [address] [address] Jose Duffy OXY Negative Normal NEGATIVE [facility] Comment on above: Performed By: #### DRUGRPD #### [facility] [address] [place] [address] Dr. Jose Duffy PCP Negative Normal NEGATIVE [facility] Comment on above: Performed By: #### DRUGRPD #### [facility] [address] [place] [address] Dr. Jose Duffy PPX Negative Normal NEGATIVE [facility] Comment on above: Performed By: #### DRUGRPD #### [facility] [address] [place] [address] Dr. Jose Duffy TCA Negative Normal NEGATIVE [facility] Comment on above: Performed By: #### DRUGRPD #### [facility] [address] [place] [address] Dr. Jose Duffy THC Negative Normal NEGATIVE [facility] Comment on above: Performed By: #### DRUGRPD #### [facility] [address] [place] [address] [address] Jose Duffy COMPLIANCE DRUG SCREENon PDF . Normal [facility] Comment on above: Performed By: #### URICUR #### [facility] [address] [place] [address] [address] Jose Duffy Summary FINAL Normal [facility] Comment on above: Result Comment: TOXASSURE [...] . Performed By: #### U RICUR #### [facility] [address] [place] [address] Dr. Jose Duffy URIC ACID RAND URINEon 01-09 Uric Acid, Urine 25.0 mg/dL Normal Not Estab. [facility] Comment on above: Performed By: #### DRUGRPD #### [facility] [address] [place] [address] Dr. Jose Duffy DRUG SCREEN RAPID (URINE)on 01-08-2022 AMP Negative Normal NEGATIVE [facility] Comment on above: Performed By: #### URICUR #### [facility] [address] [place] [address] Dr. Jose Duffy BAR Negative Normal NEGATIVE [facility] Comment on above: Performed By: #### URICUR #### [facility] [address] [place] [address] Dr. Jose Duffy BUP Positive Abnormal NEGATIVE [facility] Comment on above: Performed By: #### URICUR #### [facility] [address] [place] [address] Dr. Jose Duffy BZO Negative Normal NEGATIVE [facility] Comment on above: Performed By: #### URICUR #### [facility] [address] [place] [address] Dr. Jose Duffy RICARDO Negative Normal NEGATIVE [facility] Comment on above: Performed By: #### URICUR #### [facility] [address] [place] [address] Dr. Jose Duffy CUT-OFFS SEE BELOW Normal [facility] Comment on above: Result Comment: AMP [...] ng/mL Performed By: #### U RICUR #### [facility] [address] [place] [address] Dr. Jose Duffy DRUG CUT HEADER DRUG CLASS TEST SYST EM CUT-OFF CONCENTRATIONS ARE FOLLOWS: Normal [facility] Comment on above: Performed By: #### URICUR #### [facility] [address] [place] [address] Dr. Jose Duffy mAMP Negative Normal NEGATIVE [facility] Comment on above: Performed By: #### URICUR #### [facility] [address] [place] [address] Dr. Jose Duffy MTD Negative Normal NEGATIVE [facility] Comment on above: Performed By: #### URICUR #### [facility] [address] [place] [address] Dr. Jose Duffy OPI Negative Normal NEGATIVE [facility] Comment on above: Performed By: #### URICUR #### [facility] [address] [place] [address] Dr. Jose Duffy OXY Negative Normal NEGATIVE [facility] Comment on above: Performed By: #### URICUR #### [facility] [address] [place] [address] Dr. Jose Duffy PCP Negative Normal NEGATIVE [facility] Comment on above: Performed By: #### URICUR #### [facility] [address] [place] [address] [address] Jose Duffy PPX Negative Normal NEGATIVE [facility] Comment on above: Performed By: #### URICUR #### [facility] [address] [place] [address] [address] Jose Duffy TCA Negative Normal NEGATIVE [facility] Comment on above: Performed By: #### URICUR #### [facility] [address] [place] [address] [address] Jose Duffy THC Negative Normal NEGATIVE [facility] Comment on above: Performed By: #### URICUR #### [facility] [address] [place] [address] [address] Jose Duffy COMPLIANCE DRUG SCREENon PDF . Normal [facility] Comment on above: Performed By: #### DSDOALC #### [facility] [address] [place] [address] [address] Jose Duffy Summary FINAL Normal [facility] Comment on above: Result Comment: TOXASSURE [...] please call . Performed By: #### D [facility] #### [facility] [address] [place] [address] ABD/PELV W CONon [...] by: VENKATA GRIMALDO Date: 2021-12-18 15:[address] [facility] US SINGLE QUAD RT UPPERon US [...] VENKATA GRIMALDO Date: 2021-12-18 15:09 Normal [facility] URIC ACID RAND URINEon 12-16 Uric Acid, Urine 46.2 mg/dL Normal Not Estab. [facility] Comment on above: Performed By: #### DSDOALC #### [facility] [address] [place] [address] [address] Jose Duffy AMYLASEon 12-15-2021 Amylase [Catalytic activity/Vol] 134 U/L Critically high 25-115 [facility] Comment on above: Performed By: #### DRUGRPD #### [facility] [address] [place] [address] [address] Jose Duffy CBC AUTO DIFFon 12-15-2021 BASO # 0.1 103/ul Normal 0.0-0.1 [facility] Comment on above: Performed By: #### DRUGRPD #### [facility] [address] [place] [address] Dr. Jose Duffy Basophils/100 WBC (Bld) 0.6 % Normal 0.2-2.0 [facility] Comment on above: Performed By: #### DRUGRPD #### [facility] [address] [place] [address] Dr. Jose Duffy EO # 0.3 103/ul Normal 0.0-0.7 [facility] Comment on above: Performed By: #### DRUGRPD #### [facility] [address] [place] [address] Dr. Jose Duffy Eosinophils/100 WBC (Bld) 3.0 % Normal 0.9-7.0 [facility] Comment on above: Performed By: #### DRUGRPD #### [facility] [address] [place] [address] Dr. Jose Duffy Erythrocyte distribution width (RBC) [Ratio] 13.2 % Normal 11.0-15.0 [facility] Comment on above: Performed By: #### DRUGRPD #### [facility] [address] [place] [address] Dr. Jose Duffy Hematocrit (Bld) [Volume fraction] 42.7 % Normal 42.0-54.0 [facility] Comment on above: Performed By: #### DRUGRPD #### [facility] [address] [place] [address] Dr. Jose Duffy Hemoglobin (Bld) [Mass/Vol] 14.3 g/dL Normal 14.0-18.0 [facility] Comment on above: Performed By: #### DRUGRPD #### [facility] [address] [place] [address] Dr. Jose Duffy IG # 0.02 10e3/ul Normal 0.00-0.03 [facility] Comment on above: Performed By: #### DRUGRPD #### [facility] [address] [place] [address] Dr. Jose Duffy IG % 0.2 % Normal 0.0-0.5 [facility] Comment on above: Performed By: #### DRUGRPD #### [facility] [address] [place] [address] Dr. Jose Duffy LYMPH # 2.3 103/ul Normal 1.2-3.8 [facility] Comment on above: Performed By: #### DRUGRPD #### [facility] [address] [place] [address] Dr. Jose Duffy Lymphocytes/100 WBC (Bld) 20.6 % Normal 20.5-60.0 [facility] Comment on above: Performed By: #### DRUGRPD #### [facility] [address] [place] [address] Dr. Jose Duffy MANUAL DIFF REQ NO Normal [facility] Comment on above: Performed By: #### DRUGRPD #### [facility] [address] [place] [address] Dr. Jose Duffy MCH (RBC) [Entitic mass] 28.7 pg Normal 25.9-34.0 [facility] Comment on above: Performed By: #### DRUGRPD #### [facility] [address] [place] [address] Dr. Jose Duffy MCHC (RBC) [Mass/Vol] 33.5 g/dL Normal 29.9-35.2 [facility] Comment on above: Performed By: #### DRUGRPD #### [facility] [address] [place] [address] Dr. Jose Duffy MCV (RBC) [Entitic vol] 85.6 fL Normal 80.0-94.0 [facility] Comment on above: Performed By: #### DRUGRPD #### [facility] [address] [place] [address] Dr. Jose Duffy MONO # 0.8 103/ul Normal 0.3-0.8 [facility] Comment on above: Performed By: #### DRUGRPD #### [facility] [address] [place] [address] Dr. Jose Duffy Monocytes/100 WBC (Bld) 7.5 % Normal 1.7-12.0 [facility] Comment on above: Performed By: #### DRUGRPD #### [facility] [address] [place] [address] Dr. Jose Duffy NEUT # 7.4 103/ul Critically high 1.4-6.5 [facility] Comment on above: Performed By: #### DRUGRPD #### [facility] [address] [place] [address] Dr. Jose Duffy Neutrophils/100 WBC (Bld) 68.1 % Normal 43.0-75.0 [facility] Comment on above: Performed By: #### DRUGRPD #### [facility] [address] [place] [address] Dr. Jose Duffy Platelet mean volume (Bld) [Entitic vol] 9.0 fL Critically low 9.5-13.5 [facility] Comment on above: Performed By: #### DRUGRPD #### [facility] [address] [place] [address] Dr. Jose Duffy PLT 253 103/ul Normal 150-450 [facility] Comment on above: Performed By: #### DRUGRPD #### [facility] [address] [place] [address] Dr. Jose Duffy RBC 4.99 106/ul Normal 4.70-6.10 [facility] Comment on above: Performed By: #### DRUGRPD #### [facility] [address] [place] [address] Dr. Jose Duffy WBC 10.9 103/ul Normal 4.0-11.0 [facility] Comment on above: Performed By: #### DRUGRPD #### [facility] [address] [place] [address] Dr. Jose Duffy LIPASEon 12-15-2021 Lipase [Catalytic activity/Vol] 207.0 U/L Normal 73.0-393.0 [facility] Comment on above: Performed By: #### DRUGRPD #### [facility] [address] [place] [address] Dr. Jose Duffy PROF 14(COMP METB)on 022 Albumin [Mass/Vol] 4.3 g/dL Normal 3.4-5.0 [facility] Comment on above: Performed By: #### DRUGRPD #### [facility] [address] [place] [address] Dr. Jose Duffy Albumin/Globulin [Mass ratio] 1.2 {ratio} Normal [facility] Comment on above: Performed By: #### DRUGRPD #### [facility] [address] [place] [address] Dr. Jose Duffy ALP [Catalytic activity/Vol] 68 U/L Normal 46-116 [facility] Comment on above: Performed By: #### DRUGRPD #### [facility] [address] [place] [address] Dr. Jose Duffy ALT [Catalytic activity/Vol] 132 U/L Critically high 16-63 [facility] Comment on above: Performed By: #### DRUGRPD #### [facility] [address] [place] [address] Dr. Jose Duffy Anion gap [Moles/Vol] 12.2 mmol/L Normal [facility] Comment on above: Performed By: #### DRUGRPD #### [facility] [address] [place] [address] Dr. Jose Duffy AST [Catalytic activity/Vol] 83 U/L Critically high 15-37 [facility] Comment on above: Performed By: #### DRUGRPD #### [facility] [address] [place] [address] Dr. Jose Duffy Bilirubin [Mass/Vol] 0.6 mg/dL Normal 0.2-1.0 [facility] Comment on above: Performed By: #### DRUGRPD #### [facility] [address] [place] [address] Dr. Jose Duffy Calcium [Mass/Vol] 8.9 mg/dL Normal 8.5-10.1 [facility] Comment on above: Performed By: #### DRUGRPD #### [facility] [address] [place] [address] Dr. Jose Duffy Chloride [Moles/Vol] 104 mmol/L Normal 98-107 [facility] Comment on above: Performed By: #### DRUGRPD #### [facility] [address] [place] [address] [address] Jose Duffy CO2 [Moles/Vol] 29.1 mmol/L Normal 21.0-32.[address] [facility] Comment on above: Performed By: #### DRUGRPD #### [facility] [address] [place] [address] [address] Jose Duffy Creatinine [Mass/Vol] 0.95 mg/dL Normal 0.70-1.30 [facility] Comment on above: Performed By: #### DRUGRPD #### [facility] [address] [place] [address] Dr. Jose Duffy EGFR-AF JORDANIAN >60 Normal >=[address] [facility] Comment on above: Performed By: #### DRUGRPD #### [facility] [address] [address] [address] Jose Duffy EGFR-NON AF JORDANIAN >60 Normal >=60 [facility] Comment on above: Performed By: #### DRUGRPD #### [facility] [address] [address] [address] Jose Duffy Globulin (S) [Mass/Vol] 3.5 g/dL Normal [facility] Comment on above: Performed By: #### DRUGRPD #### [facility] [address] [address] [address] Jose Duffy Glucose [Mass/Vol] 101 mg/dL Normal 74-106 [facility] Comment on above: Performed By: #### DRUGRPD #### [facility] [address] [address] [address] Jose Duffy Potassium [Moles/Vol] 4.3 mmol/L Normal 3.5-5.1 [facility] Comment on above: Performed By: #### DRUGRPD #### [facility] [address] [address] [address] Jose Duffy Protein [Mass/Vol] 7.8 g/dL Normal 6.4-8.2 [facility] Comment on above: Performed By: #### DRUGRPD #### [facility] [address] [place] [address] Dr. Jose Duffy Sodium [Moles/Vol] 141 mmol/L Normal 136-145 [facility] Comment on above: Performed By: #### DRUGRPD #### [facility] [address] [place] [address] Dr. Jose Duffy Urea nitrogen [Mass/Vol] 20.0 mg/dL Critically high 7.0-18.0 [facility] Comment on above: Performed By: #### DRUGRPD #### [facility] [address] [place] [address] Dr. Jose Duffy Urea nitrogen/Creatin ine [Mass ratio] 21.1 mg/mg Normal [facility] Comment on above: Performed By: #### DRUGRPD #### [facility] [address] [place] [address] Dr. Jose Duffy COMPLIANCE DRUG SCREENon PDF . Normal [facility] Comment on above: Performed By: #### DSDOALC #### [facility] [address] [place] [address] Dr. Jose Duffy Summary FINAL Normal [facility] Comment on above: Result Comment: TOXASSURE [...] . Performed By: #### D SDOALC #### [facility] [address] [place] [address] Dr. Jose Duffy URIC ACID RAND URINEon 11-04 Uric Acid, Urine 91.5 mg/dL Normal Not Estab. [facility] Comment on above: Performed By: #### URICUR #### [facility] [address] [address] [address] Jose Duffy DRUG SCREEN RAPID (URINE)on 11-02-2021 AMP Negative Normal NEGATIVE [facility] Comment on above: Performed By: #### URICUR #### [facility] [address] [place] [address] Dr. Jose Duffy BAR Negative Normal NEGATIVE [facility] Comment on above: Performed By: #### URICUR #### [facility] [address] [place] [address] Dr. Jose Duffy BUP Positive Abnormal NEGATIVE [facility] Comment on above: Performed By: #### URICUR #### [facility] [address] [place] [address] Dr. Jose Duffy BZO Negative Normal NEGATIVE [facility] Comment on above: Performed By: #### URICUR #### [facility] [address] [place] [address] Dr. Jose Duffy RICARDO Negative Normal NEGATIVE [facility] Comment on above: Performed By: #### URICUR #### [facility] [address] [place] [address] Dr. Jose Duffy CUT-OFFS SEE BELOW Normal [facility] Comment on above: Result Comment: AMP [...] ng/mL Performed By: #### U RICUR #### [facility] [address] [place] [address] Dr. Jose Duffy DRUG CUT HEADER DRUG CLASS TEST SYST EM CUT-OFF CONCENTRATIONS ARE FOLLOWS: Normal [facility] Comment on above: Performed By: #### URICUR #### [facility] [address] [place] [address] Dr. Jose Duffy mAMP Negative Normal NEGATIVE [facility] Comment on above: Performed By: #### URICUR #### [facility] [address] [address] [address] Jose Duffy MTD Negative Normal NEGATIVE [facility] Comment on above: Performed By: #### URICUR #### [facility] [address] [address] [address] Jose Duffy OPI Negative Normal NEGATIVE [facility] Comment on above: Performed By: #### URICUR #### [facility] [address] [address] [address] Jose Duffy OXY Negative Normal NEGATIVE [facility] Comment on above: Performed By: #### URICUR #### [facility] [address] [place] [address] Dr. Jose Duffy PCP Negative Normal NEGATIVE [facility] Comment on above: Performed By: #### URICUR #### [facility] [address] [place] [address] Dr. Jose Duffy PPX Negative Normal NEGATIVE [facility] Comment on above: Performed By: #### URICUR #### [facility] [address] [address] [address] Jose Duffy TCA Negative Normal NEGATIVE [facility] Comment on above: Performed By: #### URICUR #### [facility] [address] [place] [address] Dr. Jose Duffy THC Negative Normal NEGATIVE [facility] Comment on above: Performed By: #### URICUR #### [facility] [address] [place] [address] Dr. Jose Duffy .UA Microscp Aon 12-01-2018 UA Mucus Present Abnormal Absent [facility] Comment on above: Performed By: #### CD:[id number] #### [address] [address] UA RBC Quant 327 /HPF High 0-5 [facility] Comment on above: Performed By: #### CD:[id number] #### [address] [address] UA Squepi Cells Quant 1 /HPF Normal 0-29 [facility] Comment on above: Performed By: #### CD:[id number] #### [address] [address] UA WBC Quant 4 /HPF Normal 0-5 [facility] Comment on above: Performed By: #### CD:[id number] #### [address] [address] .eGFRon 12-01-2018 eGFR AA >60 Normal >=60 [facility] Comment on above: Result Comment: Result = 0-14.9 mL/min/1 .73 m2 Kidney failure or Dialysis Result = 15-29 mL/min/1.73 m2 Severe decrease in GFR Result = 30-59 mL/min/1.73 m2 Moderate decrease in GFR Result >= 60 mL/min/1.73 m2 Normal or increased GFR Performed By: #### E GFR #### [address] [address] eGFR Non-AA >60 Normal >=60 [facility] Comment on above: Result Comment: Result [...] dosing. Performed By: #### E GFR #### [address] [address] CBC w/ Diffon 12-01-2018 Erythrocyte distribution width (RBC) [Ratio] 14.0 % Normal 11.6-14.8 [facility] Comment on above: Performed By: #### CBC #### [address] [address] Hematocrit (Bld) [Volume fraction] 43.5 % Normal 41.0-53.0 [facility] Comment on above: Performed By: #### CBC #### [address] [address] Hemoglobin (Bld) [Mass/Vol] 14.7 g/dL Normal 13.5-17.5 [facility] Comment on above: Performed By: #### CBC #### [address] [address] MCH (RBC) [Entitic mass] 28.5 pg Normal 27.0-35.0 [facility] Comment on above: Performed By: #### CBC #### [address] [address] MCHC (RBC) [Mass/Vol] 33.8 % Normal 31.0-37.0 [facility] Comment on above: Performed By: #### CBC #### [address] [address] MCV (RBC) [Entitic vol] 84.4 fL Normal 80.0-100.0 [facility] Comment on above: Performed By: #### CBC #### [address] [address] Platelet mean volume (Bld) [Entitic vol] 7.3 fL Normal 6.7-10.6 [facility] Comment on above: Performed By: #### CBC #### [address] [address] Platelets (Bld) [#/Vol] 273 x10*3/mcL Normal 150-350 [facility] Comment on above: Performed By: #### CBC #### [address] [address] RBC (Bld) [#/Vol] 5.16 x10*6/mcL Normal 4.30-5.80 [facility] Comment on above: Performed By: #### CBC #### [address] [address] WBC (Bld) [#/Vol] 11.0 x10*3/mcL Normal 4.5-11.0 [facility] Comment on above: Performed By: #### CBC #### [address] [address] CMPon 12-01-2018 Albumin [Mass/Vol] 4.2 g/dL Normal 3.2-4.9 [facility] Comment on above: Result Comment: [facility] Laboratory updated t methodology used for albumin testing on 12/21/17. Albumin measurement was performed using a bromcresol purple dye-binding assay. Performed By: #### C OMP #### [address] [address] Albumin/Globulin [Mass ratio] 1.3 {ratio} Normal 1.1-2.2 [facility] Comment on above: Performed By: #### COMP #### [address] [address] Alk Phos 80 IU/L Normal 32-91 [facility] Comment on above: Performed By: #### COMP #### [address] [address] ALT [Catalytic activity/Vol] 41 U/L Normal 17-63 [facility] Comment on above: Performed By: #### COMP #### [address] [address] Anion gap [Moles/Vol] 15 mmol/L Normal 7-17 [facility] Comment on above: Performed By: #### COMP #### [address] [address] AST [Catalytic activity/Vol] 43 U/L High 15-41 [facility] Comment on above: Performed By: #### COMP #### [address] [address] Bili Total 0.7 mg/dL Normal 0.3-1.2 [facility] Comment on above: Performed By: #### COMP #### [address] [address] Calcium [Mass/Vol] 9.2 mg/dL Normal 8.5-10.3 [facility] Comment on above: Performed By: #### COMP #### [address] [address] Chloride [Moles/Vol] 104 mmol/L Normal 98-110 [facility] Comment on above: Performed By: #### COMP #### [address] [address] CO2 [Moles/Vol] 25 mmol/L Normal 22-32 [facility] Comment on above: Performed By: #### COMP #### [address] [address] Creatinine [Mass/Vol] 0.98 mg/dL Normal 0.61-1.24 [facility] Comment on above: Performed By: #### COMP #### [address] [address] Glucose [Mass/Vol] 126 mg/dL High 74-118 [facility] Comment on above: Performed By: #### COMP #### [address] [address] Potassium [Moles/Vol] 3.7 mmol/L Normal 3.4-4.8 [facility] Comment on above: Performed By: #### COMP #### [address] [address] Protein [Mass/Vol] 7.4 g/dL Normal 6.5-8.1 [facility] Comment on above: Performed By: #### COMP #### [address] [address] Sodium [Moles/Vol] 140 mmol/L Normal 133-142 [facility] Comment on above: Performed By: #### COMP #### [address] [address] Urea nitrogen [Mass/Vol] 19 mg/dL Normal 8-26 [facility] Comment on above: Performed By: #### COMP #### [address] [address] Urea nitrogen/Creatin ine [Mass ratio] 19.4 mg/mg Normal 10.0-20.0 [facility] Comment on above: Performed By: #### COMP #### [address] [address] [address] Abd Pelvis w/o IV Cont St [...] stability of the nodule Radiation Dose Estimate: CTDI(mGy):0.111427 / / / kVp:120.735423 / mAs:0.043915 / / / DLP(mGy-cm):7.459594Rpyu Part: Abdomen Final Dictated by: Donnell Luther MD Dictated DT/TM: 12.01.2018 8:57 am Signed by: Donnell Luther MD Signed (Electronic Signature): 12.01.2018 9:03 am (If Report Is Signed, Electronically Signed in Other Vendor System) Normal [facility] Diff Autoon 12-01-2018 Baso Absolute 0.0 x10*3/mcL Normal 0.0-0.2 [facility] Comment on above: Performed By: #### .Automated Diff #### [address] [address] Basophils/100 WBC (Bld) 0.3 % Normal 0.0-1.2 [facility] Comment on above: Performed By: #### .Automated Diff #### [address] [address] Eos Absolute 0.3 x10*3/mcL Normal 0.0-0.4 [facility] Comment on above: Performed By: #### .Automated Diff #### [address] [address] Eosinophils/100 WBC (Bld) 2.8 % Normal 0.0-6.1 [facility] Comment on above: Performed By: #### .Automated Diff #### [address] [address] Lymphocytes (Bld) [#/Vol] 3.5 x10*3/mcL Normal 1.0-4.8 [facility] Comment on above: Performed By: #### .Automated Diff #### [address] [address] Lymphocytes/100 WBC (Bld) 32.0 % Normal 27.2-40.8 [facility] Comment on above: Performed By: #### .Automated Diff #### [address] [address] Peach Absolute 0.8 x10*3/mcL Normal 0.3-1.1 [facility] Comment on above: Performed By: #### .Automated Diff #### [address] [address] Monocytes/100 WBC (Bld) 7.4 % Normal 4.7-13.9 [facility] Comment on above: Performed By: #### .Automated Diff #### [address] [address] Neutro Absolute 6.3 x10*3/mcL Normal 1.8-7.7 [facility] Comment on above: Performed By: #### .Automated Diff #### [address] [address] Neutro Auto 57.5 % Normal 47.2-70.8 [facility] Comment on above: Performed By: #### .Automated Diff #### [address] [address] ED Clinical Summaryon 2018 ED Clinical Summary [address] [address] ED Clinical Summary Person Information Name: Bessy Torres [facility] Age: 38 Years : 1980 Sex: Male PCP: Romy Samayoa MD Marital Status: Single Phone: Race: White Ethnicity: Not or Language: St [place]ian Visit Reason: Flank pain; Flank pain Acuity: 3 Enc Type: Emergency Med Service: Emergency Medicine Arrival: 12/01/2018 07:25:25 Discharge: 12/01/2018 10:15:00 LOS: 000 02:50 Checkin: 12/01/2018 07:25:25 Checkout: 12/01/2018 10:15:00 Dispo Type: Home or Self Care Address: [address] [place] [address] Provider Notes: History of Present Illness Patient [...] range between ( 27.2 and 40.8 ) Peach Auto: 7.4 % -- Normal range between [...] range between ( 41.0 and 53.0 ) Peach Absolute: 0.8 x10 MCH: 28.5 pg -- [...] Med List: New Medications [facility], [address], [place] [id number], [phone] ondansetron (Zofran 4 mg oral tablet) 1 [...] 7 Days. Refills: 0. Last Dose: hydrocodone-acetaminophen (Williams 5 mg-325 mg oral tablet) 1 Tabs [...] a meal. Last Dose: [facility], [address] [place], [place] [id number], [phone] ondansetron (Zofran 4 mg oral tablet) 1 [...] hours for 7 Days. Refills: 0. hydrocodone-acetaminophen (Williams 5 mg-325 mg oral tablet) 1 Tabs [...] Follow up: With: Address: When: Romy Samayoa [address] [place] [address] [place] [address] [phone] Business (1) Within 1 to 2 days Discharge Orders: Discharge Patient 12/01/18 9:58:00 EDT, Discharge to Home, Self Discharge Special Instructions Your [facility] [address] [place], [place] [address]. Discharge Special Instructions If you are unable to make this appointment, please call the office at [phone]. Discharge Special Instructions Please arrive by 8:00AM the next business day for your appointment. Business days are Tuesday through Tuesday. Discharge Special Instructions Please DO NOT EAT or DRINK anything after midnight the night before your appointment. PLEASE DO NOT EAT BREAKFAST. Discharge Special Instructions Please strain your urine as instructed until your appointment at [facility]. Return to Work/School 12/01/18 10:10:00 EDT, 12/02/18 8:00:00 EDT, 12/01/18 10:10:00 EDT Patient Education Information: [facility]NEY STONE w/ [facility] Poison Help line: . [facility] Hotline: [place] Tobacco Quit Line: [facility] ([place], [place]) [address]: [phone] [place], [place]) [address]: [phone] [facility] [address] [facility] [place], [place]: [phone] Normal [facility] ED Note-Physicianon 12-02-19 ED Note-Physician Chief [...] in this document, created by the medical liaison for me, accurately reflects the services I [...] 12/01/18 9:56:00 EDT, STAT, Dispense From Location: [id number], UTI/Pyelonephritis ciprofloxacin, 1 tabs, Oral, q12hr, X 7 days, # 14 tabs, 0 Refill(s), 12/08/18 9:57:00 EDT hydrocodone-acetaminophen, 1 tabs, Oral, q4hr, PRN, X 3 days, # 18 tabs, 0 Refill(s), 12/04/18 9:52:00 EDT ondansetron, 1 tabs, Oral, q8hr, PRN, # 15 tabs, 0 Refill(s), Pharmacy: [facility] tamsulosin, 1 caps, Oral, Daily, # 7 caps, 0 Refill(s), Pharmacy: [facility] 2. Renal colic Ordered: ciprofloxacin, 500 mg, Oral, Tab, Once, First Dose: 12/01/18 9:56:00 EDT, Stop Date: 12/01/18 9:56:00 EDT, STAT, Dispense From Location: [id number], UTI/Pyelonephritis 3. Lung nodule Ordered: ciprofloxacin, 500 mg, Oral, Tab, Once, First Dose: 12/01/18 9:56:00 EDT, Stop Date: 12/01/18 9:56:00 EDT, STAT, Dispense From Location: [facility], UTI/Pyelonephritis Orders: sodium chloride, 10 mL, IV Push, Injection, As Indicated, PRN flush, First Dose: 12/01/18 7:37:00 EDT, Dispense From Location: [facility] Sodium Chloride 0.9% intravenous solution 1,000 mL, [...] MD 12/01/18 10:14 EDT Elif Fox Normal [facility] UA w Culture if Indon 2018 Color (U) Yellow Normal [facility] Comment on above: Performed By: #### UCI #### [facility] [address] [place] [address] Glucose (U) [Mass/Vol] Negative Normal Negative [facility] Comment on above: Performed By: #### UCI #### [facility] [address] [place] [address] Ketones Ql (U) Negative Normal Negative [facility] Comment on above: Performed By: #### UCI #### [address] [place] [address] UA Blood Large Abnormal Negative [facility] Comment on above: Performed By: #### UCI #### [address] [place] [address] UA Clarity Hazy Normal [facility] Comment on above: Performed By: #### UCI #### [address] [place] [address] UA Leukocyte Esterase Trace Abnormal Negative [facility] Comment on above: Performed By: #### UCI #### [address] [place] [address] UA Nitrite Negative Normal Negative [facility] Comment on above: Performed By: #### UCI #### [address] [address] UA pH 5.0 Normal 4.5 - 7.8 [facility] Comment on above: Performed By: #### UCI #### [address] [place] [address] UA Protein Negative Normal Negative [facility] Comment on above: Performed By: #### UCI #### [address] [place] [address] UA Source Clean Catch Normal [facility] Comment on above: Performed By: #### UCI #### [address] [address] UA Spec Grav 1.015 Normal 1.003-1.035 [facility] Comment on above: Performed By: #### UCI #### [address] [address] UA Urobilinogen 0.2 mg/dL Normal 0.2 - 1.0 [facility] Comment on above: Performed By: #### UCI #### [address] [address] Urobilinogen Qn (U) Negative Normal Negative [facility] Comment on above: Performed By: #### UCI #### [facility] [address] [place] [address] Vital Signs Date Time Vital Sign Value Performing Clinician Jessica woody 06-29-2023 15:20-0500 Blood Pressure Location Donnell CHASE [facility] [place] 06-29-2023 15:20-0500 Diastolic blood pressure 76 mm[Hg] Donnell NILL [facility] [place] 06-29-2023 15:20-0500 Heart rate 72 /min Donnell NILL [facility] [place] 06-29-2023 15:20-0500 Respiratory rate 16 /min Donnell NILL [facility] [place] 06-29-2023 15:20-0500 Systolic blood pressure 118 mm[Hg] Donnell JESSENIAL [facility] [place] Encounters Encounter Date Encounter Type Care Provider Facility Start: 02-28-2024 End: 02-28-2024 ambulatory John VEGA Facility:[facility] Start: 01-23-2024 End: 01-23-2024 ambulatory Romy Samayoa Facility:[facility] [place] Start: 01-23-2024 End: 01-23-2024 Patient encounter procedure Doron PANTOJA [facility] [place] Start: 06-29-2023 End: 06-29-2023 ambulatory Donnell STONE Facility: [place] Start: 06-29-2023 End: 06-29-2023 Patient encounter procedure Donnell Lacy RUELASL [facility] [place] Start: 06-08-2023 ambulatory John VEGA Facilit y:[facility] Start: 10-06-2022 End: 10-07-[address] ROMY [...] End: 12-01-2018 Emergency department patient visit SHANTI MABRY Facility:[facility] Procedures Date Procedure Procedure Detail Performing Clinician Start: 11-11-2014 Colonoscopy Donnell FITZPATRICK Start: 11-11-2014 Esophagogastroduodenoscopy Donnell STONE Appendectomy Donnell STONE Cholecystectomy Donnell STONE Tonsillectomy Donnell STONE Immunizations Immunization Date Immunization Notes Care Provider Fa minerva 12-26-2020 SARS-CoV-2 (COVID-19 ) mRNA BNT-162b2 vax Donnell STONE [facility] [place] NEGATED: Highlighted row has not occurred!06-29-2023 influenza virus vaccine, unspecified formulation Donnell STONE [facility] [place] Payers Date Payer Category Payer Private Health Insurance [id number] 2018 Unknown 1980 Unknown [id number] 2.16.8 [id number] 1980 Unknown [id number] 2.16.84 [id number] 1980 Unknown [id number] 2.16.84 0.1.265438.3.579.2.593 1980 Unknown [id number] 2.16.84 0.1.237380.3.579.2.593 1980 Unknown [id number] 2.16.84 0.1.412369.3.579.2.593 1980 Unknown [id number] 2.16.84 0.1.907466.3.579.2.593 1980 Unknown [id number] 2.16.84 0.1.022105.3.579.2.593 1980 Unknown [id number] 2.16.84 0.1.080969.3.579.2.593 1981 Unknown [id number] 2.16.84 0.1.065344.3.579.2.593 1980 Unknown [id number] 2.16.84 0.1.579030.3.579.2.593 1980 Unknown [id number] 2.16.84 0.1.048858.3.579.2.593 1981 Unknown [id number] 2.16.84 0.1.419354.3.579.2.593 1981 Unknown [id number] 2.16.84 0.1.668284.3.579.2.593 1981 Unknown [id number] 2.16.84 0.1.604109.3.579.2.593 1980 Unknown [id number] 2.16.8 40.1.781708.3.579.2.727 1980 Unknown [id number] 2.16.8 40.1.100958.3.579.2.727 1958 Self-pay [id number] 1958 Unknown [id number] 1958 Unknown [id number] Social History Date Type Detail Facility Start: 06-29-2023 Tobacco smoking status Heavy t obacco smoker (finding) [facility] Tobacco smoking status Smokeless tobacco user within last 30 days [facility] [place] Sex Assigned At Male [facility] Functional Status Date Assessment Result Facility 06-29-2023 Functional Status N/A General Marie [facility] [place] Clinical Note 06-29-2023 Note Date & Type [...] generalized abdominal pain (more content not included)... [facility] Comment on above: Result Comment: Elec tronically Signed By: CHASE MULLIGAN, Donnell House\.amada\Date and Time Signed: 06/29/23 21:30 EST Hospital Discharge instructions 06-08-2023 Note Date & Type Note Facility 06-08-2023 Hospital Discharg e instructions Follow Up Care 06/08/2023 13:31:23 With:Doron PANTOJA MD, URL Address: [facility] [address] , [place] [phone] When: Unknown [facility] Evaluation + Plan note Note Date & Type Note Facility Evaluation + Plan note Future Appointments Appointment Date:10/17/2023 12:00:00 PM Scheduled Provider:Doron PANTOJA MD Location:[facility] Appointment Type:URO New Patient [facility] [place] Hospital course Narrative Note Date & Type Note Facility Hospital course Narrative No data available for this section [facility] [place] Hospital Discharge instructions Note Date & Type Note Facility Hospital Discharge instructions No data available for this section [facility] [place] Progress note Note Date & Type Note Facility Progress note No data available for this section [facility] [place] Summary Purpose Family History No Family History Records FoundNo Family History Records Found No data available for this section No data available for this section No Family History Records Found Advance Directives No Advanced Directives Records FoundNo Advanced Directives Records FoundNo Advanced Directives Records Found Additional Source Comments (unrecognized sect ion and content) No Status Records FoundNo Status Records FoundNo Status Records Found INFORMATION SOURCE (unrecogn ized section and content) DATE CREATED AUTHOR 12/01/2018 [facility] DATE CREATED AUTHOR AUTHOR'S ORGANIZ ATION 10/22/2022 [facility] DATE CREATED AUTHOR AUTHOR'S ORGANIZ ATION 03/01/2024 [facility] Patient Care team informatio n (unrecognized section and content) Personnel Name: Romy Samayoa MD Address: Address: [address] [place] [address] Personnel Name: Romy Samayoa MD Address: Address: [address] [place] [address] FOR RECORDS PERTAINING TO PATIENTS WHO ARE [...] BE BASED ON THE PRIMARY CLINICAL RECORDS. [employer] [facility]. provides no warranty or guarantee of the accuracy or completeness of information in this document.
--- NOTE | 2025-02-28 12:38 | XR_ITS ---
The [address] [address] Patient Name: BESSY DIXON MRN: [id number] date: 1980 Sex: M Assigned Patient Location: [facility] Current Patient Location: [facility] Accession/Order Number: [id number] Exam Date: 02/28/2025 12:43 Report Date: 02/28/2025 19:24 At the request of: ROMY CORONADO MD Procedure: XR hand MEAGAN min 3v XR hand MEAGAN min 3v 02/28/2025 12:50 PM SIGNS AND SYMPTOMS: Bilateral hand pain and stiffness, pain and swelling predominantly over thumbs PROTOCOL: Frontal, lateral, and oblique radiographs of the bilateral hands COMPARISON: None FINDINGS: There is narrowing of the carpal metacarpal junction of the left hand. The joint spaces are otherwise preserved. There is no fracture or dislocation. No significant soft tissue swelling. XR/XR hand MEAGAN min 3v IMPRESSION: Degenerative changes are noted predominantly at the base of the left thumb. No acute bony injury. Impression dictated by: Don Aguayo M.D. 02/28/2025 7:24 PM Dictation Location: [place] [address] Electronically authenticated by: [id number] Y Date: 02/28/2025 19:24
== END 2025-02-28 12:18 | disposition home or self-care (01) ==
LOC: LAB 12:21 → RAD 12:24
PROVIDERS: PCP Family Medicine; Visit Provider Family Medicine
DX: M65.4 Radial styloid tenosynovitis [de Quervain] (principal)
CPT/HCPCS: 73130

== ENCOUNTER 2025-03-26 11:18 | Outpatient (OUT) | payer OTHER, SELFPAY ==
--- OUTSIDE RECORDS SUMMARY | 2025-03-26 05:58 | XMS_ITS ---
Author Organization The [facility] [place] Address [address] [place] [address] Care Team Providers Care Processing Manager Name Role Phone Sloan Samayoa Primary Care Provider Vital Signs Height 73 in 03/26/2025 Encounters Encounter Location Date Provider Diagnosis [facility] [address] [place] [address] 03/26/2025 Sloan Samayoa Encounter for long-term (current) drug use Z79.899 Assessments Encounter Date Diagnosis (ICD Code) Assessment Notes Treatment Notes Treatment Clinical Notes Section Notes 03/26/2025 Encounter for long-term (current ) drug use (ICD-10 - Z79.899) Plan Of Treatment Pending Test Test Name Order Date COMPLIANCE DRUG SCREEN 03/26/2025 DRUG SCREEN RAPID (URINE) 03/26/2025 URIC ACID RAND URINE 03/26/2025 Next Appt Details Provider Name:Sloan Samayoa, 11:30:00 AM, [address] [place], [address], Progress Notes * Juanjo TORRES SDOB:10/1979 (45 yo M)Acc No.[id number]:03/26/2025 Patient:?Juanjo TORRES :1980???Age:45 Y???Sex:MalePhone:[phone] Address:[address] [place] [address], [address] Subjective: * Chief Complaints: * * Medical History: * Surgical History: * Hospitalization/Major Diagno stic Procedure: * Medications: Objective: * Vitals: H t: 73 in, Ht-cm: 185.42 cm. * Physical Examination: ??? Assessment: * Assessment: 1.?Encounter for long-term (current) drug use - Z79.899 (Primary)??? Plan: * Treatment: ?LAB: COMPLIANCE DRUG SCREEN* STANDING ORDER 2025 ?LAB: DRUG SCREEN RAPID (URINE)* STANDING ORDER 2025 ?LAB: URIC ACID RAND URINE* STANDING ORDER 2025 * Procedure Codes: * true * Date:?Generated for Printing/Faxing/eTransmitting on:?03/26/2025 11:20 AM EST
--- OUTSIDE RECORDS SUMMARY | 2025-03-26 10:45 | XMS_ITS | Patient Health Record ---
Author Organization [facility] in [place] Address [address] [place] [address] Care Team Providers Care Framing Consultant Name Role Phone Sloan Coronado Primary Care Provider Allergies Allergen (clinical drug ingredient) Drug/Non Drug Allergy documented on EMR Reaction Allergy Type Onset Date Status codeine Codeine hives Drug Allergy Active Results Component Value Reference Range Notes XR HAND MEAGAN MIN 3V Reviewed date:02/28/2025 09:43:30 PM Interpretation: Performing Lab: Notes/Report: Source Facility: [place] [address] XRay Report Signed Patient: JUANJO TORRES MR#: [id number] : 1980 Acct:[id number] Age/Sex: 44 / M ADM Date: 02/28/25 Loc: RAD Attending Dr: Rufus Coronado M.D. Ordering Physician: Rufus Coronado M.D. Date of Service: 02/28/25 Procedure(s): XR hand MEAGAN min 3v Accession Number(s): [id number] cc: Rufus Coronado M.D. [place] [id number] Patient Name: JUANJO TORRES MRN: [id number] date: 1980 Sex: M Assigned Patient Location: RAD Current Patient Location: RAD Accession/Order Number: [id number] Exam Date: 02/28/2025 12:43 Report Date: 02/28/2025 19:24 At the request of: RUFUS CORONADO MD Procedure: XR hand MEAGAN min 3v XR hand MEAGAN min 3v 02/28/2025 12:50 PM SIGNS AND SYMPTOMS: Bilateral hand pain and stiffness, pain and swelling predominantly over thumbs PROTOCOL: Frontal, lateral, and oblique radiographs of the bilateral hands COMPARISON: None FINDINGS: There is narrowing of the carpal metacarpal junction of the left hand. The joint spaces are otherwise preserved. There is no fracture or dislocation. No significant soft tissue swelling. XR/XR hand MEAGAN min 3v IMPRESSION: Degenerative changes are noted predominantly at the base of the left thumb. No acute bony injury. Impression dictated by: Don Aguayo M.D. 02/28/2025 7:24 PM Dictation Location: [place] [address] Electronically authenticated by: [id number] Y Date: 02/28/2025 19:24 Dictated By: Don Aguayo M.D. 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 4 02/28/2025 ActiveOmeprazole 40 MGTAKE ONE TO TWO CAPSULES BY MOUTH EVERY DAY; Duration: 30 ActiveHyoscyamine Sulfate 0.125 MG2 tabs SL SL every 4 hrs PRN abd painPRN 01/24/2024ctiveIbuprofen 800 MGTAKE ONE TABLET BY MOUTH EVERY 6 HOURS WITH FOOD OR MILK NEEDED; Duration: 25Active Social History Tobacco Use: Social History Observation Description Date Details (start date - stop date) Current Smoker 05/16/1998 - NA Tobacco Use/Smoking Question Answer Notes Patient is a current smoker When did you start smoking?05/16/1998How often do you smoke cigarettes?every day How many cigarettes a day do you smoke?31 or moreHow soon after you wake up do you smoke your first cigarette?after 60 minutesAre you interested in quitting? Ready to quitAlcohol Screen (Audit-C) Question Answer Notes Did you have a drink containing alcohol in the p ast year? Yes How many drinks did you have on a typical day when you were drinking in the past year?1 or 2 drinks (0 point)How often did you have a drink containing alcohol in the past year?Less than monthly (1 point)Avmvjq3LhwywdxztpjogaYxqgclctAWNBI-E (Standard) Question Answer Notes Did you have a drink containing alcohol in the p ast year? No Syeqqb6LukyvqoxwfhnqfWimyuvxz Problems Problem Type SNOMED Code ICD Code Onset Dates Problem Status W/U Status Risk Notes Problem Acute frontal sinusitis (3304112 8) Acute recurrent frontal sinusitis (J01.11) ActiveconfirmedProblemJaw pain (849805988)Jaw pain (R68.84)Activeconfirmed ProblemNeck sprain (520168469)Strain of muscle, fascia and tendon at neck level, initial encounter (S16.1XXA)ActiveconfirmedProblemContusion of right shoulder (59603535753676373)Contusion of right shoulder, initial encounter (S40.011A) ActiveconfirmedProblemContusion of left elbow (76049812882005347)Contusion of left elbow, initial encounter (S50.02XA)ActiveconfirmedProblemContusion of wrist (37481304)Contusion of right wrist, initial encounter (S60.211A)Activeconfirmed ProblemStrain of other specified muscles, fascia and tendons at thigh level, unspecified thigh, initial encounter (S76.819A)ActiveconfirmedProblemLong-term current use of drug therapy (200352479)Other exterminator (current) drug therapy (Z79.899)ActiveconfirmedProblemEczema (78150565)Eczema (L30.9)Activeconfirmed ProblemSebaceous cyst (621576576)Sebaceous cyst (L72.3)ActiveconfirmedProblem Back pain (226063042)Back pain (M54.9)ActiveconfirmedProblemBronchitis (97491737)Bronchitis (J40)ActiveconfirmedProblemSinusitis (02101454)Sinusitis (J32.9)ActiveconfirmedProblemFoot pain (69631069)Foot pain (M79.673)Active confirmedProblemAcute sinusitis (08354520)Acute sinusitis (J01.90)Active confirmedProblemKidney stone (83284698)Kidney stones (N20.0)Activeconfirmed ProblemImpacted cerumen (51211636)Cerumen impaction (H61.20)Activeconfirmed ProblemConstipation (42277234)Constipation (K59.00)ActiveconfirmedProblem Gastritis (7698821)Gastritis (K29.70)ActiveconfirmedProblemCellulitis (510656524)Cellulitis (L03.90)ActiveconfirmedProblemChest wall pain (618757432) Chest wall pain (R07.89)ActiveconfirmedProblemGastroenteritis (96550726) Gastroenteritis (K52.9)ActiveconfirmedProblemOverweight (073361601)Over weight (E66.3)ActiveconfirmedProblemPain in limb (70721798)Thumb pain, left (M79.645) ActiveconfirmedProblemLeft flank pain (263034291)Left flank pain (R10.9)Active confirmedProblemGeneralized abdominal pain (518777262)Abdominal pain, generalized (R10.84)ActiveconfirmedProblemTendinitis of right shoulder (5965545617742019)Tendinitis of right shoulder (M75.81)ActiveconfirmedProblem Epigastric pain (72701866)Abdominal pain, epigastric (R10.13)Activeconfirmed ProblemHistory of hematuria (909176837)H/O hematuria (Z87.448)Activeconfirmed ProblemBleeding (88876941)Bleeding (R58)ActiveconfirmedProblemPetechiae (00824977)Petechiae (R23.3)ActiveconfirmedProblemSuperficial thrombophlebitis (2453937)Superficial thrombophlebitis (I80.9)ActiveconfirmedProblemInguinal hernia (disorder) (444695617)Hernia, inguinal (K40.90)ActiveconfirmedProblem Opioid abuse (9863296)Drug abuse, opioid type (F11.10)ActiveconfirmedProblem Viremia (0654952)Viremia (B34.9)ActiveconfirmedProblemRadial styloid tenosynovitis (92953081)De Quervain's disease (tenosynovitis) (M65.4)Active confirmedProblemPeripheral vertigo (93764976)Vertigo, peripheral (H81.399)Active confirmedProblemAcute pancreatitis (834107483)Other acute pancreatitis without infection or necrosis (K85.80)ActiveconfirmedProblemOpioid abuse (5318448) Chronic use of nonprescription opiate drugs (F11.10)ActiveconfirmedProblem Acquired absence (63944448)Other acquired absence of organ (Z90.89)Active confirmedProblemOdontalgia (31663118)Odontalgia (K08.89)ActiveconfirmedProblem Partial obstruction of intestine (disorder) (78271823460616730)Other partial intestinal obstruction (K56.690)ActiveconfirmedProblemAcute pancreatitis (322097393)Acute pancreatitis (K85.90)ActiveconfirmedProblemHeadache (56644349) Headache, unspecified (R51.9)ActiveconfirmedProblemLow back pain (finding) (414415621)Other low back pain (M54.59)Activeconfirmed Vital Signs Temperature 97.4 degrees Fahrenheit 09/19/2024 Blood pressure dirsjohkm27 mm Hg02/28/20254461Gvwtaz85 in02/28/2025lood pressure grylxmie382 mm Hg02/28/20251821Njyzwh388.6 lbs1MI23.43 kg/m202/28/2025 Encounters Encounter Location Date Provider Diagnosis [facility] [address] [place] [address] 10/24/2024 Sloan Coronado Drug abuse, opioid t ype F11.10 [facility] [address] [place] [address] 11/20/2024 Sloan Coronado Drug abuse, opioid t ype F11.10 [facility] [address] [place] [address] 01/10/2025 Sloan Hoy De Quervain's diseas e (tenosynovitis) M65.4 and Drug abuse, opioid type F11.10 [facility] [address] [facility] [place] [address] 02/05/2025 Sloan Hoy Drug abuse, opioid t ype F11.10 [facility] [address] [facility] [place] [address] 02/28/2025 Sloan Hoy Other exterminator (current) drug therapy Z79.899 [facility] [address] [facility] [place] [address] 06/21/2024 Sloan Hoy Acute non-recurrent sinusitis, unspecified location J01.90 [address] congestion R09.81 [facility] [address] [facility] [place] [address] 07/16/2024 Sloan Hoy Drug abuse, opioid t ype F11.10 [place] [address] [facility] [place] [address] 08/09/2024 Sloan Hoy Drug abuse, opioid t ype F11.10 [facility] [address] [facility] [place] [address] 09/03/2024 Sloan Hoy Drug abuse, opioid t ype F11.10 [facility] [address] [facility] [place] [address] 09/19/2024 Sloan Hoy Acute bronchitis, unspecified organism J20.9 [facility] [address] [facility] [place] [address] 09/27/2024 Sloan Hoy Drug abuse, opioid t ype F11.10 [facility] [address] [facility] [place] [address] 04/09/2024 Sloan Hoy De Quervain's diseas e (tenosynovitis) M65.4 and Drug abuse, opioid type F11.10 [facility] [address] [facility] [place] [address] 05/04/2024 Sloan Hoy Drug abuse, opioid t ype F11.10 [facility] [address] [facility] [place] [address] 05/29/2024 Sloan Hoy Thumb pain, left M79.645 and Drug abuse, opioid type F11.10 [facility] [address] [facility] [place] [address] 12/13/2024 Sloan Interianoy De Quervain's diseas e (tenosynovitis) M65.4 [facility] [address] [place] [address] 07/23/2024 Sloan Interianoy [facility] [facility] [place] [place] [address] 02/07/2025[facility] [place] [address]/16/2025Doug Jaydonpatricia Assessments Encounter Date Diagnosis (ICD Code) Assessment Notes Treatment Notes Treatment Clinical Notes Section Notes 06/21/2024 Acute non-recurrent sinusitis, unspecified location (ICD-10 - J01.90) Rest and drink more liquids, especially water. You may use a humidifier or vaporizer to help keep the drainage moist. Afht-ioe-bknhonr Nasal Saline may help the stuffy and runny nose. Use Ibuprofen and or Tylenol as needed for fever, chills, body aches or pain. Children 5 years old should not be given zzog-kre-kwivlrw cough and cold medications such as guaifenesin and dextromethorphan. If you're over age 5, you may try dqip-ryz-onkfzxg cold medications such as guaifenesin and dextromethorphan, or multi-symptom cold reliever such as Dayquil to help reduce the symptoms. Antibiotics have been pre scribed. You should take these until completed and follow the directions. Antibiotics can sometimescause upset stomach, and in rare cases, serious allergic reactions or serious gastrointestinal problems. If you start having severe abdominal pain, severe vomiting, or bloody diarrhea, you should be r eevaluated by your physician or urgent care immediately. Follow up with your Primary Care Provider or return to clinic if symptoms do not improve within 3-5 days07/16/2024Drug abuse, opioid type (ICD-10 - F11.10)08/09/2024Drug abuse, opioid type (ICD-10 - F11.10)09/03/2024Drug abuse, opioid type (ICD-10 - F11.10) 09/19/2024ute bronchitis, unspecified organism (ICD-10 - J20.9)Rest and drink more liquids, especially water. You may use a humidifier or vaporizer to help keep the drainage moist. Pajj-jvh-fawzuaz Nasal Saline may help the stuffy and runny nose. Use Ibuprofen and or Tylenol as needed for fever, chills, body aches or pain. Children 5 years old should not be given yidq-znp-ibjtagp cough and cold medications such as guaifenesin and dextromethorphan. If you're over age 5, you may try ioxq-wzd-nmzlwkf cold medications such as guaifenesin and dextromethorphan, or multi-symptom cold reliever such as Dayquil to help reduce the symptoms. Antibiotics have been prescribed. You should take these until completed and follow the directions. Antibiotics can sometimescause upset stomach, and in rare cases, serious allergic reactions or serious gastrointestinal problems. If you start having severe abdominal pain, severe vomiting, or bloody diarrhea, you should be reevaluated by your physician or urgent care immediately. Follow up with your Primary Care Provider or return to clinic if symptoms do not improve within 3-5 days. If you develop severe symptoms such as shortness of breath, repeated vomiting, coughing up blood, or chest pain you should go to the emergency room or call [phone] abuse, opioid type (ICD-10 - F11.10)10/24/2024Drug abuse, opioid type (ICD-10 - F11.10) 11/20/2024Drug abuse, opioid type (ICD-10 - F11.10)12/13/2024De Quervain's disease (tenosynovitis) (ICD-10 - M65.4)01/10/2025Drug abuse, opioid type (ICD- 10 - F11.10)01/10/2025De Quervain's disease (tenosynovitis) (ICD-10 - M65.4) 02/05/2025Drug abuse, opioid type (ICD-10 - F11.10)02/28/2025Other senior care (current) drug therapy (ICD-10 - Z79.899)4Drug abuse, opioid type (ICD- 10 - F11.10)04/09/2024e Quervain's disease (tenosynovitis) (ICD-10 - M65.4) 05/04/2024rug abuse, opioid type (ICD-10 - F11.10)05/29/2024Thumb pain, left (ICD-10 - M79.645)05/29/2024Drug abuse, opioid type (ICD-10 - F11.10)06/21/2024 Nasal congestion (ICD-10 - R09.81) Plan Of Treatment Pending Test Test Name Order Date CMP (COMPLETE METABOLIC PANEL) 4 URIC ACID, 24 HR URINE 08/19/2022 HEMOGLOBIN A1C (GLYCO) 01/24/2024 THROMBOPHILIA (HYPERCOAGULABILITY) PANEL , ADULT 08/24/2023 INSULIN, TOTAL 01/24/2024 LIPID PANEL (CHOL/TRIG/HDL/LDL) 01/24/20 24 CBC WITH DIFF 01/24/2024 URIC ACID 01/24/2024 XR Abdomen AP (1 view) (KUB) * 3 CT Abdomen and Pelvis w/contrast * 11/26 URINE URIC ACID,RANDOM 08/24/2023 URINE URIC ACID,RANDOM 10/06/2022 FACTOR (5) V ACTIVITY 08/24/2023 PSA, TOTAL 01/24/2024 XR Wrist 3 or More Views Left 05/29/2024 XR Hand 3 Views Right 01/10/2025 XR Hand 3 Views Left 01/10/2025 XR Hand 3 Views Left 05/29/2024 CA 19-9 01/24/2024 COMPLIANCE DRUG SCREEN 08/24/2023 CULTURE URINE 11/04/2022 DRUG SCREEN RAPID (URINE) 08/18/2022 FACTOR V LEIDEN MUTATION ANALYSIS 2023 LIPASE 01/24/2024 UA RANDOM W or MICROSCOPIC 11/04/2022 CT ABD and PELV W CON 12/19/2022 CT ABD and PELV WO W CON 11/11/2022 US ABD 12/08/2022 THYROID PANEL (T4/TSH/FREE T3) 4 Next Appt Details Provider Name:Sloan Coronado, 11:30:00 AM, [address] [place], [address], Insurance Providers Payer Name Payer Address Payer Phone Subscriber Number Group Number Insured Name Patient Relationship to Insured Coverage Start Date Coverage End Date [facility] [address] [address] [place] [address] [id number] Tere Torreself - patient is the insured Medications Administered Medication Instructions Date of Administration Dosage Notes Dexamethasone, 4mg/mL mgKenalog-401220 mgKenalog-400520 ew100Wydhckk-98 480 mgKetorolac Dcdewoxreabv35/08/515522 mgKetorolac Tromethamine 460 eb10Akzoygkkk Njyjqufgxklq87/19/971440 mgKetorolac Tromethamine 460 ak52Vlffgxpwt Jfpidsvqdsby18/07/704964 mgTriamcinolone 40 mg/ml 480 mgTriamcinolone 40 mg/ml580 mgTriamcinolone 40 mg/ml 5120 mg Medical (General) History Medical History History ICD Code Other low back pain M54.59 Kidney stones N20.0 Over weight E66.3 Other acute pancreatitis without infecti on or necrosis K85.80 Foot pain M79.673 Other partial intestinal obstruction K56 .690 Vertigo, peripheral H81.399 Sebaceous cyst L72.3 Acute sinusitis J01.90 Cerumen impaction H61.20 Contusion of left elbow, initial encount er S50.02XA Contusion of right wrist, initial encoun ter S60.211A Contusion of right shoulder, initial enc ounter S40.011A Jaw pain R68.84 Superficial thrombophlebitis I80.9 Acute recurrent frontal sinusitis J01.11 H/O hematuria Z87.448 Tendinitis of right shoulder M75.81 Abdominal pain, generalized R10.84 Strain of muscle, fascia and tendon at n sj level, initial encounter S16.1XXA Constipation K59.00 Acute pancreatitis K85.90 Hernia, inguinal K40.90 Gastroenteritis K52.9 Cerumen impaction H61.20 Eczema L30.9 Strain of other specified mu scles, fascia and tendons at thigh level, unspecified thigh, initial encounter S76.819A Headache, unspecified R51.9 Petechiae R23.3 Other acquired absence of organ Z90.89 Abdominal pain, epigastric R10.13 Cellulitis L03.90 Chest wall pain R07.89 Bronchitis J40 Sinusitis J32.9 Odontalgia K08.89 Back pain M54.9 Viremia B34.9 Gastritis K29.70 Surgical History Surgery Date(Month/Year) Appendix GallbladderTonsilsHospitalization History Reason Date(Month/Year) see above
--- OUTSIDE RECORDS SUMMARY | 2025-03-26 11:24 | XMS_ITS | CCD ---
Author Organization [facility] CliniSyme Care Team Providers Care Program Officer Name Role Phone SHANTI MABRY Attending Unavailable [...] Unavailable HOY ., DR STANTON Consulting Unavailable Tylery, Romy Primary Care Physician John VEGA Attending Unavailable Romy Samayoa Referring Unavailable Doron PANTOJA Attending Unavailable Donnell STONE Attending Unavailable Allergies Allergy ClassificationReported Allergen(s)Allergy TypeDate of OnsetReaction(s) Facility (5 sources)Codeine; Translations: [codeine]Drug Kxhalov71-00-9538Ukbj (disorder) [facility] Repository (2 sources)PenicillinsDrug allergy (disorder)68-26-0458Ayp [facility] Repository (3 sources)Penicillin; Translations: [penicillin]Drug AllergyUnknown (qualifier value)[facility] [place] Medications Current Medications MedicationDrug Class(es)DatesSig (Normalized)Sig (Original)buprenorphine 8 mg / naloxone 2 mg sublingual film (2 sources)Partial Opioid Agonist, Opioid AntagonistStart: 40-03-9312Ocmktlsl 8 mg-2 mg sublingual film 1 film, SubLingual, BID, Refill(s) 0 Start Date: 06/14/23 Status:Orderedhyoscyamine sulfate 0.125 mg oral tablet (2 sources)Start: 73-87-4706hpok 1 tablet by mouth four times daily as needed for painLevsin 0.125 mg SL Tab 0.125 mg = 1 tab(s), Oral, QID, PRN abdominal pain, Refills(s) 0 Start Date:06/29/23 Status: Orderedibuprofen 800 mg oral tablet (2 sources)Nonsteroidal Anti-inflammatory DrugStart: 38-61-6943jfng 1 tablet by mouth four times dailyibuprofen 800 mg Tab 800 mg = 1 tab(s), Oral, QID, Refills(s) 0 Start Date: 04/07/20 Status: Orderedomeprazole 40 mg delayed release oral capsule (2 sources)Proton Pump InhibitorStart: 02-33-6655snrj 1 capsule by mouth once dailyomeprazole 40 mg Cap-DR 40 mg = 1 cap(s), Oral, Daily, Refills(s) 0 Start Date: 04/07/20 Status: OrderedMiralax (2 sources)Osmotic LaxativeStart: 90-42-2143dutw 17 g by mouth once dailyMiraLax 17 gm, Oral, Daily, Refill(s) 0 Start Date: 06/29/23 Status: Ordered Problems Active Problems Problem ClassificationProblemDateDocumented DateEpisodic/ChronicAbdominal hernia (2 sources)Inguinal -55-9989WhnpolzqEqnnzybmh pain (7 sources)Generalized abdominal pain; Translations: [Left lower quadrant pain] Onset: 65-44-6103AzasvvglOxedqbtd reactions (2 sources)Xffjpz70-60-7096XbaalmvvZoijyzrm of urinary tract (2 sources)History of calculus of dqlgsa99-29-5580RfsodxpkJgdqmyvgzqjtc symptoms and ill-defined conditions (2 sources)History of hwtgemnzu30-01-9936WadlxvteVjvvjgoy; including migraine (2 sources)Ngxukpiw39-75-6867GjeythdiAsosg aftercare (4 sources)Encounter for therapeutic drug level monitoring; Translations: [[facility] DRUG LEVL MONITORING]Onset: 73-75-5932EftbydpcAmwcr gastrointestinal disorders (2 sources)Pjiittkfynqs94-26-2968YisxfoohMxfnq gastrointestinal disorders (2 sources)History of kittjxaadtsr51-81-7799WgaewgwlUwnih nutritional; endocrine; and metabolic disorders (2 sources)Overweight in adulthood with body mass index of 25 or more but less than 7398-40-0489WaeqdokiGcuwx skin disorders (2 sources)H/O: skin hkvapogt77-81-9423FhzqhyriMxmdgsfjt; thrombophlebitis and thromboembolism (2 sources)Nerzgkckp17-61-2949VrxodvdvJzgicawt codes; unclassified (1 source)Tobacco user; Translations: [Tobacco use]Onset: 90-71-9838Kvjkmpcz Residual codes; unclassified (1 source)Family history of malignant neoplasm of digestive organ; Translations: [Family history of malignantneoplasm of digestive organs]Onset: 06-29-2023 EpisodicResidual codes; unclassified (2 sources)Family history of cancer of fcfme99-81-8726ExvmfhmxCnxcgpjwb and history of mental health and substance abuse codes (2 sources)Tobacco use and exposure - -15-8208AxeiomdSlddljgvu-jzzaigo disorders (9 sources)Opioid abuse, uncomplicated; Translations: [Other psychoactive substance abuse, in remission]Onset: 12-11-8154NojkpkvRwjhexmblwwu (2 sources)History of small bowel lxwknlcbwye15-28-7466 Past or Other Problems Problem ClassificationProblemDateDocumented DateEpisodic/ChronicIntestinal obstruction without hernia (4 sources)Other partial intestinal obstruction; Translations: [OTH PARTIAL INTESTINAL OBSTRUCTION]Onset: 63-35-0227RdpuwxyaKmdhj aftercare (1 source)Other half-way (current) drug therapy; Translations: [OTH HALFWAY CURRENT DRUG THERAPY]Onset: 89-43-8770TwlpggasJlsaoexgia disorders (not diabetes) (4 sources)Other acute pancreatitis without necrosis or infection; Translations: [OTH ACUTE PANCREATITIS WO NECRS/INF]Onset: 25-27-4134RsaperoyDrjfilcq codes; unclassified (1 source)Acquired absence of other specified parts of digestive tract; Translations: [ACQ ABSENCE OTH PART DIGESTV TRACT]Onset: 61-22-9395Kqjgrdwl Results Test NameValueInterpretationReference RangeFacilityProvider Letteron 01-09-2024 Provider LetterProvider Letter January 09, 2024 BESSY TORRES [address] [place] [address] : 1980 Dear Bessy , We have [...] [facility] [address], [place] [address] Elizabeth Youngstown HospitalFacesheeton 06-30-2023 [id number]#1.00[facility] CenterAmbulatory Visit Summaryon 56-73-9275Soagfzjhop Visit Summary BESSY TORRES :1980 Visit Date:06/29/2023 Ambulatory Visit Instructions Your Care Team Attending Physician - CHASE MULLIGAN, Donnell House Primary Care Physician - Danita MULLIGAN, Romy This Is Your Medications List buprenorphine-naloxone (Suboxone [...] CARROLL MULLIGAN, Doron House [facility] Reporton [id number] - [place] Report [id number]#1.00[facility] Medical CenterCOMPLIANCE DRUG SCREENon 87-09-8712MVF.NormalThe [facility] HospitalComment on above:Performed By: #### URICUR #### [facility] [address] [address] [address] Jose DiegoTogus VA Medical CenterComment on above:Result Comment: TOXASSURE COMP DRUG ANALYSIS,UR Test Result Flag Units Drug Present Buprenorphine 175 ng/mg creat Norbuprenorphine 639 ng/mg creat Source of buprenorphine is a scheduled prescription medication. Norbuprenorphine is an expected metabolite of buprenorphine. Acetaminophen PRESENT Ibuprofen PRESENT Dextrorphan/Levorphanol PRESENT Dextrorphan is an expected metabolite of dextromethorphan, an mqma-lgv-hhdefvr or prescription cough suppressant. Levorphanol is a scheduled prescription medication. Dextrorphan cannot be distinguished from levorphanol by the method used for analysis. Guaifenesin PRESENT Guaifenesin may be administered as an pila-hze-ojvwzox or prescription drug; it may also be present as a breakdown product of methocarbamol. Test Result Flag Units Ref Range Creatinine 111 mg/dL >=20 Declared Medications: Medication list was not provided. For clinical consultation, please call . Performed By: #### URICUR #### [facility] [address] [place] [address] Dr. Jose DuffyURIC ACID RAND URINEon 56-52-1918Ynai Acid, Urine56.8 mg/dLNormal Not Estab.[facility] on above:Performed By: #### DSDOALC #### [facility] [address] [place] [address] Dr. Jose DuffyDRUG SCREEN RAPID (URINE)on 13-10-8235RMYKtndyvmcMwaidwPHTJLYUP [facility] on above:Performed By: #### URICUR #### [facility] [address] [place] [address] Dr. Jose DuffyBARNegativeNormalNEGDetwiler Memorial Hospital on above: Performed By: #### URICUR #### [facility] [address] [place] [address] Dr. Jose DuffyBUPPositiveAbnormalNEGDetwiler Memorial Hospital on above: Performed By: #### URICUR #### [facility] [address] [place] [address] Dr. Jose DuffyBZONegativeNormalNEGDetwiler Memorial Hospital on above: Performed By: #### URICUR #### [facility] [address] [place] [address] Dr. Jose DuffyCOCNegativeNormalNEGDetwiler Memorial Hospital on above: Performed By: #### URICUR #### [facility] [address] [place] [address] Dr. Jose JallohGrant Hospital on above: Result Comment: AMP (Amphetamine): 500ng/mL, BAR (Barbituates): 200 ng/mL, BZO (Benzodiazepines): 150 ng/mL, BUP (Buprenorphine): 10 ng/mL, RICARDO (Cocaine): 150 ng/mL, mAMP (Methamphetamine): 500 ng/mL, MTD (Methadone): 200 ng/mL, OPI (Opiates): 100 ng/mL, OXY (Oxycodone): 100 ng/mL, PCP (Phencyclidine): 25 ng/mL, PPX (Propoxyphene): 300 ng/mL, THC (Cannabinoids): 50 ng/mL, TCA (Trycyclic Antidepressants): 300 ng/mLPerformed By: #### URICUR #### [facility] [address] [place] [address] Dr. Jose DuffyDRUG CUT HEADERDRUG CLASS TEST SYSTEM CUT-OFF CONCENTRATIONS ARE FOLLOWS:NormalThe [facility] on above:Performed By: #### URICUR #### [facility] [address] [place] [address] Dr. Jose DuffymAMPPositiveAbnormalNEGATIVEKindred HealthcareComment on above:Performed By: #### URICUR #### [facility] [address] [place] [address] Dr. Jose DuffyMTDNegativeNormalNEGATIVEKindred HealthcareCommymichigan medical center on above: Performed By: #### URICUR #### [facility] [address] [place] [address] Dr. Jose DuffyOPINegativeNormalNEGATIVEKindred HealthcareComment on above: Performed By: #### URICUR #### [facility] [address] [place] [address] Dr. Jose DuffyOXYNegativeNormalNEGATIVEKindred HealthcareComment on above: Performed By: #### URICUR #### [facility] [address] [place] [address] Dr. Jose DuffyPCPNegativeNormalNEGATIVEKindred HealthcareComment on above: Performed By: #### URICUR #### [facility] [address] [place] [address] Dr. Jose DuffyPPXNegativeNormalNEGATIVECleveland Clinic Akron General Lodi Hospitalment on above: Performed By: #### URICUR #### [facility] [address] [address] [address] Jose DuffyTCEbonygativeNormalNEGATIVECincinnati Children's Hospital Medical Center on above: Performed By: #### URICUR #### [facility] [address] [address] [address] Jose JordanCNegativeNormalNEGDetwiler Memorial Hospital on above: Performed By: #### URICUR #### [facility] [address] [address] [address] Jose DuffyCOMPLIANCE DRUG SCREENon 65-65-9916OBC.NormalCincinnati Children's Hospital Medical Center on above:Performed By: #### DSDOALC #### [facility] [address] [place] [address] Dr. Jose SernaALJocelynrmalThThe [facility] on above:Result Comment: TOXASSURE COMP DRUG ANALYSIS,UR Test Result [...] consultation, please call . Performed By: #### DSDOALC #### [facility] [address] [place] [address] Dr. Jose DuffyURIC ACID RAND URINEon 31-06-2468Pjaz Acid, Urine21.4 mg/dLNormal Not Estab.[facility] on above:Performed By: #### URICUR #### [facility] [address] [place] [address] Dr. Jose DuffyDRUG SCREEN RAPID (URINE)on 23-28-4121NYWGdyaiqafLkrepoDQJDENNE [facility] on above:Performed By: #### DSDOALC #### [facility] [address] [place] [address] Dr. Jose PatelNegativeNormalNEGATIVECincinnati Children's Hospital Medical Center on above: Performed By: #### DSDOALC #### [facility] [address] [place] [address] Dr. Jose DuffyBUPPositiveAbnormalNEGATIVECincinnati Children's Hospital Medical Center on above: Performed By: #### DSDOALC #### [facility] [address] [place] [address] Dr. Jose DuffyBZONegativeNormalNEGATIVEKindred HealthcareComment on above: Performed By: #### DSDOALC #### [facility] [address] [place] [address] Dr. Jose DuffyCOCNegativeNormalNEGATIVEKindred HealthcareComment on above: Performed By: #### DSDOALC #### [facility] [address] [place] [address] Dr. Jose JallohOhio Valley Surgical HospitalComment on above: Result Comment: AMP (Amphetamine): 500ng/mL, BAR (Barbituates): 200 ng/mL, BZO (Benzodiazepines): 150 ng/mL, BUP (Buprenorphine): 10 ng/mL, RICARDO (Cocaine): 150 ng/mL, mAMP (Methamphetamine): 500 ng/mL, MTD (Methadone): 200 ng/mL, OPI (Opiates): 100 ng/mL, OXY (Oxycodone): 100 ng/mL, PCP (Phencyclidine): 25 ng/mL, PPX (Propoxyphene): 300 ng/mL, THC (Cannabinoids): 50 ng/mL, TCA (Trycyclic Antidepressants): 300 ng/mLPerformed By: #### DSDOALC #### [facility] [address] [place] [address] Dr. Jose DuffyDRUG CUT HEADERDRUG CLASS TEST SYSTEM CUT-OFF CONCENTRATIONS ARE FOLLOWS:NormalThe [facility] Doctors HospitalComment on above:Performed By: #### DSDOALC #### [facility] [address] [place] [address] Dr. Jose DuffymAMPNegativeNormalNEGATIVEKindred HealthcareCommymichigan medical center on above: Performed By: #### DSDOALC #### [facility] [address] [place] [address] Dr. Jose DuffyMTDNegativeNormalNEGATIVEKindred HealthcareCommymichigan medical center on above: Performed By: #### DSDOALC #### [facility] [address] [place] [address] Dr. Yilan ChangOPINegativeNormalNEGOhio Valley Surgical HospitalComment on above: Performed By: #### DSDOALC #### [facility] [address] [address] [address] Jose DuffyOXYNegativeNormalNEGOhio Valley Surgical HospitalCommymichigan medical center on above: Performed By: #### DSDOALC #### [facility] [address] [address] [address] Jose DuffyPCPNegativeNormalNEGOhio Valley Surgical HospitalCommymichigan medical center on above: Performed By: #### DSDOALC #### [facility] [address] [place] [address] Dr. Jose DuffyPPXNegativeNormalNEGOhio Valley Surgical HospitalCommymichigan medical center on above: Performed By: #### DSDOALC #### [facility] [address] [place] [address] Dr. Jose DuffyTCANegativeNormalNEGOhio Valley Surgical HospitalComment on above: Performed By: #### DSDOALC #### [facility] [address] [place] [address] Dr. Jose DuffyTHCNegativeNormalNEGOhio Valley Surgical HospitalCommymichigan medical center on above: Performed By: #### DSDOALC #### [facility] [address] [place] [address] Dr. Jose ChongPLDULCE DRUG SCREENon 99-50-9684XGX.NormalKindred HealthcareCommymichigan medical center on above:Performed By: #### DRUGRPD #### [facility] [address] [place] [address] Dr. Jose DoanmmaryFINALNoOur Lady of [facility] on above:Result Comment: TOXASSURE COMP DRUG ANALYSIS,UR Test Result [...] consultation, please call . Performed By: #### DRUGRPD #### [facility] [address] [address] [address] Jose DuffyURIC ACID RAND URINEon 54-46-0538Lpeg Acid, Urine21.8 mg/dLNormal Not Estab.Kindred HealthcareCommymichigan medical center on above:Performed By: #### URICUR #### [facility] [address] [place] [address] Dr. Jose DuffyDRUG SCREEN RAPID (URINE)on [id number]Y [facility] on above:Performed By: #### URICUR #### [facility] [address] [place] [address] Dr. Jose DuffyBARNegativeNormalNEGATIVEKindred HealthcareCommymichigan medical center on above: Performed By: #### URICUR #### [facility] [address] [place] [address] Dr. Jose VidalesositiveAbUC HealthCommymichigan medical center on above: Result Comment: Previously reported as: NEGATIVE On 07/22/2022 12:02 By [email or web address] Performed By: #### URICUR #### [facility] [address] [place] [address] Dr. Jose DuffyBZONegativeNormalNEGDetwiler Memorial Hospital on above: Performed By: #### URICUR #### [facility] [address] [place] [address] Dr. Jose HolderCNegativeNormalNEGDetwiler Memorial Hospital on above: Performed By: #### URICUR #### [facility] [address] [place] [address] Dr. Jose JallohOhio Valley Surgical HospitalCommymichigan medical center on above: Result Comment: AMP (Amphetamine): 500ng/mL, BAR (Barbituates): 200 ng/mL, BZO (Benzodiazepines): 150 ng/mL, BUP (Buprenorphine): 10 ng/mL, RICARDO (Cocaine): 150 ng/mL, mAMP (Methamphetamine): 500 ng/mL, MTD (Methadone): 200 ng/mL, OPI (Opiates): 100 ng/mL, OXY (Oxycodone): 100 ng/mL, PCP (Phencyclidine): 25 ng/mL, PPX (Propoxyphene): 300 ng/mL, THC (Cannabinoids): 50 ng/mL, TCA (Trycyclic Antidepressants): 300 ng/mLPerformed By: #### URICUR #### [facility] [address] [place] [address] Dr. Jose DuffyDRUG CUT HEADERDRUG CLASS TEST SYSTEM CUT-OFF CONCENTRATIONS ARE FOLLOWS:NormalThe [facility] HospitalComment on above:Performed By: #### URICUR #### [facility] [address] [place] [address] Dr. Jose DuffymAMPNegativeNormalNEGATIVEKindred HealthcareComment on above: Performed By: #### URICUR #### [facility] [address] [place] [address] Dr. Jose DuffyMTDNegativeNormalNEGATIVEKindred HealthcareComment on above: Performed By: #### URICUR #### [facility] [address] [place] [address] Dr. Jose DuffyOPINegativeNormalNEGATIVEKindred HealthcareCommymichigan medical center on above: Performed By: #### URICUR #### [facility] [address] [place] [address] Dr. Jose DuffyOXYNegativeNormalNEGATIVECincinnati Children's Hospital [facility] Center on above: Performed By: #### URICUR #### [facility] [address] [place] [address] Dr. Jose DuffyPCPNegativeNormalNEGATIVEKindred HealthcareComment on above: Performed By: #### URICUR #### [facility] [address] [place] [address] Dr. Jose DuffyPPXNegativeNormalNEGATIVECleveland Clinic Akron General Lodi Hospitalment on above: Performed By: #### URICUR #### [facility] [address] [place] [address] Dr. Jose DuffyTCANegativeNormalNEGATIVEKindred HealthcareComment on above: Performed By: #### URICUR #### [facility] [address] [address] [address] Jose CarmichaelegativeNormalNEGATIVECleveland Clinic Akron General Lodi Hospitalment on above: Performed By: #### URICUR #### [facility] [address] [address] [address] Jose Porter DRUG SCREENon 25-25-8080ABQ.NormalKindred HealthcareComment on above:Performed By: #### DRUGRPD #### [facility] [address] [address] [address] Jose ArayaFINALNormalThThe [facility] on above:Result Comment: TOXASSURE COMP DRUG ANALYSIS,UR Test Result [...] consultation, please call . Performed By: #### DRUGRPD #### [facility] [address] [place] [address] Dr. Jose DuffyURIC ACID RAND URINEon 35-15-9246Zljo Acid, Urine33.0 mg/dLNormal Not Estab.[facility] on above:Performed By: #### URICUR #### [facility] [address] [place] [address] Dr. Jose DuffyDRUG SCREEN RAPID (URINE)on [id number]G [facility] on above:Performed By: #### DRUGRPD #### [facility] [address] [place] [address] Dr. Jose DfufyBARNegativeNormalNEGATIVECincinnati Children's Hospital [facility] on above: Performed By: #### DRUGRPD #### [facility] [address] [place] [address] Dr. Jose DuffyBUPPositiveAbnormalNEGATIVECincinnati Children's Hospital [facility] on above: Performed By: #### DRUGRPD #### [facility] [address] [place] [address] Dr. Jose GarciaZONegativeNormalNEGATIVEKindred HealthcareComment on above: Performed By: #### DRUGRPD #### [facility] [address] [place] [address] Dr. Jose DeegativeNormalNEGATIVEKindred HealthcareComment on above: Performed By: #### DRUGRPD #### [facility] [address] [place] [address] Dr. Jose JallohOhio Valley Surgical HospitalComment on above: Result Comment: AMP (Amphetamine): 500ng/mL, BAR (Barbituates): 200 ng/mL, BZO (Benzodiazepines): 150 ng/mL, BUP (Buprenorphine): 10 ng/mL, RICARDO (Cocaine): 150 ng/mL, mAMP (Methamphetamine): 500 ng/mL, MTD (Methadone): 200 ng/mL, OPI (Opiates): 100 ng/mL, OXY (Oxycodone): 100 ng/mL, PCP (Phencyclidine): 25 ng/mL, PPX (Propoxyphene): 300 ng/mL, THC (Cannabinoids): 50 ng/mL, TCA (Trycyclic Antidepressants): 300 ng/mLPerformed By: #### DRUGRPD #### [facility] [address] [place] [address] Dr. Jose DuffyDRUG CUT HEADERDRUG CLASS TEST SYSTEM CUT-OFF CONCENTRATIONS ARE FOLLOWS:NormalThe [facility] Doctors HospitalComment on above:Performed By: #### DRUGRPD #### [facility] [address] [place] [address] Dr. Jose DuffymAMPNegativeNormalNEGATIVEKindred HealthcareCommymichigan medical center on above: Performed By: #### DRUGRPD #### [facility] [address] [place] [address] Dr. Jose JacobsDNestuardotiveNormalNEGATIVEKindred HealthcareCommymichigan medical center on above: Performed By: #### DRUGRPD #### [facility] [address] [place] [address] Dr. Jose ArevalogativeNormalNEGOhio Valley Surgical HospitalComment on above: Performed By: #### DRUGRPD #### [facility] [address] [address] [address] Jose DuffyOXYNegativeNormalNEGOhio Valley Surgical HospitalComment on above: Performed By: #### DRUGRPD #### [facility] [address] [place] [address] Dr. Jose DuffyPCPNegativeNormalNEGOhio Valley Surgical HospitalComment on above: Performed By: #### DRUGRPD #### [facility] [address] [address] [address] Jose DuffyPPXNegativeNormalNEGOhio Valley Surgical HospitalComment on above: Performed By: #### DRUGRPD #### [facility] [address] [place] [address] Dr. Jose DuffyTCANegativeNormalGalion HospitalComment on above: Performed By: #### DRUGRPD #### [facility] [address] [place] [address] Dr. Jose DuffyTHCNegativeNormalNEGOhio Valley Surgical HospitalComment on above: Performed By: #### DRUGRPD #### [facility] [address] [place] [address] Dr. Jose ChongPLIANCE DRUG SCREENon 87-81-3008XXJ.NormalKindred HealthcareComment on above:Performed By: #### URICUR #### [facility] [address] [place] [address] Dr. Jose MaresryFINALProvidence HospitalComment on above:Result Comment: TOXASSURE COMP DRUG ANALYSIS,UR Test Result [...] consultation, please call . Performed By: #### URICUR #### [facility] [address] [place] [address] Dr. Yilan ChangURIC ACID RAND URINEon 85-34-0813Zmiu Acid, Urine18.9 mg/dLNormal Not Estab.[facility] on above:Performed By: #### DSDOALC #### [facility] [address] [place] [address] Dr. Jose DuffyDRUG SCREEN RAPID (URINE)on 70-64-5581MZIEefzpdtwTjtwooGCDTHHUB Kindred HealthcareCommymichigan medical center on above:Performed By: #### URICUR #### [facility] [address] [place] [address] Dr. Jose DuffyBARNegativeNormalNEGDetwiler Memorial Hospital on above: Performed By: #### URICUR #### [facility] [address] [place] [address] Dr. Jose DuffyBUPPositiveAbwrightstownNEGDetwiler Memorial Hospital on above: Performed By: #### URICUR #### [facility] [address] [place] [address] Dr. Jose DuffyBZONegativeNormalNEGOhio Valley Surgical HospitalCommymichigan medical center on above: Performed By: #### URICUR #### [facility] [address] [place] [address] Dr. Jose DuffyCOCNegativeNormtnNEGDetwiler Memorial Hospital on above: Performed By: #### URICUR #### [facility] [address] [place] [address] Dr. Jose JallohOhio Valley Surgical HospitalComment on above: Result Comment: AMP (Amphetamine): 500ng/mL, BAR (Barbituates): 200 ng/mL, BZO (Benzodiazepines): 150 ng/mL, BUP (Buprenorphine): 10 ng/mL, RICARDO (Cocaine): 150 ng/mL, mAMP (Methamphetamine): 500 ng/mL, MTD (Methadone): 200 ng/mL, OPI (Opiates): 100 ng/mL, OXY (Oxycodone): 100 ng/mL, PCP (Phencyclidine): 25 ng/mL, PPX (Propoxyphene): 300 ng/mL, THC (Cannabinoids): 50 ng/mL, TCA (Trycyclic Antidepressants): 300 ng/mLPerformed By: #### URICUR #### [facility] [address] [place] [address] Dr. Jose DuffyDRUG CUT HEADERDRUG CLASS TEST SYSTEM CUT-OFF CONCENTRATIONS ARE FOLLOWS:NormalKindred HealthcareComment on above:Performed By: #### URICUR #### [facility] [address] [place] [address] Dr. Jose DuffymAMPNegativeNormalNEGATIVEKindred HealthcareComment on above: Performed By: #### URICUR #### [facility] [address] [place] [address] Dr. Jose DuffyMTDNegativeNormalNEGOhio Valley Surgical HospitalComment on above: Performed By: #### URICUR #### [facility] [address] [place] [address] Dr. Jose GutierrezINegativeNormalNEGOhio Valley Surgical HospitalComment on above: Performed By: #### URICUR #### [facility] [address] [place] [address] Dr. Jose DuffyOXYNegativeNormalNEGDetwiler Memorial Hospital on above: Performed By: #### URICUR #### [facility] [address] [place] [address] Dr. Jose DuffyPCPNegativeNormalNEGOhio Valley Surgical HospitalComment on above: Performed By: #### URICUR #### [facility] [address] [place] [address] Dr. Jose DuffyPPXNegativeNormalNEGOhio Valley Surgical HospitalComment on above: Performed By: #### URICUR #### [facility] [address] [place] [address] Dr. Jose DuffyTCANegativeNormalNEGOhio Valley Surgical HospitalComment on above: Performed By: #### URICUR #### [facility] [address] [place] [address] Dr. Jose DuffyTHCNegativeNormalNEGATIVEThe Katie HospitalComment on above: Performed By: #### URICUR #### [facility] [address], [place] [address] Dr. Jose Porter DRUG SCREENon [id number].NormalCincinnati [facility] on above:Performed By: #### DSDOALC #### [facility] [address], [place] [address] Dr. Jose Fernanedz [facility] on above:Result Comment: TOXASSURE COMP DRUG ANALYSIS,UR Test Result [...] consultation, please call . Performed By: #### DSDOALC #### [facility] [address] [place] [address] Dr. Jose DuffyURIC ACID RAND URINEon [id number] Acid, Urine38.6 mg/dLNormal Not Estab.Kindred HealthcareComment on above:Performed By: #### URICUR #### [facility] [address] [place] [address] Dr. Jose DuffyDRUG SCREEN RAPID (URINE)on [id number]C [facility] on above:Performed By: #### DRUGRPD #### [facility] [address] [place] [address] Dr. Jose PatelNegativeNormalNEGATIVECincinnati Children's Hospital Medical Center on above: Performed By: #### DRUGRPD #### [facility] [address] [place] [address] Dr. Jose DuffyBUPPositiveAbnormalNEGATIVECincinnati Children's Hospital Medical Center on above: Performed By: #### DRUGRPD #### [facility] [address] [place] [address] Dr. Jose DuffyBZONegativeNormalNEGATIVEThe [facility]enton HospitalComment on above: Performed By: #### DRUGRPD #### [facility] [address] [place] [address] Dr. Jose FordetiveNormalNEGATIVEKindred HealthcareComment on above: Performed By: #### DRUGRPD #### [facility] [address] [place] [address] Dr. Jose JallohOhio Valley Surgical HospitalComment on above: Result Comment: AMP (Amphetamine): 500ng/mL, BAR (Barbituates): 200 ng/mL, BZO (Benzodiazepines): 150 ng/mL, BUP (Buprenorphine): 10 ng/mL, RICARDO (Cocaine): 150 ng/mL, mAMP (Methamphetamine): 500 ng/mL, MTD (Methadone): 200 ng/mL, OPI (Opiates): 100 ng/mL, OXY (Oxycodone): 100 ng/mL, PCP (Phencyclidine): 25 ng/mL, PPX (Propoxyphene): 300 ng/mL, THC (Cannabinoids): 50 ng/mL, TCA (Trycyclic Antidepressants): 300 ng/mLPerformed By: #### DRUGRPD #### [facility] [address] [place] [address] Dr. Jose DuffyDRUG CUT HEADERDRUG CLASS TEST SYSTEM CUT-OFF CONCENTRATIONS ARE FOLLOWS:NormalThe [facility] on above:Performed By: #### DRUGRPD #### [facility] [address] [place] [address] Dr. Jose DuffymAMPNegativeNormalNEGATIVEKindred HealthcareCommymichigan medical center on above: Performed By: #### DRUGRPD #### [facility] [address] [place] [address] Dr. Jose DuffyMTDNestuardotiveNormalNEGATIVEKindred HealthcareCommymichigan medical center on above: Performed By: #### DRUGRPD #### [facility] [address] [place] [address] Dr. Jose ArevalogativeNormalNEGATIVEKindred HealthcareCommymichigan medical center on above: Performed By: #### DRUGRPD #### [facility] [address] [address] [address] Jose DuffyOXYNegativeNormalNEGATIVEKindred HealthcareComment on above: Performed By: #### DRUGRPD #### [facility] [address] [address] [address] Jose DuffyPCPNegativeNormalNEGATIVEKindred HealthcareComment on above: Performed By: #### DRUGRPD #### [facility] [address] [address] [address] Jose DuffyPPXNegativeNormalNEGOhio Valley Surgical HospitalComment on above: Performed By: #### DRUGRPD #### [facility] [address] [address] [address] Jose DuffyTCANegativeNormalNEGOhio Valley Surgical HospitalComment on above: Performed By: #### DRUGRPD #### [facility] [address] [address] [address] Jose DuffyTHCNegativeNormalNEGATIVEKindred HealthcareComment on above: Performed By: #### DRUGRPD #### [facility] [address] [place] [address] Dr. Jose hCongPLDULCE DRUG SCREENon [id number].NormalKindred HealthcareComment on above:Performed By: #### DSDOALC #### [facility] [address] [place] [address] Dr. Jose MaresryFINALNoalThMansfield HospitalComment on above:Result Comment: TOXASSURE COMP DRUG ANALYSIS,UR Test Result [...] is an expected metabolite of dextromethorphan, an rbim-wld-oekggva or prescription cough suppressant. Levorphanol is a [...] consultation, please call . Performed By: #### DSDOALC #### [facility] [address] [place] [address] Dr. Jose DuffyURIC ACID RAND URINEon [id number] Acid, Urine44.5 mg/dLNormal Not Estab.Kindred HealthcareCommymichigan medical center on above:Performed By: #### DSDOALC #### [facility] [address] [place] [address] Dr. Jose DuffyDRUG SCREEN RAPID (URINE)on [id number] [facility] on above:Performed By: #### DRUGRPD #### [facility] [address] [place] [address] Dr. Jose DuffyBARNegativeNoalNEGDetwiler Memorial Hospital on above: Performed By: #### DRUGRPD #### [facility] [address] [place] [address] Dr. Jose DuffyBUPPositiveAbnormalNEGDetwiler Memorial Hospital on above: Performed By: #### DRUGRPD #### [facility] [address] [place] [address] Dr. Jose DuffyBZONegativePocono SummitNEGDetwiler Memorial Hospital on above: Performed By: #### DRUGRPD #### [facility] [address] [place] [address] Dr. Jose DuffyCOCNegativeNormalNEGDetwiler Memorial Hospital on above: Performed By: #### DRUGRPD #### [facility] [address] [place] [address] Dr. Jose DuffyRadhaOhio Valley Surgical HospitalCommymichigan medical center on above: Result Comment: AMP (Amphetamine): 500ng/mL, BAR (Barbituates): 200 ng/mL, BZO (Benzodiazepines): 150 ng/mL, BUP (Buprenorphine): 10 ng/mL, RICARDO (Cocaine): 150 ng/mL, mAMP (Methamphetamine): 500 ng/mL, MTD (Methadone): 200 ng/mL, OPI (Opiates): 100 ng/mL, OXY (Oxycodone): 100 ng/mL, PCP (Phencyclidine): 25 ng/mL, PPX (Propoxyphene): 300 ng/mL, THC (Cannabinoids): 50 ng/mL, TCA (Trycyclic Antidepressants): 300 ng/mLPerformed By: #### DRUGRPD #### [facility] [address] [place] [address] Dr. Jose DuffyDRUG CUT HEADERDRUG CLASS TEST SYSTEM CUT-OFF CONCENTRATIONS ARE FOLLOWS:NormalThe [facility] HospitalComment on above:Performed By: #### DRUGRPD #### [facility] [address] [place] [address] Dr. Jose DuffymAMPNegativeNormalNEGATIVEKindred HealthcareComment on above: Performed By: #### DRUGRPD #### [facility] [address] [place] [address] Dr. Jose DuffyMTDNegativeNormalNEGATIVEKindred HealthcareComment on above: Performed By: #### DRUGRPD #### [facility] [address] [place] [address] Dr. Jose GutierrezINebethiveNormalNEGATIVEKindred HealthcareComment on above: Performed By: #### DRUGRPD #### [facility] [address] [place] [address] Dr. Jose DuffyOXYNegativeNormalNEGATIVEKindred HealthcareComment on above: Performed By: #### DRUGRPD #### [facility] [address] [place] [address] Dr. Jose DuffyPCPNegativeNormalNEGATIVEKindred HealthcareComment on above: Performed By: #### DRUGRPD #### [facility] [address] [place] [address] Dr. Jose DuffyPPXNegativeNormalNEGATIVEKindred HealthcareComment on above: Performed By: #### DRUGRPD #### [facility] [address] [place] [address] Dr. Jose DuffyTCANegativeNormalNEGATIVEKindred HealthcareComment on above: Performed By: #### DRUGRPD #### [facility] [address] [address] [address] Jose CarmichaelegativeNormalNEGATIVECincinnati Children's Hospital Medical Center on above: Performed By: #### DRUGRPD #### [facility] [address] [address] [address] Jose ChongPLIANCE DRUG SCREENon [id number].NormalKindred HealthcareComment on above:Performed By: #### DSDOALC #### [facility] [address] [address] [address] Jose VargasFulton County Health Center on above:Result Comment: TOXASSURE COMP DRUG ANALYSIS,UR Test Result [...] consultation, please call . Performed By: #### DSDOALC #### [facility] [address] [place] [address] Dr. Jose DuffyURIC ACID RAND URINEon [id number] Acid, Urine30.0 mg/dLNormal Not Estab.Kindred HealthcareCommymichigan medical center on above:Performed By: #### URICUR #### [facility] [address] [place] [address] Dr. Jose DuffyDRUG SCREEN RAPID (URINE)on [id number] [facility] on above:Performed By: #### DRUGRPD #### [facility] [address] [place] [address] Dr. Jose DuffyBARNegativeNormalNEGATIVECincinnati Children's Hospital Medical Center on above: Performed By: #### DRUGRPD #### [facility] [address] [place] [address] Dr. Jose DuffyBUPPositiveAbnormalNEGATIVEThe Benton HospitalComment on above: Performed By: #### DRUGRPD #### [facility] [address] [address] [address] Jose DuffyBZONegativeNormalNEGATIVECincinnati Children's Hospital [facility] Center on above: Performed By: #### DRUGRPD #### [facility] [address] [address] [address] Jose DuffyCOCNegativeNormalNEGATIVEKindred HealthcareComment on above: Performed By: #### DRUGRPD #### [facility] [address] [address] [address] Jose DuffyRadhaGrant Hospital on above: Result Comment: AMP (Amphetamine): 500ng/mL, BAR (Barbituates): 200 ng/mL, BZO (Benzodiazepines): 150 ng/mL, BUP (Buprenorphine): 10 ng/mL, RICARDO (Cocaine): 150 ng/mL, mAMP (Methamphetamine): 500 ng/mL, MTD (Methadone): 200 ng/mL, OPI (Opiates): 100 ng/mL, OXY (Oxycodone): 100 ng/mL, PCP (Phencyclidine): 25 ng/mL, PPX (Propoxyphene): 300 ng/mL, THC (Cannabinoids): 50 ng/mL, TCA (Trycyclic Antidepressants): 300 ng/mLPerformed By: #### DRUGRPD #### [facility] [address] [place] [address] Dr. Jose DuffyDRUG CUT HEADERDRUG CLASS TEST SYSTEM CUT-OFF CONCENTRATIONS ARE FOLLOWS:NormalThe [facility] on above:Performed By: #### DRUGRPD #### [facility] [address] [address] [address] Jose DuffymAMPNegativeNormalNEGATIVECincinnati Children's Hospital Medical Center on above: Performed By: #### DRUGRPD #### [facility] [address] [address] [address] Jose DuffyMTDNegativeNormalNEGATIVEKindred HealthcareCommymichigan medical center on above: Performed By: #### DRUGRPD #### [facility] [address] [address] [address] Jose DuffyOPINegativeNormalNEGOhio Valley Surgical HospitalComment on above: Performed By: #### DRUGRPD #### [facility] [address] [address] [address] Jose DuffyOXYNegativeNormalNEGOhio Valley Surgical HospitalComment on above: Performed By: #### DRUGRPD #### [facility] [address] [address] [address] Jose DuffyPCPNegativeNormalNEGOhio Valley Surgical HospitalComment on above: Performed By: #### DRUGRPD #### [facility] [address] [address] [address] Jose DuffyPPXNegativeNormalNEGOhio Valley Surgical HospitalComment on above: Performed By: #### DRUGRPD #### [facility] [address] [address] [address] Jose DuffyTCANegativeNormalNEGOhio Valley Surgical HospitalCommymichigan medical center on above: Performed By: #### DRUGRPD #### [facility] [address] [address] [address] Jose DuffyTHCNegativeNormalNEGOhio Valley Surgical HospitalCommymichigan medical center on above: Performed By: #### DRUGRPD #### [facility] [address] [place] [address] Dr. Jose ChongPLIANCE DRUG SCREENon [id number].NormalKindred HealthcareCommymichigan medical center on above:Performed By: #### URICUR #### [facility] [address] [address] [address] Jose DoanmmaryFINALNoTogus VA Medical CenterCommymichigan medical center on above:Result Comment: TOXASSURE COMP DRUG ANALYSIS,UR Test Result [...] consultation, please call . Performed By: #### URICUR #### [facility] [address] [place] [address] Dr. Jose Proctor ACID RAND URINEon [id number] Acid, Urine25.0 mg/dLNormal Not Estab.Kindred HealthcareCommymichigan medical center on above:Performed By: #### DRUGRPD #### [facility] [address] [place] [address] Dr. Jose DuffyDRUG SCREEN RAPID (URINE)on [id number] [facility] on above:Performed By: #### URICUR #### [facility] [address] [place] [address] Dr. Jose DuffyBARNegativeBrecksville VA / Crille Hospital on above: Performed By: #### URICUR #### [facility] [address] [place] [address] Dr. Jose DuffyBUPPositiveAbnoatrium health ansonNEGDetwiler Memorial Hospital on above: Performed By: #### URICUR #### [facility] [address] [place] [address] Dr. Jose DuffyBZONegativePocono SummitNEGDetwiler Memorial Hospital on above: Performed By: #### URICUR #### [facility] [address] [place] [address] Dr. Jose DuffyCOCNegativeBrecksville VA / Crille Hospital on above: Performed By: #### URICUR #### [facility] [address] [place] [address] Dr. Jose JallohOhio Valley Surgical HospitalCommymichigan medical center on above: Result Comment: AMP (Amphetamine): 500ng/mL, BAR (Barbituates): 200 ng/mL, BZO (Benzodiazepines): 150 ng/mL, BUP (Buprenorphine): 10 ng/mL, RICARDO (Cocaine): 150 ng/mL, mAMP (Methamphetamine): 500 ng/mL, MTD (Methadone): 200 ng/mL, OPI (Opiates): 100 ng/mL, OXY (Oxycodone): 100 ng/mL, PCP (Phencyclidine): 25 ng/mL, PPX (Propoxyphene): 300 ng/mL, THC (Cannabinoids): 50 ng/mL, TCA (Trycyclic Antidepressants): 300 ng/mLPerformed By: #### URICUR #### [facility] [address] [place] [address] Dr. Jose DuffyDRUG CUT HEADERDRUG CLASS TEST SYSTEM CUT-OFF CONCENTRATIONS ARE FOLLOWS:NormalThe [facility] HospitalComment on above:Performed By: #### URICUR #### [facility] [address] [place] [address] Dr. Jose DuffymAMPNegativeNormalNEGATIVEKindred HealthcareComment on above: Performed By: #### URICUR #### [facility] [address] [place] [address] Dr. Jose DuffyMTDNegativeNormalNEGATIVEKindred HealthcareComment on above: Performed By: #### URICUR #### [facility] [address] [place] [address] Dr. Jose GutierrezINegativeNormalNEGATIVEKindred HealthcareComment on above: Performed By: #### URICUR #### [facility] [address] [place] [address] Dr. Jose DuffyOXYNegativeNormalNEGATIVECleveland Clinic Akron General Lodi Hospitalment on above: Performed By: #### URICUR #### [facility] [address] [place] [address] Dr. Jose DuffyPCPNegativeNormalNEGATIVEKindred HealthcareComment on above: Performed By: #### URICUR #### [facility] [address] [place] [address] Dr. Jose DuffyPPXNegativeNormalNEGOhio Valley Surgical HospitalComment on above: Performed By: #### URICUR #### [facility] [address] [place] [address] Dr. Jose DuffyTCANegativeNormalNEGOhio Valley Surgical HospitalComment on above: Performed By: #### URICUR #### [facility] [address] [place] [address] Dr. Jose CarmichaelegativeNormalNEGATIVEKindred HealthcareComment on above: Performed By: #### URICUR #### [facility] [address] [place] [address] Dr. Jose ChongPLIANCE DRUG SCREENon [id number].NormalKindred HealthcareComment on above:Performed By: #### DSDOALC #### [facility] [address] [place] [address] Dr. Jose SernaALAlanalThThe [facility] on above:Result Comment: TOXASSURE COMP DRUG ANALYSIS,UR Test Result [...] consultation, please call . Performed By: #### DSDOALC #### [facility] [address] [place] [address] Dr. Jose Woodall ABD/PELV W CONon [id number] ABD/PELV W CONEXAMINATION: CT ABD/PELV W CON HISTORY: Partial bowel [...] Electronically authenticated by: VENKATA GRIMALDO Date: 2021-12-18 15:15NormalThe [facility] SINGLE QUAD RT UPPERon [id number] SINGLE QUAD RT UPPER EXAMINATION: US SINGLE [...] Electronically authenticated by: VENKATA GRIMALDO Date: 2021-12-18 15:09NormalThe [facility]enton HospitalURIC ACID RAND URINEon [id number] Acid, Urine46.2 mg/dL NormalNot Estab.The [facility] HospitalComment on above:Performed By: #### DSDOALC #### [facility] [address] [address] [address] Jose DuffyAMYLASEon [id number] [Catalytic activity/Vol]134 U/L Critically hums45-366Iwq [facility] HospitalComment on above:Performed By: #### DRUGRPD #### [facility] [address] [address] [address] Joes DuffyCBC AUTO DIFFon [id number] #0.1 103/ulNormal0.0-0.1The [facility] on above:Performed By: #### DRUGRPD #### [facility] [address] [address] [address] Jose DuffyBasophils/100 WBC (Bld)0.6 %Normal0.2-2.0The [facility] Comment on above:Performed By: #### DRUGRPD #### [facility] [address] [place] [address] Dr. Jose Marroquin #0.3 103/ulNormal0.0-0.7The [facility] HospitalComment on above: Performed By: #### DRUGRPD #### [facility] [address] [place] [address] Dr. Jose Noyolaosinophils/100 WBC (Bld)3.0 %Normal0.9-7.0The [facility] Comment on above:Performed By: #### DRUGRPD #### [facility] [address] [place] [address] Dr. Jose Noyolarythrocyte distribution width (RBC) [Ratio]13.2 %Uarogb39.0-15.0 The [facility] HospitalComment on above:Performed By: #### DRUGRPD #### [facility] [address] [place] [address] Dr. Jose DuffyHematocrit (Bld) [Volume fraction]42.7 %Skhffg86.0-54.0The [facility] HospitalComment on above:Performed By: #### DRUGRPD #### [facility] [address] [place] [address] Dr. Jose DuffyHemoglobin (Bld) [Mass/Vol]14.3 g/mFQsxrkh92.0-18.0The [facility] HospitalComment on above:Performed By: #### DRUGRPD #### [facility] [address] [place] [address] Dr. Jose Rodriguez #0.02 10e3/ulNormal0.00-0.03The [facility] HospitalComment on above:Performed By: #### DRUGRPD #### [facility] [address] [place] [address] Dr. Jose Rodriguez %0.2 %Normal0.0-0.5The [facility] HospitalComment on above: Performed By: #### DRUGRPD #### [facility] [address] [place] [address] Dr. Jose Fulton #2.3 103/ulNormal1.2-3.8The [facility] HospitalComment on above:Performed By: #### DRUGRPD #### [facility] [address] [place] [address] Dr. Jose Israelmphocytes/100 WBC (Bld)20.6 %Cphesp26.5-60.0The [facility] HospitalComment on above:Performed By: #### DRUGRPD #### [facility] [address] [place] [address] Dr. Jose Beckford DIFF REQNONormalThe [facility] HospitalComment on above: Performed By: #### DRUGRPD #### [facility] [address] [place] [address] Dr. Jose Cortez (RBC) [Entitic mass]28.7 jlWvuisn27.9-34.0The [facility] HospitalComment on above:Performed By: #### DRUGRPD #### [facility] [address] [place] [address] Dr. Jose Cortez (RBC) [Mass/Vol]33.5 g/pPEbpyvq09.9-35.2The [facility] HospitalComment on above:Performed By: #### DRUGRPD #### [facility] [address] [place] [address] Dr. Jose Cortez (RBC) [Entitic vol]85.6 zBOcehij28.0-94.0The [facility] HospitalComment on above:Performed By: #### DRUGRPD #### [facility] [address] [place] [address] Dr. Jose Andujar #0.8 103/ulNormal0.3-0.8The [facility] HospitalComment on above:Performed By: #### DRUGRPD #### [facility] [address] [place] [address] Dr. Jsoe Joynerocytes/100 WBC (Bld)7.5 %Normal1.7-12.0[facility] Comment on above:Performed By: #### DRUGRPD #### [facility] [address] [place] [address] Dr. Jose Johnson #7.4 103/ulCritically high1.4-6.5The [facility] Comment on above:Performed By: #### DRUGRPD #### [facility] [address] [place] [address] Dr. Jose Alanizutrophils/100 WBC (Bld)68.1 %Lmkfjw22.0-75.0The [facility] HospitalComment on above:Performed By: #### DRUGRPD #### [facility] [address] [place] [address] Dr. Jose DuffyPlatelet mean volume (Bld) [Entitic vol]9.0 fLCritically low 9.5-13.5The [facility] HospitalComment on above:Performed By: #### DRUGRPD #### [facility] [address] [place] [address] Dr. Jose DuffyPLT253 103/znAeflzs732-793Nsu [facility] HospitalComment on above: Performed By: #### DRUGRPD #### [facility] [address] [place] [address] Dr. Jose DuffyRBC4.99 106/ulNormal4.70-6.10The [facility] HospitalComment on above:Performed By: #### DRUGRPD #### [facility] [address] [place] [address] Dr. Jose DuffyWBC10.9 103/ulNormal4.0-11.0The [facility] HospitalComment on above:Performed By: #### DRUGRPD #### [facility] [address] [place] [address] Dr. Jose DuffyLIPASEon 31-18-1320Nmjsqx [Catalytic activity/Vol]207.0 U/LNormal 73.0-393.0The [facility] HospitalComment on above:Performed By: #### DRUGRPD #### [facility] [address] [place] [address] Dr. Jose Canas 14(COMP METB)on 78-68-5693Wnspsss [Mass/Vol]4.3 g/dLNormal 3.4-5.0The [facility] HospitalComment on above:Performed By: #### DRUGRPD #### [facility] [address] [address] [address] Jose DuffyAlbumin/Globulin [Mass ratio]1.2 {ratio}NormalThe [facility] HospitalComment on above:Performed By: #### DRUGRPD #### [facility] [address] [address] [address] Jose ReynoldsP [Catalytic activity/Vol]68 U/CQlucce11-201Qsl [facility] HospitalComment on above:Performed By: #### DRUGRPD #### [facility] [address] [place] [address] Dr. Jose ReynoldsT [Catalytic activity/Vol]132 U/LCritically ybvm40-11Xoq [facility] HospitalComment on above:Performed By: #### DRUGRPD #### [facility] [address] [address] [address] Jose Triplett gap [Moles/Vol]12.2 mmol/LNormalThe [facility] Comment on above:Performed By: #### DRUGRPD #### [facility] [address] [place] [address] Dr. Jose DuffyAST [Catalytic activity/Vol]83 U/LCritically zjdk34-80Dfc [facility] HospitalComment on above:Performed By: #### DRUGRPD #### [facility] [address] [address] [address] Jose DuffyBilirubin [Mass/Vol]0.6 mg/dLNormal0.2-1.0The [facility] Comment on above:Performed By: #### DRUGRPD #### [facility] [address] [address] [address] Jose DuffyCalcium [Mass/Vol]8.9 mg/dLNormal8.5-10.1The [facility] Comment on above:Performed By: #### DRUGRPD #### [facility] [address] [address] [address] Jose DuffyChloride [Moles/Vol]104 mmol/NPafxfg75-724Pdb [facility] Comment on above:Performed By: #### DRUGRPD #### [facility] [address] [address] [address] Jose DuffyCO2 [Moles/Vol]29.1 mmol/YCpslas45.0-32.0The [facility] Comment on above:Performed By: #### DRUGRPD #### [facility] [address] [address] [address] Jose DuffyCreatinine [Mass/Vol]0.95 mg/dLNormal0.70-1.30The [facility] HospitalComment on above:Performed By: #### DRUGRPD #### [facility] [address] [address] [address] Garcia ChangEGFR-AF GIBRALTARIAN>60Normal>=60The [facility] HospitalComment on above:Performed By: #### DRUGRPD #### [facility] [address] [address] [address] Jose NoyolaGFR-NON AF GIBRALTARIAN>60Normal>=60The [facility] HospitalComment on above:Performed By: #### DRUGRPD #### [facility] [address] [address] [address] Jose DuffyGlobulin (S) [Mass/Vol]3.5 g/dLNormalThe [facility] HospitalComment on above:Performed By: #### DRUGRPD #### [facility] [address] [address] [address] Jose DuffyGlucose [Mass/Vol]101 mg/iZXhfjmd40-737Xdx [facility] Comment on above:Performed By: #### DRUGRPD #### [facility] [address] [address] [address] Jose DuffyPotassium [Moles/Vol]4.3 mmol/LNormal3.5-5.1The [facility] Comment on above:Performed By: #### DRUGRPD #### [facility] [address] [place] [address] Dr. Jose DuffyProtein [Mass/Vol]7.8 g/dLNormal6.4-8.2[facility] Comment on above:Performed By: #### DRUGRPD #### [facility] [address] [place] [address] Dr. Jose DuffySodium [Moles/Vol]141 mmol/QAdhewa904-231Wgm [facility] Comment on above:Performed By: #### DRUGRPD #### [facility] [address] [place] [address] Dr. Jose DuffyUrea nitrogen [Mass/Vol]20.0 mg/dLCritically high7.0-18.0The [facility] HospitalComment on above:Performed By: #### DRUGRPD #### [facility] [address] [place] [address] Dr. Jose Artis nitrogen/Creatinine [Mass ratio]21.1 mg/mgNormalThe [facility] HospitalComment on above:Performed By: #### DRUGRPD #### [facility] [address] [place] [address] Dr. Jose DuffyCOMPLIANCE DRUG SCREENon 53-64-4976VQI.NormalThe [facility] HospitalComment on above:Performed By: #### DSDOALC #### [facility] [address] [place] [address] Dr. Jose DuffySummaryFINALNoTogus VA Medical CenterComment on above:Result Comment: TOXASSURE COMP DRUG ANALYSIS,UR Test Result [...] consultation, please call . Performed By: #### DSDOALC #### [facility] [address] [place] [address] Dr. Jose DuffyURIC ACID RAND URINEon 00-71-4475Ggxr Acid, Urine91.5 mg/dLNormal Not Estab.The [facility] on above:Performed By: #### URICUR #### [facility] [address] [address] [address] Jose DuffyDRUG SCREEN RAPID (URINE)on 31-53-3675WHRWcujbfuxVadujnDKNCGNGP [facility] on above:Performed By: #### URICUR #### [facility] [address] [address] [address] Jose DuffyBARNegativeNormalNEGDetwiler Memorial Hospital on above: Performed By: #### URICUR #### [facility] [address] [place] [address] Dr. Jose MeadePPositiveAbnormalNEGDetwiler Memorial Hospital on above: Performed By: #### URICUR #### [facility] [address] [place] [address] Dr. Jose DuffyBZONegativermalNEGDetwiler Memorial Hospital on above: Performed By: #### URICUR #### [facility] [address] [place] [address] Dr. Jose HolderCNegativeNormalNEGDetwiler Memorial Hospital on above: Performed By: #### URICUR #### [facility] [address] [place] [address] Dr. Jose JallohOhio Valley Surgical HospitalCommymichigan medical center on above: Result Comment: AMP (Amphetamine): 500ng/mL, BAR (Barbituates): 200 ng/mL, BZO (Benzodiazepines): 150 ng/mL, BUP (Buprenorphine): 10 ng/mL, RICARDO (Cocaine): 150 ng/mL, mAMP (Methamphetamine): 500 ng/mL, MTD (Methadone): 200 ng/mL, OPI (Opiates): 100 ng/mL, OXY (Oxycodone): 100 ng/mL, PCP (Phencyclidine): 25 ng/mL, PPX (Propoxyphene): 300 ng/mL, THC (Cannabinoids): 50 ng/mL, TCA (Trycyclic Antidepressants): 300 ng/mLPerformed By: #### URICUR #### [facility] [address] [address] [address] Jose DuffyDRUG CUT HEADERDRUG CLASS TEST SYSTEM CUT-OFF CONCENTRATIONS ARE FOLLOWS:NormalThe [facility] HospitalComment on above:Performed By: #### URICUR #### [facility] [address] [address] [address] Jose DuffymAMPNegativeNormalNEGATIVEKindred HealthcareComment on above: Performed By: #### URICUR #### [facility] [address] [address] [address] Jose DuffyMTDNegativeNormalNEGATIVEKindred HealthcareComment on above: Performed By: #### URICUR #### [facility] [address] [address] [address] Jose GutierrezINegativeNormalNEGATIVEKindred HealthcareCommymichigan medical center on above: Performed By: #### URICUR #### [facility] [address] [address] [address] Jose DuffyOXYNegativeNormalNEGATIVECincinnati Children's Hospital Medical Center on above: Performed By: #### URICUR #### [facility] [address] [address] [address] Jose DuffyPCPNegativeNormalNEGOhio Valley Surgical HospitalCommymichigan medical center on above: Performed By: #### URICUR #### [facility] [address] [address] [address] Jose DuffyPPXNegativeNormalNEGATIVEKindred HealthcareCommymichigan medical center on above: Performed By: #### URICUR #### [facility] [address] [address] [address] Jose DuffyTCANegativeNormalNEGATIVEKindred HealthcareComment on above: Performed By: #### URICUR #### [facility] [address] [address] [address] Jose DuffyTHCNegativeNormalNEGATIVEKindred HealthcareComment on above: Performed By: #### URICUR #### [facility] [address] [address] [address] Jose Duffy.UA Microscp Aon 27-36-3160XM MucusPresentAbnormalAbsentMemorial Health System Selby General HospitalComment on above:Performed By: #### CD:[id number] #### [address] [address]ZG RBC Dwvra349 /HPFHigh0-5BParkview Health Montpelier Hospital Comment on above:Performed By: #### CD:[id number] #### [address] [address]OK Squepi Cells Quant1 /HPFNormal0-29[facility] HospitalComment on above:Performed By: #### CD:[id number] #### [address] [address]UA WBC Quant4 /HPFNormal0-5BParkview Health Montpelier Hospital Comment on above:Performed By: #### CD:[id number] #### [address] [address].eGFRon 19-31-2917eZIQ AA>60Normal>=60[facility] HospitalComment on above:Result Comment: Result = 0-14.9 mL/min/1.73 m2 Kidney failure or Dialysis Result = 15-29 mL/min/1.73 m2 Severe decrease in GFR Result = 30-59 mL/min/1.73 m2 Moderate decrease in GFR Result >= 60 mL/min/1.73 m2 Normal or increased GFRPerformed By: #### EGFR #### [address] [address]pXQQ Non-AA>60Normal>=60[facility] HospitalComment on above:Result Comment: Result = 0-14.9 mL/min/1.73 m2 Kidney failure or Dialysis Result = 15-29 mL/min/1.73 m2 Severe decrease in GFR Result = 30-59 mL/min/1.73 m2 Moderate decrease in GFR Result >= 60 mL/min/1.73 m2 Normal or increased GFR Chronic kidney disease is defined as either kidney damage or GFR < 60 mL/min/1.73 m2 for >= 3months. Kidney damage is defined as pathologic abnormalities or markers of damage including abnormalities in blood or urine tests or imaging studies. This GFR is NOT used for medication dosing. Performed By: #### EGFR #### [address] [address]BMT w/ Diffon 93-84-2719Rufgcrlozeh distribution width (RBC) [Ratio]14.0 %Nygdwe17.6-14.8BParkview Health Montpelier HospitalComment on above: Performed By: #### CBC #### [address] [address]Spjdssxaqy (Bld) [Volume fraction]43.5 %Izeias73.0-53.0 [facility] HospitalComment on above:Performed By: #### CBC #### [address] [address]Dpdfivbwag (Bld) [Mass/Vol]14.7 g/wHUkspfn88.5-17.5BParkview Health Montpelier HospitalComment on above:Performed By: #### CBC #### [address] [address]GNC (RBC) [Entitic mass]28.5 jwMxnozo32.0-35.0[facility] HospitalComment on above:Performed By: #### CBC #### [address] [address]XMBV (RBC) [Mass/Vol]33.8 %Qquayq17.0-37.0[facility] HospitalComment on above:Performed By: #### CBC #### [address] [address]EDM (RBC) [Entitic vol]84.4 bXUeqjfu50.0-100.0[facility] HospitalComment on above:Performed By: #### CBC #### [address] [address]Aoafaxmc mean volume (Bld) [Entitic vol]7.3 fLNormal6.7-10.6 [facility] HospitalComment on above:Performed By: #### CBC #### [address] [address]Krnynmumg (Bld) [#/Vol]273 x10*3/hxZFopwcr093-157DypcituaoMemorial Health System Selby General HospitalComment on above:Performed By: #### CBC #### [address] [address]NMT (Bld) [#/Vol]5.16 x10*6/mcLNormal4.30-5.80[facility] HospitalComment on above:Performed By: #### CBC #### [address] [address]CPD (Bld) [#/Vol]11.0 x10*3/mcLNormal4.5-11.0[facility] HospitalComment on above:Performed By: #### CBC #### [address] [address]OKFpp 69-88-4011Slpljfg [Mass/Vol]4.2 g/dLNormal3.2-4.9 [facility] HospitalComment on above:Result Comment: [facility] updated the methodology used for albumin testing on 12/21/17. Albumin measurement was performed using a bromcresol purple dye-binding assay.Performed By: #### COMP #### [address] [address]Brnpaba/Globulin [Mass ratio]1.3 {ratio}Normal1.1-2.2BParkview Health Montpelier HospitalComment on above:Performed By: #### COMP #### [address] [address]Aii Phos80 IU/ZIjgrfp12-84SyuwhxjpmMemorial Health System Selby General HospitalComment on above:Performed By: #### COMP #### [address] [address]TMF [Catalytic activity/Vol]41 U/RKwbaby30-12PfkgvmavzMemorial Health System Selby General HospitalComment on above:Performed By: #### COMP #### [address] [address]Jwjbm gap [Moles/Vol]15 mmol/LNormal7-17[facility] HospitalComment on above:Performed By: #### COMP #### [address] [address]OIA [Catalytic activity/Vol]43 U/TMzpj95-42EvikxiobjMemorial Health System Selby General HospitalComment on above:Performed By: #### COMP #### [address], [place] [address]Vkgn Total0.7 mg/dLNormal0.3-1.2BParkview Health Montpel[facility] Hospital Comment on above:Performed By: #### COMP #### [address], [place] [address]Kxulqsc [Mass/Vol]9.2 mg/dLNormal8.5-10.3BParkview Health Montpelier HospitalComment on above:Performed By: #### COMP #### [address] [address]Encgonyt [Moles/Vol]104 mmol/KNthxio73-422LjbglszuxMemorial Health System Selby General HospitalComment on above:Performed By: #### COMP #### [address], [place] [address]DC4 [Moles/Vol]25 mmol/VWehecr22-78LbltrnwlcMemorial Health System Selby General HospitalComment on above:Performed By: #### COMP #### [address] [address]Qubmfozunv [Mass/Vol]0.98 mg/dLNormal0.61-1.24[facility] HospitalComment on above:Performed By: #### COMP #### [address], [place] [address]Kbwwofj [Mass/Vol]126 mg/fNVfjl40-248FivsgsyyhMemorial Health System Selby General HospitalComment on above:Performed By: #### COMP #### [address] [address]Uaadtuair [Moles/Vol]3.7 mmol/LNormal3.4-4.8BParkview Health Montpelier HospitalComment on above:Performed By: #### COMP #### [address] [address]Mzofmog [Mass/Vol]7.4 g/dLNormal6.5-8.1BParkview Health Montpelier HospitalComment on above:Performed By: #### COMP #### [address] [address]Ovqvwc [Moles/Vol]140 mmol/DNmrlif074-360LtcnbcyukMemorial Health System Selby General HospitalComment on above:Performed By: #### COMP #### [address] [address]Nmnm nitrogen [Mass/Vol]19 mg/dLNormal8-26[facility] HospitalComment on above:Performed By: #### COMP #### [address] [address]Pzyy nitrogen/Creatinine [Mass ratio]19.4 mg/jiZazaad08.0-20.0 [facility] HospitalComment on above:Performed By: #### COMP #### [address] [address]TW Abd Pelvis w/o IV Cont Stone Prot.on 57-71-7944NG Abd Pelvis w/o IV Cont Stone Prot.Clinical history: Left flank pain TECHNIQUE: 3 mm [...] stability of the nodule Radiation Dose Estimate: CTDI(mGy):0.350573 / / / kVp:120.882926 / mAs:0.642281 / / / DLP(mGy- cm):7.798586Sunh Part: Abdomen Final Dictated by: Donnell Luther MD Dictated DT/TM: 12.01.2018 8:57 am Signed by: Donnell Luther MD Signed (Electronic Signature): 12.01.2018 9:03 am (If Report Is Signed, Electronically Signed in Other Vendor System)Normal [facility] General HospitalDiff Autoon 57-13-5453Ydkg Absolute0.0 x10*3/mcL Normal0.0-0.2BParkview Health Montpelier HospitalComment on above:Performed By: #### .Automated Diff #### [address] [address]Byyvbozva/100 WBC (Bld)0.3 %Normal0.0-1.2BParkview Health Montpelier HospitalComment on above:Performed By: #### .Automated Diff #### [address] [address]Ywp Absolute0.3 x10*3/mcLNormal0.0-0.4BParkview Health Montpelier HospitalComment on above:Performed By: #### .Automated Diff #### [address] [address]Jcudbqqfbfh/100 WBC (Bld)2.8 %Normal0.0-6.1BSelect Medical Specialty Hospital - Cincinnati North SystemComment on above:Performed By: #### .Automated Diff #### [address] [address]Nztfmulryim (Bld) [#/Vol]3.5 x10*3/mcLNormal1.0-4.8BParkview Health Montpelier HospitalComment on above:Performed By: #### .Automated Diff #### [address] [address]Cffwnmehbhc/100 WBC (Bld)32.0 %Euthtu85.2-40.8BParkview Health Montpelier HospitalComment on above:Performed By: #### .Automated Diff #### [address] [address]Qbdh Absolute0.8 x10*3/mcLNormal0.3-1.1BParkview Health Montpelier HospitalComment on above:Performed By: #### .Automated Diff #### [address] [address]Wjjzysfec/100 WBC (Bld)7.4 %Normal4.7-13.9BParkview Health Montpelier HospitalComment on above:Performed By: #### .Automated Diff #### [address] [address]Opupfb Absolute6.3 x10*3/mcLNormal1.8-7.7BParkview Health Montpelier HospitalComment on above:Performed By: #### .Automated Diff #### [address] [address]Itgbgf Auto57.5 %Bsptfs07.2-70.8BParkview Health Montpel[facility] Hospital Comment on above:Performed By: #### .Automated Diff #### [address] [address]IM Clinical Summaryon [id number] Clinical Summary [address] [address] ED Clinical Summary Person Information Name: Bessy Torres [facility] Age: 38 Years : 1980 Sex: Male PCP: Romy Samayoa MD Marital Status: Single Phone: Race: White Ethnicity: Not or Language: Bahamian Visit Reason: Flank pain; Flank pain Acuity: 3 Enc Type: Emergency Med Service: Emergency Medicine Arrival: 12/01/2018 07:25:25 Discharge: 12/01/2018 10:15:00 LOS: 000 02:50 Checkin: 12/01/2018 07:25:25 Checkout: 12/01/2018 10:15:00 Dispo Type: Home or Self Care Address: [address] [place] [id number] Provider Notes: History of Present Illness Patient [...] was the patient and he will follow-up withhis PCP as he will need to have [...] was the patient and he will follow-up withhis PCP as he will need to have [...] normal, Bowel sounds: normal, active, Palpitation: abdomen issoft, Indicators: Shea?s sign is negative, McBurney?s point [...] was the patient and he will follow-up withhis PCP as he will need to have [...] range between ( 27.2 and 40.8 ) [place]illa Auto: 7.4 % -- Normal range between [...] range between ( 41.0 and 53.0 ) [place] Absolute: 0.8 x10 MCH: 28.5 pg -- [...] Med List: New Medications [facility] [facility], [address], [place] [id number], [phone] ondansetron (Zofran 4 mg oral tablet) 1 [...] 7 Days. Refills: 0. Last Dose: hydrocodone-acetaminophen ([place] 5 mg-325 mg oral tablet) 1 Tabs [...] a meal. Last Dose: [facility] [facility], [address], [place] [id number], [phone] ondansetron (Zofran 4 mg oral tablet) 1 [...] hours for 7 Days. Refills: 0. hydrocodone-acetaminophen ([place] 5 mg-325 mg oral tablet) 1 Tabs [...] Follow up: With: Address: When: Romy Samayoa [address] [place] [id number] [id number] Business (1) Within 1 to 2 days Discharge Orders: Discharge Patient 12/01/18 9:58:00 EDT, Discharge to Home, Self Discharge Special Instructions Your appointment is scheduled with [facility] [address] [place] [address]. Discharge Special Instructions If you are unable to make this appointment, please call the office at [phone]. Discharge Special Instructions Please arrive by 8:00AM the next business day for your appointment. Business days are Tuesday through Tuesday. Discharge Special Instructions Please DO NOT EAT or DRINK anything after midnight the night before your appointment. PLEASE DO NOT EAT BREAKFAST. Discharge Special Instructions Please strain your urine as instructed until your appointment at [facility]. Return to Work/School 12/01/18 10:10:00 EDT, 12/02/18 8:00:00 EDT, 12/01/18 10:10:00 EDT Patient Education Information: KIDNEY STONE w/ [facility] Poison Help line: . [facility] Hotline: [place] Tobacco Quit Line: [place], [place]) [address]: [phone] [place], [place]) [address]: [phone] [facility] [address] [place], [place]: [phone] [facility] HospitalED Note-Physicianon [id number] Note-Physician Chief Complaint pt to er for [...] normal, Bowel sounds: normal, active, Palpitation: abdomen issoft, Indicators: Shea?s sign is negative, McBurney?s point [...] in this document, created by the medical health researcher for me, accurately reflects the services I personally performed and the decisions made by me. This report has been created using voice recognition software. It may contain minor errors which are inherent in voice recognition technology. Assessment/Plan This is a [38]-year-old male who presented to the ED for evaluation of [lL] flank pain radiating tothe [L] lower quadrant, on presentation to the [...] 12/01/18 9:56:00 EDT, STAT, Dispense From Location: [facility], UTI/Pyelonephritis ciprofloxacin, 1 tabs, Oral, q12hr, X 7 days, # 14 tabs, 0 Refill(s), 12/08/18 9:57:00 EDT hydrocodone-acetaminophen, 1 tabs, Oral, q4hr, PRN, X 3 days, # 18 tabs, 0 Refill(s), 12/04/18 9:52:00 EDT ondansetron, 1 tabs, Oral, q8hr, PRN, # 15 tabs, 0 Refill(s), Pharmacy: [facility] tamsulosin, 1 caps, Oral, Daily, # 7 caps, 0 Refill(s), Pharmacy: [facility] [address] 2. Renal colic Ordered: ciprofloxacin, 500 mg, Oral, Tab, Once, First Dose: 12/01/18 9:56:00 EDT, Stop Date: 12/01/18 9:56:00 EDT, STAT, Dispense From Location: [facility], UTI/Pyelonephritis 3. Lung nodule Ordered: ciprofloxacin, 500 mg, Oral, Tab, Once, First Dose: 12/01/18 9:56:00 EDT, Stop Date: 12/01/18 9:56:00 EDT, STAT, Dispense From Location: [facility], UTI/Pyelonephritis Orders: sodium chloride, 10 mL, IV Push, Injection, As Indicated, PRN flush, First Dose: 12/01/18 7:37:00 EDT, Dispense From Location: [facility] Sodium Chloride 0.9% intravenous solution 1,000 [...] was the patient and he will follow-up withhis PCP as he will need to have CT scan of the chest outpatient as suggested by radiology. Patient and family voiced understanding and will follow-up as instructed. Electronically signed by Shanti Mabry MD 12/01/18 10:14 EDT Elif Fox NNormalRegency Hospital Company SystemUA w Culture if Indon 12-01-2018 Color (U)YellowNormalRegency Hospital Company SystemComment on above:Performed By: #### UCI #### [address], [place] [address]Orhlgzt (U) [Mass/Vol]NegativeNormalNegativeRegency Hospital Company SystemComment on above:Performed By: #### UCI #### [address], [place] [address]Tqoobmh Ql (U)NegativeNormalNegativeRegency Hospital Company SystemComment on above:Performed By: #### UCI #### [address], [place] [id number] BloodLargeAbnormalNegOhioHealth Arthur [facility] Comment on above:Performed By: #### [facility] #### [address], [place] [address]XO ClarityHazyNormalRegency Hospital Company SystemComment on above:Performed By: #### [facility] #### [address], [place] [address]GQ Leukocyte EsteraseTraceAbnormalNegCity Hospital SystemComment on above:Performed By: #### [facility] #### [address], [place] [address]HO NitriteNegativeNormalNegativeRegency Hospital Company System Comment on above:Performed By: #### [facility] #### [address], [place] [address]DG pH5.4Wymbij2.5 - 7.8BParkview Health Montpelier HospitalComment on above:Performed By: #### [facility]CI #### [address], [place] [address]WK ProteinNegativeNormalNegativeMemorial [facility] Comment on above:Performed By: #### [facility] #### [address] [address]EY SourceClean CatchNormalMemorial Health System Selby General HospitalComment on above:Performed By: #### [facility] #### [address] [address]QG Spec Grav1.146Cbcctp5.003-1.035[facility] HospitalComment on above:Performed By: #### [facility] #### [address] [address]FW Urobilinogen0.2 mg/dLNormal0.2 - 1.0[facility] HospitalComment on above:Performed By: #### [facility] #### [address] [address]Xpqecbrsuhde Qn (U)NegativeNormalNegativeMemorial Health System Selby General HospitalComment on above:Performed By: #### [facility] #### [address] [address] Vital Signs Date TimeVital SignValuePerforming EsmdeemhhBmgbibxi24-64-8245 15:20-0500Blood Pressure LocationMichael NILL [facility]02-14-2024 15:20-0500Diastolic blood pyflujna82 mm[Hg]Donnell NILL [facility] Surgery Klrbslrr24-62-1636 15:20-0500Heart rate 72 /minMichael NILL [facility]02-14-2024 15:20-0500 Respiratory rate16 /minMichael NILL [facility]02-14-2024 15:20-0500Systolic blood ruueuxse700 mm[Hg]Donnell NILL [facility] [place] Encounters Encounter DateEncounter TypeCare ProviderFacilityStart: 02-28-2024 End: 06-11-5621mccpkxvsdjRycumns HARWOODFacility:[facility] and WellnessStart: 01-23-2024 End: 38-99-1734hpmzvkzijhYbtvpsh HoyFacility:EU [place]vueStart: 01-23-2024 End: 59-17-0657Igtotzp encounter procedurePatrick R PANTOJA [facility] start: 06-29-2023 End: 21-21-2828vnoqstyueiUtqkfhq R NILLFacility: tart: 06-29-2023 End: 65-06-8387Elbmhim encounter procedureMichael R NILL [facility] [place]/Said Katie Start: 19-18-3572hfkifqqpmtCqttnlk HARWOODFacility:EU [place]kyStart: 10-06-2022 End: 34-00-6933bcloguhlnnQL ROMY HOY .Facility:C1Jeqzk: 08-18-2022 End: 52-14-7562gualkbiklsSX ROMY HOY .Facility:D2Fzlgx: 07-22-2022 End: 97-54-3773tisngatbofAQ ROMY HOY .Facility:S3Rivsa: 06-23-2022 End: 19-96-0407wjqmxdjnfnNG ROMY HOY .Facility:V7Qpexq: 05-26-2022 End: 95-99-4484ilhrvsruypVZ ROMY HOY .Facility:B2Otlil: 54-92-6873bodnjqbmiv DR ROMY HOY .Facility:Z5Mfwkw: 03-15-2022 End: 44-45-9796oaylqqgbzeUV ROMY HOY .Facility:K9Dblah: 02-19-2022 End: 29-69-8240rerzmtttmnDT ROMY HOY .Facility:K2Jhvuk: 01-27-2022 End: 59-28-2108ykuvuuhjynLG ROMY HOY .Facility:A1Glzoc: 01-08-2022 End: 77-30-9049pvnkonydqnTC ROMY HOY .Facility:G1Ljqwf: 12-18-2021 End: 92-34-1384hsggnrqvahVC ROMY HOY .Facility:P2Gkhcm: 12-15-2021 End: 47-23-8634tokaqlqowdGR ROMY HOY .Facility:Y4Dzgpy: 11-02-2021 End: 47-95-2144zahsgikueiPE ROMY HOY .Facility:W2Kmfot: 12-01-2018 End: 99-94-1056Zmziiyxsz department patient visitISLAM BASHIR MABRY Facility:[facility] Procedures DateProcedureProcedure DetailPerforming ClinicianStart: 06-05-7534Biqnqoqgttq Donnell NILL Start: 96-83-8082LqznypxcyjhlxaeevgfwaomouwKbjeduj NILL AppendectomyMichael NILL CholecystectomyMichael NILL TonsillectomyMichael NILL Immunizations Immunization DateImmunizationNotesCare UepxhtypNyizznuf90-87-4234OJDU-OoG-2 (COVID-19) mRNA BNT-162b2 vaxMichael NILL [facility] BellevueNEGATED: Highlighted row has not occurred!66-56-7822oanehzong virus vaccine, unspecified formulationMichael NILL [facility] [place] Payers DatePayer CategoryPayerPolicy [id number] [id number] 2.16.840.1.268216.3.579.2.196 [id number] 2.16.840.1.073879.3.57[id number] 2.16840.1.793432.3.57[id number] 2.16.840.1.255106.3.57[id number] 2.16840.1.346638.3.57[id number] 2.840.1.850048.3.57[id number] 2.16840.1.586053.3.57[id number] 2.840.1.288347.3.57[id number] 2.840.1.001127.3.57[id number] 2.840.1.225173.3.57[id number] 2.840.1.622722.3.57[id number] 2.840.1.566406.3.57[id number] 2.840.1.236999.3.57[id number] 2.840.1.337137.3.57[id number] 2.840.1.057799.3.57[id number] 2.16840.1.195116.3.579.2.36854-31-2313Vzkk-cxd10786344786-69-4126Nstgxwd [id number] Social History DateTypeDetailFacilityStart: 22-59-7629Rkzujfw smoking statusHeavy tobacco smoker (finding)[facility] BellevueTobacco smoking statusSmokeless tobacco user within last 30 daysGeneral Surgery BellevueSex [facility] Status ZaviHbvefqmgwfXxhklbGtcgrkto98-12-2681Jeemlojaob StatusN/AGeneral Surgery Katie Clinical Note 06-29-2023 Note Date & KsxeFukwNwacksju16-40-4028 NoteChief Complaint consultation for abdominal pain HPI Staff [...] not take often as it worsens constipation. Deniesrectal pain or bleeding. Reports intermittent nausea. Denies [...] abd pain, no triggers, worse when constipated; patientdenies change in bms, occasional red blood with [...] swallowing difficulties, no hearing loss, no ear infection(s),no nose bleeds. Cardiovascular: normal blood pressure, no [...] Chronic generalized abdominal pain (more content not included)...[facility] HospitalComment on above:Result Comment: Electronically Signed By: CHASE MULLIGAN, Donnell House\.amada\Date and Time Signed: 06/29/23 21:30 EST Hospital Discharge instructions 06-08-2023 Note Date & YkwjEopuXavtasso41-28-7403 Hospital Discharge instructions Follow Up Care 06/08/2023 13:31:23 With:CARROLL MULLIGAN, Doron House, URL Address: [facility] [address] , [place] [phone] When: Unknown [facility] Evaluation + Plan note Note Date & TypeNoteFacilityEvaluation + Plan note Future Appointments Appointment Date:10/17/2023 12:00:00 PM Scheduled Provider:Doron PANTOJA MD Location:[facility] Appointment Type:URO New Patient [facility] [place] Hospital course Narrative Note Date & TypeNoteFacilityHospital course Narrative No data available for this section [facility] [place] Hospital Discharge instructions Note Date & TypeNoteFacilityHospital Discharge instructions No data available for this section [facility] [place] Progress note Note Date & TypeNoteFacilityProgress note No data available for this section [facility] [place] Summary Purpose Family History No Family History [...] section and content) DATE CREATED AUTHOR 12/01/2018 [facility] DATE CREATED AUTHOR AUTHOR'S ORGANIZ ATION 10/22/2022 [facility] DATE CREATED AUTHOR AUTHOR'S ORGANIZ ATION 03/01/2024 [facility] Patient Care team informatio n (unrecognized section and content) Personnel Name: Romy Samayoa MD Address: Address: [address] [place] [address] Personnel Name: Romy Samayoa MD Address: Address: [address] [place] [address] FOR RECORDS PERTAINING TO PATIENTS WHO ARE [...] BE BASED ON THE PRIMARY CLINICAL RECORDS. [facility] provides no warranty or guarantee of the accuracy or completeness of information in this document.
[2025-03-26 12:05] LABS: Cannabinoid Screen Urine NEGATIVE (NEGATIVE); Methamphetamines Screen Urine NEGATIVE (NEGATIVE); Tricyclic Antidepressant Urine NEGATIVE (NEGATIVE)
[2025-03-27 12:09] LABS: Uric Acid, Urine 40.3 mg/dL (Not Estab.)
== END 2025-03-26 11:19 | disposition home or self-care (01) ==
LOC: LAB 11:18
PROVIDERS: PCP Family Medicine; Visit Provider Family Medicine
DX: Z79.899 Other long term (current) drug therapy (principal)
CPT/HCPCS: 80307; 80326; 80331; 80334; 80337; 80338; 80341; 80344; 80347; 80348; 80353; 80354; 80355; 80357; 80358; 80359; 80360; 80361; 80364; 80365; 80366; 80367; 80368; 80370; 80371; 80372; 80373; 80377; 82570; 83992; 84560